=== PATIENT | male | born 1965 | race Caucasian/White ===

== ENCOUNTER 2023-01-30 22:05 | Emergency (ER) | payer MEDICAID, SELFPAY ==
[2023-01-30 22:07] VITALS: BP 139/93; PULSE 104; RESP 24; TEMP 36.6; O2SAT 97; BMI 30.4
--- NOTE | 2023-01-30 22:15 | ED.RN ---
family reports pt has not been taking any medications since moving in with them June 2020.
[2023-01-30 23:02] LABS: Absolute Lymphocyte Count 1.55 X10^3/uL (0.83-4.51); Absolute Neutrophil Count 9.3 X10^3/uL (2.0-7.7); Basophil# 0.03 X10^3/uL; Basophil% 0.3 % (0-1); Hematocrit 47.5 % (40-54); Hemoglobin 15.2 g/dL (13.0-16.5); Lymphocyte # 1.55 X10^3/ul (0.83-4.51); Lymphocyte % 13.5 % (19-41); Mean Corpuscular Hgb 28.3 pg (27.0-32.0); Mean Corpuscular Volume 88.3 fL (80-94); Mean Platelet Vol. 11.5 fl (6.2-12.0); Monocyte# 0.59 X10^3/uL; Monocyte% 5.1 % (0-10); NRBC Flagged by Analyzer 0 % (0-5); Neutrophil # 9.27 X10^3/uL (2.7-7.7); Neutrophil % 80.5 % (47-70); Platelet Count 210 K/mm3 (150-450); RBC Distribution Width CV 14.1 % (11.6-14.6); RBC Distribution Width SD 45.2 fl (35.1-43.9); Red Blood Count 5.38 M/mm3 (4.6-6.2); White Blood Count 11.5 K/mm3 (4.4-11.0)
--- NOTE | 2023-01-30 23:14 | EDS_ITS ---
HPI History of Present Illness Chief Complaint: Unresponsive Narrative Narrative: Patient is a 57-year-old male with past medical history of schizoaffective disorder. He was diagnosed with this after spending 5 to 7 days in a psychiatric hospital in 2019. He was taken from the hospital by his sisters who care for him at home and he has not been on medication for the past 2 to 3 years. Family reports that he will have periods where he is mute. They state they last saw him yesterday January 29 around 8 PM at his baseline. They state this evening they went to check on him and he was awake sitting in his chair but he was not speaking. They state that this is slightly more intense/severe than his previous episode. They also state they have noticed some blood on his close and they are unsure where it is coming from. They do have concern that this could be neurologic in nature as his weakness is more intense than in the past and therefore he was brought in for evaluation. The patient is not offering any history as he is mute at this time. PFSH PFS Medical History Schizophrenia Home Medications NK 01/30/23 [History Last Taken Unknown] Allergy/AdvReac Type Severity Reaction Status Date / Time No Known Allergies Allergy Verified 01/30/23 22:06 Social History Smoking Status: Never smoker ROS ROS ED Review of Systems ROS Unobtainable: due to mental condition EXAM Physical Exam Const Vital Signs: 01/30/23 22:07 01/31/23 00:06 01/31/23 00:45 Temperature 97.8 F Temperature Source Temporal Pulse Rate 104 H 99 93 Respiratory Rate 24 H 18 20 H Blood Pressure 139/93 H 153/90 H 141/90 H Blood Pressure Mean 108 111 107 Pulse Ox 97 100 98 Oxygen Delivery Method Room Air Room Air Room Air 01/31/23 01:59 01/31/23 03:00 01/31/23 04:00 Temperature Temperature Source Pulse Rate 98 82 80 Respiratory Rate 17 17 16 Blood Pressure 136/85 H 121/79 H 123/73 H Blood Pressure Mean 102 93 89 Pulse Ox 97 97 98 Oxygen Delivery Method Room Air Room Air Room Air 01/31/23 05:00 Temperature Temperature Source Pulse Rate 74 Respiratory Rate 17 Blood Pressure 126/69 H Blood Pressure Mean 88 Pulse Ox 99 Oxygen Delivery Method Room Air Positive well nourished, well developed and unkempt General Appearance ED: unkempt and well developed HEENT Reports moist mucous membranes HEENT Narrative: No tongue or cheek biting no oral lesions no signs of infection in the posterior pharynx Eyes PERRL and EOMs intact bilaterally General Eye ED: Negative for scleral icterus Neck supple Neck Narrative: No nuchal rigidity or meningeal signs noted Chest Wall palpation of chest normal Resp normal respiratory effort and clear to auscultation bilaterally Cardio regular rate and regular rhythm Rate: other Other Details: Radial pulses are plus 2 out of 4 bilaterally are equal and symmetric GI normal to inspection, nondistended, normoactive bowel sounds, non-tender, non- distended and no masses GI Narrative: No voluntary guarding or rigidity no pulsatile mass Auscultation: normoactive bowel sounds Palpation: soft Narrative: Rectal exam shows nonbleeding nonthrombosed external hemorrhoid. Rectal tone is normal there is no internal masses palpated. Stool is mucousy brown in color and Hemoccult negative. Extremity normal to inspection Extremity Narrative: No bony deformity or joint effusion. No asymmetric edema no pitting edema negative Homans' sign bilaterally Neuro CN's II-XII intact bilaterally Neuro Narrative: Patient is awake and alert and will follow commands but he will not speak. Other than his weakness there is no focal neurologic deficit. No truncal ataxia. No unilateral extremity weakness. Sensorium / Orientation: alert Psych Psych Narrative: Patient has a flat affect Appearance: unkempt Skin no rashes or lesions noted MDM MDM MDM Narrative Medical decision making narrative: Patient presented to the ER with stable vitals. He was mute and refusing to speak but can move all extremities with track with his eyes and follow commands such as opening his mouth. Based on his past medical history of schizoaffective disorder not being on medications for multiple years I felt he was experiencing negative symptoms of his mental illness. Family had concern for possible stroke however based on the report that he has never been this severe and secondary to this basic labs along with a CT and CTA were obtained. Labs revealed no clinically significant findings such as acute anemia electrolyte disturbance or alcohol intoxication. CT and CTA revealed no signs of bleed or acute stenosis. The patient was informed of his negative work-up but despite hearing this he still remained mainly catatonic. He is demonstrating that he is not capable of caring for himself and as he will not ambulate family cannot care for him either. Therefore it is felt he will need psychiatric treatment and crisis center was contacted. Crisis center evaluated the patient in the ER and they do agree that based on his severe negative symptoms that he will need placed for further care. At this time the patient's work-up is negative and he is medically cleared for transfer/placement in a psychiatric facility The patient is still pending acceptance at a psychiatric hospital and therefore he will be signed out to Dr. Mota/the [facility] physician pending placement History & Record Review Discussion w/independent historian: Family Lab Data Attestation: I reviewed the patient's lab results. Labs: Laboratory Results - last 24 hr 01/30/23 01/30/23 01/31/23 21:55 21:55 03:25 WBC 11.5 H RBC 5.38 Hgb 15.2 Hct 47.5 MCV 88.3 MCH 28.3 MCHC 32.0 RDW Std Deviation 45.2 H RDW Coeff of Antony 14.1 Plt Count 210 MPV 11.5 Immature Gran % (Auto) 0.600 Neut % (Auto) 80.5 H Lymph % (Auto) 13.5 L [place] % (Auto) 5.1 Eos % (Auto) 0.0 Baso % (Auto) 0.3 Absolute Neuts (auto) 9.3 H Absolute Lymphs (auto) 1.55 Nucleated RBC % 0 Sodium 145 Potassium 3.8 Chloride 110 H Carbon Dioxide 25.0 Anion Gap 10 BUN 16 Creatinine 1.02 Estim Creat Clear Calc 71.24 Est GFR (MDRD) Af Amer 96 Est GFR (MDRD) Non-Af 80 BUN/Creatinine Ratio 15.7 Glucose 117 H Calcium 9.7 Urine Opiates Screen Urine Methadone Screen Ur Barbiturates Screen Ur Phencyclidine Scrn Ur Amphetamines Screen MDMA (Ecstasy) Screen U Benzodiazepines Scrn Urine Cocaine Screen U Cannabinoids Screen Ur Drug Screen Comment Ethyl Alcohol < 3.0 01/31/23 04:10 WBC RBC Hgb Hct MCV MCH MCHC RDW Std Deviation RDW Coeff of Antony Plt Count MPV Immature Gran % (Auto) Neut % (Auto) Lymph % (Auto) [place] % (Auto) Eos % (Auto) Baso % (Auto) Absolute Neuts (auto) Absolute Lymphs (auto) Nucleated RBC % Sodium Potassium Chloride Carbon Dioxide Anion Gap BUN Creatinine Estim Creat Clear Calc Est GFR (MDRD) Af Amer Est GFR (MDRD) Non-Af BUN/Creatinine Ratio Glucose Calcium Urine Opiates Screen NEGATIVE Urine Methadone Screen NEGATIVE Ur Barbiturates Screen NEGATIVE Ur Phencyclidine Scrn NEGATIVE Ur Amphetamines Screen NEGATIVE MDMA (Ecstasy) Screen NEGATIVE U Benzodiazepines Scrn NEGATIVE Urine Cocaine Screen NEGATIVE U Cannabinoids Screen NEGATIVE Ur Drug Screen Comment Ethyl Alcohol Radiography Diagnostic Testing: Clinical Impression(s) from Imaging Studies Head/Neck CTA 01/31/23 00:00 IMPRESSION: Negative CT Brain, CTA Carotid, and CTA Brain. Electronically Signed: Bethany Manzano MD at 0:28 EDT , Discharge Plan Triage Chief Complaint: Unresponsive ED Provider: Zeferino Robbins Dx/Rx/DC Orders Clinical Impression: Schizoaffective disorder, depressive type, with catatonia Prescriptions: No Action NK Primary Care Provider: Care Physician,No Primary Referrals: Care Physician,No Primary [Primary Care Provider] - Disposition Disposition: Psychiatric Hospital or Unit
[2023-01-30 23:16] LABS: Anion Gap 10 (5-15); BUN 16 mg/dL (7-18); BUN/Creat Ratio 15.7 RATIO (10-20); Calcium,Total 9.7 mg/dL (8.5-10.1); Chloride 110 mmol/L (98-107); Creatinine, Serum 1.02 mg/dL (0.70-1.30); EST Glomerular Filtration Rate 80 mL/min (>60); Est Glom Filt Rate - Afr Amer 96 mL/min (>60); Estimated Creatinine Clearance 71.24 ml/min; Glucose 117 mg/dL (74-106); Potassium 3.8 mmol/L (3.5-5.1); Sodium Level 145 mmol/L (136-145)
[2023-01-30] MEDS: 0.9% Normal Saline 1,000 ML 999 ML IV (23:31)
[2023-01-31] VITALS (10 sets, daily range): BP systolic 121–153; BP diastolic 69–90; PULSE 74–99; RESP 16–20; TEMP 37.2; O2SAT 95–100; BMI 30.2
--- NOTE | 2023-01-31 | CT_ITS ---
INDICATION: weakness EXAMINATION: CT BRAIN WITH CONTRAST TECHNIQUE: Noncontrast axial images were obtained of the brain. Subsequently, routine carotid CT angiogram protocol was performed without and with IV contrast. In addition, images were obtained of the [place]. NASCET criteria using the distal ICAs for comparison were used for evaluation of stenoses. 3D reconstructions were reviewed. A radiation dose optimization technique was used for this scan. IV Contrast dosage and agent: COMPARISON: None. FINDINGS: --CT BRAIN: BRAIN PARENCHYMA: No intra- or extra-axial hemorrhage. No evidence of acute infarct. No intracranial mass or mass effect. There is preservation of the [place]/white matter interface. Posterior fossa structures are unremarkable. CSF SPACES: Appropriate for age. No hydrocephalus. Basal cisterns are patent. CALVARIUM, SKULL BASE, PARANASAL SINUSES AND MASTOID AIR CELLS: Clear. No discrete lytic or blastic abnormalities. ASPECTS Score for Acute Strokes: 10 --CTA NECK: AORTIC ARCH AND BRANCHES: Normal anatomy, patent. RIGHT CCA: No occlusion, significant stenosis or dissection. RIGHT ICA: No occlusion, significant stenosis or dissection. LEFT CCA: No occlusion, significant stenosis or dissection. LEFT ICA: No occlusion, significant stenosis or dissection. RIGHT VERTEBRAL ARTERY: No occlusion, significant stenosis or dissection. LEFT VERTEBRAL ARTERY: No occlusion, significant stenosis or dissection. NECK SOFT TISSUES: Unremarkable. --CTA HEAD: --Anterior circulation: ICAs: No significant stenosis at the intracranial/visualized segments. ACAs: No significant stenosis at the visualized segments. ACOM: Present. MCAs: No significant stenosis at the visualized segments. --Posterior circulation: tipple oiler: No significant stenosis at the visualized segments. BASILAR ARTERY: No significant stenosis. VERTEBRAL ARTERIES: No significant stenosis at the intradural/visualized segments. No evidence of intracranial aneurysm or vascular malformation. CT/CTA Head AND Neck W/ Contrast IMPRESSION: Negative CT Brain, CTA Carotid, and CTA Brain. Electronically Signed: Bethany Manzano MD at 0:28 EDT ,
--- NOTE | 2023-01-31 01:57 | ED.RN ---
PT ROLLED ON HIS RIGHT SIDE AND URINATED ON THE FLOOR. BED CHANGE, BILL CARE DONE AND NEW ATTENDS APPLIED. PT IS AWAKE BUT NONVERBAL
--- NOTE | 2023-01-31 02:13 | ED.RN ---
CRISIS PAGED TO SEE PATIENT AT THIS TIME
--- NOTE | 2023-01-31 03:15 | ED.RN ---
CRISIS HERE TO SEE PATIENT AT THIS TIME
--- NOTE | 2023-01-31 03:18 | EKG12_ITS ---
Test Reason : MHC Blood Pressure : / mmHG Vent. Rate : 083 BPM Atrial Rate : 083 BPM P-R Int : 132 ms QRS Dur : 088 ms QT Int : 384 ms P-R-T Axes : 000 026 021 degrees QTc Int : 451 ms Normal sinus rhythm Possible Inferior infarct , age undetermined Abnormal ECG Confirmed by ARMANDO HANSEN, JAZMINE ([id number]), production editor AZRA MOSER ([id number]) on 02/02/2023 6:56:08 AM Referred By: Confirmed By:LONNY ROBERTS MD
[2023-01-31 04:00] LABS: Alcohol, Blood (Medical)-Serum < 3.0 mg/dL
[2023-01-31 04:42] LABS: Amphetamine Urine VISTA NEGATIVE (<1000 ng/mL); Barbiturate Urine VISTA NEGATIVE (< 200 ng/mL); Benzodiazepine Urine VISTA NEGATIVE (< 200 ng/mL); Cocaine Urine VISTA NEGATIVE (< 300 ng/mL); Ecstacy Urine VISTA NEGATIVE (< 500 ng/mL); Methadone Urine VISTA NEGATIVE (< 300 ng/mL); PCP Urine VISTA NEGATIVE (< 25 ng/mL); THC Urine VISTA NEGATIVE (< 50 ng/mL); Vista UDS pH Range 6
--- NOTE | 2023-01-31 10:23 | NURSING ---
MARYAN, CHELSEY, CALLED. SHE IS DOING HIS ACCESSEMENT WITH THE SISTER. ASKED FOR EKG, COVID AND TOX SCREEN TO BE FAXED. DONE
--- NOTE | 2023-01-31 13:59 | NURSING ---
[facility] CALLED BY CRISIS. ETA IS 2 HRS NURSE TO NURSE IS [phone]
--- NOTE | 2023-01-31 17:06 | NURSING ---
HUMBERTO CALLED, 09 MIIN AWAY
== END 2023-01-31 18:03 ==
PROVIDERS: Emergency Provider Emergency Medicine; Visit Provider Emergency Medicine
DX: F25.9 Schizoaffective disorder, unspecified (principal); F32.A Depression, unspecified
CPT/HCPCS: 70496; 70498; 80048; 80307; 82077; 82274; 85025; 87811; 93005; 99285; J7030; P9612; Q9967; A4216

== ENCOUNTER 2023-02-23 13:08 | Emergency (ER) | payer MEDICAID, SELFPAY ==
[2023-02-23 13:10] VITALS: BP 116/74; PULSE 114; RESP 22; TEMP 37; O2SAT 97; BMI 30.5
--- NOTE | 2023-02-23 13:25 | ED.RN ---
PT IS ANSWERING BY NODDING HIS HEAD YES OR NO. DENIES PAIN OR INJURY, REFUSING ANY FOOD AT THIS TIME
--- NOTE | 2023-02-23 13:43 | CT_ITS ---
STUDY: CT BRAIN WITHOUT CONTRAST REASON FOR EXAM: Male, 58 years old. Change in Mental Status RADIATION DOSAGE (If Supplied By Facility): CTDIvol = ( 44.99 ) mGy, DLP = ( 855.03 ) mGycm TECHNIQUE: Transaxial CT imaging of the brain was performed without administration of intravenous contrast material. Individualized dose optimization techniques were used for this CT. COMPARISON: No relevant priors. FINDINGS: Normal soft tissue structures. Normal calvarium. Normal size ventricles and extra-axial spaces for the patient''s age. Normal white matter tracts of the cerebral hemispheres. Normal basal ganglia and thalami. Normal brainstem. Normal cerebellum. There is no intracranial hemorrhage. There are no findings of an acute ischemic infarction. Normal visualized paranasal sinuses. CT/Brain/Head without Contrast IMPRESSION: Normal unenhanced CT scan of the brain. Electronically Signed: Augustus Rainey MD at 14:16 EDT ,
--- NOTE | 2023-02-23 13:43 | EDS_ITS ---
HPI History of Present Illness Chief Complaint: Alt LOC Detail of Chief Complaint: Mental status change Informant: patient and EMS Narrative Narrative: Patient brought to the emergency department via EMS. Patient apparently was wandering the road and was not verbal. Patient has history of schizophrenia. Patient will not verbalize but will nod his head yes and no to questions. He denied injury. He denied chest pain or shortness of breath. He has been having some abdominal pain but it is unclear how long. He nods yes when asked if he had vomiting. He denies diarrhea. Prior similar symptoms: Yes PFSH PFS Medical History Schizophrenia Home Medications benztropine 0.5 mg tablet 0.5 mg PO BID 02/23/23 [History Last Taken Unknown] docusate sodium 100 mg capsule 100 mg PO DAILY 02/23/23 [History Last Taken Unknown] lorazepam 0.5 mg tablet 0.5 mg PO Q8 02/23/23 [History Last Taken Unknown] ziprasidone HCl 20 mg capsule 20 mg PO DAILY 02/23/23 [History Last Taken Unknown] Allergy/AdvReac Type Severity Reaction Status Date / Time No Known Allergies Allergy Verified 01/30/23 22:06 Social History Smoking Status: Never smoker ROS ROS ED Review of Systems ROS Unobtainable: other Constitutional Constitutional ED: Reports lethargy; Denies chills, fever(s), sweats or weight loss Eyes Eyes: Denies blurry vision, change in vision or diplopia ENT ENT ED: Denies rhinorrhea or sore throat Cardiovascular Cardiovascular: Denies chest pain, orthopnea or racing heartbeat Respiratory/Chest Respiratory/Chest: Denies cough, dyspnea, dyspnea on exertion, orthopnea or sputum Gastrointestinal Gastrointestinal: Reports abdominal pain, nausea and vomiting; Denies diarrhea Genitourinary Genitourinary ED: Denies dysuria, hematuria or urinary frequency Musculoskeletal Musculoskeletal: Denies arthralgias, back pain, myalgias or neck pain Integumentary Denies abscess, Abrasions or rash Neurologic Neurologic: Reports other Details: Mental status change ; Denies headache(s) or weakness Psychiatric Psychiatric: Denies anxiety, depression or suicidal thoughts Endocrine Endocrinology: Denies polydipsia, polyphagia or polyuria Hematologic/Lymphatic Hematologic/Lymphatic: Denies easy bleeding, easy bruising or lymphadenopathy Allergic/Immunologic Allergic/Immunologic ED: Denies mouth swelling, tongue swelling or urticaria EXAM Physical Exam Const Vital Signs: 02/23/23 13:10 02/23/23 13:20 02/23/23 14:54 Temperature 98.6 F Temperature Source Oral Pulse Rate 114 H 109 H Respiratory Rate 22 H 18 Respiratory Effort Normal Non-Labored Respiratory Pattern Normal Blood Pressure 116/74 138/79 H Blood Pressure Mean 88 98 Pulse Ox 97 98 Oxygen Delivery Method Room Air Room Air Positive well nourished and well developed General Appearance ED: well developed and NAD HEENT Reports TM's clear and moist mucous membranes normocephalic and atraumatic; Negative for trauma or tenderness Tympanic Membrane ED: Yes TM's clear Eyes PERRL and EOMs intact bilaterally General Eye ED: Negative for pale conjunctiva or scleral icterus Neck no lymphadenopathy, supple and no JVD General: Negative for tenderness Chest Wall inspection of chest normal and palpation of chest normal Chest: Negative for tenderness Resp normal respiratory effort and clear to auscultation bilaterally Effort and Inspection: Negative for respiratory distress or pain with movement Auscultation: Negative for rhonchi, wheezes or diminished lung sounds Cardio regular rate, regular rhythm, S1 normal heart sound, S2 normal heart sound and no murmurs Peripheral Pulses: pulses 2+ throughout GI normal to inspection, nondistended, normoactive bowel sounds, soft to palpation, non-tender, non-distended and no masses Back/Spine no CVA tenderness and no thoracic nor lumbar tenderness Extremity normal to inspection General Extremety ED: Negative for edema General Extremity: Negative for edema Neuro oriented x3, CN's II-XII intact bilaterally, no sensory deficits noted and gait normal Sensorium / Orientation: awake, alert, oriented to person, oriented to place and oriented to time Motor Exam: strength 5/5 throughout and strength abnormal Psych mental status grossly normal Skin no rashes or lesions noted and no wounds MDM MDM MDM Narrative Medical decision making narrative: IV established on arrival. CBC with differential obtained showed an elevated white count of 17,000. Chemistries unremarkable. Patient had a CT brain without contrast that was unremarkable. CT scan of the abdomen pelvis showed umbilical hernia containing fat also a 2.4 x 2.4 cm hypodense nodule along medial portion of the left kidney for which recommended ultrasound to evaluate further. Patient urinalysis and urine tox. Pending. Alcohol was negative. Patient sisters did arrive to the emergency department to give some history. Apparently he was just discharged from a psychiatric facility 2 days ago and he has not been himself. Patient was found wandering more than 5 miles away from the home while the sisters were at work. Care of patient will be turned over to evening physician awaiting evaluation by crisis and final disposition. Patient may require admission for possible placement to senior living or psychiatric facility as it is unclear if patient safe to go back home. Lab Data Labs: Laboratory Results - last 24 hr 02/23/23 02/23/23 02/23/23 13:17 13:17 13:17 WBC 17.0 H RBC 4.88 Hgb 13.8 Hct 43.1 MCV 88.3 MCH 28.3 MCHC 32.0 RDW Std Deviation 48.9 H RDW Coeff of Antony 15.2 H Plt Count 184 MPV 12.7 H Immature Gran % (Auto) 0.400 Neut % (Auto) 88.7 H Lymph % (Auto) 4.5 L Mcdonald % (Auto) 6.2 Eos % (Auto) 0.0 Baso % (Auto) 0.2 Absolute Neuts (auto) 15.1 H Absolute Lymphs (auto) 0.76 L Nucleated RBC % 0 Sodium 142 Potassium 3.9 Chloride 105 Carbon Dioxide 26.0 Anion Gap 11 BUN 12 Creatinine 1.20 Estim Creat Clear Calc 55.50 Est GFR (MDRD) Af Amer 80 Est GFR (MDRD) Non-Af 66 BUN/Creatinine Ratio 10.0 Glucose 93 Calcium 9.2 Total Bilirubin Direct Bilirubin AST ALT Alkaline Phosphatase Total Protein Albumin Globulin Ethyl Alcohol < 3.0 02/23/23 13:17 WBC RBC Hgb Hct MCV MCH MCHC RDW Std Deviation RDW Coeff of Antony Plt Count MPV Immature Gran % (Auto) Neut % (Auto) Lymph % (Auto) [place]cdonald % (Auto) Eos % (Auto) Baso % (Auto) Absolute Neuts (auto) Absolute Lymphs (auto) Nucleated RBC % Sodium Potassium Chloride Carbon Dioxide Anion Gap BUN Creatinine Estim Creat Clear Calc Est GFR (MDRD) Af Amer Est GFR (MDRD) Non-Af BUN/Creatinine Ratio Glucose Calcium Total Bilirubin 0.60 Direct Bilirubin 0.20 AST 27 ALT 27 Alkaline Phosphatase 32 L Total Protein 7.1 Albumin 3.4 Globulin 3.7 Ethyl Alcohol Radiography Diagnostic Testing: Clinical Impression(s) from Imaging Studies Brain CT 02/23/23 13:43 IMPRESSION: Normal unenhanced CT scan of the brain. Electronically Signed: Augustus Rainey MD at 14:16 EDT , Abdomen/Pelvis CT 02/23/23 14:14 IMPRESSION: Umbilical hernia containing fat. The neck of the hernia measures 2.3 cm. 2.4 cm x 2.4 cm hypodense nodule along the medial midportion of the left kidney with calcific rim posteriorly. Correlation with ultrasound is recommended for further evaluation. Electronically Signed: Augustus Rainey MD at 15:19 EDT , Discharge Plan Triage Chief Complaint: Alt LOC ED Provider: Salome Newell Dx/Rx/DC Orders Clinical Impression: Altered mental status, Schizophrenia Prescriptions: No Action benztropine 0.5 mg tablet 0.5 mg PO BID Label Comments: TAKE 1 TABLET BY MOUTH TWICE DAILY ziprasidone HCl 20 mg capsule 20 mg PO DAILY Label Comments: TAKE 1 CAPSULE BY MOUTH ONCE DAILY lorazepam 0.5 mg tablet 0.5 mg PO Q8 Label Comments: TAKE 1 TABLET BY MOUTH EVERY 8 HOURS FOR ANXIETY docusate sodium 100 mg capsule 100 mg PO DAILY Label Comments: TAKE 1 CAPSULE BY MOUTH TWICE DAILY Primary Care Provider: Care Physician,No Primary Referrals: Care Physician,No Primary [Primary Care Provider] -
[2023-02-23 13:55] LABS: Absolute Lymphocyte Count 0.76 X10^3/uL (0.83-4.51); Absolute Neutrophil Count 15.1 X10^3/uL (2.0-7.7); Basophil# 0.04 X10^3/uL; Basophil% 0.2 % (0-1); Hematocrit 43.1 % (40-54); Hemoglobin 13.8 g/dL (13.0-16.5); Lymphocyte # 0.76 X10^3/ul (0.83-4.51); Lymphocyte % 4.5 % (19-41); Mean Corpuscular Hgb 28.3 pg (27.0-32.0); Mean Corpuscular Volume 88.3 fL (80-94); Mean Platelet Vol. 12.7 fl (6.2-12.0); Monocyte# 1.06 X10^3/uL; Monocyte% 6.2 % (0-10); NRBC Flagged by Analyzer 0 % (0-5); Neutrophil # 15.06 X10^3/uL (2.7-7.7); Neutrophil % 88.7 % (47-70); Platelet Count 184 K/mm3 (150-450); RBC Distribution Width CV 15.2 % (11.6-14.6); RBC Distribution Width SD 48.9 fl (35.1-43.9); Red Blood Count 4.88 M/mm3 (4.6-6.2)
[2023-02-23 14:05] LABS: Anion Gap 11 (5-15); BUN 12 mg/dL (7-18); Calcium,Total 9.2 mg/dL (8.5-10.1); Chloride 105 mmol/L (98-107); EST Glomerular Filtration Rate 66 mL/min (>60); Est Glom Filt Rate - Afr Amer 80 mL/min (>60); Glucose 93 mg/dL (74-106); Potassium 3.9 mmol/L (3.5-5.1); Sodium Level 142 mmol/L (136-145)
[2023-02-23 14:12] LABS: Alcohol, Blood (Medical)-Serum < 3.0 mg/dL
--- NOTE | 2023-02-23 14:14 | CT_ITS ---
STUDY: CT ABDOMEN AND PELVIS WITHOUT CONTRAST REASON FOR EXAM: Male, 58 years old. Abdominal pain and emesis. RADIATION DOSAGE (If Supplied By Facility): CTDIvol = ( 47.06 ) mGy, DLP = ( 855.03 ) mGycm TECHNIQUE: Transaxial images were obtained from the dome of the diaphragm to the symphysis pubis without oral contrast, and without intravenous contrast. Sagittal and coronal images were reconstructed. Individualized dose optimization techniques were used for this CT. COMPARISON: None. FINDINGS: Calcified granuloma in the left lower lobe. Coronary artery calcification. Normal liver. There are surgical clips in the gallbladder fossa consistent with a prior cholecystectomy. Normal spleen. Normal pancreas. Normal bilateral adrenal glands. Normal right kidney. There is a 2.4 cm x 2.4 cm hypodense nodule on the medial midportion of the left kidney with the calcific rim along its dependent portion. This is not a typical cyst. Correlation with ultrasound is recommended for further assessment. Normal visualized stomach. Normal small intestine. Normal colon. The appendix is visualized and appears normal. Normal abdominal aorta. Normal inferior vena cava. Normal retroperitoneum. Normal urinary bladder. There are prostatic calcifications. Umbilical hernia containing fat. The neck of the hernia measures 2.3 cm. Normal osseous structures. CT/Abdomen/Pelvis without Cont IMPRESSION: Umbilical hernia containing fat. The neck of the hernia measures 2.3 cm. 2.4 cm x 2.4 cm hypodense nodule along the medial midportion of the left kidney with calcific rim posteriorly. Correlation with ultrasound is recommended for further evaluation. Electronically Signed: Augustus Rainey MD at 15:19 EDT ,
[2023-02-23 14:53] LABS: AST(SGOT) 27 U/L (15-37); Alanine Aminotransfer ALT/SGPT 27 U/L (16-61); Albumin, Serum 3.4 g/dL (3.2-5.0); Alkaline Phosphatase 32 U/L (45-117); Globulin 3.7 g/dL (2.2-4.2); Protein, Total 7.1 g/dL (6.4-8.2)
[2023-02-23 14:54] VITALS: BP 138/79; PULSE 109; RESP 18; O2SAT 98
--- NOTE | 2023-02-23 15:42 | ED.RN ---
crisis reports that the next worker comes on at 4pm, and will be in to evaluate pt shortly after that.
[2023-02-23] MEDS: LORazepam 0.5 MG Tablet PO (16:20)
[2023-02-23] MEDS: Benztropine Mesylate 0.5 MG TABLET PO (16:50)
--- NOTE | 2023-02-23 17:22 | ED.RN ---
FAXED INFORMATION TO CRISIS. CRISIS CAME TO HOSPITAL TO EVALUATE. CRISIS SAID SHE WOULD TRY TO GET ADMITTED TO [facility].
[2023-02-23 18:50] VITALS: BP 138/74; PULSE 103; RESP 16; O2SAT 96
--- NOTE | 2023-02-23 20:28 | ED.RN ---
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 NO INSURANCE NO FUNDING LEFT, REFERRED TO [facility]. WILL NEED TOXICOLOGY DONE AND FAXED TO CRISIS.
[2023-02-24] VITALS (7 sets, daily range): BP systolic 130–132; BP diastolic 70–84; PULSE 84–97; RESP 14–20; TEMP 36.7; O2SAT 96–98
[2023-02-24 06:52] LABS: Amphetamine Urine VISTA NEGATIVE (<1000 ng/mL); Barbiturate Urine VISTA NEGATIVE (< 200 ng/mL); Benzodiazepine Urine VISTA NEGATIVE (< 200 ng/mL); Cocaine Urine VISTA NEGATIVE (< 300 ng/mL); Ecstacy Urine VISTA NEGATIVE (< 500 ng/mL); Methadone Urine VISTA NEGATIVE (< 300 ng/mL); PCP Urine VISTA NEGATIVE (< 25 ng/mL); THC Urine VISTA NEGATIVE (< 50 ng/mL); Vista UDS pH Range 5
[2023-02-24] MEDS: Benztropine Mesylate 0.5 MG TABLET PO (16:08)
[2023-02-24] MEDS: LORazepam 0.5 MG Tablet PO ×2 (16:08→22:10)
[2023-02-24] MEDS: Ziprasidone HCl 20 MG Capsule PO (16:08)
--- NOTE | 2023-02-24 17:00 | CM.ED ---
Social Work Note BOOGIE contacted by Jody with [facility] to provide update regarding referral for patient. Jody explained the patient was recently discharged from [facility] but is unable to return as there is no additional funds available for placement there. Referral sent to [facility], however, [facility] is unable to accept referrals this weekend. Patient will be reviewed for acceptance early next week. BOOGIE updated seam hammerer Alyssa of plan. Plan: referral to [facility] for review next week. Randa Florian MANDREL CLEANER, [place]
[2023-02-24 23:17] LABS: Bacteria 0 SEEN /hpf (None Seen); Mucous, Urine 0 SEEN /hpf (<or=2+); Red Blood Cells-Urine 0 SEEN /hpf (0-5)
[2023-02-24 23:21] LABS: Color, Urine Yellow (Yellow); Glucose, Dipstick Normal (Normal); Leukocyte Esterase-Dipstick 25 /ul (Negative); Nitrite-Dipstick Negative (Negative); Occult Blood-Urine Negative /ul (Negative); Protein-Dipstick 30 mg/dl (Negative); Specific Gravity, Urine 1.025 (1.002-1.030); Urine Clarity Sl. Cloudy (Clear); Urine Urobilinogen 1 mg/dl (Normal)
[2023-02-24 23:33] LABS: Ketone-Dipstick 150 mg/dl (Negative); Urine Bilirubin Dipstick 1 mg/dL (Negative)
[2023-02-24 23:36] LABS: White Blood Cells 0-5 SEEN /hpf (0-5)
[2023-02-24 23:37] LABS: Calcium Oxalate Crystals Ur 1+ /hpf (<or=2+); Squamous Epithelial Cells - UA 0-5 SEEN /hpf (0-5)
[2023-02-25] VITALS (10 sets, daily range): BP systolic 106–116; BP diastolic 60–78; PULSE 71–78; RESP 16–18; O2SAT 93–98
[2023-02-25] MEDS: LORazepam 0.5 MG Tablet PO ×3 (08:11→23:09)
--- NOTE | 2023-02-25 08:14 | ED.RN ---
PT VERY ALERT AND ENGAGING THIS AM. PT MAKES CONVERSATION WITH THIS NURSE. PT ACCEPTS [facility] AND MEDICATIONS WITHOUT DIFFICULTY AND SAYS THANK YOU
[2023-02-25] MEDS: Benztropine Mesylate 0.5 MG TABLET PO ×2 (10:34→23:09)
[2023-02-25] MEDS: Ziprasidone HCl 20 MG Capsule PO (10:34)
[2023-02-26 01:00] VITALS: RESP 16
[2023-02-26 03:00] VITALS: RESP 16
[2023-02-26 04:00] VITALS: RESP 18
[2023-02-26 05:00] VITALS: RESP 16
[2023-02-26 06:00] VITALS: RESP 16
--- NOTE | 2023-02-26 08:28 | ED.RN ---
pt refusing to eat and ativan. pt calm at this time.,
[2023-02-26 08:29] VITALS: BP 119/78; PULSE 78; RESP 16; O2SAT 98
--- NOTE | 2023-02-26 10:02 | ED.RN ---
[facility] accepted pt. dr. nunes excepting. called for transport.
--- NOTE | 2023-02-26 10:15 | ED.RN ---
[facility]. PHYSICIANS ETA 10:45 AM
== END 2023-02-26 10:53 ==
LOC: ED 14:49
PROVIDERS: Emergency Medicine; Emergency Provider Emergency Medicine; Visit Provider Emergency Medicine
DX: F20.9 Schizophrenia, unspecified (principal)
CPT/HCPCS: 70450; 74176; 80048; 80076; 80307; 81001; 82077; 85025; 87811; 93005; 99285

== ENCOUNTER 2023-12-13 13:17 | Emergency (ER) | payer MEDICAID, SELFPAY ==
[2023-12-13 13:18] VITALS: PULSE 82; RESP 18; TEMP 36.9; O2SAT 100; BMI 35.5
[2023-12-13 13:20] VITALS: BP 128/78
--- NOTE | 2023-12-13 13:42 | EX.ED.DYSGE1 ---
HPI History of Present Illness Chief Complaint: Lower Extremity Injury [facility] Medical History Schizophrenia Home Medications benztropine 0.5 mg tablet 0.5 mg PO BID 02/23/23 [History Last Taken Unknown] docusate sodium 100 mg capsule 100 mg PO DAILY 02/23/23 [History Last Taken Unknown] lorazepam 0.5 mg tablet 0.5 mg PO Q8 02/23/23 [History Last Taken Unknown] ziprasidone HCl 20 mg capsule 20 mg PO DAILY 02/23/23 [History Last Taken Unknown] cephalexin 500 mg capsule 500 mg PO TID 7 days #21 caps 12/13/23 [Rx Last Taken Unknown] sulfamethoxazole 800 mg-trimethoprim 160 mg tablet (Bactrim DS) 1 tab PO BID #14 tabs 12/13/23 [Rx Last Taken Unknown] Allergy/AdvReac Type Severity Reaction Status Date / Time No Known Allergies Allergy Verified 12/13/23 13:18 Social History Smoking Status: Never smoker EXAM Physical Exam Const Vital Signs: 12/13/23 13:18 12/13/23 13:20 Temperature 98.4 F Temperature Source Temporal Pulse Rate 82 Respiratory Rate 18 Blood Pressure 128/78 H Blood Pressure Mean 94 Pulse Ox 100 Oxygen Delivery Method Room Air MDM MDM MDM Narrative Medical decision making narrative: HISTORY OF PRESENT ILLNESS: 58-year-old male presents with bilateral leg swelling. Notes 4 days of swelling and redness. Notes redness to bilateral lower extremities. Denies history of diabetes or fever. Denies any vomiting. Patient denies active cancer, being bedridden for greater than 3 days, denies unilateral leg swelling, denies any varicose veins, denies any calf tenderness, denies tenderness along deep venous system. Denies major surgery within 12 weeks, recent paralysis, previous DVT. REVIEW OF SYSTEMS: Pertinent positives: Leg swelling Pertinent negatives: Calf tenderness, shortness of breath, chest pain, vomiting, abdominal pain, jaundice PHYSICAL EXAM: Nursing triage notes reviewed, Vital signs reviewed Constitutional: please see mdm Lungs: Clear to auscultation, No wheezing or rales. No increased work of breathing, no conversational dyspnea, no accessory muscle use, no nasal flaring. No respiratory distress noted Heart: Regular rate and rhythm, No murmurs, No rubs and No gallops, 2+ distal pulses (radial, femoral, posterior tibial) in all extremities Abdomen: Soft, there is no tenderness, rigidity, rebound or guarding, no obvious peritoneal signs, no palpable pulsatile abdominal masses, no auscultated abdominal bruit : No CVAT Extremities: N 1+ pitting edema bilateral lower extremities Neuro: Intact sensation L1-S1 dermatomal distributions. Intact 5/5 strength in hip flexion (T12-L3). Knee extension (L2-L4). Ankle dorsiflexion (L4-L5). Ankle plantar flexion (S1). Great toe extension (L5). 2+ patellar and Achilles DTRs. Skin: N confluent erythema noted to bilateral lower extremities, MEDICAL DECISION MAKING: Chief Complaint: Bilateral leg swelling External records reviewed: Last ED visit in February 2023 for altered mental status Factors affecting care: Schizoaffective disorder Social determinants of health: Denies alcohol abuse History obtained from others: Family member MDM Narrative: Patient was hemodynamically stable, afebrile, nontoxic-appearing. Exam consistent with likely cellulitis of confluent erythema noted to bilateral lower extremities with 1+ edema. Patient denies chest pain or shortness of breath to suggest ACS or heart failure as potential causes lower extremity edema. Had a low risk DVT score which makes DVT less likely. Exam clinically consistent with cellulitis. No crepitus or bullae or pain on portion exam to suggest necrotizing fasciitis. There is no fluctuance or induration to suggest abscess. Patient was given Keflex and Bactrim for broad gram-positive coverage. He was given strict return precautions and follow-up instructions. The patient and/or family, caregivers express understanding. The patient and/or family, caregivers agrees with the plan. Shared decision making: I will have a discussion with the patient and or visitors regarding risk/benefits of further testing or admission. They will be made aware of of the risk/benefits inherent in this decision they will be given the opportunity to voice understanding. Total critical care time today provided was at least 0 [] minutes. This excludes separately billable procedures. Critical care time (if documented) is secondary to the patient having high probability of clinically significant/life threatening deterioration in the patient's condition which required my urgent intervention. Impression: 1. Bilateral lower extremity cellulitis Dispo: Discharge home Discharge Plan Triage Chief Complaint: Lower Extremity Injury ED Provider: Dejon Dowling Dx/Rx/DC Orders Clinical Impression: Cellulitis Instructions: Cellulitis Prescriptions: New sulfamethoxazole-trimethoprim [Bactrim DS] 800-160 mg tablet 1 tab PO BID Qty: 14 0RF cephalexin 500 mg capsule 500 mg PO TID 7 Days Qty: 21 0RF No Action benztropine 0.5 mg tablet 0.5 mg PO BID Patient Comments: TAKE 1 TABLET BY MOUTH TWICE DAILY ziprasidone HCl 20 mg capsule 20 mg PO DAILY Patient Comments: TAKE 1 CAPSULE BY MOUTH ONCE DAILY lorazepam 0.5 mg tablet 0.5 mg PO Q8 Patient Comments: TAKE 1 TABLET BY MOUTH EVERY 8 HOURS FOR ANXIETY docusate sodium 100 mg capsule 100 mg PO DAILY Patient Comments: TAKE 1 CAPSULE BY MOUTH TWICE DAILY Primary Care Provider: Care Physician,No Primary Referrals: Efraín Irving MD [Med Staff - Preparer Making Department] - Activity Restrictions/Additional Instructions: Thank you for trusting us with your care today! Please take antibiotics as prescribed. Please finish entire course until antibiotics are complete. Please take Tylenol (2 pills, 650 mg), ibuprofen (2 pills, 400 mg) every 6 hours as needed for pain and fever control. Please return to the emergency department if your symptoms change or worsen. Specifically develop worsening redness, he develop fever, vomiting, if you lose consciousness. If redness progresses toward your heart quickly over a matter of hours. Please follow with your primary care physician for further outpatient evaluation and management. Disposition Disposition: Home, Self Care
[2023-12-13] MEDS: Smz/Tmp Ds Tablet 1 TABLET PO (14:20)
[2023-12-13] MEDS: Cephalexin 250 MG Capsule 500 MG PO (14:20)
== END 2023-12-13 14:36 | disposition home or self-care (01) ==
LOC: ED 14:04
PROVIDERS: Emergency Provider Emergency Medicine; Referring Provider Emergency Medicine; Visit Provider Emergency Medicine
DX: L03.115 Cellulitis of right lower limb (principal); L03.116 Cellulitis of left lower limb
CPT/HCPCS: 99283

== ENCOUNTER 2023-12-16 18:14 | Inpatient (IN) | payer MEDICAID, SELFPAY ==
[2023-12-16 18:15] VITALS: BP 107/73; PULSE 100; RESP 20; TEMP 36.9; O2SAT 95
--- NOTE | 2023-12-16 18:59 | CT_ITS ---
EXAM: CT HEAD WITHOUT INTRAVENOUS CONTRAST CLINICAL INDICATION: falls TECHNIQUE: Multiple axial images were obtained of the head without intravenous contrast. This CT exam was performed using one or more of the following dose reduction techniques: automated exposure control, adjustment of the mA and/or kV according to patient size, and/or use of iterative reconstruction technique. RADIATION DOSE: CTDIvol = 44.99 mGy, DLP = 812.98 mGy-cm COMPARISON: No relevant prior studies available. FINDINGS: BRAIN AND EXTRA-AXIAL SPACES: Unremarkable. No intra- or extra-axial hemorrhage. No evidence of acute infarct. No intracranial mass or mass effect. There is preservation of the okeefe/white matter interface. Posterior fossa structures are unremarkable. Ventricles are appropriate for age. No hydrocephalus. Basal cisterns are patent. BONES/JOINTS: Unremarkable. No discrete lytic or blastic abnormalities. SINUSES: Unremarkable as visualized. Clear. MASTOID AIR CELLS: Unremarkable. Clear. ORBITS: Visualized globes, extraocular muscles, optic nerves and retrobulbar fat appear unremarkable. CT/Brain/Head without Contrast IMPRESSION: Negative head/brain CT without intravenous contrast. Electronically Signed: Jamil Heaton MD at 20:00 EST ,
--- NOTE | 2023-12-16 19:05 | EX.ED.DYSGE1 ---
HPI <AYO Marrufo - Last Filed: 12/16/23 21:02> History of Present Illness Chief Complaint: Fall Narrative Narrative: Patient is a 57-year-old male with history of schizophrenia, obesity who lives with his sister presents to the emergency department for multiple falls. Per the sister, the patient had 3-4 falls today, has been more weak. Patient while on the way here fell outside in the mud. Denies any head or neck pain. Patient does not complain of any pain. Patient is amatory without a walker however is shaky secondary to schizophrenia. PFSH <AYO Marrufo - Last Filed: 12/16/23 21:02> [facility] Medical History (Updated 12/16/23 @ 21:[address] Clarissa Garg MD) Anxiety and depression Obesity Schizoaffective disorder Home Medications benztropine 0.5 mg tablet 0.5 mg PO BID 02/23/23 [History Last Taken Unknown] cephalexin 500 mg capsule 500 mg PO TID 7 days #21 caps 12/13/23 [Rx Last Taken Unknown] sulfamethoxazole 800 mg-trimethoprim 160 mg tablet (Bactrim DS) 1 tab PO BID #14 tabs 12/13/23 [Rx Last Taken Unknown] cholecalciferol (vitamin D3) 125 mcg (5,000 unit) capsule 5,000 unit PO DAILY 12/16/23 [History Last Taken Unknown] haloperidol decanoate 100 mg/mL intramuscular solution mg IM 12/16/23 [History Last Taken 12/06/23] melatonin 3 mg tablet 3 mg PO QHS 12/16/23 [History Last Taken Unknown] Allergy/AdvReac Type Severity Reaction Status Date / Time No Known Allergies Allergy Verified 12/16/23 18:15 Family History (Updated 12/16/23 @ 21:[address] Clarissa Garg MD) Mother Anxiety and depression Hypertension Father Esophageal dysfunction Grandfather Heart disease Paternal GF. Myocardial infarction Paternal GF. CAD (coronary artery disease) Paternal GF. Surgical History (Updated 12/16/23 @ 21:[address] Clarissa Garg MD) History of elbow surgery Social History (Updated 12/16/23 @ 21:[address] Clarissa Garg MD) household members: other details: Lives with his sister. Smoking Status: Never smoker alcohol intake: never substance use type: does not use ROS <AYO Marrufo - Last Filed: 12/16/23 21:02> ROS ED ROS Narrative Constitutional: Negative for fever, chills, weight loss, positive for weakness Eyes: Negative for vision loss, vision change, double vision ENT: Negative for any sore throat, ear pain, congestion Cardiovascular: Negative for any chest pain, tightness, palpitations Respiratory: Negative for any cough, sputum production, hemoptysis, dyspnea, dyspnea on exertion, orthopnea Gastrointestinal: Negative for any abdominal pain, nausea, vomiting, diarrhea, constipation, blood in stool, blood in vomit : Negative for any urinary frequency, dysuria, retention, blood in urine Muscle skeletal: Negative for any myalgias, arthralgias, neck pain, back pain Neurological: Negative for any headache, syncope, paresthesias, dizziness Skin: Negative for any rashes, lumps, itching, abrasions, lacerations Psychiatric: Negative for any depression, anxiety, stress, suicidal ideation, homicidal ideation Hematologic: Negative for any easy bruising, excessive bruising, easy bleeding Allergies: Negative for any eczema, hives, rash EXAM <AYO Marrufo - Last Filed: 12/16/23 21:02> Physical Exam Narrative Exam Narrative: Vital signs reviewed. Patient was disheveled, full of mud. I did strip the patient of is cloths. Patient did appear to have settled his underwear. Patient does have full shaking which is consistent with the patient's medication that he takes. This is per his sister. HEET: Head normocephalic atraumatic, TMs clear bilaterally. Posterior pharynx is clear, moist mucous membranes. Nares clear bilaterally. Neck: Supple with no lymphadenopathy or tenderness. No signs of meningismus. Cardiac: Regular rate and rhythm no murmurs gallops or rubs, equal peripheral pulses bilaterally. Respiratory: Lungs clear to auscultation bilaterally. No chest tenderness. Abdomen: Soft, nontender, nondistended. No abdominal bruit or pulsatile masses. No hepatosplenomegaly Extremities: +2 pedal edema, no signs of cellulitis., no signs of gross trauma or deformity. Active full range of motion of all extremities. Patient does have abrasion to the right elbow, pain with movement. Slight edema. Neuro: Cranial nerves II through XII intact, no focal neurological deficits. Skin: Clean dry and intact with no rash, purpura, petechiae, vesicles or pustules. Backs/flank: No CVA tenderness, no midline spinal tenderness, no deformity. Patient does have some soft tissue injury to the right flank, right lateral area. Psych: Normal mood and affect. No SI, HI or acute psychosis. Const Vital Signs: 12/16/23 18:15 12/16/23 19:33 12/16/23 19:33 Temperature 98.4 F Temperature Source Temporal Pulse Rate 100 95 Respiratory Rate 20 H 20 H Respiratory Effort Normal Respiratory Depth Normal Blood Pressure 107/73 118/79 Blood Pressure Mean 84 92 Pulse Ox 95 99 Oxygen Delivery Method Room Air Room Air Room Air 12/16/23 20:47 Temperature Temperature Source Pulse Rate 77 Respiratory Rate 22 H Respiratory Effort Respiratory Depth Blood Pressure 114/75 Blood Pressure Mean 88 Pulse Ox 98 Oxygen Delivery Method Room Air Positive unkempt General Appearance ED: unkempt Psych Appearance: unkempt <Dr. Everton Shin DO - Last Filed: 12/16/23 23:30> Physical Exam Const Vital Signs: 12/16/23 18:15 12/16/23 19:33 12/16/23 19:33 Temperature 98.4 F Temperature Source Temporal Pulse Rate 100 95 Respiratory Rate 20 H 20 H Respiratory Effort Normal Respiratory Depth Normal Blood Pressure 107/73 118/79 Blood Pressure Mean 84 92 Pulse Ox 95 99 Oxygen Delivery Method Room Air Room Air Room Air 12/16/23 20:47 Temperature Temperature Source Pulse Rate 77 Respiratory Rate 22 H Respiratory Effort Respiratory Depth Blood Pressure 114/75 Blood Pressure Mean 88 Pulse Ox 98 Oxygen Delivery Method Room Air MAYA <AYO Marrufo - Last Filed: 12/16/23 21:02> [facility] Lab Data Attestation: I reviewed the patient's lab results. Labs: Laboratory Results - last 24 hr 12/16/23 12/16/23 19:35 21:10 WBC 15.3 H RBC 4.57 L Hgb 13.2 Hct 40.7 MCV 89.1 MCH 28.9 MCHC 32.4 RDW Std Deviation 46.1 H RDW Coeff of Antony 14.3 Plt Count 167 MPV 11.2 Immature Gran % (Auto) 0.600 Neut % (Auto) 85.7 H Lymph % (Auto) 6.4 L Emmons % (Auto) 6.8 Eos % (Auto) 0.4 Baso % (Auto) 0.1 Absolute Neuts (auto) 13.1 H Absolute Lymphs (auto) 0.98 Nucleated RBC % 0 Sodium 141 Potassium 4.3 Chloride 110 H Carbon Dioxide 26.0 Anion Gap 5 BUN 21 H Creatinine 1.74 H Est GFR (MDRD) Af Amer 52 L Est GFR (MDRD) Non-Af 43 L BUN/Creatinine Ratio 12.1 Glucose 103 Calcium 10.0 Total Bilirubin 0.50 AST 26 ALT 35 Alkaline Phosphatase 35 L Troponin I High Sens 11 B-Natriuretic Peptide 16.5 Total Protein 7.5 Albumin 3.7 Globulin 3.8 Albumin/Globulin Ratio 1.0 Urine Color Yellow Urine Clarity Sl. Cloudy Urine pH 6.0 Ur Specific Hobbs 1.020 Urine Protein 15 H Urine Glucose (UA) Normal Urine Ketones Negative Urine Occult Blood 10 H Urine Nitrite Negative Urine Bilirubin Negative Urine Urobilinogen Normal Ur Leukocyte Esterase Negative Urine RBC 0-5 SEEN Urine WBC 0 SEEN Ur Squamous Epith Cells 0-5 SEEN Amorphous Sediment 1+ URATE Urine Bacteria 0 SEEN Urine Mucus 0 SEEN Radiography Diagnostic Testing: Clinical Impression(s) from Imaging Studies Brain CT 12/16/23 18:59 IMPRESSION: Negative head/brain CT without intravenous contrast. Electronically Signed: Jamil Heaton MD at 20:00 EST , Elbow X-Ray 12/16/23 19:12 IMPRESSION: Chronic abnormality of the radial head is disrupting the anterior humeral line and radiocapitellar line. Electronically Signed: Jamil Heaton MD at 20:37 EST , Chest X-Ray 12/16/23 19:55 IMPRESSION: No radiographic evidence of acute cardiopulmonary disease. Electronically Signed: Jamil Heaton MD at 20:35 EST , EKG EKG shows normal sinus rhythm,: Attestation: I personally reviewed and interpreted this EKG as follows: Comments: EKG shows a normal sinus rhythm, rate of 74 bpm, MS interval 156 ms, QRS duration 80 ms, no acute ST elevation, no acute infarct noted. Treatment and Re-Evaluation :: Patient appears to be in no obvious respiratory distress, vital signs are stable. Presenting to the emergency department for multiple falls, weakness, slight altered mental status. Patient will receive basic laboratory values, CT scan of the brain, chest x-ray. Patient will receive x-rays of the right elbow. Patient states to have no significant pain, patient is difficult to assess secondary to being a poor historian. I did get most of the history from the patient's sister. Differential diagnosis includes closed head injury, concussion, intracranial bleeding, electrolyte abnormality, urinary tract infection. All radiologic examinations were read, reviewed by the emergency department attending. From these reads, a plan of care will be put in place. Patient CT scan of the brain shows no acute process. Patient's chest x-ray per the ER physician shows no acute evidence of acute cardiopulmonary disease. Elbow x-ray shows chronic changes. Patient's laboratory values show a leukocytosis with a white blood count of 15.3, patient's chemistries show a increase in creatinine at 1.74, GFR 52, patient is baseline 1.0. Troponin will be added. At this time, the patient has had several falls at home, per the sister, the patient is not acting appropriate, I believe that the patient would benefit from admission. Patient be placed on Rocephin this will cover any UTI, as well as any cellulitis. Patient was also given 60 mg of IV Lasix for fluid overload, bilateral lower leg edema. I will speak with hospitalist Hospitalist accept the patient. Patient is stable for admission. <Dr. Everton Shin, DO - Last Filed: 12/16/23 23:30> [facility] History & Record Review Discussion w/independent historian: Patient and Family Lab Data Labs: Laboratory Results - last 24 hr 12/16/23 12/16/23 19:35 21:10 WBC 15.3 H RBC 4.57 L Hgb 13.2 Hct 40.7 MCV 89.1 MCH 28.9 MCHC 32.4 RDW Std Deviation 46.1 H RDW Coeff of Antony 14.3 Plt Count 167 MPV 11.2 Immature Gran % (Auto) 0.600 Neut % (Auto) 85.7 H Lymph % (Auto) 6.4 L Emmons % (Auto) 6.8 Eos % (Auto) 0.4 Baso % (Auto) 0.1 Absolute Neuts (auto) 13.1 H Absolute Lymphs (auto) 0.98 Nucleated RBC % 0 Sodium 141 Potassium 4.3 Chloride 110 H Carbon Dioxide 26.0 Anion Gap 5 BUN 21 H Creatinine 1.74 H Est GFR (MDRD) Af Amer 52 L Est GFR (MDRD) Non-Af 43 L BUN/Creatinine Ratio 12.1 Glucose 103 Calcium 10.0 Total Bilirubin 0.50 AST 26 ALT 35 Alkaline Phosphatase 35 L Troponin I High Sens 11 B-Natriuretic Peptide 16.5 Total Protein 7.5 Albumin 3.7 Globulin 3.8 Albumin/Globulin Ratio 1.0 Urine Color Yellow Urine Clarity Sl. Cloudy Urine pH 6.0 Ur Specific Hobbs 1.020 Urine Protein 15 H Urine Glucose (UA) Normal Urine Ketones Negative Urine Occult Blood 10 H Urine Nitrite Negative Urine Bilirubin Negative Urine Urobilinogen Normal Ur Leukocyte Esterase Negative Urine RBC 0-5 SEEN Urine WBC 0 SEEN Ur Squamous Epith Cells 0-5 SEEN Amorphous Sediment 1+ URATE Urine Bacteria 0 SEEN Urine Mucus 0 SEEN Radiography Diagnostic Testing: Clinical Impression(s) from Imaging Studies Brain CT 12/16/23 18:59 IMPRESSION: Negative head/brain CT without intravenous contrast. Electronically Signed: Jamil Heaton MD at 20:00 EST , Elbow X-Ray 12/16/23 19:12 IMPRESSION: Chronic abnormality of the radial head is disrupting the anterior humeral line and radiocapitellar line. Electronically Signed: Jamil Heaton MD at 20:37 EST , Chest X-Ray 12/16/23 19:55 IMPRESSION: No radiographic evidence of acute cardiopulmonary disease. Electronically Signed: Jamil Heaton MD at 20:35 EST , Treatment and Re-Evaluation :: Patient appears to be in no obvious respiratory distress, vital signs are stable. Presenting to the emergency department for multiple falls, weakness, slight altered mental status. Patient will receive basic laboratory values, CT scan of the brain, chest x-ray. Patient will receive x-rays of the right elbow. Patient states to have no significant pain, patient is difficult to assess secondary to being a poor historian. I did get most of the history from the patient's sister. Differential diagnosis includes closed head injury, concussion, intracranial bleeding, electrolyte abnormality, urinary tract infection. All radiologic examinations were read, reviewed by the emergency department attending. From these reads, a plan of care will be put in place. Patient CT scan of the brain shows no acute process. Patient's chest x-ray per the ER physician shows no acute evidence of acute cardiopulmonary disease. Elbow x-ray shows chronic changes. Patient's laboratory values show a leukocytosis with a white blood count of 15.3, patient's chemistries show a increase in creatinine at 1.74, GFR 52, patient is baseline 1.0. Troponin will be added. At this time, the patient has had several falls at home, per the sister, the patient is not acting appropriate, I believe that the patient would benefit from admission. Patient be placed on Rocephin this will cover any UTI, as well as any cellulitis. Patient was also given 60 mg of IV Lasix for fluid overload, bilateral lower leg edema. I will speak with hospitalist Hospitalist accept the patient. Patient is stable for admission. I have personally performed a face to face assessment of the patient and have reviewed the SELAM Note. I performed a substantive portion of the visit including all aspects of the following. My mccord findings include: History is 57-year-old male seen recently for lower extremity edema and erythema. He was diagnosed with lower extremity cellulitis started on Bactrim and Keflex. He states that his legs have continued to be swollen. He states they feel very heavy. He believes that they are contributing to him having fallen about 5 times today. During one of the falls he caused abrasion to his back. He has been sleeping in a chair due to low back pain that has been occurring before this fall. No history of coronary artery disease or congestive heart failure. He does have a history of schizophrenia which complicates the history however his sister is with him who does help provide what his baseline is. The lower extremity edema is reported to be new Exam is patient has pitting edema to the bilateral lower extremities up to the level of the tibial tuberosity. There is erythema and increased warmth of the lower legs which does not resolve with elevation. Medical Decison Making white count is elevated at 15. Negative cardiac workup. Patient has fallen about 5 times today. I think we can bring him in treat with antibiotics and diuresed the legs. I do question if the lymphedema truly is new or has been developing as he sleeps in a recliner. I did not see the legs a few days ago so I do not know what the differences from today and then. I will speak with the hospitalist regarding admission Discharge Plan Dx/Rx/DC Orders Clinical Impression: Abrasion of flank, Chronic low back pain, Lymphedema of both lower extremities, Schizophrenia, Frequent falls Disposition Disposition: Acute Care Hospital [facility] Discharge Date/Time: 12/16/23 21:41
--- NOTE | 2023-12-16 19:12 | RAD_ITS ---
STUDY: XR Elbow Min 3 Views REASON FOR EXAM: Male, 57 years old. PAIN TECHNIQUE: XR Elbow Min 3 Views RIGHT COMPARISON: None. FINDINGS: Absent radial head. There is degenerative arthrosis of the radiocapitellar and ulnotrochlear articulations. Olecranon spur. Anterior humeral line and radiocapitellar line are all abnormal. The soft tissue structures are unremarkable. RAD/Elbow min 3 Views IMPRESSION: Chronic abnormality of the radial head is disrupting the anterior humeral line and radiocapitellar line. Electronically Signed: Jamil Heaton MD at 20:37 EST ,
[2023-12-16 19:33] VITALS: BP 118/79; PULSE 95; RESP 20; O2SAT 99
[2023-12-16 19:46] LABS: Absolute Lymphocyte Count 0.98 X10^3/uL (0.83-4.51); Absolute Neutrophil Count 13.1 X10^3/uL (2.0-7.7); Basophil# 0.02 X10^3/uL; Basophil% 0.1 % (0-1); Eosinophil# 0.06 X10^3/uL; Eosinophils% 0.4 % (0-5); Hematocrit 40.7 % (40-54); Hemoglobin 13.2 g/dL (13.0-16.5); Lymphocyte # 0.98 X10^3/ul (0.83-4.51); Lymphocyte % 6.4 % (19-41); Mean Corp Hgb Conc 32.4 g/dL (32-36); Mean Corpuscular Hgb 28.9 pg (27.0-32.0); Mean Corpuscular Volume 89.1 fL (80-94); Mean Platelet Vol. 11.2 fl (6.2-12.0); Monocyte# 1.04 X10^3/uL; Monocyte% 6.8 % (0-10); NRBC Flagged by Analyzer 0 % (0-5); Neutrophil # 13.12 X10^3/uL (2.7-7.7); Neutrophil % 85.7 % (47-70); Platelet Count 167 K/mm3 (150-450); RBC Distribution Width CV 14.3 % (11.6-14.6); RBC Distribution Width SD 46.1 fl (35.1-43.9); Red Blood Count 4.57 M/mm3 (4.6-6.2); White Blood Count 15.3 K/mm3 (4.4-11.0)
--- NOTE | 2023-12-16 19:55 | RAD_ITS ---
EXAM: XR CHEST, 1 VIEW CLINICAL INDICATION: cough TECHNIQUE: Frontal view of the chest. COMPARISON: No relevant prior studies available. FINDINGS: LUNGS AND PLEURAL SPACES: Unremarkable. No consolidation or edema. No pneumothorax. No effusion. HEART: Unremarkable. Cardiac silhouette not enlarged. MEDIASTINUM: Central airways and mediastinal contour are unremarkable. BONES/JOINTS: Unremarkable. No acute fracture. SOFT TISSUES: Unremarkable. RAD/Chest 1 View (Portable) IMPRESSION: No radiographic evidence of acute cardiopulmonary disease. Electronically Signed: Jamil Heaton MD at 20:35 EST ,
[2023-12-16 19:57] LABS: AST(SGOT) 26 U/L (15-37); Alanine Aminotransfer ALT/SGPT 35 U/L (16-61); Albumin, Serum 3.7 g/dL (3.2-5.0); Alkaline Phosphatase 35 U/L (45-117); Anion Gap 5 (5-15); BUN 21 mg/dL (7-18); BUN/Creat Ratio 12.1 RATIO (10-20); Chloride 110 mmol/L (98-107); Creatinine, Serum 1.74 mg/dL (0.70-1.30); EST Glomerular Filtration Rate 43 mL/min (>60); Est Glom Filt Rate - Afr Amer 52 mL/min (>60); Globulin 3.8 g/dL (2.2-4.2); Glucose 103 mg/dL (74-106); Potassium 4.3 mmol/L (3.5-5.1); Protein, Total 7.5 g/dL (6.4-8.2); Sodium Level 141 mmol/L (136-145)
[2023-12-16 20:08] LABS: BNP,B-Type NATRIURETIC PEPTIDE 16.5 pg/mL (0-100)
[2023-12-16] MEDS: Furosemide 100 MG/10 ML Vial 60 MG IV (20:45)
[2023-12-16] MEDS: Ceftriaxone 1 GM/50 ML BAG IV (20:45)
[2023-12-16 20:47] VITALS: BP 114/75; PULSE 77; RESP 22; O2SAT 98
[2023-12-16 20:48] VITALS: BMI 35.2
[2023-12-16 21:15] LABS: Troponin-I HS 11 pg/mL (3.0-78.0)
[2023-12-16 21:17] LABS: Bacteria 0 SEEN /hpf (None Seen); Mucous, Urine 0 SEEN /hpf (<or=2+); White Blood Cells 0 SEEN /hpf (0-5)
[2023-12-16 21:18] LABS: Color, Urine Yellow (Yellow); Glucose, Dipstick Normal (Normal); Ketone-Dipstick Negative (Negative); Leukocyte Esterase-Dipstick Negative /ul (Negative); Nitrite-Dipstick Negative (Negative); Occult Blood-Urine 10 /ul (Negative); Protein-Dipstick 15 mg/dl (Negative); Urine Bilirubin Dipstick Negative (Negative); Urine Clarity Sl. Cloudy (Clear); Urine Urobilinogen Normal (Normal)
[2023-12-16 21:25] LABS: Amorphous Sediment 1+ URATE; Red Blood Cells-Urine 0-5 SEEN /hpf (0-5); Squamous Epithelial Cells - UA 0-5 SEEN /hpf (0-5)
--- NOTE | 2023-12-16 21:26 | HP.PCM.HOS_ITS ---
HPI - General General Date of Admission: 12/16/23 Date of Service: 12/16/23 Chief Complaint: Frequent falls, weakness, debility. HPI Narrative The patient is a 57 y/o M w/ PMHx: Obesity, Frequent falls, Chronic back pain using walker baseline per report living with his sister sleeping in chair baseline, Anxiety and Depression/Schizoaffective disorder, recent ED evaluation 12/13/23 secondary to mild lower extremity swelling reported in notes is 1+ distal with confluent erythema discharged from ED on Keflex and Bactrim for possible cellulitis who now represents to the [facility] ED on 12/16/23 with history of ongoing debility, frequent falls and not marked change to lower extremity swelling or redness per family report despite antibiotic therapy. Patient and family deny any nausea, emesis, fevers or chills. Sister who lives with him has been healthy herself. She notes that with his underlying disorder he sometimes does not drink very well. Workup in the ED included T98.4, heart rate 100, BP 107/73, respiratory rate 20, 95% on room air with most recent repeat vitals heart rate 77, BP 114/75, respiratory rate 22, 98% on room air, CBC with WBC 15.3, hemoglobin 13.2, platelet 167 with left shift, CMP with chloride 110, BUN/creatinine 21/1.74, alk phos 35 otherwise unremarkable, BNP 16.5, troponin 11, CT of the brain with no acute intracranial findings, chest x-ray with no acute cardiopulmonary findings, plain film of the right elbow with chronic abnormality of the radial head disruption the anterior humeral line and radiocapitellar line. In the ED patient ministered IV Rocephin 1 g and Lasix 60 mg IV x 1. [facility] Medical History (Updated 12/16/23 @ 21:[address] Clarissa Garg MD) Anxiety and depression Obesity Schizoaffective disorder Home Medications benztropine 0.5 mg tablet 0.5 mg PO BID 02/23/23 [History Last Taken Unknown] cephalexin 500 mg capsule 500 mg PO TID 7 days #21 caps 12/13/23 [Rx Last Taken Unknown] sulfamethoxazole 800 mg-trimethoprim 160 mg tablet (Bactrim DS) 1 tab PO BID #14 tabs 12/13/23 [Rx Last Taken Unknown] cholecalciferol (vitamin D3) 125 mcg (5,000 unit) capsule 5,000 unit PO DAILY 0 12/16/23 [History Last Taken Unknown] haloperidol decanoate 100 mg/mL intramuscular solution mg IM 12/16/23 [History Last Taken 12/06/23] melatonin 3 mg tablet 3 mg PO QHS 12/16/23 [History Last Taken Unknown] Allergy/AdvReac Type Severity Reaction Status Date / Time No Known Allergies Allergy Verified 12/16/23 18:15 Family History (Updated 12/16/23 @ 21:[address] Clarissa Garg MD) Mother Anxiety and depression Hypertension Father Esophageal dysfunction Grandfather Heart disease Paternal GF. Myocardial infarction Paternal GF. CAD (coronary artery disease) Paternal GF. Surgical History (Updated 12/16/23 @ 21:[address] Clarissa Garg MD) History of elbow surgery Social History (Updated 12/16/23 @ 21:[address] Clarissa Garg MD) household members: other details: Lives with his sister. Smoking Status: Never smoker alcohol intake: never substance use type: does not use ROS ROS Narrative Admission Review of Systems: CONSTITUTIONAL: No weight loss, fever, chills, + weakness or fatigue. HEENT: Eyes: No visual loss, blurred vision, double vision or yellow sclerae. Ears, Nose, Throat: No hearing loss, sneezing, congestion, runny nose or sore throat. SKIN: No rash or itching, lesions, wounds except staged abrasions from falls as well as bilateral lower extremity mild erythema, various abrasions and scabbed regions to extremities. CARDIOVASCULAR: + Mild edema. No chest pain, chest pressure or chest discomfort, palpitations, orthopnea, syncopal events. RESPIRATORY: No shortness of breath, cough or sputum, wheezing, hemoptysis. GASTROINTESTINAL: No anorexia, nausea, vomiting or diarrhea, abdominal pain, melena, BRBPR. GENITOURINARY: No dysuria, frequency, urgency or retention. NEUROLOGICAL: No headache, dizziness, syncope, paralysis, ataxia, numbness or tingling in the extremities, focal weakness, change in bowel or bladder control, seizure. MUSCULOSKELETAL: +muscle, back pain, joint pain or stiffness. HEMATOLOGIC: No anemia, bleeding or bruising. LYMPHATICS: No enlarged nodes. No history of splenectomy. PSYCHIATRIC: + history anxiety and depression/schizoaffective disorder. ENDOCRINOLOGIC: No reports of sweating, cold or heat intolerance. No polyuria or polydipsia. ALLERGIES: No history of asthma, hives, eczema or rhinitis. Vital Signs Vital Signs Vital Signs: 12/16/23 18:15 12/16/23 19:33 12/16/23 19:33 Temperature 98.4 F Temperature Source Temporal Pulse Rate 100 95 Respiratory Rate 20 H 20 H Respiratory Effort Normal Respiratory Depth Normal Blood Pressure 107/73 118/79 Blood Pressure Mean 84 92 Pulse Ox 95 99 Oxygen Delivery Method Room Air Room Air Room Air 12/16/23 20:47 Temperature Temperature Source Pulse Rate 77 Respiratory Rate 22 H Respiratory Effort Respiratory Depth Blood Pressure 114/75 Blood Pressure Mean 88 Pulse Ox 98 Oxygen Delivery Method Room Air Weight Weight: 218 lb 4.122 oz Body Mass Index (BMI) 35.2 Physical Exam Narrative Physical Examination: General: Awake, alert, oriented x 3 but notably flat affect having often to get answers from his sister which is chronic, she does following commands and remains and cooperative, seated upright in the ED bed in no apparent distress. Skin: Normal color, normal turgor, no icterus, no cyanosis except for very staged abrasions and ecchymoses from falls, various staged abrasions, picks regions, bilateral lower extremity anterior erythema more consistent with venous stasis skin changes. HEENT: AT/NC, EOMI, PERRLA, dry MM, no carotid bruits or JVD noted; however, thickened neck evaluation difficult. Lungs: Diminished, appropriate effort, > decrease BL bases, no rales, ronchi or wheezing. Heart: Regular rate and rhythm; no gallop, rub audible. Abdomen: Soft, obese, NTTP, ND, hyperactive BS, no appreciated HSM. Extremities: No cyanosis, no clubbing, BL LE pedal to distal michelle 1+ edema, see skin. Neurological: Patient awake, alert, oriented as noted, cognitive function baseline intact; pupils equally reactive to light and accommodation, cranial nerves grossly normal, moving all 4 extremities, no focal deficits, strength mildly to moderately globally decreased. Psychiatric: Affect appears flat, no acute evidence of depressive or anxiety feelings but does have underlying history. Results Lab / Micro Data 12/16/23 19:35 12/16/23 19:35 Labs: Laboratory Results - last 24 hr 12/16/23 19:35: WBC 15.3 H, RBC 4.57 L, Hgb 13.2, Hct 40.7, MCV 89.1, MCH 28.9, MCHC 32.4, RDW Std Deviation 46.1 H, RDW Coeff of Antony 14.3, Plt Count 167, MPV 11.2, Immature Gran % (Auto) 0.600, Neut % (Auto) 85.7 H, Lymph % (Auto) 6.4 L, [place] % (Auto) 6.8, Eos % (Auto) 0.4, Baso % (Auto) 0.1, Absolute Neuts (auto) 13.1 H, Absolute Lymphs (auto) 0.98, Nucleated RBC % 0, Sodium 141, Potassium 4.3, Chloride 110 H, Carbon Dioxide 26.0, Anion Gap 5, BUN 21 H, Creatinine 1.74 H, Est GFR (MDRD) Af Amer 52 L, Est GFR (MDRD) Non-Af 43 L, BUN/Creatinine Ratio 12.1, Glucose 103, Calcium 10.0, Total Bilirubin 0.50, AST 26, ALT 35, Alkaline Phosphatase 35 L, Troponin I High Sens 11, B-Natriuretic Peptide 16.5, Total Protein 7.5, Albumin 3.7, Globulin 3.8, Albumin/Globulin Ratio 1.0 12/16/23 21:10: Urine Color Yellow, Urine Clarity Sl. Cloudy, Urine pH 6.0, Ur Specific [place] 1.020, Urine Protein 15 H, Urine Glucose (UA) Normal, Urine Ketones Negative, Urine Occult Blood 10 H, Urine Nitrite Negative, Urine Bilirubin Negative, Urine Urobilinogen Normal, Ur Leukocyte Esterase Negative, Urine RBC 0-5 SEEN, Urine WBC 0 SEEN, Ur Squamous Epith Cells 0-5 SEEN, Amorphous Sediment 1+ URATE, Urine Bacteria 0 SEEN, Urine Mucus 0 SEEN Imaging Radiology Impression Brain CT 12/16/23 18:59 IMPRESSION: Negative head/brain CT without intravenous contrast. Electronically Signed: Jamil Heaton MD at 20:00 EST Reading Location ID and State: [facility] / [place] , Service support , Elbow X-Ray 12/16/23 19:12 IMPRESSION: Chronic abnormality of the radial head is disrupting the anterior humeral line and radiocapitellar line. Electronically Signed: Jamil Heaton MD at 20:37 EST , Chest X-Ray 12/16/23 19:55 IMPRESSION: No radiographic evidence of acute cardiopulmonary disease. Electronically Signed: Jamil Heaton MD at 20:35 EST , Assessment & Plan Assessment/Plan (1) Cellulitis: PLAN: Plan The patient is a 57 y/o M w/ PMHx: Obesity, Frequent falls, Chronic back pain using walker baseline per report living with his sister sleeping in chair baseline, Anxiety and Depression/Schizoaffective disorder, recent ED evaluation 12/13/23 secondary to mild lower extremity swelling reported in notes is 1+ distal with confluent erythema discharged from ED on Keflex and Bactrim for possible cellulitis who now represents to the [facility] ED on 12/16/23 with history of ongoing debility, frequent falls and not marked change to lower extremity swelling or redness per family report despite antibiotic therapy. #1. Leukocytosis possibly secondary to BL Lower Extremity Cellulitis, failed abx therapy; however, Suspect patient with BL LE venous stasis skin changes/edema related with chronically sleeping in chair with legs down: Given patient recently in the ED 12/13/23, to be cautious will admit to medical surgical floor, will place neck Donavan wraps with elevation, given lower blood pressure and renal insufficiency will defer any further diuretic therapy at this point, given frequent falls although patient does have a history to be cautious we will obtain urinalysis to assure no underlying UTI although no symptoms reported per patient or sister, will obtain procalcitonin, will de-escalate off antibiotic therapy if presentation more consistent with venous stasis and leukocytosis probably secondary to potentially recent dehydration, maintain on fall precautions, PT/OT/case management consulted for discharge planning. #2. Acute renal insufficiency: Possibly multifactorial, suspect poor intake b aseline as well as recent Bactrim antibiotic therapy, admission BUN/pinna 21/1.74, GFR 43, baseline creatinine 1.2 noted 02/23/2023, will defer any diuretic therapy and actually at this point will administer IV fluids small bolus and continue maintenance IV fluids with repeat CMP in AM. #3. Adult failure to thrive, multifactorial, secondary to #1, #2 and underlying Hx frequent mechanical falls with underlying chronic lumbar back pain: Plain film lumbar spine pending given recent fall history to be cautious, maintain on fall precautions, continue treatments as noted, PT/OT/case management consulted for discharge planning. #4. Anxiety and depression/schizoaffective disorder: Will continue patient home Haldol once regimen clarified in addition to benztropine, encourage continued outpatient follow-up with counseling/psychiatry/psychology as previously arranged. #5. Obesity: Weight loss and lifestyle changes encouraged. #6. DVT prophylaxis: Lovenox. Charges/Coding Visit Charges Inpatient E&M: 90879 Init Hosp L3
[2023-12-16 21:31] VITALS: BP 110/77; PULSE 83; RESP 16; O2SAT 97
[2023-12-16 21:47] VITALS: BMI 34.3
[2023-12-16 22:15] VITALS: BP 117/70; PULSE 82; RESP 16; TEMP 37.1; O2SAT 98
[2023-12-16] MEDS: 0.9% Normal Saline (1000mL) 1,000 ML 100 ML IV (22:43)
[2023-12-16] MEDS: 0.9% Normal Saline (500mL Bag) 500 ML 999 ML IV (22:43)
[2023-12-16 23:17] LABS: Procalcitonin < 0.04 ng/mL (0.00-0.09)
[2023-12-16] MEDS: Benztropine Mesylate 0.5 MG TABLET PO (23:24)
[2023-12-16] MEDS: MELATONIN 3 MG TABLET PO (23:24)
[2023-12-17] VITALS (7 sets, daily range): BP systolic 92–161; BP diastolic 59–129; PULSE 78–135; RESP 16–22; TEMP 36.4–37.1; O2SAT 94–100; BMI 34.0
[2023-12-17 01:39] LABS: M R Staph aureus DNA By PCR Negative (Negative); Probe Check PASS; Specimen Processing Control PASS
[2023-12-17 05:35] LABS: Absolute Lymphocyte Count 1.05 X10^3/uL (0.83-4.51); Absolute Neutrophil Count 5.4 X10^3/uL (2.0-7.7); Basophil# 0.02 X10^3/uL; Basophil% 0.3 % (0-1); Eosinophil# 0.07 X10^3/uL; Hematocrit 35.6 % (40-54); Hemoglobin 11.8 g/dL (13.0-16.5); Lymphocyte # 1.05 X10^3/ul (0.83-4.51); Lymphocyte % 14.5 % (19-41); Mean Corp Hgb Conc 33.1 g/dL (32-36); Mean Corpuscular Hgb 29.1 pg (27.0-32.0); Mean Corpuscular Volume 87.9 fL (80-94); Mean Platelet Vol. 11.3 fl (6.2-12.0); Monocyte# 0.69 X10^3/uL; Monocyte% 9.6 % (0-10); NRBC Flagged by Analyzer 0 % (0-5); Neutrophil # 5.36 X10^3/uL (2.7-7.7); Neutrophil % 74.2 % (47-70); Platelet Count 139 K/mm3 (150-450); RBC Distribution Width CV 14.3 % (11.6-14.6); RBC Distribution Width SD 45.8 fl (35.1-43.9); Red Blood Count 4.05 M/mm3 (4.6-6.2); White Blood Count 7.2 K/mm3 (4.4-11.0)
[2023-12-17 06:15] LABS: ALB/GLOB Ratio 0.9 RATIO (0.9-2.4); AST(SGOT) 30 U/L (15-37); Alanine Aminotransfer ALT/SGPT 33 U/L (16-61); Albumin, Serum 3.3 g/dL (3.2-5.0); Alkaline Phosphatase 30 U/L (45-117); Anion Gap 5 (5-15); BUN 20 mg/dL (7-18); Calcium,Total 9.4 mg/dL (8.5-10.1); Chloride 108 mmol/L (98-107); Creatinine, Serum 1.67 mg/dL (0.70-1.30); EST Glomerular Filtration Rate 45 mL/min (>60); Est Glom Filt Rate - Afr Amer 55 mL/min (>60); Estimated Creatinine Clearance 52.29 ml/min; Globulin 3.6 g/dL (2.2-4.2); Glucose 105 mg/dL (74-106); Potassium 3.5 mmol/L (3.5-5.1); Protein, Total 6.9 g/dL (6.4-8.2); Sodium Level 140 mmol/L (136-145)
[2023-12-17] MEDS: Multivitamins,Ther W-Minerals Tablet 1 TABLET PO (08:43)
[2023-12-17] MEDS: Benztropine Mesylate 0.5 MG TABLET PO ×2 (08:43→23:20)
[2023-12-17] MEDS: Cholecalciferol (Vit D3) 125 MCG CAPSULE (5,000 UNITS) PO (08:44)
[2023-12-17] MEDS: Menthol/Lanolin/Calamine/Znox 113 GM Tube 1 APPLIC TOPICAL ×2 (08:44→23:20)
[2023-12-17] MEDS: Enoxaparin 40 MG/0.4 ML Syringe SC (08:44)
--- NOTE | 2023-12-17 09:10 | RAD_ITS ---
STUDY: X-RAY - LUMBAR SPINE REASON FOR EXAM: Male, 57 years old. Back pain TECHNIQUE: 2 view(s) of the lumbar spine were obtained. COMPARISON: None FINDINGS: Normal lumbar lordosis. There is no substantial scoliosis. There is a normal alignment of the vertebrae. There is a mild degree of endplate spondylosis of the lumbar vertebrae. Mild disc space narrowing at the L5-S1 level. Prostatic calcifications. RAD/Lumbar Spine 2 or 3 Views IMPRESSION: Degenerative changes of the spine, as detailed above. Electronically Signed: Augustus Rainey MD at 9:25 EST ,
[2023-12-17] MEDS: Ceftriaxone 2 GM in 0.9% Normal Saline (50mL MB+) 50 ML IV (09:56)
[2023-12-17] MEDS: 0.9% Saline Lock 10 ML Syringe IV ×2 (09:57→23:20)
--- NOTE | 2023-12-17 11:00 | CASEMGMT ---
RN?CM?SYSTEMS ANALYST ENGINEER?CM?to room to meet with patient for initial transition planning/care coordination?assessment.?RN?CM?introduced self and role at [facility].? Pt voices understanding and consents to?assessment?at this time.? Pt sitting up in chair in room in no distress at this time.? Sister, Sara, in room visiting and pt agreeable to her being present during assessment. Pt is A/O at this time. He was able to answer some of the following questions, but slow to respond verbally at times and had difficulty relaying some of the information, so Sara, provided most of the following info. Pt w/hx of schizophrenia. She states she helps to take care of pt. Care providers, pharmacy, and demographics verified/updated at this time. PCP: No PCP. Sister states pt needs to get established w/a PCP. She was made aware a list of providers in network w/pt's insurance will be provided. Specialists: psychiatrist @ [facility]. Preferred Pharmacy: [facility] Insurance: [employer] Prescription Benefit:?yes Living Will/HPOA:?Pt does not currently have LW/HCPOA and declines info at this time.? Pt and sister made aware that he can contact SW as an out-pt and make appt in the future if he decides he would like to talk with someone about this or would like to utilize [facility] social work for advanced directive completion.??Pt stated, I'll think about it . ?? LNOK: 2 sisters: Sara (pt lives w/her) and Arlette. 2 brothers. Living Arrangements: Lives w/sister, Sara, in 2-story home w/no steps to enter through back entrance. FFSU. Pt is mostly independent w/ADL's, but Sara does assist at times and w/donning socks when needed. Sara works full-time from [id number], so pt is home alone during those hours. Sara states he sleep in until about 8 or 9 AM and was manages well while she was gone. Transportation: Sister/Sara. Family DME: Pt has a pulse ox. He also has shower chair, lift chair, and walker available, but pt does not use them. ? Sister states no need for further DME at this time.? HHC/SNF: No hx of either. Sister states is hoping pt will be doing well enough to return home @ discharge and pt voices the same. Discussed HHC and OP therapy. She declines wanting HHC at this time and states is interested in OP therapy. She states she can provide pt transportation there after she gets off of work. PT/OT evals pending. She was made aware once recommendations are made, CM can f/u with them to discuss further d/c planning. Pt and sister wishes for pt to be able to return home at dischage. CM?to follow for any further discharge planning/needs.? Pt and sister voice no further concerns/needs at this time.? Advised them to ask for?CM?if any further questions/concerns/needs arise.? They voice understanding. PLAN:??TBD. Sister and pt hoping to d/c home and interested in OP therapy. PT/OT evals pending. Placido BSN?RN?CM
[2023-12-17] MEDS: LORazepam 2 MG/ML Syringe 1 MG IV (13:42)
--- NOTE | 2023-12-17 14:39 | CASEMGMT ---
Discharge Planning A list of?primary care providers including quality and resource use data and consistent with the patient's preferred geographic region, medical needs, and insurance network was created in [employer]Port Guide.? This list was provided to the RN NAUN. Megan Martinez, Discharge Planning Asst.
--- NOTE | 2023-12-17 15:36 | CASEMGMT ---
SUKHWINDER MAGALLON provided pt and sister with a PCP list created by arvind del valle. Sister states she will review and ask SUKHWINDER MAGALLON for assistance if needed.
--- NOTE | 2023-12-17 16:31 | CHAPLAIN ---
Type of Pastoral Visit _x__ Initial Visit ___ Follow-up Visit ___ On-call Visit ___ General Patient Visit ___ Spiritual Assessment ___ Family Conference ___ Bereavement ___ Rapid Response ___ Code Blue ___ Other (describe below) Pastoral Care Referral From ___ Patient _x__ Family ___ Nurse ___ Physician ___ Equipment Detailer ___ Dining Room Server ___ Other (describe below) Sacrament/Intervention ___ Active listening ___ Anointing ___ Druze ___ Bereavement ___ Communion ___ Stephanie exploration ___ ___ Life review ___ Prayer ___ Reconciliation ___ Sacrament of Sick _x__ Supportive presence ___ Wedding ___ Other (describe below) Pastoral Comments patient is awake; pt is able to answer most questions but hesitates at times and then answers briefly or one word; sister is with pt in the room but does not add much to the encounter; offer of support given; pt does not give suggestions for any needs to be met or concerns; offer of support as desired for the future
--- NOTE | 2023-12-17 16:55 | PN.HOSP_ITS ---
Reason for Visit Reason for Visit: Diagnoses Cellulitis, unspecified (12/16/23) Subjective Subjective Patient was seen and examined today, his white blood cell count this morning was 7.2, I did not examine his lower legs due to the fact they were wrapped with Donavan wrap's, I will inspect him tomorrow. Patient remains on IV antibiotics for cellulitis at this time, I talked to the patient's sister who was in the room at the time of my visit, she states she lives with the patient and helps take care of him. Patient is nonverbal for the most part only speaks a few words, he has a history of schizophrenia. Objective Data Objective Data Vital Signs: Vital Signs Temp Pulse Resp BP Pulse Ox O2 Del Method 98.7 F 103 H 18 161/100 H 99 Room Air 12/17/23 14:51 12/17/23 14:51 12/17/23 14:51 12/17/23 14:51 12/17/23 14:51 12/17/23 14:51 Oxygen Delivery Method Room Air Weight: 96 kg Body Mass Index (BMI) 34.0 Intake & Output: Intake and Output for Last 24 Hours 12/15/23 12/16/23 12/17/23 23:59 23:59 23:59 Intake Total 550 / 570 1420 / 1420 Output Total 1050 / 1050 Balance 550 / 570 370 / 370 Lab / Micro Data 12/17/23 04:46 12/17/23 04:46 Labs: Laboratory Results - last 24 hr 12/16/23 19:35: WBC 15.3 H, RBC 4.57 L, Hgb 13.2, Hct 40.7, MCV 89.1, MCH 28.9, MCHC 32.4, RDW Std Deviation 46.1 H, RDW Coeff of Antony 14.3, Plt Count 167, MPV 11.2, Immature Gran % (Auto) 0.600, Neut % (Auto) 85.7 H, Lymph % (Auto) 6.4 L, [place] % (Auto) 6.8, Eos % (Auto) 0.4, Baso % (Auto) 0.1, Absolute Neuts (auto) 13.1 H, Absolute Lymphs (auto) 0.98, Nucleated RBC % 0, Sodium 141, Potassium 4.3, Chloride 110 H, Carbon Dioxide 26.0, Anion Gap 5, BUN 21 H, Creatinine 1.74 H, Est GFR (MDRD) Af Amer 52 L, Est GFR (MDRD) Non-Af 43 L, BUN/Creatinine Ratio 12.1, Glucose 103, Calcium 10.0, Total Bilirubin 0.50, AST 26, ALT 35, Alkaline Phosphatase 35 L, Troponin I High Sens 11, B-Natriuretic Peptide 16.5, Total Protein 7.5, Albumin 3.7, Globulin 3.8, Albumin/Globulin Ratio 1.0 12/16/23 21:10: Urine Color Yellow, Urine Clarity Sl. Cloudy, Urine pH 6.0, Ur Specific [place] 1.020, Urine Protein 15 H, Urine Glucose (UA) Normal, Urine Ketones Negative, Urine Occult Blood 10 H, Urine Nitrite Negative, Urine Bilirubin Negative, Urine Urobilinogen Normal, Ur Leukocyte Esterase Negative, Urine RBC 0-5 SEEN, Urine WBC 0 SEEN, Ur Squamous Epith Cells 0-5 SEEN, Amorphous Sediment 1+ URATE, Urine Bacteria 0 SEEN, Urine Mucus 0 SEEN 12/16/23 22:20: Procalcitonin < 0.04 12/16/23 23:18: MRSA (PCR) Negative 12/17/23 04:46: WBC 7.2, RBC 4.05 L, Hgb 11.8 L, Hct 35.6 L, MCV 87.9, MCH 29.1, MCHC 33.1, RDW Std Deviation 45.8 H, RDW Coeff of Antony 14.3, Plt Count 139 L, MPV 11.3, Immature Gran % (Auto) 0.400, Neut % (Auto) 74.2 H, Lymph % (Auto) 14.5 L, [place] % (Auto) 9.6, Eos % (Auto) 1.0, Baso % (Auto) 0.3, Absolute Neuts (auto) 5.4, Absolute Lymphs (auto) 1.05, Nucleated RBC % 0, Sodium 140, Potassium 3.5, Chloride 108 H, Carbon Dioxide 27.0, Anion Gap 5, BUN 20 H, Creatinine 1.67 H, Estim Creat Clear Calc 52.29, Est GFR (MDRD) Af Amer 55 L, Est GFR (MDRD) Non-Af 45 L, BUN/Creatinine Ratio 12.0, Glucose 105, Calcium 9.4, Total Bilirubin 0.70, AST 30, ALT 33, Alkaline Phosphatase 30 L, Total Protein 6.9, Albumin 3.3, Globulin 3.6, Albumin/Globulin Ratio 0.9 Radiography Diagnostic Testing: Radiology Impression Brain CT 12/16/23 18:59 IMPRESSION: Negative head/brain CT without intravenous contrast. Electronically Signed: Jamil Heaton MD at 20:00 EST , Elbow X-Ray 12/16/23 19:12 IMPRESSION: Chronic abnormality of the radial head is disrupting the anterior humeral line and radiocapitellar line. Electronically Signed: Jamil Heaton MD at 20:37 EST , Chest X-Ray 12/16/23 19:55 IMPRESSION: No radiographic evidence of acute cardiopulmonary disease. Electronically Signed: Jamil Heaton MD at 20:35 EST , Lumbar Spine X-Ray 12/17/23 09:10 IMPRESSION: Degenerative changes of the spine, as detailed above. Electronically Signed: Augustus Rainey MD at 9:25 EST , Physical Exam Const alert and no apparent distress General Appearance: cooperative, well kempt and well developed Orientation / Consciousness: awake HEENT normocephalic, head/scalp atraumatic and moist oral mucous membranes Eyes PERRL, EOMs intact bilaterally and conjunctivae normal Neck supple, no JVD, thyroid normal and no carotid bruits General: trachea midline Resp normal respiratory effort, no retractions, no use of accessory muscles and clear to auscultation bilaterally Auscultation: Negative for rales, rhonchi or wheezes Cardio regular rate, regular rhythm, S1 normal heart sound, S2 normal heart sound, no murmurs, no rub and no gallops GI normal to inspection, nondistended, normoactive bowel sounds, soft to palpation, non-tender and non-distended Extremity no clubbing, cyanosis or edema Skin no rashes or lesions noted General Skin Exam: no breakdown Neuro CN's II-XII intact bilaterally, moves all extremities, no focal motor deficits and no sensory deficits noted Sensorium / Orientation: awake and alert Psych Psych Narrative: Patient has a blunted affect and appears to have some cognitive impairment Assessment & Plan Assessment/Plan (1) Cellulitis: PLAN: Plan 1. Cellulitis of the lower legs-failed outpatient medical treatment, patient remains on IV Rocephin at this time, I will examine his lower extremities tomorrow #2 chronic lymphedema-complicates care, medical course, recovery, and prognosis #3 schizophrenia-patient will remain on his current medications, he receives Depo Haldol monthly, his sister states that he often does not take his medications. I have placed the patient on as needed IV Ativan for agitation if needed. Total clinical time spent by myself addressing the patient's medical issues, reviewing all of his data, and collaborating with patient's care team: 25 minutes Charges/Coding Visit Charges Inpatient E&M: 12750 [facility] Hosp L1
--- NOTE | 2023-12-17 18:37 | NURSING ---
patient found out of bed on the floor by housekeeping. House keeper hit staff assist when this RN entered the room three other RN's were already in the room. Patient noted to have no cuts bruises or other hood at this time. Dr Underwood was notified and he has ordered no new treatments at this time.
[2023-12-17] MEDS: MELATONIN 3 MG TABLET PO (23:20)
[2023-12-18 02:28] VITALS: BMI 34.0
[2023-12-18 03:19] VITALS: BP 113/69; PULSE 81; RESP 22; TEMP 36.6; O2SAT 99
[2023-12-18 07:39] VITALS: O2SAT 98
[2023-12-18 08:45] VITALS: BP 128/75; PULSE 88; RESP 18; TEMP 36.4; O2SAT 99
[2023-12-18] MEDS: Benztropine Mesylate 0.5 MG TABLET PO ×2 (08:46→20:26)
[2023-12-18] MEDS: Ensure Plus High Protein 120 ML LIQUID PO ×2 (08:46→20:26)
[2023-12-18] MEDS: Menthol/Lanolin/Calamine/Znox 113 GM Tube 1 APPLIC TOPICAL ×2 (08:46→20:26)
[2023-12-18] MEDS: Enoxaparin 40 MG/0.4 ML Syringe SC (08:46)
[2023-12-18] MEDS: Multivitamins,Ther W-Minerals Tablet 1 TABLET PO (08:46)
[2023-12-18] MEDS: Ceftriaxone 2 GM in 0.9% Normal Saline (50mL MB+) 50 ML IV (11:07)
--- NOTE | 2023-12-18 13:46 | CASEMGMT ---
Discharge Planning A list of?SNF providers including quality and resource use data and consistent with the patient's preferred geographic region, medical needs, and insurance network was created in [employer]Port Guide.? This list was provided to the SW. Megan Martinez Discharge Planning Asst.
--- NOTE | 2023-12-18 14:14 | CASEMGMT ---
Social Work Physician called pt's sister, who states she thinks pt needs to go to SNF. SW attempted to call back, got a voicemail. SW met w/pt in room, spoke w/him about going somewhere for rehab. Pt agreeable. SW asked if he makes his own decisions or if family helps, he states I try to. SW inquired if he has ever been anywhere for rehab before, she states he has been to the rehab here in [facility]. SW reminded pt he is in [facility]. SW asked pt if he would like to stay in [place], he states he would. SW reviewed the nursing homes in [place], pt states he wants to go to [place]. He then states he wants to see what the [facility] insurance says. SW asked if he would like SW to call his sister, he states he would. Pt's sister Sara then arrived to the hospital. SW spoke w/her, let her know SW did speak w/him about going to SNF, he is agreeable but was not certain where he wanted to go. SW provided to pt's sister the list of jail facilities from [facility] in network w/insurance, in pt's preferred geographic area and complete w/quality and resource use data. Pt's sister is agreeable to a referral to any of the facilities in [place] with the exception of [facility]. SW explained we will send referrals to all of the facilities in [place]. SW explained that though the list SW provided to her the list, sometimes it is not accurate as the insurance website is not accurate. Pt's sister states understanding. SW also asked pt's sister about his mental status, as pt seems confused. SW inquired if she has guardianship. She states she was trying to get guardianship but it's so expensive. She states there are 5 siblings altogether, two are not involved at all. SW spoke w/Megan, discharge payroll assistant, and she will send referrals to the [place] facilities. SW will continue to follow. CASSIE Aldrich
[2023-12-18 14:15] VITALS: BP 118/74; PULSE 94; RESP 18; TEMP 36.9; O2SAT 96
--- NOTE | 2023-12-18 14:38 | CASEMGMT ---
Addendum entered by Megan Martinez 12/19/23 12:36: [facility] has declined patient. Megan Martinez Discharge Planning Asst. Addendum entered by Megan Martinez 12/19/23 10:49: [facility] has accepted patient. SW updated. Megan Martinez Discharge Planning Asst. Addendum entered by Megan Martinez 12/18/23 16:27: [facility] has accepted. Addendum entered by Megan Martinez 12/18/23 15:44: [facility] is considering and would like to do an onsite. Advised them to schedule a time with patients sister. Megan Martinez, Discharge Planning Asst. Addendum entered by Megan Martinez 12/18/23 15:43: [facility] declined patient d/t no [facility] beds available. SW updated. Megan Martinez Discharge Planning Asst. Original Note: Discharge Planning Referrals sent via [facility]Port to [facility], [facility], [facility], and [facility]. Megan Martinez Discharge Planning Asst.
--- NOTE | 2023-12-18 15:39 | CASEMGMT ---
RN CM into pt room, pt sister present, pt states he would like as his PCP. Completed intake request form and faxed to 's office. Pt and sister aware that pt should be notified if he is accepted and will need to schedule an appt within 4 weeks per form if so. Pt and sister deny further needs at this time.
--- NOTE | 2023-12-18 19:12 | PCM.PN.HOSP ---
Reason for Visit Reason for Visit: Diagnoses Cellulitis, unspecified (12/16/23) Subjective Subjective Patient was seen and examined today, he does not appear in any distress, I looked at the patient's lower extremities and his redness of the lower legs bilaterally is very minimal. I had planned to discharge the patient today but he is unsteady on his feet and the sister who he lives with would like the patient to go to an extended care facility. Patient remains confused today and the sister states that this is due to his schizophrenia. Objective Data Objective Data Vital Signs: Vital Signs Temp Pulse Resp BP Pulse Ox O2 Del Method 98.4 F 94 18 118/74 96 Room Air 12/18/23 14:15 12/18/23 14:15 12/18/23 14:15 12/18/23 14:15 12/18/23 14:15 12/18/23 14:15 Oxygen Delivery Method Room Air Weight: 96 kg Body Mass Index (BMI) 34.0 Intake & Output: Intake and Output for Last 24 Hours 12/16/23 12/17/23 12/18/23 23:59 23:59 23:59 Intake Total 550 / 570 1520 / 1520 50 / 50 Output Total 1600 / 1600 300 / 300 Balance 550 / 570 -80 / -80 -250 / -250 Lab / Micro Data 12/17/23 04:46 12/17/23 04:46 Physical Exam Narrative alert and no apparent distress General Appearance: cooperative, well kempt and well developed Orientation / Consciousness: awake HEENT normocephalic, head/scalp atraumatic and moist oral mucous membranes Eyes PERRL, EOMs intact bilaterally and conjunctivae normal Neck supple, no JVD, thyroid normal and no carotid bruits General: trachea midline Resp normal respiratory effort, no retractions, no use of accessory muscles and clear to auscultation bilaterally Auscultation: Negative for rales, rhonchi or wheezes Cardio regular rate, regular rhythm, S1 normal heart sound, S2 normal heart sound, no murmurs, no rub and no gallops GI normal to inspection, nondistended, normoactive bowel sounds, soft to palpation, non-tender and non-distended Extremity no clubbing, cyanosis or edema Skin no rashes or lesions noted General Skin Exam: no breakdown Neuro CN's II-XII intact bilaterally, moves all extremities, no focal motor deficits and no sensory deficits noted Sensorium / Orientation: awake and alert, confused Psych Psych Narrative: Patient has a blunted affect and appears to have some cognitive impairment, he is also confused today. Assessment & Plan Assessment/Plan (1) Cellulitis: PLAN: Plan 1. Cellulitis of the lower legs-failed outpatient medical treatment, patient remains on IV Rocephin at this time, his cellulitis appears to be resolving #2 chronic lymphedema-complicates care, medical course, recovery, and prognosis #3 schizophrenia-patient will remain on his current medications, he receives Depo Haldol monthly, his sister states that he often does not take his medications. I have placed the patient on as needed IV Ativan for agitation if needed. #4 generalized debility-patient is unsteady on his feet and needs maximal assist of 2 to ambulate. Patient will continue to see PT and OT, he will need temporary placement in senior living facility for short-term rehab services. Total clinical time spent by myself addressing the patient's medical issues, reviewing all of his data, and collaborating with patient's care team: 25 minutes Charges/Coding Visit Charges Inpatient E&M: 55378 [facility] Hosp L1
[2023-12-18] MEDS: MELATONIN 3 MG TABLET PO (20:26)
[2023-12-18] MEDS: Acetaminophen 325 MG Tablet 650 MG PO (20:26)
[2023-12-18 20:38] VITALS: BP 143/91; PULSE 99; RESP 18; TEMP 36.4; O2SAT 96
[2023-12-18 21:04] LABS: Absolute Lymphocyte Count 0.96 X10^3/uL (0.83-4.51); Absolute Neutrophil Count 5.3 X10^3/uL (2.0-7.7); Basophil# 0.02 X10^3/uL; Basophil% 0.3 % (0-1); Eosinophil# 0.09 X10^3/uL; Eosinophils% 1.3 % (0-5); Hematocrit 34.1 % (40-54); Hemoglobin 11.1 g/dL (13.0-16.5); Lymphocyte # 0.96 X10^3/ul (0.83-4.51); Lymphocyte % 13.6 % (19-41); Mean Corp Hgb Conc 32.6 g/dL (32-36); Mean Corpuscular Hgb 28.7 pg (27.0-32.0); Mean Corpuscular Volume 88.1 fL (80-94); Mean Platelet Vol. 11.6 fl (6.2-12.0); Monocyte% 8.5 % (0-10); NRBC Flagged by Analyzer 0 % (0-5); Neutrophil # 5.32 X10^3/uL (2.7-7.7); Neutrophil % 75.6 % (47-70); Platelet Count 133 K/mm3 (150-450); RBC Distribution Width CV 14.3 % (11.6-14.6); RBC Distribution Width SD 45.1 fl (35.1-43.9); Red Blood Count 3.87 M/mm3 (4.6-6.2)
--- NOTE | 2023-12-18 22:29 | PCM.HOSP.N ---
Hospitalist Note Called due to patient having blood clots and dark bloody discharge from his rectum. Stat hemoglobin was obtained and is slightly lower from 13.2 on admission down to 11.1. Down from 11.8 yesterday. Platelets have also trended down. Will hold Lovenox for now and place SCDs. Repeat CBC in a.m. and check iron studies. If hemoglobin does not stabilize may need GI assistance.
[2023-12-19 03:31] VITALS: BMI 34.1
[2023-12-19] MEDS: Acetaminophen 325 MG Tablet 650 MG PO (06:24)
[2023-12-19 06:33] VITALS: BP 121/80; PULSE 76; RESP 16; TEMP 36.3; O2SAT 96
[2023-12-19 07:28] LABS: Hematocrit 35.3 % (40-54); Hemoglobin 11.6 g/dL (13.0-16.5); Mean Corp Hgb Conc 32.9 g/dL (32-36); Mean Corpuscular Hgb 29.2 pg (27.0-32.0); Mean Corpuscular Volume 88.9 fL (80-94); Mean Platelet Vol. 11.5 fl (6.2-12.0); Platelet Count 129 K/mm3 (150-450); RBC Distribution Width CV 14.1 % (11.6-14.6); RBC Distribution Width SD 45.5 fl (35.1-43.9); Red Blood Count 3.97 M/mm3 (4.6-6.2); White Blood Count 6.2 K/mm3 (4.4-11.0)
[2023-12-19 07:56] LABS: Ferritin 133 ng/mL (26-388); Iron 56 ug/dL (65-175); Iron Binding Capacity,Total 221 ug/dL (250-450); PERCENT IRON SATURATION 25.3 % (15.0-55.0)
[2023-12-19] MEDS: Benztropine Mesylate 0.5 MG TABLET PO ×2 (10:13→22:36)
[2023-12-19] MEDS: Multivitamins,Ther W-Minerals Tablet 1 TABLET PO (10:13)
[2023-12-19] MEDS: Ensure Plus High Protein 120 ML LIQUID PO (10:13)
[2023-12-19] MEDS: Ceftriaxone 2 GM in 0.9% Normal Saline (50mL MB+) 50 ML IV (10:13)
[2023-12-19] MEDS: 0.9% Saline Lock 10 ML Syringe IV (10:13)
[2023-12-19] MEDS: Menthol/Lanolin/Calamine/Znox 113 GM Tube 1 APPLIC TOPICAL ×2 (10:13→22:37)
--- NOTE | 2023-12-19 11:05 | CASEMGMT ---
Addendum entered by Sruthi Thomas 12/19/23 12:30: Social Work SW spoke with pt's sister Sara who has consulted pt's sister Arlette. Both sister are in agreement with placement at [facility]. DC assistant guest services manager updated and request precert be started and cancel other referrals. Plan: [facility], pending precert MAHAD Elizabeth Original Note: Social Work SW met with pt's sister Sara and introduced self and role of SW. BOOGIE updated Sara on referrals to area SNFs. 1. [facility], declined 2. [facility], to complete an onsite visit shortly 3. [facility], accepted 4. [facility], accepted Once [facility] completes onsite and makes determination of acceptance, BOOGIE will obtain choice of facility from Sara. Precert will need to be obtained prior to discharge. BOOGIE spoke with Sara regarding legal guardianship and concerns for costs. BOOGIE provided written information on [facility] [employer], [facility] [employer] program and information from the Probate Court on obtaining guardianship. Plan: SNF, pending family choice and precert MAHAD [facility]
[2023-12-19 12:15] VITALS: BP 108/68; PULSE 87; RESP 18; TEMP 37.1; O2SAT 95
--- NOTE | 2023-12-19 12:36 | CASEMGMT ---
Discharge Planning [facility] [place] is patient choice. They have been updated via [facility]Port and asked to start precert. [facility] asked to disregard referral. Megan Martinez, Discharge Planning Asst.
[2023-12-19 14:40] VITALS: BP 94/67; PULSE 77; RESP 16; TEMP 37.1; O2SAT 96
--- NOTE | 2023-12-19 15:12 | NURSING ---
reviewed student charting
--- NOTE | 2023-12-19 15:46 | PCM.TXEXTCAR ---
Diet Diet Order/Speech Therapy: 12/17/23 14:17 Diet: Regular - General Food consistency:: Regular Liquid Consistency:: Regular/Thin Dietary Modifications:: No Added Salt Is pt able to select menu?: No Routine Orders/Code Status Code Status: Full Code Wound(s) Right Elbow: Wound Type: Abrasion back: Wound Type: Abrasion Therapies Weight Bearing: Full weight bearing Physical Therapy: Eval and Treat Occupational Therapy: Eval and Treat Problem/Diagnosis (1) Cellulitis: Status: Acute Code(s): L03.90 - Cellulitis, unspecified Plan 1. Cellulitis of the lower legs-failed outpatient medical treatment, patient remains on IV Rocephin at this time, his cellulitis appears to be resolving #2 chronic lymphedema-complicates care, medical course, recovery, and prognosis #3 schizophrenia-patient will remain on his current medications, he receives Depo Haldol monthly, his sister states that he often does not take his medications. I have placed the patient on as needed IV Ativan for agitation if needed. #4 generalized debility-patient is unsteady on his feet and needs maximal assist of 2 to ambulate. Patient will continue to see PT and OT, he will need temporary placement in long-term facility for short-term rehab services. Total clinical time spent by myself addressing the patient's medical issues, reviewing all of his data, and collaborating with patient's care team: 25 minutes Allergies/Procedures Done in Hospital Allergies No Known Allergies Allergy (Verified 12/16/23 18:15) Procedures: None Type of Care/Length of Stay Estimated LOS: Convalescent Care Less Than 30 days Type of Care Needed: Skilled Rehab Potential: Good Prognosis: Good Additional Orders/Day of Discharge H&P will serve as current which was dated: 12/16/23 Day of Discharge: 12/20/23 Dietary and Speech Recommendations Dietitian Recommendations/Changes: Will liberalize diet to regular/no added salt and encourage PO at meals. ONS as needed if PO established inadequate, will defer for now and liberalize diet to promote improved intake. Discharge Plan Admission Admit Date/Time: 12/16/23 21:26 Primary Reason for Your Visit: Cellulitis of the lower legs, debility Attending Provider: Alvin Underwood Primary Care Provider: Care Physician,No Primary Consulting Providers: White,Clarissa L Discharge Orders/Prescriptions Prescriptions: New acetaminophen 325 mg Tablet 650 mg PO Q4H PRN PRN (Reason: Fever, pain 1-08/28) Qty: 0 0RF Ensure Plus High Protein 0.08 gram-1.5 kcal/mL Liquid 120 ml PO 4X/DAY Qty: 0 0RF menthol-zinc oxide [Calmoseptine] 0.44-20.6 % Ointment 1 applic topical BID Qty: 0 0RF Protocol: *Topical Application Instructions APPLICATION INSTRUCTIONS: apply to affected region doxycycline monohydrate 100 mg tablet 100 mg PO BID Qty: 11 0RF Rx Instructions: Discontinue after 11 doses, start on 12/20/2023 Continued benztropine 0.5 mg tablet 0.5 mg PO BID Patient Comments: TAKE 1 TABLET BY MOUTH TWICE DAILY cholecalciferol (vitamin D3) 125 mcg (5,000 unit) capsule 5,000 unit PO DAILY haloperidol decanoate 100 mg/mL solution IM melatonin 3 mg tablet 3 mg PO QHS Discontinued sulfamethoxazole-trimethoprim [Bactrim DS] 800-160 mg tablet 1 tab PO BID Qty: 14 0RF cephalexin 500 mg capsule 500 mg PO TID 7 Days Qty: 21 0RF Referrals / Follow Up: Care Physician,No Primary [Primary Care Provider] - Disposition Disposition (needs filled in before D/C Order can be placed): Retirement Facility
[2023-12-19 17:34] VITALS: BP 95/70; PULSE 79; RESP 16; TEMP 36.9; O2SAT 98
--- NOTE | 2023-12-19 18:42 | PN.HOSP_ITS ---
Reason for Visit Reason for Visit: Diagnoses Cellulitis, unspecified (12/16/23) Subjective Subjective Patient was seen and examined today, the plan is for the patient to go to an extended care facility for short-term rehab. Patient voices no complaints today, I talked briefly with his sister who was in the room at the time my examination. Objective Data Objective Data Vital Signs: Vital Signs Temp Pulse Resp BP Pulse Ox O2 Del Method 98.4 F 79 16 95/70 98 Room Air 12/19/23 17:34 12/19/23 17:34 12/19/23 17:34 12/19/23 17:34 12/19/23 17:34 12/19/23 17:34 Oxygen Delivery Method Room Air Weight: 96.3 kg Body Mass Index (BMI) 34.1 Intake & Output: Intake and Output for Last 24 Hours 12/17/23 12/18/23 12/19/23 23:59 23:59 23:59 Intake Total 1520 / 1520 50 / 50 250 / 250 Output Total 1600 / 1600 500 / 500 700 / 700 Balance -80 / -80 -450 / -450 -450 / -450 Lab / Micro Data 12/19/23 06:48 12/17/23 04:46 Labs: Laboratory Results - last 24 hr 12/18/23 20:39: WBC 7.0, RBC 3.87 L, Hgb 11.1 L, Hct 34.1 L, MCV 88.1, MCH 28.7, MCHC 32.6, RDW Std Deviation 45.1 H, RDW Coeff of Antony 14.3, Plt Count 133 L, MPV 11.6, Immature Gran % (Auto) 0.700, Neut % (Auto) 75.6 H, Lymph % (Auto) 13.6 L, Mchenry % (Auto) 8.5, Eos % (Auto) 1.3, Baso % (Auto) 0.3, Absolute Neuts (auto) 5.3, Absolute Lymphs (auto) 0.96, Nucleated RBC % 0 12/19/23 06:48: WBC 6.2, RBC 3.97 L, Hgb 11.6 L, Hct 35.3 L, MCV 88.9, MCH 29.2, MCHC 32.9, RDW Std Deviation 45.5 H, RDW Coeff of Antony 14.1, Plt Count 129 L, MPV 11.5, Iron 56 L, TIBC 221 L, Iron Saturation 25.3, Ferritin 133 Physical Exam Narrative alert and no apparent distress General Appearance: cooperative, well kempt and well developed Orientation / Consciousness: awake HEENT normocephalic, head/scalp atraumatic and moist oral mucous membranes Eyes PERRL, EOMs intact bilaterally and conjunctivae normal Neck supple, no JVD, thyroid normal and no carotid bruits General: trachea midline Resp normal respiratory effort, no retractions, no use of accessory muscles and clear to auscultation bilaterally Auscultation: Negative for rales, rhonchi or wheezes Cardio regular rate, regular rhythm, S1 normal heart sound, S2 normal heart sound, no murmurs, no rub and no gallops GI normal to inspection, nondistended, normoactive bowel sounds, soft to palpation, non-tender and non-distended Extremity Both lower legs were wrapped with SCDs Skin Patient's lower legs were not examined today Neuro CN's II-XII intact bilaterally, moves all extremities, no focal motor deficits and no sensory deficits noted Sensorium / Orientation: awake and alert, confused Psych Psych Narrative: Patient has a blunted affect and appears to have some cognitive impairment, he is also confused today. Patient does not appear agitated. Const alert and no apparent distress General Appearance: cooperative, well kempt and well developed Orientation / Consciousness: awake HEENT normocephalic, head/scalp atraumatic and moist oral mucous membranes Eyes PERRL, EOMs intact bilaterally and conjunctivae normal Neck supple, no JVD, thyroid normal and no carotid bruits General: trachea midline Resp normal respiratory effort, no retractions, no use of accessory muscles and clear to auscultation bilaterally Auscultation: Negative for rales, rhonchi or wheezes Cardio regular rate, regular rhythm, S1 normal heart sound, S2 normal heart sound, no murmurs, no rub and no gallops GI normal to inspection, nondistended, normoactive bowel sounds, soft to palpation, non-tender and non-distended Neuro CN's II-XII intact bilaterally, moves all extremities, no focal motor deficits and no sensory deficits noted Sensorium / Orientation: awake and alert Psych Psych Narrative: Patient has a blunted affect and appears to have some cognitive impairment Assessment & Plan Assessment/Plan (1) Cellulitis: PLAN: Plan 1. Cellulitis of the lower legs-failed outpatient medical treatment, patient remains on IV Rocephin at this time, when patient goes to the extended care facility he will be transitioned over to doxycycline #2 chronic lymphedema-complicates care, medical course, recovery, and prognosis #3 schizophrenia-patient will remain on his current medications, he receives Depo Haldol monthly, his sister states that he often does not take his medications. I have placed the patient on as needed IV Ativan for agitation if needed. #4 generalized debility-patient is unsteady on his feet and needs maximal assist of 2 to ambulate. Patient will continue to see PT and OT, he will need temporary placement in [facility] facility for short-term rehab services. Total clinical time spent by myself addressing the patient's medical issues, reviewing all of his data, and collaborating with patient's care team: 25 minutes Charges/Coding Visit Charges Inpatient E&M: 95582 [facility] Hosp L1
[2023-12-19 22:33] VITALS: BP 95/74; PULSE 77; RESP 18; TEMP 36.6; O2SAT 97
[2023-12-19] MEDS: MELATONIN 3 MG TABLET PO (22:36)
[2023-12-20 06:00] VITALS: BMI 34.1
[2023-12-20 06:20] VITALS: BP 124/82; PULSE 89; RESP 16; TEMP 36.6; O2SAT 93
[2023-12-20 07:31] VITALS: O2SAT 96
[2023-12-20] MEDS: Benztropine Mesylate 0.5 MG TABLET PO (07:32)
[2023-12-20] MEDS: Multivitamins,Ther W-Minerals Tablet 1 TABLET PO (07:32)
[2023-12-20] MEDS: Menthol/Lanolin/Calamine/Znox 113 GM Tube 1 APPLIC TOPICAL (07:34)
[2023-12-20] MEDS: Ensure Plus High Protein 120 ML LIQUID PO ×2 (07:34→14:08)
[2023-12-20 09:00] VITALS: BP 96/61; PULSE 60; RESP 16; TEMP 36.8; O2SAT 96
[2023-12-20] MEDS: 0.9% Saline Lock 10 ML Syringe IV (09:31)
[2023-12-20] MEDS: Ceftriaxone 2 GM in 0.9% Normal Saline (50mL MB+) 50 ML IV (09:31)
[2023-12-20 09:37] VITALS: O2SAT 97
[2023-12-20 10:46] VITALS: BP 109/68; PULSE 79; RESP 16; TEMP 36.4; O2SAT 96
--- NOTE | 2023-12-20 12:00 | CASEMGMT ---
Discharge Planning [facility] has obtained auth. SW updated. Megan Martinez, Discharge Planning Asst.
--- NOTE | 2023-12-20 12:01 | DS.PCM_ITS ---
Providers Date of Admission: 12/16/23 Date of Discharge: 12/20/23 Primary Care Physician: No Primary Care Phys Reason For Visit: CELLULITIS,FAILED OUTPATIENT ABX THERAPY, FALLS, Diagnosis Discharge Diagnosis (1) Cellulitis: Status: Inactive Code(s): L03.90 - Cellulitis, unspecified Plan 1. Cellulitis of the lower legs-failed outpatient medical treatment, patient remains on IV Rocephin at this time, when patient goes to the extended care facility he will be transitioned over to doxycycline #2 chronic lymphedema-complicates care, medical course, recovery, and prognosis #3 Chronic schizophrenia-patient will remain on his current medications, he receives Depo Haldol monthly, his sister states that he often does not take his medications. I have placed the patient on as needed IV Ativan for agitation if needed. #4 generalized debility-patient is unsteady on his feet and needs maximal assist of 2 to ambulate. Patient will continue to see PT and OT, he will need temporary placement in [facility] facility for short-term rehab services. #5 chronic kidney disease stage IIIa Total clinical time spent by myself addressing the patient's medical issues, reviewing all of his data, and collaborating with patient's care team: 25 minutes Medications at Discharge Home Medications benztropine 0.5 mg tablet 0.5 mg PO BID 02/23/23 cholecalciferol (vitamin D3) 125 mcg (5,000 unit) capsule 5,000 unit PO DAILY 12/16/23 haloperidol decanoate 100 mg/mL intramuscular solution mg IM 12/16/23 melatonin 3 mg tablet 3 mg PO QHS 12/16/23 acetaminophen 325 mg tablet 650 mg (2 x 325 mg) PO Q4H PRN PRN Fever, pain 1- 08/28 #0 tabs 12/19/23 doxycycline monohydrate 100 mg tablet 100 mg PO BID #11 tabs 12/19/23 food supplemt, lactose-reduced 0.08 gram-1.5 kcal/mL oral liquid (Ensure Plus High Protein) 120 ml PO 4X/DAY #0 mL 12/19/23 menthol 0.44 %-zinc oxide 20.6 % topical ointment (Calmoseptine) 1 applic topical BID #0 grams 12/19/23 Hospital Course Operations None Procedures None Summary of Care Provided Minutes Spent on Discharge: 32 Hospital Course: This 57-year-old white male was seen in the emergency room at [facility] having sustained multiple falls at home and complaining of generalized weakness. Patient has a history of schizophrenia and lives with his sister. Patient had been given Keflex for possible lower leg cellulitis. Workup was instituted in the ER, white blood cell count was noted to be elevated at 15.3, creatinine was increased at 1.74, lites were noted to be reddened and swollen and he was given IV Lasix in the emergency room. Patient's leukocytosis was felt to be secondary to bilateral lower leg cellulitis, he was admitted to [place] [address] and placed on IV antibiotics and a small bolus of IV fluids were given . Patient remained weak and debilitated however was seen by PT and OT, sister of the patient felt that the patient should go to a [facility] facility for short-term inpatient rehab. On 12/20/2023, patient was seen and examined:alert and no apparent distress General Appearance: cooperative, well kempt and well developed Orientation / Consciousness: awake HEENT normocephalic, head/scalp atraumatic and moist oral mucous membranes Eyes PERRL, EOMs intact bilaterally and conjunctivae normal Neck supple, no JVD, thyroid normal and no carotid bruits General: trachea midline Resp normal respiratory effort, no retractions, no use of accessory muscles and clear to auscultation bilaterally Auscultation: Negative for rales, rhonchi or wheezes Cardio regular rate, regular rhythm, S1 normal heart sound, S2 normal heart sound, no murmurs, no rub and no gallops GI normal to inspection, nondistended, normoactive bowel sounds, soft to palpation, non-tender and non-distended Extremity Both lower legs were wrapped with SCDs Skin Patient's lower legs were not examined today Neuro CN's II-XII intact bilaterally, moves all extremities, no focal motor deficits and no sensory deficits noted Sensorium / Orientation: awake and alert, confused Psych Psych Narrative: Patient has a blunted affect and appears to have some cognitive impairment, he is also confused today. Patient does not appear agitated. Patient was discharged to an extended care facility for short-term inpatient rehab on 12/20/2023 in stable condition Weight / BMI Weight Weight: 96.4 kg Body Mass Index (BMI) 34.1 ABG / Lab / Microbiology Data 12/19/23 06:48 12/17/23 04:46 Meaningful Use Info Meaningful Use Diagnoses (Choose all that apply): None applicable Discharge Plan Admission Admit Date/Time: 12/16/23 21:26 Primary Reason for Your Visit: Cellulitis of the lower legs, debility Attending Provider: Alvin Underwood Primary Care Provider: Care Physician,No Primary Consulting Providers: Clarissa Garg Discharge Orders/Prescriptions Prescriptions: New acetaminophen 325 mg Tablet 650 mg PO Q4H PRN PRN (Reason: Fever, pain 1-08/28) Qty: 0 0RF Ensure Plus High Protein 0.08 gram-1.5 kcal/mL Liquid 120 ml PO 4X/DAY Qty: 0 0RF menthol-zinc oxide [Calmoseptine] 0.44-20.6 % Ointment 1 applic topical BID Qty: 0 0RF Protocol: *Topical Application Instructions APPLICATION INSTRUCTIONS: apply to affected region doxycycline monohydrate 100 mg tablet 100 mg PO BID Qty: 11 0RF Rx Instructions: Discontinue after 11 doses, start on 12/20/2023 Continued benztropine 0.5 mg tablet 0.5 mg PO BID Patient Comments: TAKE 1 TABLET BY MOUTH TWICE DAILY cholecalciferol (vitamin D3) 125 mcg (5,000 unit) capsule 5,000 unit PO DAILY haloperidol decanoate 100 mg/mL solution IM melatonin 3 mg tablet 3 mg PO QHS Discontinued sulfamethoxazole-trimethoprim [Bactrim DS] 800-160 mg tablet 1 tab PO BID Qty: 14 0RF cephalexin 500 mg capsule 500 mg PO TID 7 Days Qty: 21 0RF Referrals / Follow Up: Care Physician,No Primary [Primary Care Provider] - Disposition Disposition (needs filled in before D/C Order can be placed): Shelter Facility Charges/Coding Visit Charges Inpatient E&M: 10219 Disch Hosp >30min
--- NOTE | 2023-12-20 12:08 | CASEMGMT ---
Social Work Precert has been obtained for pt to admit to [facility]. Physican notified and pt is ready for dc today. 7000 exemption form completed in [facility]. DC customer support assistant updated and to complete discharge. Disposition: [facility], skilled level of care under convalescent stay MAHAD Elizabeth
--- NOTE | 2023-12-20 12:20 | CASEMGMT ---
Discharge Planning Discharge orders, signed med list, and transport time sent via [facility]Port to [facility]. Physicians will transport patient by cot at 1:30p. Nursing, SW, and patients sister, Arlette, updated. Message left at home phone number for SaraGarrett Martinez, Discharge Planning Asst.
== END 2023-12-20 15:06 | disposition skilled nursing facility (03) | DRG 383 ==
LOC: ED 21:02 → MS3 21:15
PROVIDERS: Internal Medicine; Nurse Practitioner; Admitting Provider Family Medicine; Emergency Provider Emergency Medicine; Visit Provider Internal Medicine
DX: L03.116 Cellulitis of left lower limb (principal); R62.7 Adult failure to thrive; F20.9 Schizophrenia, unspecified; N18.31 Chronic kidney disease, stage 3a; F32.A Depression, unspecified; M54.9 Dorsalgia, unspecified; F41.9 Anxiety disorder, unspecified; E66.9 Obesity, unspecified; L03.115 Cellulitis of right lower limb; G89.29 Other chronic pain; R29.6 Repeated falls; Z68.34 Body mass index [BMI] 34.0-34.9, adult
CPT/HCPCS: 36415; 70450; 71045; 72100; 73080; 80053; 81001; 82728; 83540; 83550; 83880; 84145; 84484; 85025; 85027; 87641; 93005; 97110; 97116; 97162; 97166; 97530; 97535; 97802; 99283; 99284; J7030; J7040; A4216; J1940

== ENCOUNTER 2024-05-03 17:23 | Emergency (ER) | payer MEDICAID, SELFPAY ==
[2024-05-03 17:24] VITALS: BP 140/95; PULSE 94; RESP 18; TEMP 36.4; O2SAT 95; BMI 34.3
--- NOTE | 2024-05-03 17:38 | CT_ITS ---
INDICATION: Pain EXAMINATION: CT ABDOMEN AND PELVIS WITHOUT CONTRAST - CT Abdomen And Pelvis W/O Contrast Injection TECHNIQUE: Helically acquired images were obtained of the abdomen and pelvis without oral or IV contrast. A radiation dose optimization technique was used for this scan. IV Contrast dosage and agent: None. Oral contrast: None. COMPARISON: None. FINDINGS: LOWER CHEST: Lung bases are clear. Calcified granuloma in the lung bases No cardiomegaly or pericardial effusion. LIVER: Homogeneous. No focal mass. GALLBLADDER AND BILIARY TREE: Cholecystectomy.. No intra- or extrahepatic biliary ductal dilation. PANCREAS: No focal cystic or solid mass. SPLEEN: Normal size without focal cystic or solid mass. ADRENAL GLANDS: No nodules. KIDNEYS AND URETERS: Medial left lower kidney exophytic 2.8 cm cyst with small dependent calcifications. Normal renal size and position. No hydronephrosis. Mild senescent perinephric stranding. No nephrolithiasis. Unremarkable ureters. Decompressed bladder. PERITONEUM: No ascites or free air. No other fluid collection. BOWEL: No acute gastric finding. No small bowel distention or focal wall thickening. Normal appendix. Large colonic stool burden. No colonic wall thickening or surrounding inflammation. . LYMPH NODES: No enlarged mesenteric or retroperitoneal lymph nodes. VESSELS: Aortic atherosclerosis without ectasia.. URINARY BLADDER: Decompressed, unremarkable. ABDOMINAL WALL: Fat-containing supraumbilical, umbilical, and inguinal hernias without inflammation. BONES: L3 1.5 cm on L4 1.3 cm lucent lesions. No other acute osseous finding. CT/Abdomen/Pelvis without Cont IMPRESSION: Large colonic stool burden as can be seen with constipation. Fat-containing periumbilical, umbilical, and inguinal hernias without inflammation. Lytic lesions within L3 and L4 vertebral body, nonspecific but is suspicious for metastatic disease. Correlate for history of known malignancy. Consider vertebral MRI. Electronically Signed: Hany Talley MD at 19:03 EDT ,
--- NOTE | 2024-05-03 17:39 | EX.ED.DYSGE1 ---
HPI History of Present Illness Chief Complaint: General Illness Narrative Narrative: 58-year-old male past medical history of schizophrenia and Parkinson's presents with abdominal pain and generalized weakness, difficulty getting up according to his caregiver who is his sister. He lives at home with her. There are periods of time when he is left alone. Yesterday, everything was fine, but she presents him today because he has had generalized weakness and difficulty getting up. He complained that he was having abdominal pain at all that he drank today was tropical fruit punch. He later admitted that he did have small bowl of patsy charm cereal today. He has not had any nausea or vomiting, no fevers or chills, no other symptoms. [facility] Medical History Schizoaffective disorder Anxiety and depression Obesity Lymphedema of both lower extremities Chronic low back pain Abrasion of flank Home Medications ?Medication ?Instructions ?Recorded ?Last Taken ?Type benztropine 0.5 mg tablet 0.5 mg PO BID 02/23/23 Unknown History cholecalciferol (vitamin D3) 125 5,000 unit PO DAILY 12/16/23 Unknown History mcg (5,000 unit) capsule haloperidol decanoate 100 mg/mL mg IM 12/16/23 12/06/23 History intramuscular solution melatonin 3 mg tablet 3 mg PO QHS 12/16/23 Unknown History acetaminophen 325 mg tablet 650 mg (2 x 325 mg) PO Q4H PRN PRN 12/19/23 Unknown Rx Fever, pain 1-1010 #0 tabs doxycycline monohydrate 100 mg 100 mg PO BID #11 tabs 12/19/23 Unknown Rx tablet food supplemt, lactose-reduced 120 ml PO 4X/DAY #0 mL 12/19/23 Unknown Rx 0.08 gram-1.5 kcal/mL oral liquid (Ensure Plus High Protein) menthol 0.44 %-zinc oxide 20.6 % 1 applic topical BID #0 grams 12/19/23 Unknown Rx topical ointment (Calmoseptine) Allergy/AdvReac Type Severity Reaction Status Date / Time No Known Allergies Allergy Verified 05/03/24 17:26 Family History Mother Anxiety and depression Hypertension Father Esophageal dysfunction Grandfather Heart disease Paternal GF. Myocardial infarction Paternal GF. CAD (coronary artery disease) Paternal GF. Surgical History History of elbow surgery Social History household members: other details: Lives with his sister. Smoking Status: Never smoker alcohol intake: never substance use type: does not use ROS ROS ED ROS Narrative Constitutional: No fever, no chills. Generalized weakness. HEENT: No sore throat. No neck pain. No loss of vision. No rhinorrhea. Cardiovascular: No chest pain. No palpitations. No pedal edema. Respiratory: No cough, no shortness of breath. Abdominal: Positive abdominal pain. No nausea. No vomiting. No problems with bowel movements. Genitourinary: No dysuria. No hematuria. Musculoskeletal: No myalgias. No arthralgias. Neurologic: No headaches. No dizziness. No lightheadedness. Skin: No rash. No change in color. Psychiatric: No depression. No anxiety. EXAM Physical Exam Narrative Exam Narrative: Afebrile. Vital signs noted. HEENT: Normocephalic. Atraumatic. PERRL, EOMI. Neck soft and supple. No point tenderness or step off. Cardiovascular: Regular rate and rhythm. No murmurs, rubs, or gallops appreciated. Respiratory: No tachypnea. Lungs clear to auscultation bilaterally. Gastrointestinal: Abdomen soft, nontender, with normoactive bowel sounds. Questionable distention. No rebound or guarding. Neurological: Awake. Alert. Nonfocal, nonlateralizing. Sometimes slow to respond, consistent with Parkinson's. Skin: No rash. Normal color. No pallor. Musculoskeletal: No pedal edema. Full range of motion extremities. Const Vital Signs: 05/03/24 17:24 Temperature 97.6 F L Temperature Source Temporal Pulse Rate 94 Respiratory Rate 18 Blood Pressure 140/95 H Blood Pressure Mean 110 Pulse Ox 95 Oxygen Delivery Method Room Air MDM MDM MDM Narrative Medical decision making narrative: Concern would be for dehydration causing his generalized weakness versus urinary tract infection. I have low suspicion for pneumonia and do not feel chest x-ray is indicated because he has not had cough. Given that he has had abdominal pain, and the differential would be pancreatitis but the history and physical does not support that. I will obtain CT imaging without contrast to look for any bowel obstruction or inflammation of the bowels. He was bolused normal saline 1 L intravenously. CBC, CMP, and UA will also be checked as well as lipase. I reviewed his laboratory work and he has normal white count of 6.9, hemoglobin 13.9 with hematocrit 43.0, platelet count slightly low at 140. Most recently, he has had chronic thrombocytopenia when compared to previous laboratory values. I reviewed his electrolyte panel and he has normal sodium of 140 with potassium 3.5 and chloride 105, BUN of 17 and creatinine 1.14, no evidence of electrolyte imbalance or dehydration. AST and ALT are normal at 16 and 19 respectively. Lipase is normal at 23 so I doubt pancreatitis. Urinalysis is negative for infection. I do not feel that antibiotics are indicated. I reviewed the CT report which shows evidence of constipation and moderate amount of stool in the colon. His sister states that he has milk of magnesia at home. Additionally, they comment on lytic lesions in L3 and L4. His sister also states that they are aware of these bone cysts. I discussed with her possible observation or admission for placement in rehab, but she declines. As I do not feel that he has anything for which she needs to have observation or hospitalization for currently, I feel that through shared decision making he be discharged to follow-up with his primary care provider. Additionally, I placed an order for fast pass oncology given the lytic lesions of his vertebrae. Sister states that he has an appointment this week sometime. Return instructions to the emergency department were reviewed. Disposition is discharged in stable condition. History & Record Review Discussion w/independent historian: Patient and Family (Sister/caregiver) Additional record(s) reviewed:: Prior labs Lab Data Attestation: I reviewed the patient's lab results. Labs: Laboratory Results - last 24 hr 05/03/24 05/03/24 17:47 17:50 WBC 6.9 RBC 4.84 Hgb 13.9 Hct 43.0 MCV 88.8 MCH 28.7 MCHC 32.3 RDW Std Deviation 46.2 H RDW Coeff of Antony 14.4 Plt Count 140 L MPV 10.8 Immature Gran % (Auto) 0.400 Neut % (Auto) 79.9 H Lymph % (Auto) 12.1 L [place] % (Auto) 7.1 Eos % (Auto) 0.4 Baso % (Auto) 0.1 Absolute Neuts (auto) 5.5 Absolute Lymphs (auto) 0.83 Nucleated RBC % 0 Sodium 140 Potassium 3.5 Chloride 105 Carbon Dioxide 27.0 Anion Gap 8 BUN 17 Creatinine 1.14 Estim Creat Clear Calc 75.91 Est GFR (MDRD) Af Amer 85 Est GFR (MDRD) Non-Af 70 BUN/Creatinine Ratio 14.9 Glucose 107 H Calcium 9.6 Total Bilirubin 0.80 AST 16 ALT 19 Alkaline Phosphatase 37 L Total Protein 8.0 Albumin 3.8 Globulin 4.2 Albumin/Globulin Ratio 0.9 Lipase 23 Urine Color Yellow Urine Clarity Clear Urine pH 5.0 Ur Specific [place] 1.025 Urine Protein 30 H Urine Glucose (UA) Normal Urine Ketones 5 H Urine Occult Blood 25 H Urine Nitrite Negative Urine Bilirubin Negative Urine Urobilinogen 4 H Ur Leukocyte Esterase 100 H Urine RBC 0-5 SEEN Urine WBC 0-5 SEEN Ur Squamous Epith Cells 0 SEEN Urine Bacteria 1+ Urine Mucus 0 SEEN Radiography Diagnostic Testing: Clinical Impression(s) from Imaging Studies Abdomen/Pelvis CT 05/03/24 17:38 IMPRESSION: Large colonic stool burden as can be seen with constipation. Fat-containing periumbilical, umbilical, and inguinal hernias without inflammation. Lytic lesions within L3 and L4 vertebral body, nonspecific but is suspicious for metastatic disease. Correlate for history of known malignancy. Consider vertebral MRI. Electronically Signed: Hany Talley MD at 19:03 EDT Reading Location ID and State: [address] [place] [address] Tel , Service support , Discharge Plan Triage Chief Complaint: General Illness ED Provider: Saulo Zeng Dx/Rx/DC Orders Clinical Impression: Weakness, Constipation, Abdominal pain, Lytic bone lesions on xray Instructions: ED Bone Cyst, ED Constipation (Adult), ED Weakness (Uncertain Cause), ED Abdominal Pain Unkn Cause Male... Prescriptions: No Action benztropine 0.5 mg tablet 0.5 mg PO BID Patient Comments: TAKE 1 TABLET BY MOUTH TWICE DAILY cholecalciferol (vitamin D3) 125 mcg (5,000 unit) capsule 5,000 unit PO DAILY haloperidol decanoate 100 mg/mL solution IM melatonin 3 mg tablet 3 mg PO QHS acetaminophen 325 mg Tablet 650 mg PO Q4H PRN PRN (Reason: Fever, pain 1-08/28) Qty: 0 0RF Ensure Plus High Protein 0.08 gram-1.5 kcal/mL Liquid 120 ml PO 4X/DAY Qty: 0 0RF menthol-zinc oxide [Calmoseptine] 0.44-20.6 % Ointment 1 applic topical BID Qty: 0 0RF Protocol: *Topical Application Instructions APPLICATION INSTRUCTIONS: apply to affected region doxycycline monohydrate 100 mg tablet 100 mg PO BID Qty: 11 0RF Rx Instructions: Discontinue after 11 doses, start on 12/20/2023 Other Ambulatory Orders: Fast Pass: Oncology Referral [facility] (Routine) Facility: [facility] - Location: [facility] Ordered By: Saulo Zeng Primary Care Provider: Conner eHard Referrals: Care Physician,No Primary [Non-Staff] - Activity Restrictions/Additional Instructions: Follow-up with Dr. Heard as scheduled. On your CT, they did notice lytic lesions of the vertebrae in L3 and L4 which will require close follow up. Return with fever, new or worsening symptoms. Take your milk of magnesia as previously directed. Print Language: Haitian Disposition Disposition: Home, Self Care
[2024-05-03] MEDS: 0.9% Normal Saline (1000mL) 1,000 ML 1000 ML IV (17:51)
[2024-05-03 17:53] LABS: Mucous, Urine 0 SEEN /hpf (<or=2+); Squamous Epithelial Cells - UA 0 SEEN /hpf (0-5)
[2024-05-03 18:00] LABS: Color, Urine Yellow (Yellow); Glucose, Dipstick Normal (Normal); Ketone-Dipstick 5 mg/dl (Negative); Leukocyte Esterase-Dipstick 100 /ul (Negative); Nitrite-Dipstick Negative (Negative); Occult Blood-Urine 25 /ul (Negative); Protein-Dipstick 30 mg/dl (Negative); Specific Gravity, Urine 1.025 (1.002-1.030); Urine Bilirubin Dipstick Negative (Negative); Urine Clarity Clear (Clear); Urine Urobilinogen 4 mg/dl (Normal)
[2024-05-03 18:01] LABS: Absolute Lymphocyte Count 0.83 X10^3/uL (0.83-4.51); Absolute Neutrophil Count 5.5 X10^3/uL (2.0-7.7); Basophil# 0.01 X10^3/uL; Basophil% 0.1 % (0-1); Eosinophil# 0.03 X10^3/uL; Eosinophils% 0.4 % (0-5); Hemoglobin 13.9 g/dL (13.0-16.5); Lymphocyte # 0.83 X10^3/ul (0.83-4.51); Lymphocyte % 12.1 % (19-41); Mean Corp Hgb Conc 32.3 g/dL (32-36); Mean Corpuscular Hgb 28.7 pg (27.0-32.0); Mean Corpuscular Volume 88.8 fL (80-94); Mean Platelet Vol. 10.8 fl (6.2-12.0); Monocyte# 0.49 X10^3/uL; Monocyte% 7.1 % (0-10); NRBC Flagged by Analyzer 0 % (0-5); Neutrophil # 5.48 X10^3/uL (2.7-7.7); Neutrophil % 79.9 % (47-70); Platelet Count 140 K/mm3 (150-450); RBC Distribution Width CV 14.4 % (11.6-14.6); RBC Distribution Width SD 46.2 fl (35.1-43.9); Red Blood Count 4.84 M/mm3 (4.6-6.2); White Blood Count 6.9 K/mm3 (4.4-11.0)
[2024-05-03 18:09] LABS: Bacteria 1+ /hpf (None Seen); Red Blood Cells-Urine 0-5 SEEN /hpf (0-5); White Blood Cells 0-5 SEEN /hpf (0-5)
[2024-05-03 18:20] LABS: ALB/GLOB Ratio 0.9 RATIO (0.9-2.4); AST(SGOT) 16 U/L (15-37); Alanine Aminotransfer ALT/SGPT 19 U/L (16-61); Albumin, Serum 3.8 g/dL (3.2-5.0); Alkaline Phosphatase 37 U/L (45-117); Anion Gap 8 (5-15); BUN 17 mg/dL (7-18); BUN/Creat Ratio 14.9 RATIO (10-20); Calcium,Total 9.6 mg/dL (8.5-10.1); Chloride 105 mmol/L (98-107); Creatinine, Serum 1.14 mg/dL (0.70-1.30); EST Glomerular Filtration Rate 70 mL/min (>60); Est Glom Filt Rate - Afr Amer 85 mL/min (>60); Estimated Creatinine Clearance 75.91 ml/min; Globulin 4.2 g/dL (2.2-4.2); Glucose 107 mg/dL (74-106); Lipase 23 U/L (13-75); Potassium 3.5 mmol/L (3.5-5.1); Sodium Level 140 mmol/L (136-145)
[2024-05-03 19:46] VITALS: PULSE 97; RESP 16; O2SAT 96
== END 2024-05-03 19:47 | disposition home or self-care (01) ==
PROVIDERS: Emergency Provider Emergency Medicine; PCP Family Medicine; Visit Provider Emergency Medicine
DX: R53.1 Weakness (principal); G20.C Parkinsonism, unspecified; F20.9 Schizophrenia, unspecified; K59.00 Constipation, unspecified; R10.9 Unspecified abdominal pain
CPT/HCPCS: 74176; 80053; 81001; 83690; 85025; 99283; J7030; A4216

== ENCOUNTER → 2024-05-28 | Outpatient (CLI) | payer MEDICAID, SELFPAY ==
--- NOTE | 2024-05-28 08:50 | NM_ITS ---
CLINICAL: 58-year-old male with history of third-fourth lumbar vertebral radiographic abnormality. WHOLE BODY 99m Tc MDP RADIONUCLIDE BONE SCINTIGRAPHY COMPARISON: CT of the abdomen-pelvis report 05/03/2024 FINDINGS: Following the intravenous administration of 27.0 mCi of 99m Tc MDP, whole body bone images reveal: 1. Increased tracer uptake is identified in the acromioclavicular and sternoclavicular compartments of both shoulders, the patellofemoral compartments of both knees, the right ankle articulation. 2. Enhanced radiopharmaceutical is noted in the right posterior fourth rib. 3. The remaining skeletal structures are scintigraphically unremarkable with normal-appearing renal images and urinary bladder activity identified. Facilitated tracer distribution is defined in the plantar aspect of the right hindfoot most consistent with periostitis attributed to enthesopathy. NM/Bone Scan Whole Body IMPRESSION: 1. The increase in tracer concentration defined in the shoulders bilaterally, both knees and right ankle is commensurate with degenerative arthritis. 2. Accentuated uptake noted in the right posterior fourth rib is most consistent with trauma-fracture. Plain film radiography correlation is recommended. 3. Meticulous attention paid to the third and fourth lumbar vertebra reveal no scintigraphic abnormalities. Electronically Signed: Sabino Gallegos DO at 9:24 EDT ,
== END | disposition home or self-care (01) ==
PROVIDERS: PCP Family Medicine; Referring Provider Internal Medicine Hematology & Oncology; Visit Provider Internal Medicine Hematology & Oncology
DX: M89.9 Disorder of bone, unspecified (principal)
CPT/HCPCS: 78306; A9503

== ENCOUNTER → 2024-06-13 | Outpatient (CLI) | payer MEDICAID, SELFPAY ==
--- NOTE | 2024-06-13 08:34 | MRI_ITS ---
STUDY: MRI LUMBAR SPINE WITHOUT CONTRAST REASON FOR EXAM: Male, 58 years old. BONE LESION, ABNORMAL BONE SCAN TECHNIQUE: Standardized fat and water weighted pulse sequences were obtained in the sagittal and axial planes. COMPARISON: CT abdomen and pelvis without contrast 05/03/2024. Radionuclide whole body bone scan 05/28/2024. FINDINGS: T10-T11 and T11-T12: (Sagittal only). Normal endplates. Minimal disc space height narrowing. No ventral extradural defects. Normal central canal and bilateral intervertebral neuroforamina. T12-L1: (Sagittal only). Normal endplates. Normal disc height. Mild ventral extradural defect is posterior bulging annulus. Normal central canal and bilateral intervertebral neuroforamina. Normal lumbar lordosis. Prominent ovoid T1 and T2 hyperintensity in the left side of the L3 vertebral body and nearly round T1 and T2 hyperintensity in the left side of the L4 vertebral body. They are completely suppressed on sagittal STIR sequence and are most in keeping with benign focal fatty infiltration. Smaller benign focal fatty infiltration underneath the L3 superior endplate and in the upper T11 vertebral body also suppressed on sagittal STIR sequence. There is no substantial scoliosis. Normal conus medullaris that terminates at the T12-L1 disc space level. L1-2: Normal endplates. Normal disc height, hydration and morphology. Normal bilateral facet joints. Normal central canal and bilateral lateral recesses. Normal bilateral intervertebral neural foramina. L2-3: Normal endplates. Normal disc height, hydration and morphology. Normal facet joints. Mild central canal stenosis with an AP canal diameter of 10 mm. Prominent dorsal epidural lipomatosis. Normal bilateral lateral recesses. Normal bilateral intervertebral neuroforamina. L3-4: Normal endplates. Normal disc height, hydration and morphology. Prominent dorsal epidural lipomatosis. Moderate central canal stenosis with an AP canal diameter 7 mm secondary to developmentally short pedicles and epidural lipomatosis. Normal bilateral lateral recesses. Normal facet joints. Normal bilateral intervertebral neuroforamina. L4-5: Normal endplates. Normal disc height, hydration and morphology. Normal facet joints. Mild dorsal epidural lipomatosis. Mild to moderate central canal stenosis with an AP canal diameter of 8 mm secondary to developmental short pedicles and dorsal epidural lipomatosis. Normal bilateral lateral recesses. Normal bilateral intervertebral neuroforamina. L5-S1: Normal endplates. Normal disc height, hydration and morphology. Mild asymmetric degenerative facet arthropathy. Mild central canal stenosis with an AP canal diameter of 9 mm surrounded by epidural lipomatosis. Normal bilateral lateral recesses. Normal bilateral intervertebral neuroforamina. Round T1 and T2 hyperintensities in the right and left sacral alar wings also disappear on sagittal STIR sequence due to fat suppression. These are also benign focal fatty infiltration. They are also areas of radiolucencies on the CT abdomen and pelvis but were not mentioned in the CT report. Normal visualized paraspinous soft tissue structures. MRI/Spine Lumbar (Routine) IMPRESSION: 1. Prominent ovoid T1 and T2 hyperintensity in the left side of the L3 vertebral body, nearly round T1 and T2 hyperintensity in the left side of the L4 vertebral body and smaller T1 and T2 hyperintensity foci underneath the L3 superior endplate and in the upper T11 vertebral body. Round T1 and T2 hyperintensity in the right visualized sacral alar wing and a small round T1 and T2 hyperintensity in the anterior left visual sacral alar wing. All these disappear on sagittal STIR sequence and are consistent with benign focal fatty infiltrations. These are not bone metastases. The radionuclide whole body bone scan was also negative for bone metastases in these areas. 2. Moderate central canal stenosis at L3-L4 disc space level with an AP canal diameter of 7 mm secondary to developmentally short pedicles and dorsal epidural lipomatosis. 3. Mild to moderate central canal stenosis at L4-L5 disc space level with an AP canal diameter of 8 mm secondary to developmentally short pedicles and dorsal epidural lipomatosis. 4. Mild central canal stenosis at L5-S1 disc space level with an AP canal diameter of 9 mm secondary to developmentally short pedicles and epidural lipomatosis. 5. Mild central canal stenosis at L2-L3 disc space level with an AP canal diameter of 10 mm secondary to prominent dorsal epidural lipomatosis and developmentally short pedicles. 6. No MRI evidence of lumbar extruded disc fragment, lumbar disc protrusion or nerve root displacement. Electronically Signed: Saulo Smith MD at 9:33 EDT ,
== END | disposition home or self-care (01) ==
LOC: MRI 07:54
PROVIDERS: PCP Family Medicine; Referring Provider Internal Medicine Hematology & Oncology; Visit Provider Internal Medicine Hematology & Oncology
DX: M89.9 Disorder of bone, unspecified (principal)
CPT/HCPCS: 72148

== ENCOUNTER 2024-06-27 11:30 | Emergency (ER) | payer MEDICAID, SELFPAY ==
[2024-06-27 11:31] VITALS: BP 146/82; PULSE 75; RESP 18; TEMP 36.6; O2SAT 96; BMI 34.1
--- NOTE | 2024-06-27 12:54 | EKG12_ITS ---
Test Reason : CP Blood Pressure : / mmHG Vent. Rate : 075 BPM Atrial Rate : 075 BPM P-R Int : 114 ms QRS Dur : 086 ms QT Int : 382 ms P-R-T Axes : 045 072 044 degrees QTc Int : 426 ms Normal sinus rhythm Otherwise normal ECG When compared with ECG of 16-DEC-2023 20:45, Current undetermined rhythm precludes rhythm comparison, needs review Confirmed by KASSANDRA HANSEN, LUCÍA ([id number]), science editor AZRA MOSER ([id number]) on 07/01/2024 11:31:34 AM Referred By: JAKE Confirmed By:LUCÍA CANNON MD
[2024-06-27 12:56] VITALS: O2SAT 95
[2024-06-27] MEDS: Aspirin 81 MG TAB.CHEW 324 MG PO (12:59)
[2024-06-27 13:04] LABS: Absolute Lymphocyte Count 1.33 X10^3/uL (0.83-4.51); Absolute Neutrophil Count 6.8 X10^3/uL (2.0-7.7); Basophil# 0.02 X10^3/uL; Basophil% 0.2 % (0-1); Eosinophils% 1.1 % (0-5); Hematocrit 39.7 % (40-54); Hemoglobin 12.9 g/dL (13.0-16.5); Lymphocyte # 1.33 X10^3/ul (0.83-4.51); Lymphocyte % 14.8 % (19-41); Mean Corp Hgb Conc 32.5 g/dL (32-36); Mean Corpuscular Hgb 28.5 pg (27.0-32.0); Mean Corpuscular Volume 87.6 fL (80-94); Mean Platelet Vol. 11.5 fl (6.2-12.0); Monocyte# 0.65 X10^3/uL; Monocyte% 7.2 % (0-10); NRBC Flagged by Analyzer 0 % (0-5); Neutrophil # 6.83 X10^3/uL (2.7-7.7); Neutrophil % 76.3 % (47-70); Platelet Count 148 K/mm3 (150-450); RBC Distribution Width CV 14.5 % (11.6-14.6); RBC Distribution Width SD 46.1 fl (35.1-43.9); Red Blood Count 4.53 M/mm3 (4.6-6.2)
--- NOTE | 2024-06-27 13:05 | RAD_ITS ---
INDICATION: chest pain EXAMINATION/TECHNIQUE: X-RAY - XR Chest 1 View COMPARISON: Prior study dated: 12/16/2023 FINDINGS: LINES/DEVICES: None. LUNGS: The lungs are well expanded. No consolidation, edema or effusion. No pneumothorax. MEDIASTINUM AND CARDIOVASCULAR STRUCTURES: Cardiac silhouette not enlarged. Central airways and mediastinal contour are unremarkable. BONES AND SOFT TISSUES: No acute abnormality. RAD/Chest 1 View (Portable) IMPRESSION: No acute pulmonary finding. Electronically Signed: Tony Minor MD at 13:19 EDT ,
[2024-06-27 13:25] LABS: Anion Gap 5 (5-15); BUN 20 mg/dL (7-18); Calcium,Total 9.8 mg/dL (8.5-10.1); Chloride 110 mmol/L (98-107); Creatinine, Serum 1.25 mg/dL (0.70-1.30); EST Glomerular Filtration Rate 63 mL/min (>60); Est Glom Filt Rate - Afr Amer 76 mL/min (>60); Estimated Creatinine Clearance 68.96 ml/min; Glucose 108 mg/dL (74-106); Potassium 4.1 mmol/L (3.5-5.1); Sodium Level 143 mmol/L (136-145); Troponin-I HS (w/2H Reflex) 3 pg/mL (3.0-78.0)
[2024-06-27 13:30] VITALS: BP 134/113; PULSE 58; RESP 17; O2SAT 96
[2024-06-27 15:00] VITALS: BP 136/91; PULSE 61; RESP 19; O2SAT 98
[2024-06-27 15:00] LABS: Reflex Troponin-HS? (from REC) Y
--- NOTE | 2024-06-27 15:35 | EDS_ITS ---
HPI History of Present Illness Chief Complaint: Chest Pain Detail of Chief Complaint: Chest pain and right shoulder pain Informant: patient and spouse/S.O. Onset/Context/Timing Onset: Today and Yesterday Activity at onset: gradual Timing: Intermittent Quality: Positive for Aching and Pressure Location: Right Parasternal Current Severity: Mild Maximum Severity: Moderate Worsened By: Nothing Relieved By: Nothing Associated Symptoms: Negative for Nausea, Vomiting, Diaphoresis, Dyspnea, Cough, Fever, Lightheadedness, Acid Reflux or Palpitations Narrative Narrative: Patient is a 58-year-old male. His psychomotor skills are exceedingly slow. He mumbles when he speaks. Had to redirect for him to answer questions to determine the quality, severity location of his chest discomfort and when it started. He states it started when he was walking. Significant other states he was sitting. I find him to be unreliable. Presently patient is not having chest discomfort. He describes it as a dull pressure-like sensation right parasternal area and complaint of right shoulder pain. Right shoulder pain is not precipitated, alleviated or exacerbated by any particular factor. The chest pain is not exacerbated, precipitated or alleviated by anything. There is no associated symptom i.e. nausea, diaphoresis or shortness of breath. He denies pain with breathing. He denies history of PE or DVT. He denies leg pain, discoloration or swelling. He has no risk factors for VTE. Prior Similar Symptoms: No Recent Illness/Hospitalization: No CVD Risk Factors: Negative for Hypertension, Diabetes, Hypercholesterolemia, Family History 1' </=55 or Smoking PE Risk Factors: Negative for Recent Travel/Surgery, Recent Immobilization, Prior DVT or PE, Cancer or OCP + Smoking + >/=35 TAD Risk Factors: Negative for Marfan's Syndrome, Hypertension or Family History [facility] Medical History Schizoaffective disorder Anxiety and depression Obesity Lymphedema of both lower extremities Chronic low back pain Abrasion of flank Home Medications ?Medication ?Instructions ?Recorded ?Last Taken ?Type benztropine 0.5 mg tablet 0.5 mg PO BID 02/23/23 Unknown History cholecalciferol (vitamin D3) 125 5,000 unit PO DAILY 12/16/23 Unknown History mcg (5,000 unit) capsule haloperidol decanoate 100 mg/mL mg IM 12/16/23 12/06/23 History intramuscular solution melatonin 3 mg tablet 3 mg PO QHS 12/16/23 Unknown History acetaminophen 325 mg tablet 650 mg (2 x 325 mg) PO Q4H PRN PRN 12/19/23 Unknown Rx Fever, pain 1-08/28 #0 tabs magnesium hydroxide 400 mg/5 mL 30 ml PO BID PRN 05/06/24 Unknown History oral suspension (Milk of Magnesia) Allergy/AdvReac Type Severity Reaction Status Date / Time No Known Allergies Allergy Verified 06/17/24 13:37 Family History Mother Anxiety and depression Hypertension Father Esophageal dysfunction Grandfather Heart disease Paternal GF. Myocardial infarction Paternal GF. CAD (coronary artery disease) Paternal GF. Surgical History History of elbow surgery Social History household members: other details: Lives with his sister. Smoking Status: Never smoker alcohol intake: never substance use type: does not use ROS ROS ED Constitutional Constitutional ED: Denies chills, fever(s), subjective, sweats or weight loss Eyes Eyes: Reports none ENT ENT ED: Denies ear pain, rhinorrhea or sore throat Cardiovascular Cardiovascular: Reports as per HPI; Denies orthopnea or paroxysmal nocturnal dyspnea Respiratory/Chest Respiratory/Chest: Denies cough, dyspnea, dyspnea on exertion, orthopnea or paroxysmal nocturnal dyspnea Gastrointestinal Gastrointestinal: Denies abdominal pain, diarrhea, melena, nausea or vomiting Genitourinary Genitourinary ED: Denies dysuria, hematuria or urinary frequency Musculoskeletal Musculoskeletal: Reports back pain and other Details: Back pain is chronic. ; Denies arthralgias, myalgias or neck pain Integumentary Denies rash Neurologic Neurologic: Reports weakness; Denies paresthesias Psychiatric Psychiatric: Denies anxiety Endocrine Endocrinology: Denies cold intolerance or heat intolerance Hematologic/Lymphatic Hematologic/Lymphatic: Denies easy bleeding or easy bruising EXAM Physical Exam Const Vital Signs: 06/27/24 11:31 06/27/24 12:29 06/27/24 12:56 Temperature 98 F Temperature Source Temporal Pulse Rate 75 Respiratory Rate 18 Respiratory Effort Normal Blood Pressure 146/82 H Blood Pressure Mean 103 Pulse Ox 96 95 Oxygen Delivery Method Room Air Room Air 06/27/24 13:30 06/27/24 15:00 Temperature Temperature Source Pulse Rate 58 L 61 Respiratory Rate 17 19 H Respiratory Effort Blood Pressure 134/113 H 136/91 H Blood Pressure Mean 120 106 Pulse Ox 96 98 Oxygen Delivery Method Room Air Room Air Positive well nourished and well developed Constitutional Narrative: Vital signs reveal mildly elevated blood pressure otherwise unremarkable. General Appearance ED: well developed; Negative for pallor HEENT Reports moist mucous membranes normocephalic and atraumatic Eyes PERRL and EOMs intact bilaterally General Eye ED: Negative for pale conjunctiva or scleral icterus Neck no lymphadenopathy, supple and no JVD Chest Wall inspection of chest normal and palpation of chest normal Resp normal respiratory effort and clear to auscultation bilaterally Cardio regular rate, regular rhythm, S1 normal heart sound, S2 normal heart sound and no murmurs Peripheral Pulses: pulses 2+ throughout GI normal to inspection, nondistended, normoactive bowel sounds, soft to palpation, non-tender, non-distended and no masses; Negative for hepatosplenomegaly Back/Spine no CVA tenderness Extremity normal to inspection General Extremety ED: Negative for pulses abnormal or tenderness General Extremity: Negative for pulses abnormal Neuro oriented x3 and CN's II-XII intact bilaterally Sensorium / Orientation: awake; Negative for alert Psych Mood & Affect: depressed Skin no rashes or lesions noted and no wounds General Skin Exam: Negative for jaundice or pallor Heart Score History: Slightly/Non-Suspicious ECG: Normal Age: >45 - <65 years Risk Factors: No Risk Factors Troponin: </= Normal Limit Score: 1 MDM MDM MDM Narrative Medical decision making narrative: Differential diagnosis is cardiac versus noncardiac. Noncardiac would include pneumonia, GI pathology, doubt pneumothorax. Chest pain of unknown etiology. History and physical exam is not consistent with aortic dissection. Lab Data Attestation: I reviewed the patient's lab results. Lab results narrative: CBC is normal. Electrolyte panel is unremarkable. Chloride is slightly elevated 110. First troponin is 3. Labs: Laboratory Results - last 24 hr 06/27/24 06/27/24 12:10 14:17 WBC 9.0 RBC 4.53 L Hgb 12.9 L Hct 39.7 L MCV 87.6 MCH 28.5 MCHC 32.5 RDW Std Deviation 46.1 H RDW Coeff of Antony 14.5 Plt Count 148 L MPV 11.5 Immature Gran % (Auto) 0.400 Neut % (Auto) 76.3 H Lymph % (Auto) 14.8 L Dawes % (Auto) 7.2 Eos % (Auto) 1.1 Baso % (Auto) 0.2 Absolute Neuts (auto) 6.8 Absolute Lymphs (auto) 1.33 Nucleated RBC % 0 Sodium 143 Potassium 4.1 Chloride 110 H Carbon Dioxide 28.0 Anion Gap 5 BUN 20 H Creatinine 1.25 Estim Creat Clear Calc 68.96 Est GFR (MDRD) Af Amer 76 Est GFR (MDRD) Non-Af 63 BUN/Creatinine Ratio 16.0 Glucose 108 H Calcium 9.8 Troponin I High Sens 3 3 Second troponin is 3. Delta is 0 with both less than 4 negative predictive value is 100% therefore will discharge to home Radiography Diagnostic Testing: Clinical Impression(s) from Imaging Studies Chest X-Ray 06/27/24 13:05 IMPRESSION: No acute pulmonary finding. 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, pneumonia Reason(s) pneumonia less likely: Positive for no infiltrate on CXR, no noted fever and symptoms not consistent with acute infection, aortic dissection Reason(s) Aortic dissection less likely:: Positive for normal vascular exam, no history of HTN, normal neurological exam, no significant risk factors for dissection, no widened mediastinum on CXR, pain not sudden onset, no ripping/tearing pain, no pain to back and blood pressure appropriate in ED, CHF Reason(s) CHF less likely: Positive for no significant peripheral edema, no orthopnea and no evidence of fluid overload on CXR and COPD Reason(s) COPD less likely: Positive for no significant wheezing on exam, no tachypnea, no conversational dyspnea and normal air movement noted on auscultation on lungs Discharge Plan Triage Chief Complaint: Chest Pain ED Provider: Nicolas Lira Dx/Rx/DC Orders Clinical Impression: Schizophrenia, Elevated blood-pressure reading without diagnosis of hypertension, Right-sided chest pain Instructions: ED Chest Pain, Noncardiac, ED Hypertension, To Be Confirmed Prescriptions: No Action magnesium hydroxide [Milk of Magnesia] 400 mg/5 mL suspension 30 ml PO BID PRN benztropine 0.5 mg tablet 0.5 mg PO BID Patient Comments: TAKE 1 TABLET BY MOUTH TWICE DAILY cholecalciferol (vitamin D3) 125 mcg (5,000 unit) capsule 5,000 unit PO DAILY haloperidol decanoate 100 mg/mL solution IM melatonin 3 mg tablet 3 mg PO QHS acetaminophen 325 mg Tablet 650 mg PO Q4H PRN PRN (Reason: Fever, pain 1-08/28) Qty: 0 0RF Primary Care Provider: Conner Heard Referrals: Conner Heard MD [Primary Care Provider] - 1 Week Print Language: Lithuanian Disposition Disposition: Home, Self Care
[2024-06-27 15:56] LABS: Troponin-I HS 3 pg/mL (3.0-78.0)
[2024-06-27 16:09] VITALS: BP 135/84; PULSE 57; RESP 18; TEMP 36.7; O2SAT 99
== END 2024-06-27 16:13 | disposition home or self-care (01) ==
PROVIDERS: Emergency Provider Emergency Medicine; PCP Family Medicine; Visit Provider Emergency Medicine
DX: R07.89 Other chest pain (principal); F20.9 Schizophrenia, unspecified; R03.0 Elevated blood-pressure reading, without diagnosis of hypertension; M25.511 Pain in right shoulder
CPT/HCPCS: 71045; 80048; 84484; 85025; 93005; 99284

== ENCOUNTER 2024-07-05 16:16 | Emergency (ER) | payer MEDICAID, SELFPAY ==
[2024-07-05 16:17] VITALS: BP 122/93; PULSE 69; RESP 18; TEMP 36.1; O2SAT 97; BMI 34.5
--- NOTE | 2024-07-05 16:53 | EX.ED.DYSGE1 ---
HPI History of Present Illness Chief Complaint: Chest Other Detail of Chief Complaint: Atraumatic right arm pain. Informant: patient and parent Onset/Context/Timing Onset: Weeks Context: Gradual Onset Timing: Continuous Current Severity: Mild Maximum Severity: Mild Narrative Narrative: 58-year-old male history of schizophrenia per his family members present in room with him. Was seen and treated here last week for similar complaint of right shoulder pain. A negative cardiac workup. He was discharged home. He is also getting this evaluated by his primary care physician and they are awaiting some test results. He was started on meloxicam. He says not really controlling his pain. He denies any falls injury or trauma. He denies any fever. Prior similar symptoms: Yes Recent Illness/Hospitalization: No PFSH PFSH Medical History Schizoaffective disorder Anxiety and depression Obesity Lymphedema of both lower extremities Chronic low back pain Abrasion of flank Home Medications ?Medication ?Instructions ?Recorded ?Last Taken ?Type benztropine 0.5 mg tablet 0.5 mg PO BID 02/23/23 Unknown History cholecalciferol (vitamin D3) 125 5,000 unit PO DAILY 12/16/23 Unknown History mcg (5,000 unit) capsule haloperidol decanoate 100 mg/mL mg IM 12/16/23 12/06/23 History intramuscular solution melatonin 3 mg tablet 3 mg PO QHS 12/16/23 Unknown History acetaminophen 325 mg tablet 650 mg (2 x 325 mg) PO Q4H PRN PRN 12/19/23 Unknown Rx Fever, pain 1-10/10 #0 tabs magnesium hydroxide 400 mg/5 mL 30 ml PO BID PRN constipation 05/06/24 Unknown History oral suspension (Milk of Magnesia) Allergy/AdvReac Type Severity Reaction Status Date / Time No Known Allergies Allergy Verified 07/05/24 16:20 Family History Mother Anxiety and depression Hypertension Father Esophageal dysfunction Grandfather Heart disease Paternal GF. Myocardial infarction Paternal GF. CAD (coronary artery disease) Paternal GF. Surgical History History of elbow surgery Social History household members: other details: Lives with his sister. Smoking Status: Never smoker alcohol intake: never substance use type: does not use ROS ROS ED ROS Narrative Denies recent illness. Constitutional Constitutional ED: Denies chills or fever(s) Eyes Eyes: Denies blurry vision ENT ENT ED: Denies ear pain Cardiovascular Cardiovascular: Denies chest pain Respiratory/Chest Respiratory/Chest: Denies cough or dyspnea Gastrointestinal Gastrointestinal: Denies abdominal pain Genitourinary Genitourinary ED: Denies dysuria or hematuria Musculoskeletal Musculoskeletal: Denies arthralgias Integumentary Denies abscess or Abrasions Neurologic Neurologic: Denies headache(s) Psychiatric Psychiatric: Denies anxiety or depression Endocrine Endocrinology: Denies cold intolerance Hematologic/Lymphatic Hematologic/Lymphatic: Reports none Allergic/Immunologic Allergic/Immunologic ED: Denies mouth swelling, tongue swelling or urticaria EXAM Physical Exam Narrative Exam Narrative: 58-year-old male no acute distress vital signs stable afebrile. H EENT exam unremarkable. Neck nontender. Lungs clear. Heart regular rhythm no murmur. Chest wall ribs nontender. Moving all 4 extremities. Nontender no edema. He complains of discomfort in his right shoulder but he has normal range of motion. There is no redness or warmth. No swelling. No deformity. He is able to flex and extend his wrist, hand, elbow and shoulder. There is no bony deformity. 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 Left upper and lower extremities are unremarkable. He is awake and alert. He is answer questions and following commands. Const Vital Signs: 07/05/24 16:17 Temperature 97 F L Temperature Source Temporal Pulse Rate 69 Respiratory Rate 18 Blood Pressure 122/93 H Blood Pressure Mean 102 Pulse Ox 97 Oxygen Delivery Method Room Air Positive well nourished and well developed; Negative for cachectic, contractures or unkempt General Appearance ED: well developed and NAD; Negative for unkempt, cachectic, contractures, cyanotic, diaphoretic or pallor Nutritional Appearance: Negative for cachectic HEENT Reports moist mucous membranes; Denies dry mucous membranes Negative for trauma or tenderness Mouth ED: No dry mucous membranes Mouth: No dry mucous membranes Eyes PERRL and EOMs intact bilaterally General Eye ED: Negative for pale conjunctiva, scleral icterus or other Neck no lymphadenopathy, supple and no JVD General: Negative for tenderness Chest Wall inspection of chest normal and palpation of chest normal Chest: Negative for other Resp normal respiratory effort and clear to auscultation bilaterally Effort and Inspection: Negative for retractions Auscultation: Negative for rales, rhonchi, wheezes or diminished lung sounds Cardio regular rate, regular rhythm, S1 normal heart sound, S2 normal heart sound and no murmurs Palpation: Negative for palpable S3 or palpable S4 Rate: Negative for bradycardia or tachycardic Rhythm: Negative for abnormal rhythm GI normal to inspection, nondistended, normoactive bowel sounds, non-tender, non-distended and no masses Auscultation: normoactive bowel sounds Palpation: soft; Negative for tender, guarding or rebound tenderness present Back/Spine no CVA tenderness General Back: Negative for CVA tenderness Cervical Spine: Negative for cervical spine tenderness Thoracic Spine / Upper Back: Negative for thoracic spinal tenderness or paraspinal muscle tenderness Lumbar Spine / Lower Back: Negative for lumbar spinal tenderness Extremity normal to inspection Extremity Narrative: No rebound tenderness or abnormality of the right shoulder. General Extremety ED: Negative for edema or tenderness General Extremity: Negative for edema Neuro oriented x3 and CN's II-XII intact bilaterally Sensorium / Orientation: alert; Negative for orientation impaired, lethargic or stuporous Motor Exam: strength 5/5 throughout Psych mental status grossly normal Appearance: Negative for unkempt Mood & Affect: Negative for depressed, anxious or tearful Skin no rashes or lesions noted and no wounds General Skin Exam: Negative for jaundice or pallor Lesions: No lesion noted Rashes: No rashes noted Trauma: Negative for abrasion Wounds: Negative for wounds noted MDM MDM MDM Narrative Medical decision making narrative: Schizophrenia male complaining of reproducible right shoulder pain. Had a recent workup that was negative. Will be given morphine for pain and discharged home. There is no signs of any trauma or history of trauma. There is no signs of any infection. His right hand is neurovascularly intact. He had a workup of this done a week ago. He has outpatient test that he is following up with his primary care physician this Sunday to get the results for. History & Record Review Discussion w/independent historian: Patient and Family Additional record(s) reviewed:: Prior inpatient record, Prior outpatient record, Prior ED visit and Prior labs Discharge Plan Triage Chief Complaint: Chest Other ED Provider: Sreekanth Campos Dx/Rx/DC Orders Clinical Impression: Arm pain, Hx of schizophrenia Instructions: ED Pain, Acute, Uncertain Cause Prescriptions: No Action magnesium hydroxide [Milk of Magnesia] 400 mg/5 mL suspension 30 ml PO BID PRN (Reason: constipation) benztropine 0.5 mg tablet 0.5 mg PO BID Patient Comments: TAKE 1 TABLET BY MOUTH TWICE DAILY cholecalciferol (vitamin D3) 125 mcg (5,000 unit) capsule 5,000 unit PO DAILY haloperidol decanoate 100 mg/mL solution IM melatonin 3 mg tablet 3 mg PO QHS acetaminophen 325 mg Tablet 650 mg PO Q4H PRN PRN (Reason: Fever, pain 1-08/28) Qty: 0 0RF Primary Care Provider: Conner Heard Referrals: Conner Heard MD [Primary Care Provider] - Keep Nikole appointment Activity Restrictions/Additional Instructions: Motrin and/or Tylenol for your pain. You can stop the meloxicam. Follow-up with your doctor for further evaluation and test results. Print Language: Honduran Disposition Disposition: Home, Self Care
[2024-07-05 17:03] VITALS: BP 117/72; PULSE 66; RESP 18; TEMP 36.6; O2SAT 99
== END 2024-07-05 17:07 | disposition home or self-care (01) ==
PROVIDERS: Emergency Provider Emergency Medicine; PCP Family Medicine; Visit Provider Emergency Medicine
DX: M79.601 Pain in right arm (principal); F20.9 Schizophrenia, unspecified; Z79.899 Other long term (current) drug therapy
CPT/HCPCS: 96374; 96375; 99283; A4216; J2405

== ENCOUNTER → 2024-07-29 | Outpatient (CLI) | payer MEDICAID, SELFPAY ==
--- NOTE | 2024-07-29 12:34 | RAD_ITS ---
INDICATION: right flank pain EXAMINATION/TECHNIQUE: X-RAY - XR Abdomen 1 View COMPARISON: No relevant prior comparison study available FINDINGS: BOWEL GAS PATTERN: Non-obstructive. No bowel or stomach distention. Fecal retention. FREE AIR: Not assessed on a single supine view. ORGANOMEGALY: Not seen. CALCIFICATIONS: Pelvic calcifications likely due to phleboliths. LOWER CHEST: No acute pathology. BONES AND SOFT TISSUES: Surgical clips in right upper quadrant from previous cholecystectomy. RAD/Abdomen Single View IMPRESSION: Non-obstructive bowel gas pattern. Electronically Signed: Sekou Arshad MD at 13:54 EDT ,
== END | disposition home or self-care (01) ==
LOC: MTRAD 12:34
PROVIDERS: PCP Family Medicine; Referring Provider Family Medicine; Visit Provider Family Medicine
DX: R10.9 Unspecified abdominal pain (principal)
CPT/HCPCS: 74018

== ENCOUNTER → 2024-09-29 | Outpatient (CLI) | payer MEDICAID, SELFPAY ==
--- NOTE | 2024-09-29 07:29 | MRI_ITS ---
STUDY: MRI THORACIC SPINE WITHOUT CONTRAST REASON FOR EXAM: Male, 58 years old. 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 COMPARISON: MRI lumbar spine 06/13/2024. CT abdomen and pelvis without contrast 05/01/2024. FINDINGS: Normal kyphosis of the thoracic spine. There is no substantial scoliosis. T1-2, T2-3, T3-4, T4-5, T5-6, T6-7, T7-8, T8-9, T9-10, T10-11, T11-12: Normal endplates. Normal disc hydration, heights and morphology of the corresponding intervertebral discs. 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 No associated spinal stenosis. Normal visualized thoracic cord. Normal conus medullaris that terminates at the T12-L1 disc space level. The soft tissue structures are unremarkable. MRI/Spine Thoracic (Routine) IMPRESSION: 1. Midline ventral extradural defect at T12-L1 disc space level corresponds to posterior marginal spur seen on CT abdomen of 05/03/2024. 2. No MRI evidence of thoracic extruded disc fragment or spinal stenosis. 3. No MR evidence of cord compressing lesions throughout the thoracic spine. 4. Normal thoracic spinal cord. Electronically Signed: Saulo Smith MD at 9:33 EST ,
== END | disposition home or self-care (01) ==
LOC: MRI 07:19
PROVIDERS: PCP Family Medicine; Referring Provider Orthopaedic Surgery Orthopaedic Surgery of the Spine; Visit Provider Orthopaedic Surgery Orthopaedic Surgery of the Spine
DX: G95.9 Disease of spinal cord, unspecified (principal); S22.000A Wedge compression fracture of unspecified thoracic vertebra, initial encounter for closed fracture
CPT/HCPCS: 72146

== ENCOUNTER 2024-10-15 12:00 | Outpatient (RCR) | payer MEDICAID, SELFPAY ==
--- NOTE | 2024-09-04 11:27 | HP.PTEVAL_ITS ---
Patient's Visit Information Visit Information Visit Information: MIAH ZAVALA is a 58 year old M referred to Physical Therapy by Dr. Johnathon Santiago MD with a diagnosis of Myelopathy; disease of spinal cord. Date of Evaluation: 09/03/24 Physical Therapist: Jamil Dowling, PT, ATC Visit Plan Frequency: 2x /Week Duration: 4 Weeks Plan: Bilat LE strengthening, gait training, balance and proprio, HEP, core strengthening, stair negotiation Subjective Subjective: Pt reports he started having low back pain a year ago after he moved in a funny direction. States the pain will occasionally radiate into both LEs. States he also has weakness in B LEs and can tell he is more off balance. States he has difficulties with sit to stands, ambulating, ascending/descending stairs, and standing for long periods of time. Pt reports increase in LBP when lifting objects. Pt reports he also has difficulties with getting dressed and putting his socks on secondary to it being difficult to bend over. Pt reports numbness and tingling going down B LEs but can tell it's more prominent in the R LE. States he has had a recent history of falls, his most recent being last week and another one 3 months ago. Pt reports he wants to get back to completing all ADLs and iADLs without assistance. Pt reports rest and pain medication help to alleviate his pain. Had an x-ray completed a week ago and had an MRI done 2 weeks ago; didn't state if they found any significant findings. Pt reports his pain is a 1/10 at rest and is a 5-6/10 at its worst. Pain LBP: Pain Intensity (Out of 10): 1 Pain Intensity Range: 6 Objective Objective: NEURO: sensation WNL bilat to light touch; DTR patellar and achilles 2/3 normal MMT: R hip flex= 3/5, abd= 4/5, add= 4/5; R knee flex= 3+/5, ext= 4+/5; L hip flex= 2/5, abd= 4/5, add= 4/5; L knee flex= 3/5, ext= 4-/5 TU sec 6 MWT: 595 ft Balance/Special Test Scores Oswestry Low Back Score: 27 Goals Goal 1:: Pt will complete a TUG in under 10 sec to aid with ambulation. Goal Time Frame: 4-6 Weeks Goal 2:: Pt will increase bilat LE strength by 1 grade in all planes to aid with getting dressed. Goal Time Frame: 4-6 Weeks Goal 3:: Pt will be I with a HEP. Goal Time Frame: 4-6 Weeks Goal 4:: Pt will decrease pain by 50% to aid with ADLs. Goal Time Frame: 4-6 Weeks Rehabilitation Potential Physical Therapy Diagnosis: Decreased bilat LE strength, difficulty with gait and balance Rehabilitation Potential: Fair Anticipated Interventions Patient/Client Instruction: Educate patient on: Plan of Care Therapeutic Exercise to Include: Strength training, Balance training, Body mechanics, Gait and locomotor training and Dynamic Lumbar Stabilization For the Purpose of:: To decrease pain, To improve muscle performance and motor function, To improve performance and independence with ADL's, To improve gait and locomotor functions and To improve balance Text: Thank you for the opportunity to evaluate your patient. For Medicare and Medicare HMO plans, please review the plan of care and approve it. It will need to be FAXED BACK to us at [phone] for Medicare purposes. For Medicare only, by signing this I certify the plan of care. Please let me know if there are questions or concerns regarding this plan of care. Physician Signature: Date:
--- NOTE | 2024-12-26 12:36 | HP.PT.NRP ---
Patient Information Patient Information: MIAH ZAVALA was seen in my office for initial evaluation on 09/03/24. The following Plan of Care was established for this patient: POC Established Initial Frequency: 2x /Week Initial Duration: 4 Weeks Anticipated Interventions Patient/Client Instruction: Educate patient on: Plan of Care Therapeutic Exercise to Include: Strength training, Balance training, Body mechanics, Gait and locomotor training and Dynamic Lumbar Stabilization For the Purpose of:: To decrease pain, To improve muscle performance and motor function, To improve performance and independence with ADL's, To improve gait and locomotor functions and To improve balance Last Seen Last Seen: This patient was last seen in our office . Pertinent comments regarding their Physical therapy will appear below: Pt has not returned through todays date for 30 days and is discontinued at this time. At this point I will be discontinuing this patient from physical therapy. I would be happy to see this patient again in the future if found appropriate by the physician. Thank you! Jamil Dowling, PT, ATC Balance/Gait/Functional tests Balance/Special Test Scores Oswestry Low Back Score: 27
== END 2024-10-15 19:00 | disposition home or self-care (01) ==
LOC: PT 12:00
PROVIDERS: PCP Family Medicine; Referring Provider Orthopaedic Surgery Orthopaedic Surgery of the Spine; Visit Provider Orthopaedic Surgery Orthopaedic Surgery of the Spine
DX: G95.9 Disease of spinal cord, unspecified (principal)
CPT/HCPCS: 97110; 97161

== ENCOUNTER → 2025-01-08 | Outpatient (CLI) | payer MEDICAID, SELFPAY ==
--- NOTE | 2025-01-08 12:36 | RAD_ITS ---
PROCEDURE: PA and lateral chest radiographs, two views REASON FOR EXAM: Shortness of breath TECHNIQUE: PA and lateral chest radiographs were obtained. COMPARISON: 06/27/2024 FINDINGS: The cardiomediastinal silhouette is similar. Low depth of inspiration. Bones are osteopenic with degenerative changes of the spine. Similar prominent fat pad at the left lung base. Some coarse markings at the right lung base are also unchanged. RAD/Chest PA and Lateral IMPRESSION: Low depth of inspiration. No definite acute cardiopulmonary process. If there are persistent symptoms or clinical concern, short-term follow-up CT evaluation may be considered. Reading Location: [facility]
== END | disposition home or self-care (01) ==
LOC: MTRAD 12:34
PROVIDERS: PCP Family Medicine; Referring Provider Family Medicine; Visit Provider Family Medicine
DX: R06.02 Shortness of breath (principal)
CPT/HCPCS: 71046

== ENCOUNTER 2025-05-03 14:37 | Emergency (ER) | payer MEDICAID, SELFPAY ==
[2025-05-03 14:38] VITALS: BP 116/64; PULSE 62; RESP 12; TEMP 36.8; O2SAT 99; BMI 31.9
--- OUTSIDE RECORDS SUMMARY | 2025-05-03 15:18 | XMS RPT_ITS | CCD ---
Author Organization [facility] Care Team Providers Care Chinese Teacher Name Role Phone Care Physician, No Primary Primary Care Provider Unavailable Dr. Everton Shin Emergency Provider [phone] Dr. Clarissa Garg Admit Provider Dr. Clarissa Garg Other Provider [phone] Miah Underwood Attending Provider [phone] Dr. Miah Underwood Other Provider [phone] Orquidea, Chalon Primary Care Unavailable Isckarus, Mansour Attending Unavailable Isckarus, Mansour Referring Unavailable Orquidea, Chalon Primary Care Unavailable Orquidea, Chalon Referring Unavailable Isckarus, Mansour Attending Unavailable Juan, Brian Attending Unavailable Orquidea, Chalon Primary Care Unavailable Orquidea, Chalon Referring Unavailable Santiago, Johnathon Attending Unavailable Orquidea, Chalon Primary Care Unavailable Orquidea, Chalon Primary Care Unavailable Juan, [place] Attending Unavailable Orquidea, Chalon Primary Care Unavailable Orquidea, Chalon Referring Unavailable Santiago, Johnathon Attending Unavailable Orquidea, Chalon Referring Unavailable Isckarus, Mansour Attending Unavailable Orquidea, Chalon Primary Care Unavailable Orquidea, Chalon Primary Care Unavailable Isckarus, Mansour Attending Unavailable Isckarus, Mansour Referring Unavailable Isckarus, Mansour Attending Unavailable Isckarus, Mansour Referring Unavailable Orquidea, Chalon Primary Care Unavailable Santiago, Johnathon Referring Unavailable Santiago, Johnathon Attending Unavailable Orquidea, Chalon Primary Care Unavailable Orquidea, Chalon Referring Unavailable Orquidea, Chalon Attending Unavailable Orquidea, Chalon Primary Care Unavailable Orquidea, Chalon Primary Care Unavailable Santiago, Johnathon Referring Unavailable Santiago, Johnathon Attending Unavailable Orquidea, Chalon Primary Care Unavailable Santiago, Johnathon Referring Unavailable Santiago, Johnathon Attending Unavailable Orquidea, Chalon Primary Care Unavailable Lira, Nicolas Attending Unavailable Reodica, Saulo Attending Unavailable Orquidea, Chalon Primary Care Unavailable Conner Heard Primary Care Unavailable Sreekanth Campos Attending Unavailable Conner Heard Primary Care Unavailable Conner Heard Referring Unavailable Conner Heard Attending Unavailable Medications Current Medications Medication Drug Class(es) Dates Sig (Normalized) Sig (Original) acetaminophen 325 mg oral tablet (1 source) Start: 12-19-2023 take 650 mg by mouth every four hours as needed Acetaminophen Active 650 MG PO EVERY 4 HOURS NEEDED 0 December 19, 2023 12:00am benztropine mesylate 0.5 mg oral tablet (5 sources) Anticholinergic, Antihistamine Start: 02-23-2023 take 0.5 mg by mouth twice daily Benztropine Active 0.5 MG PO TWICE A DAY February 22, 2023 11:00pm cholecalciferol 0.125 mg oral capsule (2 sources) Vitamin D Start: 12-16-2023 take 5000 [IU] by mouth once daily Cholecalciferol (Vitamin D3) Active 5000 UNIT PO DAILY December 16, 2023 12:00am Food Supplemt, Lactose-Reduced (Ensure Plus High Protein) 0.08 gram-1.5 kcal/mL Liquid (1 source) Start: 12-19-2023 Food Supplemt, Lactose-Reduced (Ensure Plus High Protein) 0.08 gram-1.5 kcal/mL Liquid Active 120 ML PO 4 TIMES DAILY 0 December 19, 2023 12:00am 1 ml haloperidol decanoate 100 mg/ml injection (2 sources) Typical Antipsychotic Start: 12-16-2023 Haloperidol Decanoate Active MG IM December 16, 2023 12:00am melatonin 3 mg oral tablet (2 sources) Start: 12-16-2023 take 3 mg by mouth at bedtime Melatonin Active 3 MG PO AT BEDTIME December 16, 2023 12:00am Menthol / Zinc Oxide (1 source) Start: 12-19-2023 Menthol-Zinc Oxide (Calmoseptine) 0.44-20.6 % Ointment Active 1 APPLIC TOPICAL TWICE A DAY 0 December 19, 2023 12:00am Completed/Discontinued Medications Medication Drug Class(es) Dates Sig (Normalized) Sig (Original) cephalexin 500 mg oral capsule (3 sources) Cephalosporin Antibacterial Start: 12-13-2023 End: 12-19-2023 take 500 mg by mouth three times daily Cephalexin Discontinued 500 MG PO THREE TIMES A DAY 21 December 13, 2023 12:00am December 19, 2023 3:48pm docusate sodium 100 mg oral capsule (5 sources) Start: 02-23-2023 End: 12-16-2023 take 100 mg by mouth once daily Docusate Sodium Discontinued 100 MG PO DAILY February 22, 2023 11:00pm December 16, 2023 7:41pm doxycycline monohydrate 100 mg oral tablet (1 source) Tetracycline-class Drug Start: 12-19-2023 Doxycycline Monohydrate Active 100 MG PO TWICE A DAY December 19, 2023 12:00am Discontinue after 11 doses, start on 12/20/2023 LORazepam 0.5 mg oral tablet (5 sources) Benzodiazepine Start: 02-23-2023 End: 12-16-2023 take 0.5 mg by mouth every eight hours Lorazepam Discontinued 0.5 MG PO EVERY 8 HOURS February 22, 2023 11:00pm December 16, 2023 7:41pm sulfamethoxazole 800 mg / trimethoprim 160 mg oral tablet (3 sources) Dihydrofolate Reductase Inhibitor Antibacterial, Sulfonamide Antimicrobial Start: 12-13-2023 End: 12-19-2023 take 1 tablet by mouth twice daily Sulfamethoxazole- Trimethoprim (Bactrim Ds) 800-160 mg tablet Discontinued 1 TABLET PO TWICE A DAY December 13, 2023 12:00am December 19, 2023 3:48pm ziprasidone 20 mg oral capsule (5 sources) Atypical Antipsychotic Start: 02-23-2023 End: 12-16-2023 take 20 mg by mouth once daily Ziprasidone Hcl Discontinued 20 MG PO DAILY February 22, 2023 11:00pm December 16, 2023 7:42pm Problems Active Problems Problem Classification Problem Date Documented Date Episodic/Chronic Other connective tissue disease (2 sources) Recurrent falls ; Translations: [Repeated falls] 12-16-2023 Episodic Other connective tissue disease (2 sources) Repeated falls; Translations: [History of fall] 12-16-2023 Episodic Other diseases of veins and lymphatics (2 sources) Lymphedema of bilateral lower limbs; Translations: [Lymphedema, not elsewhere classified] 12-16-2023 Chronic Other diseases of veins and lymphatics (2 sources) Lymphedema, not elsewhere classified; Translations: [Other lymphedema] 12-16-2023 Chronic Other lower respiratory disease (1 source) Shortness of breath; Translations: [Shortness of breath] Onset: 01-21-2025 Episodic Other nervous system disorders (2 sources) Disease of spinal cord, unspecified; Translations: [Disease of spinal cord, unspecified] Onset: 09-04-2024 Chronic Residual codes; unclassified (5 sources) Altered mental status; Translations: [Altered mental status, unspecified] 02-23-2023 Episodic Schizophrenia and other psychotic disorders (15 sources) Schizoaffective disorder, depressive type ; Translations: [Schizoaffective disorder, depressive type] 01-31-2023 Chronic Skin and subcutaneous tissue infections (4 sources) Cellulitis; Translations: [Cellulitis, unspecified] 12-13-2023 Episodic Spondylosis; intervertebral disc disorders; other back problems (1 source) Other spondylosis with myelopathy, thoracic region; Translations: [Other spondylosis with myelopathy, thoracic region] Onset: 12-17-2024 Chronic Spondylosis; intervertebral disc disorders; other back problems (4 sources) Chronic low back pain; Translations: [Chronic low back pain] 12-16-2023 Episodic Superficial injury; contusion (4 sources) Abrasion, flank; Translations: [Abrasion of abdominal wall, initial encounter] 12-16-2023 Episodic Unclassified (1 source) Low back pain, unspecified; Translations: [Low back pain, unspecified] Onset: 08-26-2024 Past or Other Problems Problem Classification Problem Date Documented Da te Episodic/Chronic Abdominal pain (1 source) Unspecified abdominal pain; Translations: [Unspecified abdominal pain] Onset: 08-19-2024 Episodic Nonspecific chest pain (1 source) Chest pain, unspecified; Translations: [Chest pain, unspecified] Onset: 07-09-2024 Episodic Other bone disease and musculoskeletal deformities (2 sources) Disorder of bone, unspecified; Translations: [Disorder of bone, unspecified] Onset: 06-17-2024 Episodic Other connective tissue disease (1 source) Pain in right arm; Translations: [Pain in right arm] Onset: 07-10-2024 Episodic Results Test Name Value Interpretation Reference Range Facility Chest PA and Lateralon 01-08 Chest PA and Lateral [facility] [address] [place] [address] Chest PA and Lateral MR#: [id number] Acct: [id number] Name: MIHA ZAVALA Rep #: [id number] : 02/20/1966 M 58 From: Jesse Demarco i DO PCP: Dr. Conner Heard MD Status: REG CLI Study: Chest PA and Lateral Date of Exam: 01/08/25 Exam# [id number] Ordering Dr: Conner Heard MD PROCEDURE: PA and lateral chest radiographs, two views REASON FOR EXAM: Shortness of breath TECHNIQUE: PA and lateral chest radiographs were obtained. COMPARISON: 06/27/2024 FINDINGS: The cardiomediastinal silhouette is similar. Low depth of inspiration. Bones are osteopenic with degenerative changes of the spine. Similar prominent fat pad at the left lung base. Some coarse markings at the right lung base are also unchanged. RAD/Chest PA and Lateral IMPRESSION: Low depth of inspiration. No definite acute cardiopulmonary process. If there are persistent symptoms or clinical concern, short-term follow-up CT evaluation may be considered. Reading Location[facility] CC: Dr. Conner Heard MD Universal Grinder Tool: Signed Normal [facility] Orthopedic Visit Reporton Orthopedic Visit Report [facility] [address] [place] [address] [address] [place] [address] OFFICE VISIT Date of Service: 12/17/24 MR#: [id number] Acct: [id number] Name: MIAH ZAVALA Rep #: [id number] : 02/20/1966 Provider: Dr. Johnathon Santiago MD Age/Sex: 58/M Location: [facility] [place] Status: Signed Intake Vital Signs 08/26/24 14:05 Height 5 ft 6 in Intake Visit Reasons: LUMBAR SPINE Chief Complaint: lumbar spine Is patient in pain?: Yes (low back ) Pain scale (1-10): 4 Allergies No Known Allergies Allergy (Verified 12/17/24 14:25) Medications ???Medication ???Instructions ???Recorded ???Confirmed ???Type benztropine 0.5 mg tablet 0.5 mg PO BID 02/23/23 08/26/24 Hi story haloperidol decanoate 100 mg/mL mg IM 12/16/23 08/26/24 History intramuscular solution melatonin 3 mg tablet 3 mg PO QHS 12/16/23 08/26/24 Hist ory magnesium hydroxide 400 mg/5 mL 30 ml PO BID PRN constipation 04/1908/26/24 History oral suspension (Milk of Magnesia) [facility] Medical History Schizoaffective disorder Anxiety and depression Obesity Lymphedema of both lower extremities Chronic low back pain Abrasion of flank Surgical History History of elbow surgery Family History Mother Anxiety and depression Hypertension Father Esophageal dysfunction Grandfather Heart disease Paternal GF. Myocardial infarction Paternal GF. CAD (coronary artery disease) Paternal GF. Social History household members: other details: Lives with his sister. Smoking Status: Never smoker alcohol intake: never substance use type: does not use HPI LUMBAR SPINE Chief Complaint: lumbar/thoracic spine Details: This documentation accurately reflects the service provided and the decisions made by me, Dr. Johnathon Santiago MD 12/17/24 9166. Part of today???s visit was documented by [ ], acting as scribe. MIAH ZAVALA is a 58 year old M here today for thoracic spine MRI review. Says that he still has left sided low back pain. Says that his balance continues to be an issue with occasional falls. His balance has not changed since August. Patient does not wish to use an ambulatory device. HPI from 08/26/24: MIAH ZAVALA is a 58 year old M here today NEW patient for low back pain. He is accompanied by his sister today. He was told that he has 2 lesions of his lumbar spine which were found to be benign. He does have an MRI in the system. He has been having the pain since March or April. Denies any known injury. He has a hard time going from sitting to standing. Denies previous surgery. He does have occasional numbness in both his legs. He does get occasional pain down both his legs. He denies PT for his low back. He denies having injections. He takes Tylenol and Ibuprofen as needed for pain. Patient was a poor historian and relied on his sister to answer questions. He has a diagnosis of schizophrenia and the sister believes that the medications may be causing Parkinson-like features for him. He seems to have severe difficulty with balance and strength especially in the lower extremities. He is still able to stand with difficulty and take a few steps without any ambulatory aid. Ortho Exam General General: Yes no acute distress Neurologic: Yes alert and Yes oriented x3 Spine SPINE TESTING CERVICAL THORACIC LUMBAR Musculoskeletal Strength 0=absent - 5=normal Details: Neurological exam of the lower extremities shows 5x5 power and 5x5 power of the upper extremities. Normal sensations across all dermatomes. Exaggerated knee reflexes, ankle reflexes 2+, patient did keep legs rigid during exam. No clonus. Mild midline tenderness. No paraspinal tenderness. Coding Level of Care Code Off vis,est,level 4 Diagnoses Thoracic myelopathy M47.14 Low back pain without sciatica, unspecified back pain laterality, unspecified chronicity M54.50 Chronicity: unspecified Back pain laterality: unspecified Sciatica presence: without sciatica Time Spent (min) 35 Assessment and Plan Assessment and Plan (1) Thoracic myelopathy: Status: Acute (2) Low back pain: Status: Acute Qualifiers: Chronicity: unspecified Back pain laterality: unspecified Sciatica presence: without sciatica Qualified Code(s): M54.50 - Low back pain, unspecified Orders: Orders Thoracic Spine 2 Views 12/17/24 M47.14 - Other spondylosis with myelopathy, thoracic region Plan Obtained and reviewed thoracic xrays today with the patient. T1-2 shows significant central stenosis with cord compression without any cord signal changes, likely arising from ossified ligamentum flavum. Previously is seen lumbar (more content not included)... Normal [facility] Thoracic Spine 2 Viewson Thoracic Spine 2 Views [facility] [address] [place], [place] [id number] Thoracic Spine 2 Views MR#: [id number] Acct: [id number] Name: MIAH ZAVALA Rep #: [id number] : 02/20/1966 M 58 From: Cachorro Palencia PCP: Dr. Conner Heard MD Status: DEP AMB Study: Thoracic Spine 2 Views Date of Exam: 12/17/24 Exam# [id number] Ordering Dr: Fernanda Lazar PROCEDURE: THORACIC SPINE 2 VIEWS REASON FOR EXAM: Pain. TECHNIQUE: Three-view AP and lateral thoracic spine series COMPARISON: None. RAD/Thoracic Spine 2 Views IMPRESSION: Right upper quadrant abdominal surgical clips are seen. Limited imaging of the cervical spine shows mild degenerative changes. Thoracic spine shows mild degenerative changes, also with thoracic DISH present. No significant disc space narrowing is noted. No fracture or subluxation is seen. Reading Location: [id number] CC: CHARLIE Richey; Dr. Conner Heard MD Universal Grinder Tool: Signed Normal [facility] Spine Thoracic (Routine)on 11-29-2023 Spine Thoracic (Routine) [facility] [address] [place], [place] [id number] Spine Thoracic (Routine) MR#: [id number] Acct: [id number] Name: MIAH ZAVALA Rep #: [id number] : 02/20/1966 M 58 From: Saulo Smith MD PCP: Dr. Conner Heard MD Status: REG CLI Study: Spine Thoracic (Routine) Date of Exam: Exam# [id number] Ordering Dr: Johnahton Santiago MD [id number] STUDY: MRI THORACIC SPINE WITHOUT CONTRAST REASON FOR EXAM: Male, 58 years old. 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 COMPARISON: MRI lumbar spine 06/13/2024. CT abdomen and pelvis without contrast 05/01/2024. FINDINGS: Normal kyphosis of the thoracic spine. There is no substantial scoliosis. T1-2, T2-3, T3-4, T4-5, T5-6, T6-7, T7-8, T8-9, T9-10, T10-11, T11-12: Normal endplates. Normal disc hydration, heights and morphology of the corresponding intervertebral discs. 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 No associated spinal stenosis. Normal visualized thoracic cord. Normal conus medullaris that terminates at the T12-L1 disc space level. The soft tissue structures are unremarkable. MRI/Spine Thoracic (Routine) IMPRESSION: 1. Midline ventral extradural defect at T12-L1 disc space level corresponds to posterior marginal spur seen on CT abdomen of 05/03/2024. 2. No MRI evidence of thoracic extruded disc fragment or spinal stenosis. 3. No MR evidence of cord compressing lesions throughout the thoracic spine. 4. Normal thoracic spinal cord. Electronically Signed: Saulo Smith MD at 9:33 EST , CC: Dr. Conner Heard MD; Dr. Johnathon Santiago MD Universal Grinder Tool: Signed Normal [facility] Inital Evaluation (1) - PTon 09-04-2024 Inital Evaluation (1) - PT [facility] Physical Therapy [facility] [address] [place] [address] [address] [place] [id number] / [facility] INITIAL EVALUATION MR#: [id number] Acct: [id number] Name: MIAH ZAVALA Rep #: [id number] : 02/20/1966 58 From: Jamil Dowling PT, ATC Referring Dr.: Dr. Johnathon Santiago MD Status: REG RCR Insurance: [facility] SELF PAY INSURANCE Patient's Visit Information Visit Information Visit Information: MIAH ZAVALA is a 58 year old M referred to Physical Therapy by Dr. Johnathon Santiago MD with a diagnosis of Myelopathy; disease of spinal cord. Date of Evaluation: 09/03/24 Physical Therapist: Jamil Dowling, PT, ATC Visit Plan Frequency: 2x /Week Duration: 4 Weeks Plan: Bilat LE strengthening, gait training, balance and proprio, HEP, core strengthening, stair negotiation Subjective Subjective: Pt reports he started having low back pain a year ago after he moved in a funny direction. States the pain will occasionally radiate into both LEs. States he also has weakness in B LEs and can tell he is more off balance. States he has difficulties with sit to stands, ambulating, ascending/descending stairs, and standing for long periods of time. Pt reports increase in LBP when lifting objects. Pt reports he also has difficulties with getting dressed and putting his socks on secondary to it being difficult to bend over. Pt reports numbness and tingling going down B LEs but can tell it's more prominent in the R LE. States he has had a recent history of falls, his most recent being last week and another one 3 months ago. Pt reports he wants to get back to completing all ADLs and iADLs without assistance. Pt reports rest and pain medication help to alleviate his pain. Had an x-ray completed a week ago and had an MRI done 2 weeks ago; didn't state if they found any significant findings. Pt reports his pain is a 1/10 at rest and is a 5-6/10 at its worst. Pain LBP: Pain Intensity (Out of 10): 1 Pain Intensity Range: 6 Objective Objective: NEURO: sensation WNL bilat to light touch; DTR patellar and achilles 2/3 normal MMT: R hip flex= 3/5, abd= 4/5, add= 4/5; R knee flex= 3+/5, ext= 4+/5; L hip flex= 2/5, abd= 4/5, add= 4/5; L knee flex= 3/5, ext= 4-/5 TU sec 6 MWT: 595 ft Balance/Special Test Scores Oswestry Low Back Score: 27 Goals Goal 1:: Pt will complete a TUG in under 10 sec to aid with ambulation. Goal Time Frame: 4-6 Weeks Goal 2:: Pt will increase bilat LE strength by 1 grade in all planes to aid with getting dressed. Goal Time Frame: 4-6 Weeks Goal 3:: Pt will be I with a HEP. Goal Time Frame: 4-6 Weeks Goal 4:: Pt will decrease pain by 50% to aid with ADLs. Goal Time Frame: 4-6 Weeks Rehabilitation Potential Physical Therapy Diagnosis: Decreased bilat LE strength, difficulty with gait and balance Rehabilitation Potential: Fair Anticipated Interventions Patient/Client Instruction: Educate patient on: Plan of Care Therapeutic Exercise to Include: Strength training, Balance training, Body mechanics, Gait and locomotor training and Dynamic Lumbar Stabilization For the Purpose of:: To decrease pain, To improve muscle performance and motor function, To improve performance and independence with ADL's, To improve gait and locomotor functions and To improve balance Text: Thank you for the opportunity to evaluate your patient. For Medicare and Medicare HMO plans, please review the plan of care and approve it. It will need to be FAXED BACK to us at [phone] for Medicare purposes. For Medicare only, by signing this I certify the plan of care. Please let me know if there are questions or concerns regarding this plan of care. Physician Signature: Date: ____ 09/04/24 1127 CC: Dr. Conner Heard MD; Dr. Johnathon Santiago MD [facility] Signed Normal [facility] L/S Spine Bending Flex/[place] 08-26-2024 L/S Spine Bending Flex/Ext [facility] [address] [place] [address] L/S Spine Bending Flex/Ext MR#: [id number] Acct: [id number] Name: MIAH ZAVALA Rep #: [id number] : 02/20/1966 M 58 From: Bethany Palencia PCP: Dr. Conner Heard MD Status: DEP [facility] Study: L/S Spine Bending Flex/Ext Date of Exam: 08/26 Exam# [id number] Ordering Dr: Fernanda Lazar [id number] INDICATION: low back pain -- flex/ext only EXAMINATION/TECHNIQUE: X-RAY - XR Spine Lumbar Bending Views Only 2 or 3 Views COMPARISON: No relevant prior comparison study available FINDINGS: VERTEBRAE: Preserved vertebral body height. No fracture. No spondylolisthesis. The flexion extension views show limited range of motion suggesting muscle spasm. There is no evidence of instability. No significant facet arthropathy. DISCS: Mild multilevel degenerative spondylosis. INCLUDED ABDOMEN: Included bowel gas pattern is non-obstructive. RAD/L/S Spine Bending Flex/Ext IMPRESSION: The flexion extension views show limited range of motion suggesting muscle spasm. There is no evidence of instability. Electronically Signed: Bethany Manzano MD at 8:01 EDT Reading Location ID and State: [address] [place] [address] Tel , Service support , CC: CHARLIE Richey; Dr. Conner Heard MD Universal Grinder Tool: Signed Normal [facility] Orthopedic Visit Reporton Orthopedic Visit Report [facility] [address] [place] [address] [place] [address] OFFICE VISIT Date of Service: 08/26/24 MR#: [id number] Acct: [id number] Name: MIAH ZAVALA Talha Rep #: [id number] : 02/20/1966 Provider: Dr. Johnathon Santiago MD Age/Sex: 58/M Location: [facility] [place] Status: Signed Intake Vital Signs 07/05/24 16:17 08/26/24 14:05 Height 5 ft 6 in 5 ft 6 in Weight: 212 lb BMI 34.2 Intake Visit Reasons: LUMBAR SPINE Is patient in pain?: Yes Pain scale (1-10): 8 Allergies No Known Allergies Allergy (Verified 08/26/24 14:06) Medications ???Medication ???Instructions ???Recorded ???Confirmed ???Type benztropine 0.5 mg tablet 0.5 mg PO BID 02/23/23 08/26/24 History cholecalciferol (vitamin D3) 125 5,000 unit PO DAILY 12/16/23 08/26/24 History mcg (5,000 unit) capsule haloperidol decanoate 100 mg/mL mg IM 12/16/23 08/26/24 History intramuscular solution melatonin 3 mg tablet 3 mg PO QHS 12/16/23 08/26/24 History magnesium hydroxide 400 mg/5 mL 30 ml PO BID PRN constipation 05/06/24 08/26/24 History oral suspension (Milk of Magnesia) aspirin 325 mg tablet 325 mg PO QDAY 08/26/24 08/26/24 History PFSH Medical History Schizoaffective disorder Anxiety and depression Obesity Lymphedema of both lower extremities Chronic low back pain Abrasion of flank Surgical History History of elbow surgery Family History Mother Anxiety and depression Hypertension Father Esophageal dysfunction Grandfather Heart disease Paternal GF. Myocardial infarction Paternal GF. CAD (coronary artery disease) Paternal GF. Social History household members: other details: Lives with his sister. Smoking Status: Never smoker alcohol intake: never substance use type: does not use HPI LUMBAR SPINE Details: This documentation accurately reflects the service provided and the decisions made by me, Dr. Johnathon Santiago MD 08/26/24 6702. Part of today???s visit was documented by Violetta OWENS, acting as scribe. MIAH ZAVALA is a 58 year old M here today NEW patient for low back pain. He is accompanied by his sister today. He was told that he has 2 lesions of his lumbar spine which were found to be benign. He does have an MRI in the system. He has been having the pain since March or April. Denies any known injury. He has a hard time going from sitting to standing. Denies previous surgery. He does have occasional numbness in both his legs. He does get occasional pain down both his legs. He denies PT for his low back. He denies having injections. He takes Tylenol and Ibuprofen as needed for pain. Patient was a poor historian and relied on his sister to answer questions. He has a diagnosis of schizophrenia and the sister believes that the medications may be causing Parkinson-like features for him. He seems to have severe difficulty with balance and strength especially in the lower extremities. He is still able to stand with difficulty and take a few steps without any ambulatory aid. Ortho Exam General General: Yes no acute distress Neurologic: Yes alert and Yes oriented x3 Spine SPINE TESTING CERVICAL THORACIC LUMBAR Musculoskeletal Strength 0=absent - 5=normal Details: Neurological exam of the lower extremities shows 5x5 power and 5x5 power of the upper extremities. Normal sensations across all dermatomes. Exaggerated knee reflexes, ankle reflexes 2+, patient did keep legs rigid during exam. No clonus. Mild midline tenderness. No paraspinal tenderness. Patient unable to be tested appropriately for Shimon's given that his hand would not relax. Coding Level of Care Code Off vis,new,level 4 Diagnoses Thoracic myelopathy M47.14 Time Spent (min) 45 Assessment and Plan Assessment and Plan (1) Thoracic myelopathy: Status: Acute Orders: Orders L/S Spine Bending Flex/Ext 08/26/24 CHARLIE Richey M54.50 - Low back pain, unspecified Spine Thoracic (Routine) Today Dr. Johnathon Santiago MD G95.9 - Disease of spinal cord, unspecified, S22.000A - Wedge compression fracture of unspecified thoracic vertebra, initial encounter for closed fracture Referrals Physical Therapy Referral Dr. Johnathon Santiago MD G95.9 - Disease of spinal cord, unspecified Plan Obtained and reviewed xrays today with the patient and reviewed prior xrays and MRI. Lumbar x-rays show normal alignment without any instability and MRI did not show significant stenosis. 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 There is suspected lesions have been reported as fatty infiltration of bone and likely benign. Screening (more content not included)... Normal [facility] Abdomen Single Viewon 2023 Abdomen Single View [facility] Imaging Services [facility] [address] [place], [place] [address] Abdomen Single View MR#: [id number] Acct: [id number] Name: MIAH ZAVALA Talha Rep #: [id number] : 02/20/1966 M 58 From: Sekou Palencia PCP: Dr. Conner Heard MD Status: REG CLI Study: Abdomen Single View Date of Exam: 07/29/24 Exam# [id number] Ordering Dr: Conner Heard MD [id number] INDICATION: right flank pain EXAMINATION/TECHNIQUE: X-RAY - XR Abdomen 1 View COMPARISON: No relevant prior comparison study available FINDINGS: BOWEL GAS PATTERN: Non-obstructive. No bowel or stomach distention. Fecal retention. FREE AIR: Not assessed on a single supine view. ORGANOMEGALY: Not seen. CALCIFICATIONS: Pelvic calcifications likely due to phleboliths. LOWER CHEST: No acute pathology. BONES AND SOFT TISSUES: Surgical clips in right upper quadrant from previous cholecystectomy. RAD/Abdomen Single View IMPRESSION: Non-obstructive bowel gas pattern. Electronically Signed: Sekou Arshad MD at 13:54 EDT , CC: Dr. Conner Heard MD Universal Grinder Tool: Signed Normal [facility] Emergency Department Summary on 07-05-2024 Emergency Department Summary [facility] Medical Records Department [address] [place] [address] Emergency Department Summary 07/05/24 MR#: [id number] Acct: [id number] Name: SALLYMIAH Rep #: [id number] : 02/20/1966 58 From: Sreekanth Campos MD PCP: Dr. Conner Heard MD Status:REG ER Location: ED HPI History of Present Illness Chief Complaint: Chest Other Detail of Chief Complaint: Atraumatic right arm pain. Informant: patient and parent Onset/Context/Timing Onset: Weeks Context: Gradual Onset Timing: Continuous Current Severity: Mild Maximum Severity: Mild Narrative Narrative: 58-year-old male history of schizophrenia per his family members present in room with him. Was seen and treated here last week for similar complaint of right shoulder pain. A negative cardiac workup. He was discharged home. He is also getting this evaluated by his primary care physician and they are awaiting some test results. He was started on meloxicam. He says not really controlling his pain. He denies any falls injury or trauma. He denies any fever. Prior similar symptoms: Yes Recent Illness/Hospitalization: No PFSH PFSH Medical History Schizoaffective disorder Anxiety and depression Obesity Lymphedema of both lower extremities Chronic low back pain Abrasion of flank Home Medications ???Medication ???Instructions ???Recorded ???Last Taken ???Type benztropine 0.5 mg tablet 0.5 mg PO BID 02/23/23 Unknown History cholecalciferol (vitamin D3) 125 5,000 unit PO DAILY 12/16/23 Unknown History mcg (5,000 unit) capsule haloperidol decanoate 100 mg/mL mg IM 12/16/23 12/06/23 History intramuscular solution melatonin 3 mg tablet 3 mg PO QHS 12/16/23 Unknown History acetaminophen 325 mg tablet 650 mg (2 x 325 mg) PO Q4H PRN PRN 12/19/23 Unknown Rx Fever, pain 1-10/10 #0 tabs magnesium hydroxide 400 mg/5 mL 30 ml PO BID PRN constipation 05/06/24 Unknown History oral suspension (Milk of Magnesia) Allergy/AdvReac Type Severity Reaction Status Date / Time No Known Allergies Allergy Verified 07/05/24 16:20 Family History Mother Anxiety and depression Hypertension Father Esophageal dysfunction Grandfather Heart disease Paternal GF. Myocardial infarction Paternal GF. CAD (coronary artery disease) Paternal GF. Surgical History History of elbow surgery Social History household members: other details: Lives with his sister. Smoking Status: Never smoker alcohol intake: never substance use type: does not use ROS ROS ED ROS Narrative Denies recent illness. Constitutional Constitutional ED: Denies chills or fever(s) Eyes Eyes: Denies blurry vision ENT ENT ED: Denies ear pain Cardiovascular Cardiovascular: Denies chest pain Respiratory/Chest Respiratory/Chest: Denies cough or dyspnea Gastrointestinal Gastrointestinal: Denies abdominal pain Genitourinary Genitourinary ED: Denies dysuria or hematuria Musculoskeletal Musculoskeletal: Denies arthralgias Integumentary Denies abscess or Abrasions Neurologic Neurologic: Denies headache(s) Psychiatric Psychiatric: Denies anxiety or depression Endocrine Endocrinology: Denies cold intolerance Hematologic/Lymphatic Hematologic/Lymphatic: Reports none Allergic/Immunologic Allergic/Immunologic ED: Denies mouth swelling, tongue swelling or urticaria EXAM Physical Exam Narrative Exam Narrative: 58-year-old male no acute distress vital signs stable afebrile. H EENT exam unremarkable. Neck nontender. Lungs clear. Heart regular rhythm no murmur. Chest wall ribs nontender. Moving all 4 extremities. Nontender no edema. He complains of discomfort in his right shoulder but he has normal range of motion. There is no redness or warmth. No swelling. No deformity. He is able to flex and extend his wrist, hand, elbow and shoulder. There is no bony deformity. He is got a normal radial pulse and char puller strength. Left upper and lower extremities are unremarkable. He is awake and alert. He is answer questions and following commands. Const Vital Signs: 07/05/24 16:17 Temperature 97 F L Temperature Source Temporal Pulse Rate 69 Respiratory Rate 18 Blood Pressure 122/93 H Blood Pressure Mean 102 Pulse Ox 97 Oxygen Delivery Method Room Air Positive well nourished and well developed; Negative for cachectic, contractures or unkempt General Appearance ED: well developed and NAD; Negative for unkempt, cachectic, contractures, cyanotic, diaphoretic or pallor Nutritional Appearance: Negative for cachectic HEENT Reports moist mucous membranes; Denies dry mucous membranes (more content not included)... Normal [facility] 12 Lead EKGon 06-27-2024 12 Lead EKG [facility] Cardiovascular Services [address] [place] [address] 12 Lead EKG 06/27/24 1114 MR#: [id number] Acct: [id number] Name: MIAH ZAVALA Rep #: [id number] : 02/20/1966 58 From: Brian Martinez MD Attending Dr: Status: DEP ER Ordering Dr: Nicolas Lira MD Date: 06/27/24 Location: ED Sex: M C Admitted: Test Reason : CP Blood Pressure : / mmHG Vent. Rate : 075 BPM Atrial Rate : 075 BPM P-R Int : 114 ms QRS Dur : 086 ms QT Int : 382 ms P-R-T Axes : 045 072 044 degrees QTc Int : 426 ms Normal sinus rhythm Otherwise normal ECG When compared with ECG of 16-DEC-2023 20:45, Current undetermined rhythm precludes rhythm comparison, needs review Confirmed by JUAN HANSEN, BRIAN ([id number]), order editor AZRA MOSER ([id number]) on 07/01/2024 11:31:34 AM Referred By: JAKE Confirmed By:BRIAN MARTINEZ MD 07/01/24 1131 Date Brian Martinez MD CC: Dr. Conner Heard MD; Dr. Nicolas Lira MD Signed Normal [facility] Basic Metabolic Profile (BMP )on 06-27-2024 BUN/CRE 16.0 RATIO Normal 10-20 [facility] Comment on above: Order Comment: 1Y Performed By: #### L 500.2500, L100.0100, L501.5425 ####[facility] [address] [place], [address] CA,Total 9.8 mg/dL Normal 8.5-10.1 [facility] Comment on above: Order Comment: 1Y Performed By: #### L 500.2500, L100.0100, L501.5425 ####[facility] [address] [place], [address] Chloride [Moles/Vol] 110 mmol/L High 98-107 [facility] Comment on above: Order Comment: 1Y Performed By: #### L 500.2500, L100.0100, L501.5425 ####[facility] [address] [place], [address] CO2 [Moles/Vol] 28.0 mmol/L Normal 21.0-32.0 [facility] Comment on above: Order Comment: 1Y Performed By: #### L 500.2500, L100.0100, L501.5425 ####[facility] [address] [place], [address] Creatinine [Mass/Vol] 1.25 mg/dL Normal 0.70-1.30 [facility] Comment on above: Order Comment: 1Y Result Comment: The validity of the calculated GFR GFRAA in patients over 70 years has not been determined. Clinical correlation is essential. Performed By: #### L 500.2500, L100.0100, L501.5425 ####[facility] [address] [place], [address] ECRCL 68.96 ml/min Normal [facility] Comment on above: Order Comment: 1Y Performed By: #### L 500.2500, L100.0100, L501.5425 ####[facility] [address] [place], [address] EST GFR - AA 76 mL/min Normal >60 [facility] Comment on above: Order Comment: 1Y Result Comment: Afri can [place]ian GFR Calc Performed By: #### L 500.2500, L100.0100, L501.5425 ####[facility] [address] [place], [address] GAP 5 Normal 5-15 [facility] Comment on above: Order Comment: 1Y Performed By: #### L 500.2500, L100.0100, L501.5425 ####[facility] [address] [place], [address] GFR/1.73 sq M.predicted among non-blacks MDRD (S/P/Bld) [Vol rate/Area] 63 mL/min/{1.73_m2} Normal >60 [facility] Comment on above: Order Comment: 1Y Result Comment: Non- GFR Calc Performed By: #### L 500.2500, L100.0100, L501.5425 ####[facility] [address] [place], [address] Glucose [Mass/Vol] 108 mg/dL High 74-106 [facility] Comment on above: Order Comment: 1Y Result Comment: Fast ing Glucose result from 100 to 125 mg/dL suggests IMPAIRED HOMEOSTASIS per A.D.A. criteria. Performed By: #### L 500.2500, L100.0100, L501.5425 ####[facility] [address] [place], [address] Potassium [Moles/Vol] 4.1 mmol/L Normal 3.5-5.1 [facility] Comment on above: Order Comment: 1Y Performed By: #### L 500.2500, L100.0100, L501.5425 ####[facility] [address] [place], [address] Sodium [Moles/Vol] 143 mmol/L Normal 136-145 [facility] Comment on above: Order Comment: 1Y Performed By: #### L 500.2500, L100.0100, L501.5425 ####[facility] [address] [place], [address] Urea nitrogen [Mass/Vol] 20 mg/dL High 7-18 [facility] Comment on above: Order Comment: 1Y Performed By: #### L 500.2500, L100.0100, L501.5425 ####[facility] [address] [place], [address] CBC W/Diff, Automatedon 08-0 9-2023 Absolute Lymph 1.33 X10 3/uL Normal 0.83-4.51 [facility] Comment on above: Performed By: #### L 500.2500, L100.0100, L501.5425 ####[facility] [address] [place], [address] Absolute Neut 6.8 X10 3/uL Normal 2.0-7.7 [facility] Comment on above: Performed By: #### L 500.2500, L100.0100, L501.5425 ####[facility] [address] [place], [address] Basophils/100 WBC (Bld) 0.2 % Normal 0-1 [facility] Comment on above: Performed By: #### L 500.2500, L100.0100, L501.5425 ####[facility] [address] [place], [address] Eosinophils/100 WBC (Bld) 1.1 % Normal 0-5 [facility] Comment on above: Performed By: #### L 500.2500, L100.0100, L501.5425 ####[facility] [address] [place], [address] Erythrocyte distribution width (RBC) [Ratio] 14.5 % Normal 11.6-14.6 [facility] Comment on above: Performed By: #### L 500.2500, L100.0100, L501.5425 ####[facility] [address] [place], [address] Hematocrit (Bld) [Volume fraction] 39.7 % Low 40-54 [facility] Comment on above: Performed By: #### L 500.2500, L100.0100, L501.5425 ####[facility] [address] [place], [address] Hemoglobin (Bld) [Mass/Vol] 12.9 g/dL Low 13.0-16.5 [facility] Comment on above: Performed By: #### L 500.2500, L100.0100, L501.5425 ####[facility] [address] [place], [address] IG% 0.400 Normal 0.0-0.9 [facility] Comment on above: Result Comment: IG% - Immature Granulocytes (promyelocytes, myelocytes and metamyelocytes) > 1% indicates that a LEFT SHIFT is Present. Performed By: #### L 500.2500, L100.0100, L501.5425 ####[facility] [address] [place], [address] Lymphocytes/100 WBC (Bld) 14.8 % Low 19-41 [facility] Comment on above: Performed By: #### L 500.2500, L100.0100, L501.5425 ####[facility] [address] [place], [address] MCH (RBC) [Entitic mass] 28.5 pg Normal 27.0-32.0 [facility] Comment on above: Performed By: #### L 500.2500, L100.0100, L501.5425 ####[facility] [address] [place], [address] MCHC (RBC) [Mass/Vol] 32.5 g/dL Normal 32-36 [facility] Comment on above: Performed By: #### L 500.2500, L100.0100, L501.5425 ####[facility] [address] [place], [address] MCV (RBC) [Entitic vol] 87.6 fL Normal 80-94 [facility] Comment on above: Performed By: #### L 500.2500, L100.0100, L501.5425 ####[facility] [address] [place], [address] Monocytes/100 WBC (Bld) 7.2 % Normal 0-10 [facility] Comment on above: Performed By: #### L 500.2500, L100.0100, L501.5425 ####[facility] [address] [place], [address] Neutrophils/100 WBC (Bld) 76.3 % High 47-70 [facility] Comment on above: Performed By: #### L 500.2500, L100.0100, L501.5425 ####[facility] [address] [place], [address] Nucleated RBC (Bld) [#/Vol] 0 10*3/uL Normal 0-5 [facility] Comment on above: Performed By: #### L 500.2500, L100.0100, L501.5425 ####[facility] [address] [place], [address] Platelet mean volume (Bld) [Entitic vol] 11.5 fL Normal 6.2-12.0 [facility] Comment on above: Performed By: #### L 500.2500, L100.0100, L501.5425 ####[facility] [address] [place], [address] Platelets (Bld) [#/Vol] 148 10*3/uL Low 150-450 [facility] Comment on above: Performed By: #### L 500.2500, L100.0100, L501.5425 ####[facility] [address] [place], [address] RBC (Bld) [#/Vol] 4.53 10*6/uL Low 4.6-6.2 [facility] Comment on above: Performed By: #### L 500.2500, L100.0100, L501.5425 ####[facility] [address] [place], [address] RDW SD 46.1 fl High 35.1-43.9 [facility] Comment on above: Performed By: #### L 500.2500, L100.0100, L501.5425 ####[facility] [address] [place], [address] WBC (Bld) [#/Vol] 9.0 10*3/uL Normal 4.4-11.0 [facility] Comment on above: Performed By: #### L 500.2500, L100.0100, L501.5425 ####[facility] [address] [place], [address] Chest 1 View (Portable)on Chest 1 View (Portable) [facility] Imaging Services [address] [place] [address] Chest 1 View (Portable) MR#: [id number] Acct: [id number] Name: SALLYMIAH Talha Rep #: [id number] : 02/20/1966 M 58 From: Tony magallon MD PCP: Dr. Conner Heard MD Status: REG ER Study: Chest 1 View (Portable) Date of Exam: 06/27/24 Exam# [id number] Ordering Dr: Nicolas Lira MD [id number] INDICATION: chest pain EXAMINATION/TECHNIQUE: X-RAY - XR Chest 1 View COMPARISON: Prior study dated: 12/16/2023 FINDINGS: LINES/DEVICES: None. LUNGS: The lungs are well expanded. No consolidation, edema or effusion. No pneumothorax. MEDIASTINUM AND CARDIOVASCULAR STRUCTURES: Cardiac silhouette not enlarged. Central airways and mediastinal contour are unremarkable. BONES AND SOFT TISSUES: No acute abnormality. RAD/Chest 1 View (Portable) IMPRESSION: No acute pulmonary finding. Electronically Signed: Tony Minor MD at 13:19 EDT , CC: Dr. Conner Heard MD; Dr. Nicolas Lira MD Universal Grinder Tool: Signed Normal [facility] Emergency Department Summary on 06-27-2024 Emergency Department Summary [facility] Medical Records Department [address] [place] [address] Emergency Department Summary 06/27/24 MR#: [id number] Acct: [id number] Name: MIAH ZAVALA Rep #: [id number] : 02/20/1966 58 From: Nicolas Lira MD PCP: Dr. Conner Heard MD Status:REG ER Location: ED HPI History of Present Illness Chief Complaint: Chest Pain Detail of Chief Complaint: Chest pain and right shoulder pain Informant: patient and spouse/S.O. Onset/Context/Timing Onset: Today and Yesterday Activity at onset: gradual Timing: Intermittent Quality: Positive for Aching and Pressure Location: Right Parasternal Current Severity: Mild Maximum Severity: Moderate Worsened By: Nothing Relieved By: Nothing Associated Symptoms: Negative for Nausea, Vomiting, Diaphoresis, Dyspnea, Cough, Fever, Lightheadedness, Acid Reflux or Palpitations Narrative Narrative: Patient is a 58-year-old male. His psychomotor skills are exceedingly slow. He mumbles when he speaks. Had to redirect for him to answer questions to determine the quality, severity location of his chest discomfort and when it started. He states it started when he was walking. Significant other states he was sitting. I find him to be unreliable. Presently patient is not having chest discomfort. He describes it as a dull pressure-like sensation right parasternal area and complaint of right shoulder pain. Right shoulder pain is not precipitated, alleviated or exacerbated by any particular factor. The chest pain is not exacerbated, precipitated or alleviated by anything. There is no associated symptom i.e. nausea, diaphoresis or shortness of breath. He denies pain with breathing. He denies history of PE or DVT. He denies leg pain, discoloration or swelling. He has no risk factors for VTE. Prior Similar Symptoms: No Recent Illness/Hospitalization: No CVD Risk Factors: Negative for Hypertension, Diabetes, Hypercholesterolemia, Family History 1' or Smoking PE Risk Factors: Negative for Recent Travel/Surgery, Recent Immobilization, Prior DVT or PE, Cancer or OCP + Smoking + >/=35 TAD Risk Factors: Negative for Marfan's Syndrome, Hypertension or Family History PFSH PFSH Medical History Schizoaffective disorder Anxiety and depression Obesity Lymphedema of both lower extremities Chronic low back pain Abrasion of flank Home Medications ???Medication ???Instructions ???Recorded ???Last Taken ???Type benztropine 0.5 mg tablet 0.5 mg PO BID 02/23/23 Unknown History cholecalciferol (vitamin D3) 125 5,000 unit PO DAILY 12/16/23 Unknown History mcg (5,000 unit) capsule haloperidol decanoate 100 mg/mL mg IM 12/16/23 12/06/23 History intramuscular solution melatonin 3 mg tablet 3 mg PO QHS 12/16/23 Unknown History acetaminophen 325 mg tablet 650 mg (2 x 325 mg) PO Q4H PRN PRN 12/19/23 Unknown Rx Fever, pain 1-08/28 #0 tabs magnesium hydroxide 400 mg/5 mL 30 ml PO BID PRN 05/06/24 Unknown History oral suspension (Milk of Magnesia) Allergy/AdvReac Type Severity Reaction Status Date / Time No Known Allergies Allergy Verified 06/17/24 13:37 Family History Mother Anxiety and depression Hypertension Father Esophageal dysfunction Grandfather Heart disease Paternal GF. Myocardial infarction Paternal GF. CAD (coronary artery disease) Paternal GF. Surgical History History of elbow surgery Social History household members: other details: Lives with his sister. Smoking Status: Never smoker alcohol intake: never substance use type: does not use ROS ROS ED Constitutional Constitutional ED: Denies chills, fever(s), subjective, sweats or weight loss Eyes Eyes: Reports none ENT ENT ED: Denies ear pain, rhinorrhea or sore throat Cardiovascular Cardiovascular: Reports as per HPI; Denies orthopnea or paroxysmal nocturnal dyspnea Respiratory/Chest Respiratory/Chest: Denies cough, dyspnea, dyspnea on exertion, orthopnea or paroxysmal nocturnal dyspnea Gastrointestinal Gastrointestinal: Denies abdominal pain, diarrhea, melena, nausea or vomiting Genitourinary Genitourinary ED: Denies dysuria, hematuria or urinary frequency Musculoskeletal Musculoskeletal: Reports back pain and other Details: Back pain is chronic. ; Denies arthralgias, myalgias or neck pain Integumentary Denies rash Neurologic Neurologic: Reports weakness; Denies paresthesias Psychiatric Psychiatric: Denies anxiety Endocrine Endocrinology: Denies cold intolerance or heat intolerance Hematologic/Lymphatic Hematologic/Lymphatic: Denies easy bleeding or easy bruising EXAM Physical Exam Const Vital Signs: (more content not included)... Normal [facility] L501.4020on 06-27-2024 TROPONIN-I HS 3 pg/mL Normal 3.0-78.0 [facility] Comment on above: Result Comment: Plea se Note: New Test Units and Gender Specific Reference Ranges. For more information see Policy Stat Procedure [place] High Sensitivity Troponin (TNIH) and attachments. Performed By: #### L 501.4020 ####[facility] [address] [place], [address] L501.5425on 06-27-2024 TROPONIN-I HS 3 pg/mL Normal 3.0-78.0 [facility] Comment on above: Order Comment: 1Y Result Comment: Plea se Note: New Test Units and Gender Specific Reference Ranges. For more information see Policy Stat Procedure [place] High Sensitivity Troponin (TNIH) and attachments. Performed By: #### L 500.2500, L100.0100, L501.5425 ####[facility] [address] [place], [address] Oncology Visit Reporton 05-21 Oncology Visit Report [facility] [address] [place] [address]. [place] [address] OFFICE VISIT Date of Service: 06/17/24 1332 MR#: [id number] Acct: [id number] Name: MIAH ZAVALA Rep #: [id number] : 02/20/1966 From: Alvina Oneal MD Age/Sex: 58/M Location[place] [facility] [place] Status: Signed HPI Subjective Date of Service 06/17/24 Chief Complaint Bone lesions on CT History of Present Illness 58-year-old male with medical history notable for schizophrenia and parkinsonism who was seen at [facility] emergency room on May 03, 2024 with abdominal pain, which since was attributed to constipation and has resolved, and on a CT scan of the abdomen and pelvis was noted to have 2 indeterminate bone lesions on L3 and L4. [facility] Medical History Schizoaffective disorder Anxiety and depression Obesity Lymphedema of both lower extremities Chronic low back pain Abrasion of flank Surgical History History of elbow surgery Family History Mother Anxiety and depression Hypertension Father Esophageal dysfunction Grandfather Heart disease Paternal GF. Myocardial infarction Paternal GF. CAD (coronary artery disease) Paternal GF. Social History household members: other details: Lives with his sister. Smoking Status: Never smoker alcohol intake: never substance use type: does not use ROS ROS Narrative Seizure 12/06/2023 Intake Vital Signs 05/06/24 12:52 06/17/24 13:32 Height 5 ft 6 in 5 ft 6 in Weight: 96.332 kg BMI 34.2 BP 105/70 Blood Pressure Location Lt brachial Position Sitting Respiration 16 Pulse 66 Pulse Source Monitor Temp 98.6 F Temperature Source Temporal Artery Pulse Oximetry (%) 96 Oxygen Delivery Method room air Intake Is patient in pain?: Yes (BACK PAIN ) Pain scale (1-10): 8 Allergies No Known Allergies Allergy (Verified 06/17/24 13:37) Medications ???Medication ???Instructions ???Recorded ???Confirmed ???Type benztropine 0.5 mg tablet 0.5 mg PO BID 02/23/23 06/17/24 History cholecalciferol (vitamin D3) 125 5,000 unit PO DAILY 12/16/23 06/17/24 History mcg (5,000 unit) capsule haloperidol decanoate 100 mg/mL mg IM 12/16/23 06/17/24 History intramuscular solution melatonin 3 mg tablet 3 mg PO QHS 12/16/23 06/17/24 History acetaminophen 325 mg tablet 650 mg (2 x 325 mg) PO Q4H PRN PRN 12/19/23 06/17/24 Rx Fever, pain 1-08/28 #0 tabs magnesium hydroxide 400 mg/5 mL 30 ml PO BID PRN 05/06/24 06/17/24 History oral suspension (Milk of Magnesia) Have you fallen in the past year?: No Central Venous Access Central Venous Access: No RUN DATE: 06/17/24 [facility], DEPARTMENT OF LABORATORIES PAGE 1 RUN TIME: 1411 Specimen Inquiry [address] [place], [address] PATIENT: MIAH ZAVALA LOC: ED U #: [id number] : 02/20/1966 AGE/SX: 58/M FACILITY: [facility] ROOM: RE05/03/[address]: Dr. Saulo Zeng MD STATUS:DEP ER ED: DIS: SPEC #: [id number] GONZALES: 05/03/24-1749 STATUS: COMP REQ #: [id number] RECD: 05/03/24-[address]: Dr. Saulo Zeng MD ENTERED: 05/03/24-[address]: Care Physician,No Primary Test Result Flag Adult Reference Range CBCD WBC 6.9 4.4-11.0 K/mm3 RBC 4.84 4.6-6.2 M/mm3 HGB 13.9 13.0-16.5 g/dL HCT 43.0 40-54 % MCV 88.8 80-94 fL MCH 28.7 27.0-32.0 pg MCHC 32.3 32-36 g/dL RDW CV 14.4 11.6-14.6 % RDW SD 46.2 H 35.1-43.9 fl PLT 140 L 150-450 K/mm3 MPV 10.8 6.2-12.0 fl NEUT% 79.9 H 47-70 % LY% 12.1 L 19-41 % MONO% 7.1 0-10 % EO% 0.4 0-5 % BASO% 0.1 0-1 % IG% 0.400 0.0-0.9 % IG% - Immature Granulocytes (promyelocytes, myelocytes and metamyelocytes) > 1% indicates that a LEFT SHIFT is Present. Absolute Neut 5.5 2.0-7.7 X10 3/uL Absolute Lymph 0.83 0.83-4.51 X10 3/uL NUCLEATED RBC 0 0-5 % RUN DATE: 06/17/24 [facility], DEPARTMENT OF LABORATORIES PAGE 1 RUN TIME: 1411 Specimen Inquiry [address] [place], [address] PATIENT: MIAH ZAVALA LOC: ED U #: [id number] : 02/20/1966 AGE/SX: 58/M FACILITY: [facility] ROOM: RE05/03/[address]: Dr. Saulo Zeng MD STATUS:DEP ER ED: DIS: SPEC #: [id number] GONZALES: 05/03/24 STATUS: COMP REQ #: [id number] RECD: 05/03/[address]: Dr. Saulo Zeng MD ENTERED: 05/03/24-[address]: Care Physician,No Primary Test Result Flag Adult Reference Range COMP METABOLIC GLU 107 H 74-106 mg/dL Fasting Glucose result from 100 to 125 mg/dL suggests IMPAIRED HOMEOSTASIS per A.D.A. criteria. BUN 17 7-18 mg/d (more content not included)... Normal [facility] Spine Lumbar (Routine)on Spine Lumbar (Routine) [facility] Imaging Services [address] [place] [address] Spine Lumbar (Routine) MR#: [id number] Acct: [id number] Name: MIAH ZAVALA Rep #: [id number] : 02/20/1966 M 58 From: Saulo Smith MD PCP: Dr. Conner Heard MD Status: REG CLI Study: Spine Lumbar (Routine) Date of Exam: 06/13/24 Exam# [id number] Ordering Dr: Alvina Oneal MD [id number] STUDY: MRI LUMBAR SPINE WITHOUT CONTRAST REASON FOR EXAM: Male, 58 years old. BONE LESION, ABNORMAL BONE SCAN TECHNIQUE: Standardized fat and water weighted pulse sequences were obtained in the sagittal and axial planes. COMPARISON: CT abdomen and pelvis without contrast 05/03/2024. Radionuclide whole body bone scan 05/28/2024. FINDINGS: T10-T11 and T11-T12: (Sagittal only). Normal endplates. Minimal disc space height narrowing. No ventral extradural defects. Normal central canal and bilateral intervertebral neuroforamina. T12-L1: (Sagittal only). Normal endplates. Normal disc height. Mild ventral extradural defect is posterior bulging annulus. Normal central canal and bilateral intervertebral neuroforamina. Normal lumbar lordosis. Prominent ovoid T1 and T2 hyperintensity in the left side of the L3 vertebral body and nearly round T1 and T2 hyperintensity in the left side of the L4 vertebral body. They are completely suppressed on sagittal STIR sequence and are most in keeping with benign focal fatty infiltration. Smaller benign focal fatty infiltration underneath the L3 superior endplate and in the upper T11 vertebral body also suppressed on sagittal STIR sequence. There is no substantial scoliosis. Normal conus medullaris that terminates at the T12-L1 disc space level. L1-2: Normal endplates. Normal disc height, hydration and morphology. Normal bilateral facet joints. Normal central canal and bilateral lateral recesses. Normal bilateral intervertebral neural foramina. L2-3: Normal endplates. Normal disc height, hydration and morphology. Normal facet joints. Mild central canal stenosis with an AP canal diameter of 10 mm. Prominent dorsal epidural lipomatosis. Normal bilateral lateral recesses. Normal bilateral intervertebral neuroforamina. L3-4: Normal endplates. Normal disc height, hydration and morphology. Prominent dorsal epidural lipomatosis. Moderate central canal stenosis with an AP canal diameter 7 mm secondary to developmentally short pedicles and epidural lipomatosis. Normal bilateral lateral recesses. Normal facet joints. Normal bilateral intervertebral neuroforamina. L4-5: Normal endplates. Normal disc height, hydration and morphology. Normal facet joints. Mild dorsal epidural lipomatosis. Mild to moderate central canal stenosis with an AP canal diameter of 8 mm secondary to developmental short pedicles and dorsal epidural lipomatosis. Normal bilateral lateral recesses. Normal bilateral intervertebral neuroforamina. L5-S1: Normal endplates. Normal disc height, hydration and morphology. Mild asymmetric degenerative facet arthropathy. Mild central canal stenosis with an AP canal diameter of 9 mm surrounded by epidural lipomatosis. Normal bilateral lateral recesses. Normal bilateral intervertebral neuroforamina. Round T1 and T2 hyperintensities in the right and left sacral alar wings also disappear on sagittal STIR sequence due to fat suppression. These are also benign focal fatty infiltration. They are also areas of radiolucencies on the CT abdomen and pelvis but were not mentioned in the CT report. Normal visualized paraspinous soft tissue structures. MRI/Spine Lumbar (Routine) IMPRESSION: 1. Prominent ovoid T1 and T2 hyperintensity in the left side of the L3 vertebral body, nearly round T1 and T2 hyperintensity in the left side of the L4 vertebral body and smaller T1 and T2 hyperintensity foci underneath the L3 superior endplate and in the upper T11 vertebral body. Round T1 and T2 hyperintensity in the right visualized sacral alar wing and a small round T1 and T2 hyperintensity in the anterior left visual sacral alar wing. All these disappear on sagittal STIR sequence and are consistent with benign focal fatty infiltrations. These are not bone metastases. The radionuclide whole body bone scan was also negative for bone metastases in these areas. 2. Moderate central canal stenosis at L3-L4 disc space level with an AP canal diameter of 7 mm secondary to developmentally short pedicles and dorsal epidural lipomatosis. 3. Mild to moderate central canal stenosis at L4-L5 disc space level with an AP canal diameter of 8 mm secondary to developmentally short pedicles and dorsal epidural lipomatosis. 4. Mild central canal stenosis at L5-S1 disc space level with an AP canal diameter of 9 mm secon (more content not included)... Normal [facility] Bone Scan Whole Bodyon 05-28 Bone Scan Whole Body [facility] Imaging Services [address] [place] [address] Bone Scan Whole Body MR#: [id number] Acct: [id number] Name: MIAH ZAVALA Rep #: [id number] : 02/20/1966 M 58 From: Sabino Palencia O PCP: Dr. Conner Heard MD Status: REG CLI Study: Bone Scan Whole Body Date of Exam: 05/28/24 Exam# [id number] Ordering Dr: Alvina Oneal MD [id number] CLINICAL: 58-year-old male with history of third-fourth lumbar vertebral radiographic abnormality. WHOLE BODY 99m Tc MDP RADIONUCLIDE BONE SCINTIGRAPHY COMPARISON: CT of the abdomen-pelvis report 05/03/2024 FINDINGS: Following the intravenous administration of 27.0 mCi of 99m Tc MDP, whole body bone images reveal: 1. Increased tracer uptake is identified in the acromioclavicular and sternoclavicular compartments of both shoulders, the patellofemoral compartments of both knees, the right ankle articulation. 2. Enhanced radiopharmaceutical is noted in the right posterior fourth rib. 3. The remaining skeletal structures are scintigraphically unremarkable with normal-appearing renal images and urinary bladder activity identified. Facilitated tracer distribution is defined in the plantar aspect of the right hindfoot most consistent with periostitis attributed to enthesopathy. NM/Bone Scan Whole Body IMPRESSION: 1. The increase in tracer concentration defined in the shoulders bilaterally, both knees and right ankle is commensurate with degenerative arthritis. 2. Accentuated uptake noted in the right posterior fourth rib is most consistent with trauma-fracture. Plain film radiography correlation is recommended. 3. Meticulous attention paid to the third and fourth lumbar vertebra reveal no scintigraphic abnormalities. Electronically Signed: Sabino Gallegos DO at 9:24 EDT , CC: Dr. Conner Heard MD; Dr. Alvina Oneal MD Universal Grinder Tool: Signed Normal [facility] AINSLEY AND PE, Random URon 06-2 ALBUMIN,U 19.3 Normal . [facility] Comment on above: Order Comment: N Performed By: #### L 3600.4025, L3130.0010, L501.9910, L3100.3425, L504.2610 ####[facility] [address] [place], [address] PTSJY-3-CGPS,U 4.1 Normal . [facility] Comment on above: Order Comment: N Performed By: #### L 3600.4025, L3130.0010, L501.9910, L3100.3425, L504.2610 ####[facility] [address] [place], [address] CVDJM-8-GIAU,U 28.5 Normal . [facility] Comment on above: Order Comment: N Performed By: #### L 3600.4025, L3130.0010, L501.9910, L3100.3425, L504.2610 ####[facility] [address] [place], [address] BETA GLOB,U 28.2 Normal . [facility] Comment on above: Order Comment: N Performed By: #### L 3600.4025, L3130.0010, L501.9910, L3100.3425, L504.2610 ####[facility] [address] [place], [address] GAMMA GLOB,U 19.9 Normal . [facility] Comment on above: Order Comment: N Performed By: #### L 3600.4025, L3130.0010, L501.9910, L3100.3425, L504.2610 ####[facility] [address] [place], [address] AINSLEY RESULT,U Comment Normal . [facility] Comment on above: Order Comment: N Result Comment: No m onoclonality detected. Performed By: #### L 3600.4025, L3130.0010, L501.9910, L3100.3425, L504.2610 ####[facility] [address] [place], [address] M-SPIKE,UR% Not Observed Normal Not Observed [facility] Comment on above: Order Comment: N Performed By: #### L 3600.4025, L3130.0010, L501.9910, L3100.3425, L504.2610 ####[facility] [address] [place], [address] NOTE Comment Normal . [facility] Comment on above: Order Comment: N Result Comment: Prot ein electrophoresis scan will follow via computer, mail, or insurance checker delivery. Performed By: #### L 3600.4025, L3130.0010, L501.9910, L3100.3425, L504.2610 ####[facility] [address] [place], [address] Protein (U) [Mass/Vol] 24.9 mg/dL Normal Not Estab. [facility] Comment on above: Order Comment: N Performed By: #### L 3600.4025, L3130.0010, L501.9910, L3100.3425, L504.2610 ####[facility] [address] [place], [address] AINSLEY + Protein Elect, Serumon 05-09-2024 Albumin [Mass/Vol] 3.7 g/dL Normal 2.9-4.4 [facility] Comment on above: Order Comment: N Performed By: #### L 3600.4025, L3130.0010, L501.9910, L3100.3425, L504.2610 #### [facility] [address] [place], [address] Albumin/Globulin [Mass ratio] 1.2 {ratio} Normal 0.7-1.7 [facility] Comment on above: Order Comment: N Performed By: #### L 3600.4025, L3130.0010, L501.9910, L3100.3425, L504.2610 #### [facility] [address] [place], [address] XUEZN-9-VZWT 0.3 g/dL Normal 0.0-0.4 [facility] Comment on above: Order Comment: N Performed By: #### L 3600.4025, L3130.0010, L501.9910, L3100.3425, L504.2610 #### [facility] [address] [place], [address] AQDRT-8-XKHT 0.7 g/dL Normal 0.4-1.0 [facility] Comment on above: Order Comment: N Performed By: #### L 3600.4025, L3130.0010, L501.9910, L3100.3425, L504.2610 #### [facility] [address] [place], [address] BETA GLOBULIN 1.0 g/dL Normal 0.7-1.3 [facility] Comment on above: Order Comment: N Performed By: #### L 3600.4025, L3130.0010, L501.9910, L3100.3425, L504.2610 #### [facility] [address] [place], [address] GAMMA GLOBULIN 1.2 g/dL Normal 0.4-1.8 [facility] Comment on above: Order Comment: N Performed By: #### L 3600.4025, L3130.0010, L501.9910, L3100.3425, L504.2610 #### [facility] [address] [place], [address] Globulin (S) [Mass/Vol] 3.2 g/dL Normal 2.2-3.9 [facility] Comment on above: Order Comment: N Performed By: #### L 3600.4025, L3130.0010, L501.9910, L3100.3425, L504.2610 #### [facility] [address] [facility] [place], [address] AINSLEY RESULT,S Comment Normal . [facility] Comment on above: Order Comment: N Result Comment: No m onoclonality detected. Performed By: #### L 3600.4025, L3130.0010, L501.9910, L3100.3425, L504.2610 #### [facility] [address] [place], [address] IMMUNOGLOB A QN 246 mg/dL Normal 90-386 [facility] Comment on above: Order Comment: N Performed By: #### L 3600.4025, L3130.0010, L501.9910, L3100.3425, L504.2610 #### [facility] [address] [place], [address] IMMUNOGLOB G QN 1284 mg/dL Normal 603-1613 [facility] Comment on above: Order Comment: N Performed By: #### L 3600.4025, L3130.0010, L501.9910, L3100.3425, L504.2610 #### [facility] [address] [place], [address] IMMUNOGLOB M QN 102 mg/dL Normal 20-172 [facility] Comment on above: Order Comment: N Performed By: #### L 3600.4025, L3130.0010, L501.9910, L3100.3425, L504.2610 #### [facility] [address] [place], [address] M-Jimi Not Observed Normal Not Observed [facility] Comment on above: Order Comment: N Performed By: #### L 3600.4025, L3130.0010, L501.9910, L3100.3425, L504.2610 #### [facility] [address] [place], [address] NOTE: Comment Normal . [facility] Comment on above: Order Comment: N Result Comment: Prot ein electrophoresis scan will follow via computer, mail, or insurance checker delivery. Performed By: #### L 3600.4025, L3130.0010, L501.9910, L3100.3425, L504.2610 #### [facility] [address] [place], [address] Protein [Mass/Vol] 6.9 g/dL Normal 6.0-8.5 [facility] Comment on above: Order Comment: N Performed By: #### L 3600.4025, L3130.0010, L501.9910, L3100.3425, L504.2610 #### [facility] [address] [place], [address] [place] Lambda Light Chainson 05-09-2024 FR KAPPA LT CHN 27.7 mg/L Abnormal 3.3-19.4 [facility] Comment on above: Order Comment: N Performed By: #### L 3600.4025, L3130.0010, L501.9910, L3100.3425, L504.2610 ####[facility] [address] [place], [address] FR LAMBDA LT CH 22.3 mg/L Normal 5.7-26.3 [facility] Comment on above: Order Comment: N Performed By: #### L 3600.4025, L3130.0010, L501.9910, L3100.3425, L504.2610 ####[facility] [address] [place], [address] KAPPA/LAMBDA % 1.24 Normal 0.26-1.65 [facility] Comment on above: Order Comment: N Result Comment: Perf ormed at: - [facility] [id number] [employer] Operator: Bala Tucker PhD, Phone: [phone] Performed By: #### L 3600.4025, L3130.0010, L501.9910, L3100.3425, L504.2610 ####[facility] [address] [place], [address] LDHon 05-06-2024 LDH 191 U/L Normal 87-241 [facility] Comment on above: Order Comment: 1 Performed By: #### L 3600.4025, L3130.0010, L501.9910, L3100.3425, L504.2610 #### [facility] [address] [place], [address] Oncology Visit Reporton 04-19 Oncology Visit Report [facility] [place] [facility] [address] [place] [address] OFFICE VISIT Date of Service: 05/06/24 1251 MR#: [id number] Acct: [id number] Name: SALLYMIAH Talha Rep #: [id number] : 02/20/1966 From: Alvina Oneal MD Age/Sex: 58/M Location: [facility] [place] Status: Signed HPI Subjective Date of Service 05/06/24 Chief Complaint Bone lesions on CT History of Present Illness 58-year-old male with medical history notable for schizophrenia and parkinsonism who was seen at [facility] emergency room on May 03, 2024 with abdominal pain, which since was attributed to constipation and has resolved, and on a CT scan of the abdomen and pelvis was noted to have 2 lytic lesions on L3 and L4. [facility] Medical History Schizoaffective disorder Anxiety and depression Obesity Lymphedema of both lower extremities Chronic low back pain Abrasion of flank Surgical History History of elbow surgery Family History Mother Anxiety and depression Hypertension Father Esophageal dysfunction Grandfather Heart disease Paternal GF. Myocardial infarction Paternal GF. CAD (coronary artery disease) Paternal GF. Social History household members: other details: Lives with his sister. Smoking Status: Never smoker alcohol intake: never substance use type: does not use ROS ROS Narrative Systems review was obtained from the patient's sister 104 he lives with. Review of Systems ROS Unobtainable: due to mental status Constitutional Constitutional: Reports systems reviewed and no addt'l complaints, except as documented and fatigue; Denies fever(s) or weight loss Eyes Eyes: Reports systems reviewed and no addt'l complaints, except as documented ENT HEENT: Reports systems reviewed and no addt'l complaints, except as documented; Denies mouth lesions Cardiovascular Cardiovascular: Reports systems reviewed and no addt'l complaints, except as documented; Denies chest pain Respiratory/Chest Respiratory/Chest: Reports systems reviewed and no addt'l complaints, except as documented; Denies cough or dyspnea Gastrointestinal Gastrointestinal: Reports systems reviewed and no addt'l complaints, except as documented, constipation and hemorrhoids Genitourinary Genitourinary: Reports systems reviewed and no addt'l complaints, except as documented; Denies hematuria Musculoskeletal Musculoskeletal: Reports systems reviewed and no addt'l complaints, except as documented; Denies back pain Integumentary Integumentary: Reports systems reviewed and no addt'l complaints, except as documented; Denies new lesions Neurologic Neurologic: Reports systems reviewed and no addt'l complaints, except as documented, abnormal gait, frequent falls and weakness; Denies focal weakness or tremor(s) Psychiatric Psychiatric: Reports systems reviewed and no addt'l complaints, except as documented and as per HPI Endocrine Endocrinology: Reports systems reviewed and no addt'l complaints, except as documented Hematologic/Lymphatic Hematologic/Lymphatic: Reports systems reviewed and no addt'l complaints, except as documented; Denies lymphadenopathy Allergic/Immunologic Allergic/Immunologic: Reports systems reviewed and no addt'l complaints, except as documented Intake Vital Signs 05/03/24 17:24 05/06/24 12:52 Height 5 ft 6 in 5 ft 6 in Weight: 96.162 kg BMI 34.2 BP 96/66 Position Sitting Respiration 16 Pulse 85 Pulse Source Monitor Temp 99.0 F Temperature Source Temporal Artery Oxygen Delivery Method room air Intake Is patient in pain?: Yes (back) Pain scale (1-10): 7 Allergies No Known Allergies Allergy (Verified 05/06/24 12:59) Medications ???Medication ???Instructions ???Recorded ???Confirmed ???Type benztropine 0.5 mg tablet 0.5 mg PO BID 02/23/23 05/06/24 History cholecalciferol (vitamin D3) 125 5,000 unit PO DAILY 12/16/23 05/06/24 History mcg (5,000 unit) capsule haloperidol decanoate 100 mg/mL mg IM 12/16/23 05/06/24 History intramuscular solution melatonin 3 mg tablet 3 mg PO QHS 12/16/23 05/06/24 History acetaminophen 325 mg tablet 650 mg (2 x 325 mg) PO Q4H PRN PRN 12/19/23 05/06/24 Rx Fever, pain -08/28 #0 tabs magnesium hydroxide 400 mg/5 mL 30 ml PO BID PRN 05/06/24 05/06/24 History oral suspension (Milk of Magnesia) CBC, CMP April 2024 from emergency room visit reviewed in EMR and are unremarkable I personally reviewed patient's CT scan images of April 2024 and concur with the reported findings Exam Physical Exam Narrative ECOG 2, parkinsonian rigidity but no notable tremor Const no appar (more content not included)... Normal [facility] PSA,Total - Annual Screenon 05-06-2024 PSA,TOT SCREEN 1.60 ng/mL Normal 0.00-4.00 [facility] Comment on above: Order Comment: 1 Result Comment: This test was performed using the TPSA assay method for the [employer] chemistry system. Values obtained with different assay methods cannot be used interchangably. When changing PSA assays in the course of monitoring a patient, additional sequential testing should be carried out to confirm baseline values. Performed By: #### L 3600.4025, L3130.0010, L501.9910, L3100.3425, L504.2610 #### [facility] [address] [place], [address] Abdomen/Pelvis without Conto n 05-03-2024 Abdomen/Pelvis without Cont [facility] [address] [place], [place] [address] Abdomen/Pelvis without Cont MR#: [id number] Acct: [id number] Name: MIAH ZAVALA Rep #: [id number] : 02/20/1966 M 58 From: Hany Talley MD PCP: Dr. Conner Heard MD Status: REG ER Study: Abdomen/Pelvis without Cont Date of Exam: 04/19 04/11 Exam# [id number] Ordering Dr: Saulo Zeng MD [id number] INDICATION: Pain EXAMINATION: CT ABDOMEN AND PELVIS WITHOUT CONTRAST - CT Abdomen And Pelvis W/O Contrast Injection TECHNIQUE: Helically acquired images were obtained of the abdomen and pelvis without oral or IV contrast. A radiation dose optimization technique was used for this scan. IV Contrast dosage and agent: None. Oral contrast: None. COMPARISON: None. FINDINGS: LOWER CHEST: Lung bases are clear. Calcified granuloma in the lung bases No cardiomegaly or pericardial effusion. LIVER: Homogeneous. No focal mass. GALLBLADDER AND BILIARY TREE: Cholecystectomy.. No intra- or extrahepatic biliary ductal dilation. PANCREAS: No focal cystic or solid mass. SPLEEN: Normal size without focal cystic or solid mass. ADRENAL GLANDS: No nodules. KIDNEYS AND URETERS: Medial left lower kidney exophytic 2.8 cm cyst with small dependent calcifications. Normal renal size and position. No hydronephrosis. Mild senescent perinephric stranding. No nephrolithiasis. Unremarkable ureters. Decompressed bladder. PERITONEUM: No ascites or free air. No other fluid collection. BOWEL: No acute gastric finding. No small bowel distention or focal wall thickening. Normal appendix. Large colonic stool burden. No colonic wall thickening or surrounding inflammation. . LYMPH NODES: No enlarged mesenteric or retroperitoneal lymph nodes. VESSELS: Aortic atherosclerosis without ectasia.. URINARY BLADDER: Decompressed, unremarkable. ABDOMINAL WALL: Fat-containing supraumbilical, umbilical, and inguinal hernias without inflammation. BONES: L3 1.5 cm on L4 1.3 cm lucent lesions. No other acute osseous finding. CT/Abdomen/Pelvis without Cont IMPRESSION: Large colonic stool burden as can be seen with constipation. Fat-containing periumbilical, umbilical, and inguinal hernias without inflammation. Lytic lesions within L3 and L4 vertebral body, nonspecific but is suspicious for metastatic disease. Correlate for history of known malignancy. Consider vertebral MRI. Electronically Signed: Hany Talley MD at 19:03 EDT , CC: Dr. Saulo Zeng MD; Dr. Conner Heard MD Universal Grinder Tool: Signed Normal [facility] CBC W/Diff, Automatedon 04-19 Absolute Lymph 0.83 X10 3/uL Normal 0.83-4.51 [facility] Comment on above: Performed By: #### L 500.4050, L501.2450, L100.0100 ####[facility] [address] [place], [address] Absolute Neut 5.5 X10 3/uL Normal 2.0-7.7 [facility] Comment on above: Performed By: #### L 500.4050, L501.2450, L100.0100 ####[facility] [address] [place], [address] Basophils/100 WBC (Bld) 0.1 % Normal 0-1 [facility] Comment on above: Performed By: #### L 500.4050, L501.2450, L100.0100 ####[facility] [address] [place], [address] Eosinophils/100 WBC (Bld) 0.4 % Normal 0-5 [facility] Comment on above: Performed By: #### L 500.4050, L501.2450, L100.0100 ####[facility] [address] [place], [address] Erythrocyte distribution width (RBC) [Ratio] 14.4 % Normal 11.6-14.6 [facility] Comment on above: Performed By: #### L 500.4050, L501.2450, L100.0100 ####[facility] [address] [place], [address] Hematocrit (Bld) [Volume fraction] 43.0 % Normal 40-54 [facility] Comment on above: Performed By: #### L 500.4050, L501.2450, L100.0100 ####[facility] [address] [place], [address] Hemoglobin (Bld) [Mass/Vol] 13.9 g/dL Normal 13.0-16.5 [facility] Comment on above: Performed By: #### L 500.4050, L501.2450, L100.0100 ####[facility] [address] [place], [address] IG% 0.400 Normal 0.0-0.9 [facility] Comment on above: Result Comment: IG% - Immature Granulocytes (promyelocytes, myelocytes and metamyelocytes) > 1% indicates that a LEFT SHIFT is Present. Performed By: #### L 500.4050, L501.2450, L100.0100 ####[facility] [address] [place], [address] Lymphocytes/100 WBC (Bld) 12.1 % Low 19-41 [facility] Comment on above: Performed By: #### L 500.4050, L501.2450, L100.0100 ####[facility] [address] [place], [address] MCH (RBC) [Entitic mass] 28.7 pg Normal 27.0-32.0 [facility] Comment on above: Performed By: #### L 500.4050, L501.2450, L100.0100 ####[facility] [address] [place], [address] MCHC (RBC) [Mass/Vol] 32.3 g/dL Normal 32-36 [facility] Comment on above: Performed By: #### L 500.4050, L501.2450, L100.0100 ####[facility] [address] [place], [address] MCV (RBC) [Entitic vol] 88.8 fL Normal 80-94 [facility] Comment on above: Performed By: #### L 500.4050, L501.2450, L100.0100 ####[facility] [address] [place], [address] Monocytes/100 WBC (Bld) 7.1 % Normal 0-10 [facility] Comment on above: Performed By: #### L 500.4050, L501.2450, L100.0100 ####[facility] [address] [place], [address] Neutrophils/100 WBC (Bld) 79.9 % High 47-70 [facility] Comment on above: Performed By: #### L 500.4050, L501.2450, L100.0100 ####[facility] [address] [place], [address] Nucleated RBC (Bld) [#/Vol] 0 10*3/uL Normal 0-5 [facility] Comment on above: Performed By: #### L 500.4050, L501.2450, L100.0100 ####[facility] [address] [place], [address] Platelet mean volume (Bld) [Entitic vol] 10.8 fL Normal 6.2-12.0 [facility] Comment on above: Performed By: #### L 500.4050, L501.2450, L100.0100 ####[facility] [address] [place], [address] Platelets (Bld) [#/Vol] 140 10*3/uL Low 150-450 [facility] Comment on above: Performed By: #### L 500.4050, L501.2450, L100.0100 ####[facility] [address] [place], [address] RBC (Bld) [#/Vol] 4.84 10*6/uL Normal 4.6-6.2 [facility] Comment on above: Performed By: #### L 500.4050, L501.2450, L100.0100 ####[facility] [address] [place], [address] RDW SD 46.2 fl High 35.1-43.9 [facility] Comment on above: Performed By: #### L 500.4050, L501.2450, L100.0100 ####[facility] [address] [place], [address] WBC (Bld) [#/Vol] 6.9 10*3/uL Normal 4.4-11.0 [facility] Comment on above: Performed By: #### L 500.4050, L501.2450, L100.0100 ####[facility] [address] [place], [address] Comprehensive Metabolic Prof [facility] 05-03-2024 Albumin [Mass/Vol] 3.8 g/dL Normal 3.2-5.0 [facility] Comment on above: Performed By: #### L 500.4050, L501.2450, L100.0100 ####[facility] [address] [place], [address] Albumin/Globulin [Mass ratio] 0.9 {ratio} Normal 0.9-2.4 [facility] Comment on above: Performed By: #### L 500.4050, L501.2450, L100.0100 ####[facility] [address] [place], [address] ALK P 37 U/L Low 45-117 [facility] Comment on above: Performed By: #### L 500.4050, L501.2450, L100.0100 ####[facility] [address] [place], [address] ALT [Catalytic activity/Vol] 19 U/L Normal 16-61 [facility] Comment on above: Performed By: #### L 500.4050, L501.2450, L100.0100 ####[facility] [address] [place], [address] AST [Catalytic activity/Vol] 16 U/L Normal 15-37 [facility] Comment on above: Performed By: #### L 500.4050, L501.2450, L100.0100 ####[facility] [address] [place], [address] Bilirubin [Mass/Vol] 0.80 mg/dL Normal 0.20-1.00 [facility] Comment on above: Result Comment: For patients on eltrombopag therapy, use of Dimension [place] TBIL is not recommended. Performed By: #### L 500.4050, L501.2450, L100.0100 ####[facility] [address] [place], [address] BUN/CRE 14.9 RATIO Normal 10-20 [facility] Comment on above: Performed By: #### L 500.4050, L501.2450, L100.0100 ####[facility] [address] [place], [address] CA,Total 9.6 mg/dL Normal 8.5-10.1 [facility] Comment on above: Performed By: #### L 500.4050, L501.2450, L100.0100 ####[facility] [address] [place], [address] Chloride [Moles/Vol] 105 mmol/L Normal 98-107 [facility] Comment on above: Performed By: #### L 500.4050, L501.2450, L100.0100 ####[facility] [address] [place], [address] CO2 [Moles/Vol] 27.0 mmol/L Normal 21.0-32.0 [facility] Comment on above: Performed By: #### L 500.4050, L501.2450, L100.0100 ####[facility] [address] [place], [address] Creatinine [Mass/Vol] 1.14 mg/dL Normal 0.70-1.30 [facility] Comment on above: Result Comment: The validity of the calculated GFR GFRAA in patients over 70 years has not been determined. Clinical correlation is essential. Performed By: #### L 500.4050, L501.2450, L100.0100 ####[facility] [address] [place], [address] ECRCL 75.91 ml/min Normal [facility] Comment on above: Performed By: #### L 500.4050, L501.2450, L100.0100 ####[facility] [address] [place], [address] EST GFR - AA 85 mL/min Normal >60 [facility] Comment on above: Result Comment: Afri can [place] GFR Calc Performed By: #### L 500.4050, L501.2450, L100.0100 ####[facility] [address] [place], [address] GAP 8 Normal 5-15 [facility] Comment on above: Performed By: #### L 500.4050, L501.2450, L100.0100 ####[facility] [address] [place], [address] GFR/1.73 sq M.predicted among non-blacks MDRD (S/P/Bld) [Vol rate/Area] 70 mL/min/{1.73_m2} Normal >60 [facility] Comment on above: Result Comment: Non- GFR Calc Performed By: #### L 500.4050, L501.2450, L100.0100 ####[facility] [address] [place], [address] Globulin (S) [Mass/Vol] 4.2 g/dL Normal 2.2-4.2 [facility] Comment on above: Performed By: #### L 500.4050, L501.2450, L100.0100 ####[facility] [address] [place], [address] Glucose [Mass/Vol] 107 mg/dL High 74-106 [facility] Comment on above: Result Comment: Fast ing Glucose result from 100 to 125 mg/dL suggests IMPAIRED HOMEOSTASIS per A.D.A. criteria. Performed By: #### L 500.4050, L501.2450, L100.0100 ####[facility] [address] [place], [address] Potassium [Moles/Vol] 3.5 mmol/L Normal 3.5-5.1 [facility] Comment on above: Performed By: #### L 500.4050, L501.2450, L100.0100 ####[facility] [address] [place], [address] Sodium [Moles/Vol] 140 mmol/L Normal 136-145 [facility] Comment on above: Performed By: #### L 500.4050, L501.2450, L100.0100 ####[facility] [address] [place], [address] T PROT 8.0 g/dL Normal 6.4-8.2 [facility] Comment on above: Performed By: #### L 500.4050, L501.2450, L100.0100 ####[facility] [address] [place], [address] Urea nitrogen [Mass/Vol] 17 mg/dL Normal 7-18 [facility] Comment on above: Performed By: #### L 500.4050, L501.2450, L100.0100 ####[facility] [address] [place], [address] Emergency Department Summary on 05-03-2024 Emergency Department Summary [facility] Medical Records Department [address] [place] [address] Emergency Department Summary 05/03/24 MR#: [id number] Acct: [id number] Name: MIAH ZAVALA Rep #: [id number] : 02/20/1966 58 From: Saulo Zeng MD PCP: Dr. Conner Heard MD Status:REG ER Location: ED HPI History of Present Illness Chief Complaint: General Illness Narrative Narrative: 58-year-old male past medical history of schizophrenia and Parkinson's presents with abdominal pain and generalized weakness, difficulty getting up according to his caregiver who is his sister. He lives at home with her. There are periods of time when he is left alone. Yesterday, everything was fine, but she presents him today because he has had generalized weakness and difficulty getting up. He complained that he was having abdominal pain at all that he drank today was tropical fruit punch. He later admitted that he did have small bowl of patsy charm cereal today. He has not had any nausea or vomiting, no fevers or chills, no other symptoms. [facility] Medical History Schizoaffective disorder Anxiety and depression Obesity Lymphedema of both lower extremities Chronic low back pain Abrasion of flank Home Medications ???Medication ???Instructions ???Recorded ???Last Taken ???Type benztropine 0.5 mg tablet 0.5 mg PO BID 02/23/23 Unknown History cholecalciferol (vitamin D3) 125 5,000 unit PO DAILY 12/16/23 Unknown History mcg (5,000 unit) capsule haloperidol decanoate 100 mg/mL mg IM 12/16/23 12/06/23 History intramuscular solution melatonin 3 mg tablet 3 mg PO QHS 12/16/23 Unknown History acetaminophen 325 mg tablet 650 mg (2 x 325 mg) PO Q4H PRN PRN 12/19/23 Unknown Rx Fever, pain 1-08/28 #0 tabs doxycycline monohydrate 100 mg 100 mg PO BID #11 tabs 12/19/23 Unknown Rx tablet food supplemt, lactose-reduced 120 ml PO 4X/DAY #0 mL 12/19/23 Unknown Rx 0.08 gram-1.5 kcal/mL oral liquid (Ensure Plus High Protein) menthol 0.44 %-zinc oxide 20.6 % 1 applic topical BID #0 grams 12/19/23 Unknown Rx topical ointment (Calmoseptine) Allergy/AdvReac Type Severity Reaction Status Date / Time No Known Allergies Allergy Verified 05/03/24 17:26 Family History Mother Anxiety and depression Hypertension Father Esophageal dysfunction Grandfather Heart disease Paternal GF. Myocardial infarction Paternal GF. CAD (coronary artery disease) Paternal GF. Surgical History History of elbow surgery Social History household members: other details: Lives with his sister. Smoking Status: Never smoker alcohol intake: never substance use type: does not use ROS ROS ED ROS Narrative Constitutional: No fever, no chills. Generalized weakness. HEENT: No sore throat. No neck pain. No loss of vision. No rhinorrhea. Cardiovascular: No chest pain. No palpitations. No pedal edema. Respiratory: No cough, no shortness of breath. Abdominal: Positive abdominal pain. No nausea. No vomiting. No problems with bowel movements. Genitourinary: No dysuria. No hematuria. Musculoskeletal: No myalgias. No arthralgias. Neurologic: No headaches. No dizziness. No lightheadedness. Skin: No rash. No change in color. Psychiatric: No depression. No anxiety. EXAM Physical Exam Narrative Exam Narrative: Afebrile. Vital signs noted. HEENT: Normocephalic. Atraumatic. PERRL, EOMI. Neck soft and supple. No point tenderness or step off. Cardiovascular: Regular rate and rhythm. No murmurs, rubs, or gallops appreciated. Respiratory: No tachypnea. Lungs clear to auscultation bilaterally. Gastrointestinal: Abdomen soft, nontender, with normoactive bowel sounds. Questionable distention. No rebound or guarding. Neurological: Awake. Alert. Nonfocal, nonlateralizing. Sometimes slow to respond, consistent with Parkinson's. Skin: No rash. Normal color. No pallor. Musculoskeletal: No pedal edema. Full range of motion extremities. Const Vital Signs: 05/03/24 17:24 Temperature 97.6 F L Temperature Source Temporal Pulse Rate 94 Respiratory Rate 18 Blood Pressure 140/95 H Blood Pressure Mean 110 Pulse Ox 95 Oxygen Delivery Method Room Air MDM MDM MDM Narrative Medical decision making narrative: Concern would be for dehydration causing his generalized weakness versus urinary tract infection. I have low suspicion for pneumonia and do not feel chest x-ray is indicated because he has not had cough. Given that he has had abdominal pain, and the differential would be pancreatitis but the history and physical does not support that. I will obtain CT imaging without contrast to (more content not included)... Normal [facility] Lipaseon 05-03-2024 Lipase [Catalytic activity/Vol] 23 U/L Normal 13-75 [facility] Comment on above: Result Comment: Celso jay note: LIPASE revised reference range effective 23. New Lipase methodology. Expected to produce lower values than the previous assay method. NEW Reference Range: 13 - 75 U/L Performed By: #### L 500.4050, L501.2450, L100.0100 ####[facility] [address] [place], [place], [id number] Urinalysis, Completeon 05-03 BACTERIA 1+ /hpf Normal None Seen [facility] Comment on above: Order Comment: COLLE CTOR TO SPECIFY Performed By: #### L 400.0001 ####[facility] [address] [place], [place], [id number] RBC 0-5 SEEN Normal 0-5 [facility] Comment on above: Order Comment: COLLE CTOR TO SPECIFY Performed By: #### L 400.0001 ####[facility] [address] [place], [address] WBC 0-5 SEEN Normal 0-5 [facility] Comment on above: Order Comment: FROILAN CTOR TO SPECIFY Performed By: #### L 400.0001 ####[facility] [address] [place], [address] EPI,SQUAMOUS 0 SEEN Normal 0-5 [facility] Comment on above: Order Comment: FROILAN CTOR TO SPECIFY Performed By: #### L 400.0001 ####[facility] [address] [place], [address] Mucus Ql (Urine sed) 0 SEEN Normal [facility] Comment on above: Order Comment: FROILAN CTOR TO SPECIFY Performed By: #### L 400.0001 ####[facility] [address] [place], [address] Basophil percentageOrdered B y: Erica Martinez on 12-19-2023 Hemoglobin (Bld) [Mass/Vol] 11.6 g/dL 13.0-16.5 [facility] WBC (Bld) [#/Vol] 6.2 10*3/uL 4.4-11.0 [facility] Determination of erythrocyte mean corpuscular volume (MCV)Ordered By: Erica Martinez on 12-19-2023 MCV (RBC) [Entitic vol] 88.9 fL 80-94 [facility] Erythrocyte distribution wid th ratioOrdered By: Erica Martinez on 12-19-2023 Erythrocyte distribution width (RBC) [Ratio] 14.1 % 11.6-14.6 [facility] Erythrocyte distribution wid th standard deviationOrdered By: Erica Martinez on 12-19-2023 Erythrocyte distribution width (RBC) [Entitic vol] 45.5 fL 35.1-43.9 [facility] Hematocrit Auto (Bld) [Volum e fraction]Ordered By: Erica Martinez on 12-19-2023 Hematocrit (Bld) [Volume fraction] 35.3 % 40-54 [facility] Iron measurement (mass/mass) Ordered By: Erica Martinez on 12-19-2023 Iron (Unsp spec) [Mass/Mass] 56 ug/dL 65-175 [facility] Laboratory - Chemistry and C hemistry - challengeOrdered By: Erica Martinez on 12-19-2023 Ferritin [Mass/Vol] 133 ng/mL 26-388 [facility] Laboratory - Hematology and Cell countsOrdered By: Erica Martinez on 12-19-2023 MCH (RBC) [Entitic mass] 29.2 pg 27.0-32.0 [facility] MCHC (RBC) [Mass/Vol] 32.9 g/dL 32-36 [facility] Platelets (Bld) [#/Vol] 129 10*3/uL 150-450 [facility] No Panel InformationOrdered By: Erica Martinez on 12-19-2023 Total Iron Binding Capacity 221 ug/dL 250-450 [facility] Platelet mean volume Robert-Ec ker (Bld) [Entitic vol]Ordered By: Erica Martinez on 12-19-2023 Platelet mean volume (Bld) [Entitic vol] 11.5 fL 6.2-12.0 [facility] RBC Auto (Bld) [#/Vol]Ordere d By: Erica Martinez on 12-19-2023 RBC (Bld) [#/Vol] 3.97 10*6/uL 4.6-6.2 [facility] Serum or plasma iron saturat ion measurement (mass fraction)Ordered By: Erica Martinez on 12-19-2023 Iron saturation [Mass fraction] 25.3 % 15.0-55.0 [facility] Absolute lymphocyte countOrd ered By: Erica Martinez on 12-18-2023 Lymphocytes Auto (Unsp spec) [#/Vol] 0.96 10*3/uL 0.83-4.51 [facility] Automated lymphocyte count a s percentage of total leukocytesOrdered By: Erica Martinez on 12-18-2023 Lymphocytes/100 WBC Auto (Unsp spec) 13.6 % 19-41 [facility] Basophil percentageOrdered B y: Erica Martinez on 12-18-2023 Basophils/100 WBC (Bld) 0.3 % 0-1 [facility] Eosinophils/100 WBC (Bld) 1.3 % 0-5 [facility] Monocytes/100 WBC (Bld) 8.5 % 0-10 [facility] Neutrophils (Bld) [#/Vol] 5.3 10*3/uL 2.0-7.7 [facility] Neutrophils/100 WBC (Bld) 75.6 % 47-70 [facility] Immature granulocytes/100 WB C Auto (Bld)Ordered By: Erica Martinez on 12-18-2023 Immature granulocytes/100 WBC (Bld) 0.700 % 0.0-0.9 [facility] Comment on above: IG% - Immature Granu locytes (promyelocytes, myelocytes and metamyelocytes) > 1% indicates that a LEFT SHIFT is Present. Laboratory - Hematology and Cell countsOrdered By: Erica Martinez on 12-18-2023 Nucleated RBC/100 WBC (Bld) [Ratio] 0 % 0-5 [facility] Basophil percentageOrdered B y: Clarissa Garg on 12-17-2023 Bilirubin [Mass/Vol] 0.70 mg/dL 0.20-1.00 [facility] Comment on above: For patients on eltr ombopag therapy, use of Dimension [place] TBIL is not recommended. Chloride [Moles/Vol] 108 mmol/L 98-107 [facility] Glucose [Mass/Vol] 105 mg/dL 74-106 [facility] Comment on above: Fasting Glucose resu lt from 100 to 125 mg/dL suggests IMPAIRED HOMEOSTASIS per A.D.A. criteria. Potassium [Moles/Vol] 3.5 mmol/L 3.5-5.1 [facility] Protein [Mass/Vol] 6.9 g/dL 6.4-8.2 [facility] Sodium [Moles/Vol] 140 mmol/L 136-145 [facility] Laboratory - Chemistry and C hemistry - challengeOrdered By: Clarissa Garg on 12-17-2023 Albumin/Globulin [Mass ratio] 0.9 {ratio} 0.9-2.4 [facility] ALP [Catalytic activity/Vol] 30 U/L 45-117 [facility] ALT [Catalytic activity/Vol] 33 U/L 16-61 [facility] CO2 [Moles/Vol] 27.0 mmol/L 21.0-32.0 [facility] Globulin (S) [Mass/Vol] 3.6 g/dL 2.2-4.2 [facility] Urea nitrogen/Creatinine [Mass ratio] 12.0 mg/mg 10-20 [facility] No Panel InformationOrdered By: Clarissa Garg on 12-17-2023 Estimated Creatinine Clearance Calc 52.29 ml/min [facility] Estimated GFR (MDRD) Amer 55 mL/min >60 [facility] Comment on above: GFR Calc Estimated GFR (MDRD) Non-Af Amer 45 mL/min >60 [facility] Comment on above: Non- GFR Calc Serum or plasma calcium natalya urement (mass/volume)Ordered By: Clarissa Garg on 12-17-2023 Calcium [Mass/Vol] 9.4 mg/dL 8.5-10.1 [facility] Serum or plasma creatinine m easurement (mass/volume)Ordered By: Clarissa Garg on 12-17-2023 Creatinine [Mass/Vol] 1.67 mg/dL 0.70-1.30 [facility] Comment on above: The validity of the calculated GFR & GFRAA in patients over 70 years has not been determined. Clinical correlation is essential. Serum or plasma urea nitroge n measurement (mass/volume)Ordered By: Clarissa Garg on 12-17-2023 Urea nitrogen [Mass/Vol] 20 mg/dL 7-18 [facility] Thin prep Papanicolaou smear with manual screeningOrdered By: Clarissa Garg on 12-17-2023 Thin prep Papanicolaou smear with manual screening 3.3 g/dL 3.2-5.0 [facility] Thin prep Papanicolaou smear with manual screening 30 U/L 15-37 [facility] Thin prep Papanicolaou smear with manual screening 5 5-15 [facility] Absolute lymphocyte countOrd ered By: Marcus Bhagat on 12-16-2023 Lymphocytes Auto (Unsp spec) [#/Vol] 0.98 10*3/uL 0.83-4.51 [facility] Amorphous sediment detection in urine sediment by light microscopyOrdered By: Marcus Bhagat on 12-16-2023 Amorphous sediment LM Ql (Urine sed) 1+ URATE [facility] Automated lymphocyte count a s percentage of total leukocytesOrdered By: Marcus Bhagat on 12-16-2023 Lymphocytes/100 WBC Auto (Unsp spec) 6.4 % 19-41 [facility] Basophil percentageOrdered B y: Marcus Bhagat on 12-16-2023 Basophil percentage 0 SEEN /hpf 0-5 [facility] Basophils/100 WBC (Bld) 0.1 % 0-1 [facility] Bilirubin [Mass/Vol] 0.50 mg/dL 0.20-1.00 [facility] Comment on above: For patients on eltr ombopag therapy, use of Dimension [place] TBIL is not recommended. Chloride [Moles/Vol] 110 mmol/L 98-107 [facility] Eosinophils/100 WBC (Bld) 0.4 % 0-5 [facility] Glucose [Mass/Vol] 103 mg/dL 74-106 [facility] Comment on above: Fasting Glucose resu lt from 100 to 125 mg/dL suggests IMPAIRED HOMEOSTASIS per A.D.A. criteria. Hemoglobin (Bld) [Mass/Vol] 13.2 g/dL 13.0-16.5 [facility] Monocytes/100 WBC (Bld) 6.8 % 0-10 [facility] Neutrophils (Bld) [#/Vol] 13.1 10*3/uL 2.0-7.7 [facility] Neutrophils/100 WBC (Bld) 85.7 % 47-70 [facility] Potassium [Moles/Vol] 4.3 mmol/L 3.5-5.1 [facility] Protein [Mass/Vol] 7.5 g/dL 6.4-8.2 [facility] Sodium [Moles/Vol] 141 mmol/L 136-145 [facility] WBC (Bld) [#/Vol] 15.3 10*3/uL 4.4-11.0 [facility] Bilirubin Test strip Ql (U)O rdered By: Marcus Bhagat on 12-16-2023 Bilirubin Ql (U) Negative Negative [facility] Determination of erythrocyte mean corpuscular volume (MCV)Ordered By: Marcus Bhagat on 12-16-2023 MCV (RBC) [Entitic vol] 89.1 fL 80-94 [facility] Erythrocyte distribution wid th ratioOrdered By: Marcus Bhagat on 12-16-2023 Erythrocyte distribution width (RBC) [Ratio] 14.3 % 11.6-14.6 [facility] Erythrocyte distribution wid th standard deviationOrdered By: Marcus Bhagat on 12-16-2023 Erythrocyte distribution width (RBC) [Entitic vol] 46.1 fL 35.1-43.9 [facility] Hematocrit Auto (Bld) [Volum e fraction]Ordered By: Marcus Bhagat on 12-16-2023 Hematocrit (Bld) [Volume fraction] 40.7 % 40-54 [facility] Immature granulocytes/100 WB C Auto (Bld)Ordered By: Marcus Bhagat on 12-16-2023 Immature granulocytes/100 WBC (Bld) 0.600 % 0.0-0.9 [facility] Comment on above: IG% - Immature Granu locytes (promyelocytes, myelocytes and metamyelocytes) > 1% indicates that a LEFT SHIFT is Present. Ketones Test strip Ql (U)Ord ered By: Marcus Bhagat on 12-16-2023 Ketones Ql (U) Negative Negative [facility] Laboratory - Chemistry and C hemistry - challengeOrdered By: Marcus Bhagat on 12-16-2023 Albumin/Globulin [Mass ratio] 1.0 {ratio} 0.9-2.4 [facility] ALP [Catalytic activity/Vol] 35 U/L 45-117 [facility] ALT [Catalytic activity/Vol] 35 U/L 16-61 [facility] CO2 [Moles/Vol] 26.0 mmol/L 21.0-32.0 [facility] Globulin (S) [Mass/Vol] 3.8 g/dL 2.2-4.2 [facility] Natriuretic peptide B (Bld) [Mass/Vol] 16.5 pg/mL 0-100 [facility] Urea nitrogen/Creatinine [Mass ratio] 12.1 mg/mg 10-20 [facility] Laboratory - Hematology and Cell countsOrdered By: Marcus Bhagat on 12-16-2023 MCH (RBC) [Entitic mass] 28.9 pg 27.0-32.0 [facility] MCHC (RBC) [Mass/Vol] 32.4 g/dL 32-36 [facility] Nucleated RBC/100 WBC (Bld) [Ratio] 0 % 0-5 [facility] Platelets (Bld) [#/Vol] 167 10*3/uL 150-450 [facility] Mucus LM Ql (Urine sed)Order ed By: Marcus Bhagat on 12-16-2023 Mucus Ql (Urine sed) 0 SEEN /hpf [facility] Nitrite Test strip Ql (U)Ord ered By: Marcus Bhagat on 12-16-2023 Nitrite Ql (U) Negative Negative [facility] No Panel InformationOrdered By: Clarissa Garg on 12-16-2023 Methicillin-Resist S.aureus DNA PCR Negative Negative [facility] No Panel InformationOrdered By: Marcus Bhagat on 12-16-2023 Urine RBC 0-5 SEEN /hpf 0-5 [facility] Estimated GFR (MDRD) Amer 52 mL/min >60 [facility] Comment on above: GFR Calc Estimated GFR (MDRD) Non-Af Amer 43 mL/min >60 [facility] Comment on above: Non- GFR Calc Troponin I High Sensitivity 11 pg/mL 3.0-78.0 [facility] Comment on above: Please Note: New Mahnaz t Units and Gender Specific Reference Ranges. For more information see Policy Stat Procedure [place] High Sensitivity Troponin (TNIH) and attachments. Platelet mean volume Robert-Ec ker (Bld) [Entitic vol]Ordered By: Marcus Bhagat on 12-16-2023 Platelet mean volume (Bld) [Entitic vol] 11.2 fL 6.2-12.0 [facility] Protein Test strip Ql (U)Ord ered By: Marcus Bhagat on 12-16-2023 Protein Ql (U) 15 mg/dl Negative [facility] RBC Auto (Bld) [#/Vol]Ordere d By: Marcus Bhagat on 12-16-2023 RBC (Bld) [#/Vol] 4.57 10*6/uL 4.6-6.2 [facility] Serum or plasma calcium natalya urement (mass/volume)Ordered By: Marcus Bhagat on 12-16-2023 Calcium [Mass/Vol] 10.0 mg/dL 8.5-10.1 [facility] Serum or plasma creatinine m easurement (mass/volume)Ordered By: Marcus Bhagat on 12-16-2023 Creatinine [Mass/Vol] 1.74 mg/dL 0.70-1.30 [facility] Comment on above: The validity of the calculated GFR & GFRAA in patients over 70 years has not been determined. Clinical correlation is essential. Serum or plasma urea nitroge n measurement (mass/volume)Ordered By: Marcus Bhagat on 12-16-2023 Urea nitrogen [Mass/Vol] 21 mg/dL 7-18 [facility] Serum procalcitonin measurem entOrdered By: Clarissa Garg on 12-16-2023 Procalcitonin [Mass/Vol] ng/mL 0.00-0.09 [facility] Comment on above: A procalcitonin (PCT ) level above 2.0 ng/mL on the first day of ICU admission is associated with a high risk for progression to severe sepsis and/or septic shock. A PCT level below 0.5 ng/mL on the first day of ICU admission is associated with a low risk for progression to severe and/or septic shock. Note: Concentrations <0.5 ng/mL do not exclude an infection on account of localized infections (without systemic signs) which can be associated with such low concentrations, or a systemic infection in its initial stages (<6 hours). Furthermore, increased procalcitonin can occur without infection. PCT concentrations between 0.5 and 2.0 ng/mL should be interpreted taking into account the patient's history. It is recommended to retest PCT within 6-24 hours if any concentrations <2 ng/mL are obtained. Squamous epithelial cells de tection in urine sediment by light microscopyOrdered By: Marcus Bhagat on 12-16-2023 Epithelial cells.squamous LM Ql (Urine sed) 0-5 SEEN /hpf 0-5 [facility] Thin prep Papanicolaou smear with manual screeningOrdered By: Marcus Bhagat on 12-16-2023 Thin prep Papanicolaou smear with manual screening 3.7 g/dL 3.2-5.0 [facility] Thin prep Papanicolaou smear with manual screening 26 U/L 15-37 [facility] Thin prep Papanicolaou smear with manual screening 5 5-15 [facility] Urine blood detectionOrdered By: Marcus Bhagat on 12-16-2023 RBC Ql (U) 10 /ul Negative [facility] Urine clarityOrdered By: Chely Bhagat on 12-16-2023 Clarity (U) Sl. Cloudy Clear [facility] Urine color determinationOrd ered By: Marcus Bhagat on 12-16-2023 Color (U) Yellow Yellow [facility] Urine glucose detectionOrder ed By: Marcus Bhagat on 12-16-2023 Glucose Ql (U) Normal mg/dl Normal [facility] Urine leukocyte esterase det ection by dipstickOrdered By: Marcus Bhagat on 12-16-2023 Leukocyte esterase Test strip Ql (U) Negative Negative [facility] Urine pHOrdered By: Marcus fields on 12-16-2023 pH (U) 6.0 [pH] 5.0 - 8.0 [facility] Urine sediment bacteria coun t by microscopy (number/high power field)Ordered By: Marcus Bhagat on 12-16-2023 Bacteria LM.HPF (Urine sed) [#/Area] 0 /[HPF] None Seen [facility] Urine specific gravity measu rementOrdered By: Marcus Bhagat on 12-16-2023 Specific gravity (U) [Rel density] 1.020 1.002-1.030 [facility] Urine urobilinogen measureme ntOrdered By: Marcus Bhagat on 12-16-2023 Urobilinogen Ql (U) Normal mg/dl Normal [facility] Basophil percentageOrdered B y: Dr. Mcneal on 02-24-2023 Basophil percentage 0-5 SEEN /hpf 0-5 [facility] Bilirubin Test strip Ql (U)O rdered By: Dr. Mcneal on 02-24-2023 Bilirubin Ql (U) 1 mg/dL Negative [facility] Comment on above: COLOR OF URINE MAY A FFECT DIPSTICK RESULTS. Calcium oxalate crystals det ection in urine sediment by light microscopyOrdered By: Dr. Mcneal on 02-24-2023 Calcium oxalate crystals LM Ql (Urine sed) 1+ /hpf [facility] Ketones Test strip Ql (U)Ord ered By: Dr. Mcneal on 02-24-2023 Ketones Ql (U) 150 mg/dl Negative [facility] Comment on above: CRITICAL VALUE *HCRI TICAL VALUE VERIFIED. [facility] 2333 Delfin Garg.RESULTS READ BACK BY SAME . Laboratory - Drug toxicology Ordered By: Dr. Mcneal on 02-24-2023 Amphetamines Ql (U) Negative <1000 ng/mL [facility] Benzodiazepines Ql (U) Negative < 200 ng/mL [facility] Cannabinoids Screen Ql (U) Negative < 50 ng/mL [facility] Cocaine Ql (U) Negative < 300 ng/mL [facility] Opiates Ql (U) Negative < 300 ng/mL [facility] Mucus LM Ql (Urine sed)Order ed By: Dr. Mcneal on 02-24-2023 Mucus Ql (Urine sed) 0 SEEN /hpf [facility] Nitrite Test strip Ql (U)Ord ered By: Dr. Mcneal on 02-24-2023 Nitrite Ql (U) Negative Negative [facility] No Panel InformationOrdered By: Dr. Mcneal on 02-24-2023 MDMA (Ecstasy) Screen Negative < 500 ng/mL [facility] Urine Barbiturates Screen Negative < 200 ng/mL [facility] Urine Drug Screen Comment [facility] Comment on above: CONFIRMATORY TESTING FOR ALL POSITIVE URINE DRUG SCREENRESULTS WILL ONLY BE SENT OUT UPON PHYSICIAN ORDER. VISTA Urine Drug Screen methods provide only preliminaryanalytical test results. A more specific alternate chemicalmethod must be used in order to obtain a confirmedanalytical result. Gas chromatography/mass spectrometery(GC/MS) is the preferred confirmatory method. Clinicalconsideration and professional judgement should be appliedto any drug of abuse test result, particularly whenpreliminary positive results are used. URINE TCA TESTING MUST BE ORDERED SEPARATELY. USE TESTMNEMONIC: [facility] Urine Methadone Screen Negative < 300 ng/mL [facility] Protein Test strip Ql (U)Ord ered By: Dr. Mcneal on 02-24-2023 Protein Ql (U) 30 mg/dl Negative [facility] Squamous epithelial cells de tection in urine sediment by light microscopyOrdered By: Dr. Mcneal on 02-24-2023 Epithelial cells.squamous LM Ql (Urine sed) 0-5 SEEN /hpf 0-5 [facility] Urine blood detectionOrdered By: Dr. Mcneal on 02-24-2023 RBC Ql (U) Negative Negative [facility] RBC Ql (U) 0 SEEN /hpf 0-5 [facility] Urine clarityOrdered By: Dr. Mcneal on 02-24-2023 Clarity (U) Sl. Cloudy Clear [facility] Urine color determinationOrd ered By: Dr. Mcneal on 02-24-2023 Color (U) Yellow Yellow [facility] Urine glucose detectionOrder ed By: Dr. Mcneal on 02-24-2023 Glucose Ql (U) Normal mg/dl Normal [facility] Urine leukocyte esterase det ection by dipstickOrdered By: Dr. Mcneal on 02-24-2023 Leukocyte esterase Test strip Ql (U) 25 /ul Negative [facility] Urine pHOrdered By: Dr. Kristin mahajan on 02-24-2023 pH (U) 6.0 [pH] 5.0 - 8.0 [facility] Urine phencyclidine (PCP) de tectionOrdered By: Dr. Mcneal on 02-24-2023 Phencyclidine Ql (U) Negative < 25 ng/mL [facility] Urine sediment bacteria coun t by microscopy (number/high power field)Ordered By: Dr. Mcneal on 02-24-2023 Bacteria LM.HPF (Urine sed) [#/Area] 0 /[HPF] None Seen [facility] Urine specific gravity measu rementOrdered By: Dr. Mcneal on 02-24-2023 Specific gravity (U) [Rel density] 1.025 1.002-1.030 [facility] Urobilinogen Auto test strip Ql (U)Ordered By: Dr. Mcneal on 02-24-2023 Urobilinogen Ql (U) 1 mg/dl Normal [facility] Absolute lymphocyte countOrd ered By: Dr. Newell on 02-23-2023 Lymphocytes Auto (Unsp spec) [#/Vol] 0.76 10*3/uL 0.83-4.51 [facility] Basophil percentageOrdered B y: Dr. Newell on 02-23-2023 Basophils/100 WBC (Bld) 0.2 % 0-1 [facility] Bilirubin [Mass/Vol] 0.60 mg/dL 0.20-1.00 [facility] Comment on above: For patients on eltr ombopag therapy, use of Dimension [place] TBIL is not recommended. Chloride [Moles/Vol] 105 mmol/L 98-107 [facility] Eosinophils/100 WBC (Bld) 0.0 % 0-5 [facility] Glucose [Mass/Vol] 93 mg/dL 74-106 [facility] Neutrophils (Bld) [#/Vol] 15.1 10*3/uL 2.0-7.7 [facility] Neutrophils/100 WBC (Bld) 88.7 % 47-70 [facility] Potassium [Moles/Vol] 3.9 mmol/L 3.5-5.1 [facility] Protein [Mass/Vol] 7.1 g/dL 6.4-8.2 [facility] Sodium [Moles/Vol] 142 mmol/L 136-145 [facility] WBC (Bld) [#/Vol] 17.0 10*3/uL 4.4-11.0 [facility] Blood erythrocytes count (nu mber/volume)Ordered By: Dr. Newell on 02-23-2023 RBC (Bld) [#/Vol] 4.88 10*6/uL 4.6-6.2 [facility] Blood hemoglobin measurement (mass/volume)Ordered By: Dr. Newell on 02-23-2023 Hemoglobin (Bld) [Mass/Vol] 13.8 g/dL 13.0-16.5 [facility] Blood lymphocytes/100 leukoc ytesOrdered By: Dr. Newell on 02-23-2023 Lymphocytes/100 WBC (Bld) 4.5 % 19-41 [facility] Blood monocytes/100 leukocyt esOrdered By: Dr. Newell on 02-23-2023 Monocytes/100 WBC (Bld) 6.2 % 0-10 [facility] Blood platelet mean volumeOr dered By: Dr. Newell on 02-23-2023 Platelet mean volume (Bld) [Entitic vol] 12.7 fL 6.2-12.0 [facility] COVID-19 virus antigen assay Ordered By: Dr. Newell on 02-23-2023 SARS-CoV-2 (COVID-19) Ag IA.rapid Ql (Resp) [facility] Determination of erythrocyte mean corpuscular volume (MCV)Ordered By: Dr. Newell on 02-23-2023 MCV (RBC) [Entitic vol] 88.3 fL 80-94 [facility] Direct bilirubinOrdered By: Dr. Newell on 02-23-2023 Bilirubin.direct [Mass/Vol] 0.20 mg/dL 0.00-0.30 [facility] Hematocrit Auto (Bld) [Volum e fraction]Ordered By: Dr. Newell on 02-23-2023 Hematocrit (Bld) [Volume fraction] 43.1 % 40-54 [facility] Laboratory - Chemistry and C hemistry - challengeOrdered By: Dr. Newell on 02-23-2023 ALP [Catalytic activity/Vol] 32 U/L 45-117 [facility] ALT [Catalytic activity/Vol] 27 U/L 16-61 [facility] CO2 [Moles/Vol] 26.0 mmol/L 21.0-32.0 [facility] Globulin (S) [Mass/Vol] 3.7 g/dL 2.2-4.2 [facility] Urea nitrogen/Creatinine [Mass ratio] 10.0 mg/mg 10-20 [facility] Laboratory - Hematology and Cell countsOrdered By: Dr. Newell on 02-23-2023 Erythrocyte distribution width (RBC) [Entitic vol] 48.9 fL 35.1-43.9 [facility] Erythrocyte distribution width (RBC) [Ratio] 15.2 % 11.6-14.6 [facility] Immature granulocytes/100 WBC (Bld) 0.400 % 0.0-0.9 [facility] Comment on above: IG% - Immature Granu locytes (promyelocytes, myelocytes and metamyelocytes) > 1% indicates that a LEFT SHIFT is Present. MCH (RBC) [Entitic mass] 28.3 pg 27.0-32.0 [facility] Nucleated RBC/100 WBC (Bld) [Ratio] 0 % 0-5 [facility] MCHC Auto (RBC) [Mass/Vol]Or dered By: Dr. Newell on 02-23-2023 MCHC (RBC) [Mass/Vol] 32.0 g/dL 32-36 [facility] No Panel InformationOrdered By: Dr. Newell on 02-23-2023 Estimated Creatinine Clearance Calc 55.50 ml/min [facility] Estimated GFR (MDRD) Amer 80 mL/min >60 [facility] Comment on above: GFR Calc Estimated GFR (MDRD) Non-Af Amer 66 mL/min >60 [facility] Comment on above: Non- GFR Calc Ethyl Alcohol Level < 3.0 mg/dL [facility] Comment on above: The serum:whole bloo d ethanol ratio is approximately 1.14and varies slightly with hematocrit. Medical Alcohol reference interval and critical value innon-tolerant individuals; 50 - 100 Impairment 100 Intoxication 100 - 250 Severe Poisoning 250 - 400 Deep/possible fatal coma Platelets bldOrdered By: Dr. Newell on 02-23-2023 Platelets (Bld) [#/Vol] 184 10*3/uL 150-450 [facility] Serum or plasma albumin natalya urement (mass/volume)Ordered By: Dr. Newell on 02-23-2023 Albumin [Mass/Vol] 3.4 g/dL 3.2-5.0 [facility] Serum or plasma calcium natalya urement (mass/volume)Ordered By: Dr. Newell on 02-23-2023 Calcium [Mass/Vol] 9.2 mg/dL 8.5-10.1 [facility] Serum or plasma creatinine m easurement (mass/volume)Ordered By: Dr. Newell on 02-23-2023 Creatinine [Mass/Vol] 1.20 mg/dL 0.70-1.30 [facility] Comment on above: The validity of the calculated GFR & GFRAA in patients over 70 years has not been determined. Clinical correlation is essential. Serum or plasma urea nitroge n measurement (mass/volume)Ordered By: Dr. Newell on 02-23-2023 Urea nitrogen [Mass/Vol] 12 mg/dL 7-18 [facility] Thin prep Papanicolaou smear with manual screeningOrdered By: Dr. Newell on 02-23-2023 Thin prep Papanicolaou smear with manual screening 27 U/L 15-37 [facility] Thin prep Papanicolaou smear with manual screening 11 5-15 [facility] COVID-19 virus antigen assay Ordered By: Zeferino Robbins on 01-31-2023 SARS-CoV-2 (COVID-19) Ag IA.rapid Ql (Resp) [facility] Laboratory - Drug toxicology Ordered By: Zeferino Robbins on 01-31-2023 Amphetamines Ql (U) Negative <1000 ng/mL [facility] Benzodiazepines Ql (U) Negative < 200 ng/mL [facility] Cannabinoids Screen Ql (U) Negative < 50 ng/mL [facility] Cocaine Ql (U) Negative < 300 ng/mL [facility] Opiates Ql (U) Negative < 300 ng/mL [facility] No Panel InformationOrdered By: Zeferino Robbins on 01-31-2023 MDMA (Ecstasy) Screen Negative < 500 ng/mL [facility] Urine Barbiturates Screen Negative < 200 ng/mL [facility] Urine Drug Screen Comment [facility] Comment on above: CONFIRMATORY TESTING FOR ALL POSITIVE URINE DRUG SCREENRESULTS WILL ONLY BE SENT OUT UPON PHYSICIAN ORDER. VISTA Urine Drug Screen methods provide only preliminaryanalytical test results. A more specific alternate chemicalmethod must be used in order to obtain a confirmedanalytical result. Gas chromatography/mass spectrometery(GC/MS) is the preferred confirmatory method. Clinicalconsideration and professional judgement should be appliedto any drug of abuse test result, particularly whenpreliminary positive results are used. URINE TCA TESTING MUST BE ORDERED SEPARATELY. USE TESTMNEMONIC: [facility] Urine Methadone Screen Negative < 300 ng/mL [facility] Ethyl Alcohol Level < 3.0 mg/dL [facility] Comment on above: The serum:whole bloo d ethanol ratio is approximately 1.14and varies slightly with hematocrit. Medical Alcohol reference interval and critical value innon-tolerant individuals; 50 - 100 Impairment 100 Intoxication 100 - 250 Severe Poisoning 250 - 400 Deep/possible fatal coma Stool gastrointestinal hemog lobin detection by immunologic methodOrdered By: Zeferino Robbins on 01-31-2023 Lower GI hemoglobin IA Ql (Stl) [facility] Urine phencyclidine (PCP) de tectionOrdered By: Zeferino Robbins on 01-31-2023 Phencyclidine Ql (U) Negative < 25 ng/mL [facility] Absolute lymphocyte countOrd ered By: Zeferino Robbins on 01-30-2023 Lymphocytes Auto (Unsp spec) [#/Vol] 1.55 10*3/uL 0.83-4.51 [facility] Basophil percentageOrdered B y: Zeferino Robbins on 01-30-2023 Basophils/100 WBC (Bld) 0.3 % 0-1 [facility] Chloride [Moles/Vol] 110 mmol/L 98-107 [facility] Eosinophils/100 WBC (Bld) 0.0 % 0-5 [facility] Glucose [Mass/Vol] 117 mg/dL 74-106 [facility] Comment on above: Fasting Glucose resu lt from 100 to 125 mg/dL suggests IMPAIRED HOMEOSTASIS per A.D.A. criteria. Neutrophils (Bld) [#/Vol] 9.3 10*3/uL 2.0-7.7 [facility] Neutrophils/100 WBC (Bld) 80.5 % 47-70 [facility] Potassium [Moles/Vol] 3.8 mmol/L 3.5-5.1 [facility] Sodium [Moles/Vol] 145 mmol/L 136-145 [facility] WBC (Bld) [#/Vol] 11.5 10*3/uL 4.4-11.0 [facility] Blood erythrocytes count (nu mber/volume)Ordered By: Zeferino Robbins on 01-30-2023 RBC (Bld) [#/Vol] 5.38 10*6/uL 4.6-6.2 [facility] Blood hemoglobin measurement (mass/volume)Ordered By: Zeferino Robbins on 01-30-2023 Hemoglobin (Bld) [Mass/Vol] 15.2 g/dL 13.0-16.5 [facility] Blood lymphocytes/100 leukoc ytesOrdered By: Zeferino Robbins on 01-30-2023 Lymphocytes/100 WBC (Bld) 13.5 % 19-41 [facility] Blood monocytes/100 leukocyt esOrdered By: Zeferino Robbins on 01-30-2023 Monocytes/100 WBC (Bld) 5.1 % 0-10 [facility] Blood platelet mean volumeOr dered By: Zeferino Robbins on 01-30-2023 Platelet mean volume (Bld) [Entitic vol] 11.5 fL 6.2-12.0 [facility] Determination of erythrocyte mean corpuscular volume (MCV)Ordered By: Zeferino Robbins on 01-30-2023 MCV (RBC) [Entitic vol] 88.3 fL 80-94 [facility] Hematocrit Auto (Bld) [Volum e fraction]Ordered By: Zeferino Robbins on 01-30-2023 Hematocrit (Bld) [Volume fraction] 47.5 % 40-54 [facility] Laboratory - Chemistry and C hemistry - challengeOrdered By: Zeferino Robbins on 01-30-2023 CO2 [Moles/Vol] 25.0 mmol/L 21.0-32.0 [facility] Urea nitrogen/Creatinine [Mass ratio] 15.7 mg/mg 10-20 [facility] Laboratory - Hematology and Cell countsOrdered By: Zeferino Robbins on 01-30-2023 Erythrocyte distribution width (RBC) [Entitic vol] 45.2 fL 35.1-43.9 [facility] Erythrocyte distribution width (RBC) [Ratio] 14.1 % 11.6-14.6 [facility] Immature granulocytes/100 WBC (Bld) 0.600 % 0.0-0.9 [facility] Comment on above: IG% - Immature Granu locytes (promyelocytes, myelocytes and metamyelocytes) > 1% indicates that a LEFT SHIFT is Present. MCH (RBC) [Entitic mass] 28.3 pg 27.0-32.0 [facility] Nucleated RBC/100 WBC (Bld) [Ratio] 0 % 0-5 [facility] MCHC Auto (RBC) [Mass/Vol]Or dered By: Zeferino Robbins on 01-30-2023 MCHC (RBC) [Mass/Vol] 32.0 g/dL 32-36 [facility] No Panel InformationOrdered By: Zeferino Robbins on 01-30-2023 Estimated Creatinine Clearance Calc 71.24 ml/min [facility] Estimated GFR (MDRD) Amer 96 mL/min >60 [facility] Comment on above: GFR Calc Estimated GFR (MDRD) Non-Af Amer 80 mL/min >60 [facility] Comment on above: Non- GFR Calc Platelets bldOrdered By: Tulio Robbins on 01-30-2023 Platelets (Bld) [#/Vol] 210 10*3/uL 150-450 [facility] Serum or plasma calcium natalya urement (mass/volume)Ordered By: Zeferino Robbins on 01-30-2023 Calcium [Mass/Vol] 9.7 mg/dL 8.5-10.1 [facility] Serum or plasma creatinine m easurement (mass/volume)Ordered By: Zeferino Robbins on 01-30-2023 Creatinine [Mass/Vol] 1.02 mg/dL 0.70-1.30 [facility] Comment on above: The validity of the calculated GFR & GFRAA in patients over 70 years has not been determined. Clinical correlation is essential. Serum or plasma urea nitroge n measurement (mass/volume)Ordered By: Zeferino Robbins on 01-30-2023 Urea nitrogen [Mass/Vol] 16 mg/dL 7-18 [facility] Thin prep Papanicolaou smear with manual screeningOrdered By: Zeferino Robbins on 01-30-2023 Thin prep Papanicolaou smear with manual screening 10 5-15 [facility] Vital Signs Date Time Vital Sign Value Performing Clinician Faci lity 12-20-2023 10:46-0500 Body temperature 97.6 [degF] No Primary Care Physician [facility] 12-20-2023 10:46-0500 Diastolic blood pressure 68 mm[Hg] No Primary Care Physician [facility] 12-20-2023 10:46-0500 Heart rate 79 /min No Primary Care Physician [facility] 12-20-2023 10:46-0500 Respiratory rate 16 /min No Primary Care Physician [facility] 12-20-2023 10:46-0500 SaO2% (BldA) [Mass fraction] 96 % No Primary Care Physician [facility] 12-20-2023 10:46-0500 Systolic blood pressure 109 mm[Hg] No Primary Care Physician [facility] 12-20-2023 06:00-0500 Body mass index (BMI) [Ratio] 34.1 kg/m2 No Primary Care Physician [facility] 12-20-2023 06:00-0500 Body weight 96.4 kg No Primary Care Physician [facility] 12-17-2023 14:19-0500 Body height 167.64 cm No Primary Care Physician [facility] 12-16-2023 21:31-0500 Diastolic blood pressure 77 mm[Hg] [facility] 12-16-2023 21:31-0500 Heart rate 83 /min [facility] 12-16-2023 21:31-0500 Respiratory rate 16 /min [facility] 12-16-2023 21:31-0500 SaO2% (BldA) [Mass fraction] 97 % [facility] 12-16-2023 21:31-0500 Systolic blood pressure 110 mm[Hg] [facility] 12-16-2023 20:48-0500 Body mass index (BMI) [Ratio] 35.2 kg/m2 [facility] 12-16-2023 20:48-0500 Body weight 99 kg [facility] 12-16-2023 18:15-0500 Body height 167.64 cm [facility] 12-16-2023 18:15-0500 Body temperature 98.4 [degF] [facility] 12-13-2023 13:20-0500 Diastolic blood pressure 78 mm[Hg] [facility] 12-13-2023 13:20-0500 Systolic blood pressure 128 mm[Hg] [facility] 12-13-2023 13:18-0500 Body height 167.64 cm [facility] 12-13-2023 13:18-0500 Body mass index (BMI) [Ratio] 35.5 kg/m2 [facility] 12-13-2023 13:18-0500 Body temperature 98.4 [degF] [facility] 12-13-2023 13:18-0500 Body weight 99.97 kg [facility] 12-13-2023 13:18-0500 Heart rate 82 /min [facility] 12-13-2023 13:18-0500 Respiratory rate 18 /min [facility] 12-13-2023 13:18-0500 SaO2% (BldA) [Mass fraction] 100 % [facility] 02-26-2023 08:29-0400 Diastolic blood pressure 78 mm[Hg] [facility] 02-26-2023 08:29-0400 Heart rate 78 /min [facility] 02-26-2023 08:29-0400 Respiratory rate 16 /min [facility] 02-26-2023 08:29-0400 SaO2% (BldA) [Mass fraction] 98 % [facility] 02-26-2023 08:29-0400 Systolic blood pressure 119 mm[Hg] [facility] 02-24-2023 17:00-0400 Body temperature 98.1 [degF] [facility] 02-23-2023 14:54-0400 Diastolic blood pressure 79 mm[Hg] [facility] 02-23-2023 14:54-0400 Heart rate 109 /min [facility] 02-23-2023 14:54-0400 Respiratory rate 18 /min [facility] 02-23-2023 14:54-0400 SaO2% (BldA) [Mass fraction] 98 % [facility] 02-23-2023 14:54-0400 Systolic blood pressure 138 mm[Hg] [facility] 02-23-2023 13:10-0400 Body height 162.56 cm [facility] 02-23-2023 13:10-0400 Body mass index (BMI) [Ratio] 30.5 kg/m2 [facility] 02-23-2023 13:10-0400 Body temperature 98.6 [degF] [facility] 02-23-2023 13:10-0400 Body weight 80.8 kg [facility] 01-31-2023 15:30-0400 Diastolic blood pressure 84 mm[Hg] [facility] 01-31-2023 15:30-0400 Heart rate 92 /min [facility] 01-31-2023 15:30-0400 Respiratory rate 18 /min [facility] 01-31-2023 15:30-0400 SaO2% (BldA) [Mass fraction] 95 % [facility] 01-31-2023 15:30-0400 Systolic blood pressure 141 mm[Hg] [facility] 01-31-2023 11:00-0400 Body temperature 98.9 [degF] [facility] 01-31-2023 00:05040 Body mass index (BMI) [Ratio] 30.2 kg/m2 [facility] 01-31-2023 00:05040 Body weight 84.8 kg [facility] 01-30-2023 22: Body height 167.64 cm [facility] Encounters Encounter Date Encounter Type Care Provider Facility Start: 01-08-2025 End: 01-08-2025 ambulatory Chalon Orquidea Facility:[facility] Start: 12-17-2024 End: 12-17-2024 ambulatory Chalon Orquidea Facility:[facility] Start: 10-15-2024 End: 10-15-2024 ambulatory Chalon Orquidea Facility:[facility] Start: 09-29-2024 End: 09-29-2024 ambulatory Chalon Orquidea Facility:[facility] Start: 08-26-2024 End: 08-26-2024 ambulatory Chalon Orquidea Facility:[facility] Start: 07-29-2024 End: 07-29-2024 ambulatory Chalon Orquidea Facility:[facility] Start: 07-05-2024 End: 07-05-2024 Emergency department patient visit Chalon Orquidea Facility:[facility] Start: 06-27-2024 End: 06-27-2024 Emergency department patient visit Chalon Orquidea Facility:[facility] Start: 06-17-2024 End: 06-17-2024 ambulatory Chalon Orquidea Facility:[facility] Start: 06-13-2024 End: 06-13-2024 ambulatory Chalon Orquidea Facility:[facility] Start: 05-28-2024 End: 05-28-2024 ambulatory Chalon Orquidea Facility:[facility] Start: 05-06-2024 End: 05-06-2024 ambulatory Chalon Orquidea Facility:[facility] Start: 05-03-2024 End: 05-03-2024 Emergency department patient visit Saulo Katiea Facility:[facility] Start: 02-13-2024 ambulatory Johnathon Santiago Facility:[facility] Start: 12-19-2023 Non-patient / Non-visit [facility] Physician [facility] Work Phone: Start: 12-18-2023 Non-patient / Non-visit No Ginny soto Care Physician [facility] Work Phone: Start: 12-17-2023 Non-patient / Non-visit No Ginny Wu Physician [facility] Work Phone: Start: 12-16-2023 End: 12-20-2023 Evaluation and management of inpatient [facility] Work Phone: Start: 12-13-2023 End: 12-13-2023 Emergency department patient visit [facility] Work Phone: Start: 02-23-2023 End: 02-26-2023 Emergency department patient visit [facility] Start: 01-30-2023 End: 01-31-2023 Emergency department patient visit [facility] Procedures Date Procedure Procedure Detail Performing Clinician Start: 12-17-2023 X-ray of lumbar spin e, two or three views No Primary Care Physician Start: 12-16-2023 Plain chest X-ray Start: 12-16-2023 Plain x-ray of elbow Start: 12-16-2023 CT of head without contrast Start: 02-23-2023 CT of abdomen and pe lvis without contrast Start: 02-23-2023 CT of head without contrast Start: 01-31-2023 CT angiography of he ad and neck Measurement of occul t blood in stool specimen using immunoassay Viral antigen assay Viral antigen assay Plan of Treatment Date Care Activity Detail Author Start: 12-20-2023 Patient discharge [facility] Start: 12-18-2023 Application of intermittent pneumatic compression device [facility] Start: 12-16-2023 End: 12-16-2023 [facility] Start: 12-16-2023 Following clinical pathway protocol [facility] Start: 12-16-2023 Application of elastic bandage [facility] Start: 12-16-2023 Assessment of risk of venous thromboembolism [facility] Start: 12-16-2023 Elevation of affected extremity [facility] Start: 12-16-2023 Fall prevention [facility] Start: 12-16-2023 Insertion of catheter into peripheral vein [facility] Start: 12-16-2023 Introduction of urinary catheter [facility] Start: 12-16-2023 Measuring intake and output [facility] Start: 12-16-2023 Oxygen therapy [facility] Start: 12-16-2023 Providing care according to standard [facility] Start: 12-16-2023 Provision of activity privileges [facility] Start: 12-16-2023 Referral to occupational therapist [facility] Start: 12-16-2023 Referral to service [facility] Start: 12-16-2023 Verification routine [facility] Start: 12-16-2023 Admission procedure [facility] Start: 12-16-2023 X-ray of lumbar spine, two or three views Lumbar Spine 2 or 3 Views [facility] Start: 12-16-2023 Hospital admission, emergency, from emergency room, medical nature [facility] Start: 12-16-2023 Consultation [facility] Start: 12-16-2023 Patient referral to dietitian [facility] Start: 12-13-2023 Emergency department visit moderate severity EMERGENCY DEPT VISIT LOW MDM [facility] Start: 12-13-2023 [facility] Start: 02-23-2023 Suicide precautions [facility] Amphetamine [Mass/vo lume] in Urine [facility] Benzodiazepine measu rement, urine [facility] Bilirubin measuremen t, urine [facility] Cocaine measurement, urine [facility] Hemoglobin [Presence ] in Urine [facility] Measurement of 3,4-methylenedioxymethamphe tamine in urine [facility] Measurement of keton es in urine using dipstick [facility] Methadone measuremen t, urine [facility] Microscopic urinalysis [facility] Patient Education Cellulitis [facility] Work Phone: Patient referral [facility] Work Phone: pH of Urine [facility] Phencyclidine [Prese nce] in Urine [facility] Procalcitonin [Mass/ volume] in Serum or Plasma [facility] Specific gravity of Urine [facility] Urinalysis, blood, qualitative [facility] Urine barbiturate measurement [facility] Urine cannabinoid measurement [facility] Urine dipstick for glucose [facility] Urine dipstick for leukocyte esterase [facility] Urine dipstick for nitrite [facility] Urine dipstick for protein [facility] Urine examination [facility] Urine microscopy: epithelial cells [facility] Urine Microscopy: wh ite cells [facility] Urine opiate measurement [facility] Urobilinogen [Presen ce] in Urine [facility] Payers Date Payer Category Payer Self-pay 2024 Unknown [id number] Unknown [id number] 2.16.8 [id number] Unknown [id number] 2.16.8 [id number] Unknown [id number] 2.16.8 [id number] Unknown [id number] 2.16.8 [id number] Unknown [id number] 2.16.8 [id number] Unknown [id number] 2.16.8 [id number] Unknown [id number] 2.16.8 [id number] Unknown [id number] 2.16.8 [id number] Unknown [id number] 2.16.8 [id number] Unknown [id number] 2.16.8 [id number] Unknown [id number] 2.16.8 [id number] Unknown [id number] 2.16.8 [id number] Unknown [id number] 2.16.8 [id number] Unknown [id number] 2.16.8 [id number] Unknown [id number] 2.16.8 [id number] Unknown [id number] 2.16.8 [id number] Unknown [id number] 2.16.8 [id number] Social History Date Type Detail Facility Start: 01-30-2023 End: 12-16-2023 Tobacco smoking status NHIS Unknown if ever smoked [facility] Start: 1965 End: 02-20-1966 Sex Assigned At Male [facility] Goals Date Patient Goal Desired Activity /State Functional Status Date Assessment Result Facility 12-20-2023 Functional status Ambulates [facility] Work Phone: Mental Status Date Assessment Result Facility 12-20-2023 Cognitive function Voice/Name [facility] Work Phone: 02-23-2023 Cognitive function Level Of Cons ciousness Awake;Alert;Appropriate;Follow s Commands [facility] Work Phone: 01-30-2023 Cognitive function Patient Orientation No ne [facility] Work Phone: Clinical Notes 01-31-2023 to 12-19-2023 Note Date & Type Note Facility 12-19-2023 Progress note Note Date/Time December 19, 2023 6:45pm [facility] Medical Records Department [address] [place] [address] Progress Note - Hospitalist 12/19/23 1842 MR#: [id number] Acct: [id number] Name: MIAH ZAVALA Rep #:[id number] : 02/20/1966 57 From: Miah Underwood DO PCP: Care Physician,No Primary Status :ADM IN Location: MS3 [id number] Reason for Visit Reason for Visit: Diagnoses Cellulitis, unspecified (12/16/23) Subjective Subjective Patient was seen and examined today, the plan is for the patient to go to an extended care facility for short-term rehab. Patient voices no complaints today, I talked briefly with his sister who was in the room at the time my examination. Objective Data Objective Data Vital Signs: Vital Signs Temp Pulse Resp BP Pulse Ox O2 Del Method 98.4 F 79 16 95/70 98 Room Air 12/19/23 17:34 12/19/23 17:34 12/19/23 17:34 12/19/23 17:34 12/19/23 17:34 12/19/23 17:34 Oxygen Delivery Method Room Air Weight: 96.3 kg Body Mass Index (BMI) 34.1 Intake & Output: Intake and Output for Last 24 Hours 12/17/23 12/18/23 12/19/23 23:59 23:59 23:59 Intake Total 1520 / 1520 50 / 50 250 / 250 Output Total 1600 / 1600 500 / 500 700 / 700 Balance -80 / -80 -450 / -450 -450 / -450 Lab / Micro Data 12/19/23 06:48 12/17/23 04:46 Labs: Laboratory Results - last 24 hr 12/18/23 20:39: WBC 7.0, RBC 3.87 L, Hgb 11.1 L, Hct 34.1 L, MCV 88.1, MCH 28.7,MCHC 32.6, RDW Std Deviation 45.1 H, RDW Coeff of Antony 14.3, Plt Count 133 L, MPV11.6, Immature Gran % (Auto) 0.700, Neut % (Auto) 75.6 H, Lymph % (Auto) 13.6 L,Nolan % (Auto) 8.5, Eos % (Auto) 1.3, Baso % (Auto) 0.3, Absolute Neuts (auto) 5.3, Absolute Lymphs (auto) 0.96, Nucleated RBC % 0 12/19/23 06:48: WBC 6.2, RBC 3.97 L, Hgb 11.6 L, Hct 35.3 L, MCV 88.9, MCH 29.2,MCHC 32.9, RDW Std Deviation 45.5 H, RDW Coeff of Antony 14.1, Plt Count 129 L, MPV11.5, Iron 56 L, TIBC 221 L, Iron Saturation 25.3, Ferritin 133 Physical Exam Narrative alert and no apparent distress General Appearance: cooperative, well kempt and well developed Orientation / Consciousness: awake HEENT normocephalic, head/scalp atraumatic and moist oral mucous membranes Eyes PERRL, EOMs intact bilaterally and conjunctivae normal Neck supple, no JVD, thyroid normal and no carotid bruits General: trachea midline Resp normal respiratory effort, no retractions, no use of accessory muscles and clearto auscultation bilaterally Auscultation: Negative for rales, rhonchi or wheezes Cardio regular rate, regular rhythm, S1 normal heart sound, S2 normal heart sound, no murmurs, no rub and no gallops GI normal to inspection, nondistended, normoactive bowel sounds, soft to palpation,non-tender and non-distended Extremity Both lower legs were wrapped with SCDs Skin Patient's lower legs were not examined today Neuro CN's II-XII intact bilaterally, moves all extremities, no focal motor deficits and no sensory deficits noted Sensorium / Orientation: awake and alert, confused Psych Psych Narrative: Patient has a blunted affect and appears to have some cognitive impairment, he is also confused today. Patient does not appear agitated. Const alert and no apparent distress General Appearance: cooperative, well kempt and well developed Orientation / Consciousness: awake HEENT normocephalic, head/scalp atraumatic and moist oral mucous membranes Eyes PERRL, EOMs intact bilaterally and conjunctivae normal Neck supple, no JVD, thyroid normal and no carotid bruits General: trachea midline Resp normal respiratory effort, no retractions, no use of accessory muscles and clearto auscultation bilaterally Auscultation: Negative for rales, rhonchi or wheezes Cardio regular rate, regular rhythm, S1 normal heart sound, S2 normal heart sound, no murmurs, no rub and no gallops GI normal to inspection, nondistended, normoactive bowel sounds, soft to palpation,non-tender and non-distended Neuro CN's II-XII intact bilaterally, moves all extremities, no focal motor deficits and no sensory deficits noted Sensorium / Orientation: awake and alert Psych Psych Narrative: Patient has a blunted affect and appears to have some cognitive impairment Assessment & Plan Assessment/Plan (1) Cellulitis: PLAN: Plan 1. Cellulitis of the lower legs-failed outpatient medical treatment, patient remains on IV Rocephin at this time, when patient goes to the extended care facility he will be transitioned over to doxycycline #2 chronic lymphedema-complicates care, medical course, recovery, and prognosis #3 schizophrenia-patient will remain on his current medications, he receives Depo Haldol monthly, his sister states that he often does not take his medications. I have placed the patient on as needed IV Ativan for agitation if needed. #4 generalized debility-patient is unsteady on his feet and needs maximal assistof 2 to ambulate. Patient will continue to see PT and OT, he will need temporary placement in custodial facility for short-term rehab services. Total clinical time spent by myself addressing the patient's medical issues, reviewing all of his data, and collaborating with patient's care team: 25 minutes Charges/Coding Visit Charges Inpatient E&M: 67497 Subs Hosp L1 12/19/23 1845 <Electronically signed by Miah Underwood DO> Cosigner Signature (if applicable): CC: ~ Signed [facility] Work Phone: 1(818) 817-156501-31-2024 Discharge summary Author [facility] December 19, 2023 3:53pm Note Date/Time December 19, 2023 3 :48pm [facility] Medical Records Department [address] [place] [address] Transfer to [facility] MR#: [id number] Acct: [id number] Name: SALLYMIAH Talha Rep #:[id number] : 02/20/1966 57 From: Miah Underwood DO PCP: Care Physician,No Primary Status :ADM IN Certification of patient admission REQUIRED AT TIME OF ADMISSION. I CERTIFY THAT [facility] ARE REQUIRED TO BE GIVEN ON AN IN-PATIENT BASIS BECAUSE OF THE ABOVE NAMED PATIENT'S NEED FOR [facility] CARE ON A CONTINUING BASIS FOR THE CONDITION(S) FOR WHICH HE/SHE WAS RECEIVING IN-PATIENT HOSPITAL SERVICES PRIOR TO HIS/HER TRANSFER TO [facility]. 12/19/23 1553<Electronically signed by Miah Underwood DO> Diet Diet Order/Speech Therapy: 12/17/23 14:17 Diet: Regular - General Food consistency:: Regular Liquid Consistency:: Regular/Thin Dietary Modifications:: No Added Salt Is pt able to select menu?: No Routine Orders/Code Status Code Status: Full Code Wound(s) Right Elbow: Wound Type: Abrasion back: Wound Type: Abrasion Therapies Weight Bearing: Full weight bearing Physical Therapy: Eval and Treat Occupational Therapy: Eval and Treat Problem/Diagnosis (1) Cellulitis: Status: Acute Code(s): L03.90 - Cellulitis, unspecified Plan 1. Cellulitis of the lower legs-failed outpatient medical treatment, patient remains on IV Rocephin at this time, his cellulitis appears to be resolving #2 chronic lymphedema-complicates care, medical course, recovery, and prognosis #3 schizophrenia-patient will remain on his current medications, he receives Depo Haldol monthly, his sister states that he often does not take his medications. I have placed the patient on as needed IV Ativan for agitation if needed. #4 generalized debility-patient is unsteady on his feet and needs maximal assistof 2 to ambulate. Patient will continue to see PT and OT, he will need temporary placement in custodial facility for short-term rehab services. Total clinical time spent by myself addressing the patient's medical issues, reviewing all of his data, and collaborating with patient's care team: 25 minutes Allergies/Procedures Done in Hospital Allergies No Known Allergies Allergy (Verified 12/16/23 18:15) Procedures: None Type of Care/Length of Stay Estimated LOS: Convalescent Care Less Than 30 days Type of Care Needed: Skilled Rehab Potential: Good Prognosis: Good Additional Orders/Day of Discharge H&P will serve as current which was dated: 12/16/23 Day of Discharge: 12/20/23 Dietary and Speech Recommendations Dietitian Recommendations/Changes: Will liberalize diet to regular/no added saltand encourage PO at meals. ONS as needed if PO established inadequate, will defer for now and liberalize diet to promote improved intake. Discharge Plan Admission Admit Date/Time: 12/16/23 21:26 Primary Reason for Your Visit: Cellulitis of the lower legs, debility Attending Provider: Miah Underwood Primary Care Provider: Care Physician,No Primary Consulting Providers: Clarissa Garg Discharge Orders/Prescriptions Prescriptions: New acetaminophen 325 mg Tablet 650 mg PO Q4H PRN PRN (Reason: Fever, pain 1-10/10) Qty: 0 0RF Ensure Plus High Protein 0.08 gram-1.5 kcal/mL Liquid 120 ml PO 4X/DAY Qty: 0 0RF menthol-zinc oxide [Calmoseptine] 0.44-20.6 % Ointment 1 applic topical BID Qty: 0 0RF Protocol: *Topical Application Instructions APPLICATION INSTRUCTIONS: apply to affected region doxycycline monohydrate 100 mg tablet 100 mg PO BID Qty: 11 0RF Rx Instructions: Discontinue after 11 doses, start on 12/20/2023 Continued benztropine 0.5 mg tablet 0.5 mg PO BID Patient Comments: TAKE 1 TABLET BY MOUTH TWICE DAILY cholecalciferol (vitamin D3) 125 mcg (5,000 unit) capsule 5,000 unit PO DAILY haloperidol decanoate 100 mg/mL solution IM melatonin 3 mg tablet 3 mg PO QHS Discontinued sulfamethoxazole-trimethoprim [Bactrim DS] 800-160 mg tablet 1 tab PO BID Qty: 14 0RF cephalexin 500 mg capsule 500 mg PO TID 7 Days Qty: 21 0RF Referrals / Follow Up: Care Physician,No Primary [Primary Care Provider] - Disposition Disposition (needs filled in before D/C Order can be placed): [facility] Facility 12/19/23 9735 <Electronically signed by Miah Underwood DO> Cosigner Signature (if applicable): CC: Dr. Clarissa Garg MD; No Primary Care Physician ~ [facility] Work Phone: 1(753) 179-864901-31-2024 Progress note Author Erica Martinez [facility] December 18, 2023 10:31pm Note Date/Time December 18, 2023 1 0:31pm [facility] Medical Records Department [address] [place] [address] Progress Note - Hospitalist 12/18/239 MR#: [id number] Acct: [id number] Name: MIAH ZAVALA Rep #:[id number] : 02/20/1966 57 From: Erica Martinez DO PCP: Care Physician,No Primary Status :ADM IN Location: [facility]3 [id number] Hospitalist Note Called due to patient having blood clots and dark bloody discharge from his rectum. Stat hemoglobin was obtained and is slightly lower from 13.2 on admission down to 11.1. Down from 11.8 yesterday. Platelets have also trended down. Will hold Lovenox for now and place SCDs. Repeat CBC in a.m. and check iron studies. If hemoglobin does not stabilize may need GI assistance. 12/18/232230 <Electronically signed by Erica Martinez DO> Cosigner Signature (if applicable): CC: ~ Signed [facility] Work Phone: 1(298) 523-107401-30-2024 Progress note Author Miah Underwood [facility] December 18, 2023 7:15pm Note Date/Time December 18, 2023 7 :15pm [facility] Medical Records Department [address] [place] [address] Progress Note - Hospitalist 12/18/231911 MR#: [id number] Acct: [id number] Name: MIAH ZAVALA Rep #:[id number] : 02/20/1966 57 From: Miah Underwood DO PCP: Care Physician,No Primary Status :ADM IN Location: [place] [address] Reason for Visit Reason for Visit: Diagnoses Cellulitis, unspecified (12/16/23) Subjective Subjective Patient was seen and examined today, he does not appear in any distress, I looked at the patient's lower extremities and his redness of the lower legs bilaterally is very minimal. I had planned to discharge the patient today but he is unsteady on his feet and the sister who he lives with would like the patient to go to an extended care facility. Patient remains confused today and the sister states that this is due to his schizophrenia. Objective Data Objective Data Vital Signs: Vital Signs Temp Pulse Resp BP Pulse Ox O2 Del Method 98.4 F 94 18 118/74 96 Room Air 12/18/23 14:15 12/18/23 14:15 12/18/23 14:15 12/18/23 14:15 12/18/23 14:15 12/18/23 14:15 Oxygen Delivery Method Room Air Weight: 96 kg Body Mass Index (BMI) 34.0 Intake & Output: Intake and Output for Last 24 Hours 12/16/23 12/17/23 12/18/23 23:59 23:59 23:59 Intake Total 550 / 570 1520 / 1520 50 / 50 Output Total 1600 / 1600 300 / 300 Balance 550 / 570 -80 / -80 -250 / -250 Lab / Micro Data 12/17/23 04:46 12/17/23 04:46 Physical Exam Narrative alert and no apparent distress General Appearance: cooperative, well kempt and well developed Orientation / Consciousness: awake HEENT normocephalic, head/scalp atraumatic and moist oral mucous membranes Eyes PERRL, EOMs intact bilaterally and conjunctivae normal Neck supple, no JVD, thyroid normal and no carotid bruits General: trachea midline Resp normal respiratory effort, no retractions, no use of accessory muscles and clearto auscultation bilaterally Auscultation: Negative for rales, rhonchi or wheezes Cardio regular rate, regular rhythm, S1 normal heart sound, S2 normal heart sound, no murmurs, no rub and no gallops GI normal to inspection, nondistended, normoactive bowel sounds, soft to palpation,non-tender and non-distended Extremity no clubbing, cyanosis or edema Skin no rashes or lesions noted General Skin Exam: no breakdown Neuro CN's II-XII intact bilaterally, moves all extremities, no focal motor deficits and no sensory deficits noted Sensorium / Orientation: awake and alert, confused Psych Psych Narrative: Patient has a blunted affect and appears to have some cognitive impairment, he is also confused today. Assessment & Plan Assessment/Plan (1) Cellulitis: PLAN: Plan 1. Cellulitis of the lower legs-failed outpatient medical treatment, patient remains on IV Rocephin at this time, his cellulitis appears to be resolving #2 chronic lymphedema-complicates care, medical course, recovery, and prognosis #3 schizophrenia-patient will remain on his current medications, he receives Depo Haldol monthly, his sister states that he often does not take his medications. I have placed the patient on as needed IV Ativan for agitation if needed. #4 generalized debility-patient is unsteady on his feet and needs maximal assistof 2 to ambulate. Patient will continue to see PT and OT, he will need temporary placement in custodial facility for short-term rehab services. Total clinical time spent by myself addressing the patient's medical issues, reviewing all of his data, and collaborating with patient's care team: 25 minutes Charges/Coding Visit Charges Inpatient E&M: 69709 Subs Hosp L1 12/18/231914 <Electronically signed by Miah Underwood DO> Cosigner Signature (if applicable): CC: ~ Signed [facility] Work Phone: [phone] Progress note Author Miah Underwood [facility] December 17, 2023 5:01pm Note Date/Time December 17, 2023 5 :01pm [facility] Medical Records Department [address] [place] [address] Progress Note - Hospitalist 12/17/23 1655 MR#: [id number] Acct: [id number] Name: MIAH ZAVALA Rep #:[id number] : 02/20/1966 57 From: Miah Underwood DO PCP: Care Physician,No Primary Status :AD[facility] Reason for Visit Reason for Visit: Diagnoses Cellulitis, unspecified (12/16/23) Subjective Subjective Patient was seen and examined today, his white blood cell count this morning was7.2, I did not examine his lower legs due to the fact they were wrapped with Acewrap's, I will inspect him tomorrow. Patient remains on IV antibiotics for cellulitis at this time, I talked to the patient's sister who was in the room at the time of my visit, she states she lives with the patient and helps take care of him. Patient is nonverbal for the most part only speaks a few words, he has a history of schizophrenia. Objective Data Objective Data Vital Signs: Vital Signs Temp Pulse Resp BP Pulse Ox O2 Del Method 98.7 F 103 H 18 161/100 H 99 Room Air 12/17/23 14:51 12/17/23 14:51 12/17/23 14:51 12/17/23 14:51 12/17/23 14:51 12/17/23 14:51 Oxygen Delivery Method Room Air Weight: 96 kg Body Mass Index (BMI) 34.0 Intake & Output: Intake and Output for Last 24 Hours 12/15/23 12/16/23 12/17/23 23:59 23:59 23:59 Intake Total 550 / 570 1420 / 1420 Output Total 1050 / 1050 Balance 550 / 570 370 / 370 Lab / Micro Data 12/17/23 04:46 12/17/23 04:46 Labs: Laboratory Results - last 24 hr 12/16/23 19:35: WBC 15.3 H, RBC 4.57 L, Hgb 13.2, Hct 40.7, MCV 89.1, MCH 28.9, MCHC 32.4, RDW Std Deviation 46.1 H, RDW Coeff of Antony 14.3, Plt Count 167, MPV 11.2, Immature Gran % (Auto) 0.600, Neut % (Auto) 85.7 H, Lymph % (Auto) 6.4 L, Nolan % (Auto) 6.8, Eos % (Auto) 0.4, Baso % (Auto) 0.1, Absolute Neuts (auto) 13.1 H, Absolute Lymphs (auto) 0.98, Nucleated RBC % 0, Sodium 141, Potassium 4.3, Chloride 110 H, Carbon Dioxide 26.0, Anion Gap 5, BUN 21 H, Creatinine 1.74H, Est GFR (MDRD) Af Amer 52 L, Est GFR (MDRD) Non-Af 43 L, BUN/Creatinine Ratio12.1, Glucose 103, Calcium 10.0, Total Bilirubin 0.50, AST 26, ALT 35, Alkaline Phosphatase 35 L, Troponin I High Sens 11, B-Natriuretic Peptide 16.5, Total Protein 7.5, Albumin 3.7, Globulin 3.8, Albumin/Globulin Ratio 1.0 12/16/23 21:10: Urine Color Yellow, Urine Clarity Sl. Cloudy, Urine pH 6.0, Ur Specific Paris 1.020, Urine Protein 15 H, Urine Glucose (UA) Normal, Urine Ketones Negative, Urine Occult Blood 10 H, Urine Nitrite Negative, Urine Bilirubin Negative, Urine Urobilinogen Normal, Ur Leukocyte Esterase Negative, Urine RBC 0-5 SEEN, Urine WBC 0 SEEN, Ur Squamous Epith Cells 0-5 SEEN, Amorphous Sediment 1+ URATE, Urine Bacteria 0 SEEN, Urine Mucus 0 SEEN 12/16/23 22:20: Procalcitonin < 0.04 12/16/23 23:18: MRSA (PCR) Negative 12/17/23 04:46: WBC 7.2, RBC 4.05 L, Hgb 11.8 L, Hct 35.6 L, MCV 87.9, MCH 29.1,MCHC 33.1, RDW Std Deviation 45.8 H, RDW Coeff of Antony 14.3, Plt Count 139 L, MPV11.3, Immature Gran % (Auto) 0.400, Neut % (Auto) 74.2 H, Lymph % (Auto) 14.5 L,Nolan % (Auto) 9.6, Eos % (Auto) 1.0, Baso % (Auto) 0.3, Absolute Neuts (auto) 5.4, Absolute Lymphs (auto) 1.05, Nucleated RBC % 0, Sodium 140, Potassium 3.5, Chloride 108 H, Carbon Dioxide 27.0, Anion Gap 5, BUN 20 H, Creatinine 1.67 H, Estim Creat Clear Calc 52.29, Est GFR (MDRD) Af Amer 55 L, Est GFR (MDRD) Non-Af45 L, BUN/Creatinine Ratio 12.0, Glucose 105, Calcium 9.4, Total Bilirubin 0.70,AST 30, ALT 33, Alkaline Phosphatase 30 L, Total Protein 6.9, Albumin 3.3, Globulin 3.6, Albumin/Globulin Ratio 0.9 Radiography Diagnostic Testing: Radiology Impression Brain CT 12/16/23 18:59 IMPRESSION: Negative head/brain CT without intravenous contrast. Electronically Signed: Jamil Heaton MD at 20:00 EST , Elbow X-Ray 12/16/23 19:12 IMPRESSION: Chronic abnormality of the radial head is disrupting the anterior humeral line and radiocapitellar line. Electronically Signed: Jamil Heaton MD at 20:37 EST , Chest X-Ray 12/16/23 19:55 IMPRESSION: No radiographic evidence of acute cardiopulmonary disease. Electronically Signed: Jamil Heaton MD at 20:35 EST , Lumbar Spine X-Ray 12/17/23 09:10 IMPRESSION: Degenerative changes of the spine, as detailed above. Electronically Signed: Augustus Rainey MD at 9:25 EST , Physical Exam Const alert and no apparent distress General Appearance: cooperative, well kempt and well developed Orientation / Consciousness: awake HEENT normocephalic, head/scalp atraumatic and moist oral mucous membranes Eyes PERRL, EOMs intact bilaterally and conjunctivae normal Neck supple, no JVD, thyroid normal and no carotid bruits General: trachea midline Resp normal respiratory effort, no retractions, no use of accessory muscles and clearto auscultation bilaterally Auscultation: Negative for rales, rhonchi or wheezes Cardio regular rate, regular rhythm, S1 normal heart sound, S2 normal heart sound, no murmurs, no rub and no gallops GI normal to inspection, nondistended, normoactive bowel sounds, soft to palpation,non-tender and non-distended Extremity no clubbing, cyanosis or edema Skin no rashes or lesions noted General Skin Exam: no breakdown Neuro CN's II-XII intact bilaterally, moves all extremities, no focal motor deficits and no sensory deficits noted Sensorium / Orientation: awake and alert Psych Psych Narrative: Patient has a blunted affect and appears to have some cognitive impairment Assessment & Plan Assessment/Plan (1) Cellulitis: PLAN: Plan 1. Cellulitis of the lower legs-failed outpatient medical treatment, patient remains on IV Rocephin at this time, I will examine his lower extremities tomorrow #2 chronic lymphedema-complicates care, medical course, recovery, and prognosis #3 schizophrenia-patient will remain on his current medications, he receives Depo Haldol monthly, his sister states that he often does not take his medications. I have placed the patient on as needed IV Ativan for agitation if needed. Total clinical time spent by myself addressing the patient's medical issues, reviewing all of his data, and collaborating with patient's care team: 25 minutes Charges/Coding Visit Charges Inpatient E&M: 78587 Subs Hosp L1 12/17/23 1701 <Electronically signed by Miah Underwood DO> Cosigner Signature (if applicable): CC: ~ Signed [facility] Work Phone: [phone] [facility] December 16, 2023 11:30pm Note Date/Time December 16, 2023 7 :06pm [facility] Medical Records Department [address] [place] [address] Emergency Department Summary 12/16/23 MR#: [id number] Acct: [id number] Name: MIAH ZAVALA Rep #:[id number] : 02/20/1966 57 From: Marcus ROLLINS PCP: Care Physician,No Primary Status :ADM [place] [facility] [place] <AYO Marrufo - Last Filed: 12/16/23 21:02> History of Present Illness Chief Complaint: Fall Narrative Narrative: Patient is a 57-year-old male with history of schizophrenia, obesity who lives with his sister presents to the emergency department for multiple falls. Per the sister, the patient had 3-4 falls today, has been more weak. Patient while on the way here fell outside in the mud. Denies any head or neck pain. Patientdoes not complain of any pain. Patient is amatory without a walker however is shaky secondary to schizophrenia. PFSH <AYO Marrufo - Last Filed: 12/16/23 21:02> [facility] Medical History (Updated 12/16/23 @ 21:[address] Clarissa Garg MD) Anxiety and depression Obesity Schizoaffective disorder Home Medications benztropine 0.5 mg tablet 0.5 mg PO BID 02/23/23 [History Last Taken Unknown] cephalexin 500 mg capsule 500 mg PO TID 7 days #21 caps 12/13/23 [Rx Last Taken Unknown] sulfamethoxazole 800 mg-trimethoprim 160 mg tablet (Bactrim DS) 1 tab PO BID #14tabs 12/13/23 [Rx Last Taken Unknown] cholecalciferol (vitamin D3) 125 mcg (5,000 unit) capsule 5,000 unit PO DAILY 12/16/23 [History Last Taken Unknown] haloperidol decanoate 100 mg/mL intramuscular solution mg IM 12/16/23 [History Last Taken 12/06/23] melatonin 3 mg tablet 3 mg PO QHS 12/16/23 [History Last Taken Unknown] Allergy/AdvReac Type Severity Reaction Status Date / Time No Known Allergies Allergy Verified 12/16/23 18:15 Family History (Updated 12/16/23 @ 21:[address] Clarissa Garg MD) Mother Anxiety and depression Hypertension Father Esophageal dysfunction Grandfather Heart disease Paternal GF. Myocardial infarction Paternal GF. CAD (coronary artery disease) Paternal GF. Surgical History (Updated 12/16/23 @ 21:[address] Clarissa Garg MD) History of elbow surgery Social History (Updated 12/16/23 @ 21:[address] Clarissa Garg MD) household members: other details: Lives with his sister. Smoking Status: Never smoker alcohol intake: never substance use type: does not use ROS <AYO Marrufo - Last Filed: 12/16/23 21:02> ROS ED ROS Narrative Constitutional: Negative for fever, chills, weight loss, positive for weakness Eyes: Negative for vision loss, vision change, double vision ENT: Negative for any sore throat, ear pain, congestion Cardiovascular: Negative for any chest pain, tightness, palpitations Respiratory: Negative for any cough, sputum production, hemoptysis, dyspnea, dyspnea on exertion, orthopnea Gastrointestinal: Negative for any abdominal pain, nausea, vomiting, diarrhea, constipation, blood in stool, blood in vomit : Negative for any urinary frequency, dysuria, retention, blood in urine Muscle skeletal: Negative for any myalgias, arthralgias, neck pain, back pain Neurological: Negative for any headache, syncope, paresthesias, dizziness Skin: Negative for any rashes, lumps, itching, abrasions, lacerations Psychiatric: Negative for any depression, anxiety, stress, suicidal ideation, homicidal ideation Hematologic: Negative for any easy bruising, excessive bruising, easy bleeding Allergies: Negative for any eczema, hives, rash EXAM <AYO Marrufo - Last Filed: 12/16/23 21:02> Physical Exam Narrative Exam Narrative: Vital signs reviewed. Patient was disheveled, full of mud. I did strip the patient of is cloths. Patient did appear to have settled his underwear. Patient does have full shaking which is consistent with the patient's medication that he takes. This is per his sister. HEET: Head normocephalic atraumatic, TMs clear bilaterally. Posterior pharynx is clear, moist mucous membranes. Nares clear bilaterally. Neck: Supple with no lymphadenopathy or tenderness. No signs of meningismus. Cardiac: Regular rate and rhythm no murmurs gallops or rubs, equal peripheral pulses bilaterally. Respiratory: Lungs clear to auscultation bilaterally. No chest tenderness. Abdomen: Soft, nontender, nondistended. No abdominal bruit or pulsatile masses. No hepatosplenomegaly Extremities: +2 pedal edema, no signs of cellulitis., no signs of gross trauma or deformity. Active full range of motion of all extremities. Patient does have abrasion to the right elbow, pain with movement. Slight edema. Neuro: Cranial nerves II through XII intact, no focal neurological deficits. Skin: Clean dry and intact with no rash, purpura, petechiae, vesicles or pustules. Backs/flank: No CVA tenderness, no midline spinal tenderness, no deformity. Patient does have some soft tissue injury to the right flank, right lateral area. Psych: Normal mood and affect. No SI, HI or acute psychosis. Const Vital Signs: 12/16/23 18:15 12/16/23 19:33 12/16/23 19:33 Temperature 98.4 F Temperature Source Temporal Pulse Rate 100 95 Respiratory Rate 20 H 20 H Respiratory Effort Normal Respiratory Depth Normal Blood Pressure 107/73 118/79 Blood Pressure Mean 84 92 Pulse Ox 95 99 Oxygen Delivery Method Room Air Room Air Room Air 12/16/23 20:47 Temperature Temperature Source Pulse Rate 77 Respiratory Rate 22 H Respiratory Effort Respiratory Depth Blood Pressure 114/75 Blood Pressure Mean 88 Pulse Ox 98 Oxygen Delivery Method Room Air Positive unkempt General Appearance ED: unkempt Psych Appearance: unkempt <Dr. Everton Shin DO - Last Filed: 12/16/23 23:30> Physical Exam Const Vital Signs: 12/16/23 18:15 12/16/23 19:33 12/16/23 19:33 Temperature 98.4 F Temperature Source Temporal Pulse Rate 100 95 Respiratory Rate 20 H 20 H Respiratory Effort Normal Respiratory Depth Normal Blood Pressure 107/73 118/79 Blood Pressure Mean 84 92 Pulse Ox 95 99 Oxygen Delivery Method Room Air Room Air Room Air 12/16/23 20:47 Temperature Temperature Source Pulse Rate 77 Respiratory Rate 22 H Respiratory Effort Respiratory Depth Blood Pressure 114/75 Blood Pressure Mean 88 Pulse Ox 98 Oxygen Delivery Method Room Air MDM <Marcus Aslanides, [employer]-C - Last Filed: 12/16/23 21:02> MDM Lab Data Attestation: I reviewed the patient's lab results. Labs: Laboratory Results - last 24 hr 12/16/23 12/16/23 19:35 21:10 WBC 15.3 H RBC 4.57 L Hgb 13.2 Hct 40.7 MCV 89.1 MCH 28.9 MCHC 32.4 RDW Std Deviation 46.1 H RDW Coeff of Antony 14.3 Plt Count 167 MPV 11.2 Immature Gran % (Auto) 0.600 Neut % (Auto) 85.7 H Lymph % (Auto) 6.4 L Nolan % (Auto) 6.8 Eos % (Auto) 0.4 Baso % (Auto) 0.1 Absolute Neuts (auto) 13.1 H Absolute Lymphs (auto) 0.98 Nucleated RBC % 0 Sodium 141 Potassium 4.3 Chloride 110 H Carbon Dioxide 26.0 Anion Gap 5 BUN 21 H Creatinine 1.74 H Est GFR (MDRD) Af Amer 52 L Est GFR (MDRD) Non-Af 43 L BUN/Creatinine Ratio 12.1 Glucose 103 Calcium 10.0 Total Bilirubin 0.50 AST 26 ALT 35 Alkaline Phosphatase 35 L Troponin I High Sens 11 B-Natriuretic Peptide 16.5 Total Protein 7.5 Albumin 3.7 Globulin 3.8 Albumin/Globulin Ratio 1.0 Urine Color Yellow Urine Clarity Sl. Cloudy Urine pH 6.0 Ur Specific Paris 1.020 Urine Protein 15 H Urine Glucose (UA) Normal Urine Ketones Negative Urine Occult Blood 10 H Urine Nitrite Negative Urine Bilirubin Negative Urine Urobilinogen Normal Ur Leukocyte Esterase Negative Urine RBC 0-5 SEEN Urine WBC 0 SEEN Ur Squamous Epith Cells 0-5 SEEN Amorphous Sediment 1+ URATE Urine Bacteria 0 SEEN Urine Mucus 0 SEEN Radiography Diagnostic Testing: Clinical Impression(s) from Imaging Studies Brain CT 12/16/23 18:59 IMPRESSION: Negative head/brain CT without intravenous contrast. Electronically Signed: Jamil Heaton MD at 20:00 EST , Elbow X-Ray 12/16/23 19:12 IMPRESSION: Chronic abnormality of the radial head is disrupting the anterior humeral line and radiocapitellar line. Electronically Signed: Jamil Heaton MD at 20:37 EST , Chest X-Ray 12/16/23 19:55 IMPRESSION: No radiographic evidence of acute cardiopulmonary disease. Electronically Signed: Jamil Heaton MD at 20:35 EST , EKG EKG shows normal sinus rhythm,: Attestation: I personally reviewed and interpreted this EKG as follows: Comments: EKG shows a normal sinus rhythm, rate of 74 bpm, TX interval 156ms, QRS duration 80 ms, no acute ST elevation, no acute infarct noted. Treatment and Re-Evaluation :: Patient appears to be in no obvious respiratory distress, vital signs are stable. Presenting to the emergency department for multiple falls, weakness, slight altered mental status. Patient will receive basic laboratory values, CT scan of the brain, chest x-ray. Patient will receive x-rays of the right elbow. Patient states to have no significant pain, patient is difficult to assess secondary to being a poor historian. I did get most of the history from the patient's sister. Differential diagnosis includes closed head injury, concussion, intracranial bleeding, electrolyte abnormality, urinary tract infection. All radiologic examinations were read, reviewed by the emergency department attending. From these reads, a plan of care will be put in place. Patient CT scan of the brain shows no acute process. Patient's chest x-ray per the ER physician shows no acute evidence of acute cardiopulmonary disease. Elbow x-ray shows chronic changes. Patient's laboratory values show a leukocytosis with a white blood count of 15.3, patient's chemistries show a increase in creatinine at 1.74, GFR 52, patient is baseline 1.0. Troponin will be added. At this time, the patient has had several falls at home, per the sister, the patient is not acting appropriate, I believe that the patient would benefit from admission. Patient be placed on Rocephin this will cover any UTI, as well as any cellulitis. Patient was also given 60 mg of IV Lasix for fluid overload, bilateral lower leg edema. I will speak with hospitalist Hospitalist accept the patient. Patient is stable for admission. <Dr. Everton Shin, DO - Last Filed: 12/16/23 23:30> [facility] History & Record Review Discussion w/independent historian: Patient and Family Lab Data Labs: Laboratory Results - last 24 hr 12/16/23 12/16/23 19:35 21:10 WBC 15.3 H RBC 4.57 L Hgb 13.2 Hct 40.7 MCV 89.1 MCH 28.9 MCHC 32.4 RDW Std Deviation 46.1 H RDW Coeff of Antony 14.3 Plt Count 167 MPV 11.2 Immature Gran % (Auto) 0.600 Neut % (Auto) 85.7 H Lymph % (Auto) 6.4 L Nolan % (Auto) 6.8 Eos % (Auto) 0.4 Baso % (Auto) 0.1 Absolute Neuts (auto) 13.1 H Absolute Lymphs (auto) 0.98 Nucleated RBC % 0 Sodium 141 Potassium 4.3 Chloride 110 H Carbon Dioxide 26.0 Anion Gap 5 BUN 21 H Creatinine 1.74 H Est GFR (MDRD) Af Amer 52 L Est GFR (MDRD) Non-Af 43 L BUN/Creatinine Ratio 12.1 Glucose 103 Calcium 10.0 Total Bilirubin 0.50 AST 26 ALT 35 Alkaline Phosphatase 35 L Troponin I High Sens 11 B-Natriuretic Peptide 16.5 Total Protein 7.5 Albumin 3.7 Globulin 3.8 Albumin/Globulin Ratio 1.0 Urine Color Yellow Urine Clarity Sl. Cloudy Urine pH 6.0 Ur Specific Paris 1.020 Urine Protein 15 H Urine Glucose (UA) Normal Urine Ketones Negative Urine Occult Blood 10 H Urine Nitrite Negative Urine Bilirubin Negative Urine Urobilinogen Normal Ur Leukocyte Esterase Negative Urine RBC 0-5 SEEN Urine WBC 0 SEEN Ur Squamous Epith Cells 0-5 SEEN Amorphous Sediment 1+ URATE Urine Bacteria 0 SEEN Urine Mucus 0 SEEN Radiography Diagnostic Testing: Clinical Impression(s) from Imaging Studies Brain CT 12/16/23 18:59 IMPRESSION: Negative head/brain CT without intravenous contrast. Electronically Signed: Jamil Heaton MD at 20:00 EST , Elbow X-Ray 12/16/23 19:12 IMPRESSION: Chronic abnormality of the radial head is disrupting the anterior humeral line and radiocapitellar line. Electronically Signed: Jamil Heaton MD at 20:37 EST , Chest X-Ray 12/16/23 19:55 IMPRESSION: No radiographic evidence of acute cardiopulmonary disease. Electronically Signed: Jamil Heaton MD at 20:35 EST , Treatment and Re-Evaluation :: Patient appears to be in no obvious respiratory distress, vital signs are stable. Presenting to the emergency department for multiple falls, weakness, slight altered mental status. Patient will receive basic laboratory values, CT scan of the brain, chest x-ray. Patient will receive x-rays of the right elbow. Patient states to have no significant pain, patient is difficult to assess secondary to being a poor historian. I did get most of the history from the patient's sister. Differential diagnosis includes closed head injury, concussion, intracranial bleeding, electrolyte abnormality, urinary tract infection. All radiologic examinations were read, reviewed by the emergency department attending. From these reads, a plan of care will be put in place. Patient CT scan of the brain shows no acute process. Patient's chest x-ray per the ER physician shows no acute evidence of acute cardiopulmonary disease. Elbow x-ray shows chronic changes. Patient's laboratory values show a leukocytosis with a white blood count of 15.3, patient's chemistries show a increase in creatinine at 1.74, GFR 52, patient is baseline 1.0. Troponin will be added. At this time, the patient has had several falls at home, per the sister, the patient is not acting appropriate, I believe that the patient would benefit from admission. Patient be placed on Rocephin this will cover any UTI, as well as any cellulitis. Patient was also given 60 mg of IV Lasix for fluid overload, bilateral lower leg edema. I will speak with hospitalist Hospitalist accept the patient. Patient is stable for admission. I have personally performed a face to face assessment of the patient and have reviewed the SELAM Note. I performed a substantive portion of the visit including all aspects of the following. My mccord findings include: History is 57-year-old male seen recently for lower extremity edema and erythema. He was diagnosed with lower extremity cellulitis started on Bactrim and Keflex. He states that his legs have continued to be swollen. He states they feel very heavy. He believes that they are contributing to him having fallen about 5 times today. During one of the falls he caused abrasion to his back. He has been sleeping in a chair due to low back pain that has been occurring before this fall. No history of coronary artery disease or congestiveheart failure. He does have a history of schizophrenia which complicates the history however his sister is with him who does help provide what his baseline is. The lower extremity edema is reported to be new Exam is patient has pitting edema to the bilateral lower extremities up to the level of the tibial tuberosity. There is erythema and increased warmth of the lower legs which does not resolve with elevation. Medical Decison Making white count is elevated at 15. Negative cardiac workup. Patient has fallen about 5 times today. I think we can bring him in treat with antibiotics and diuresed the legs. I do question if the lymphedema truly is newor has been developing as he sleeps in a recliner. I did not see the legs a fewdays ago so I do not know what the differences from today and then. I will speak with the hospitalist regarding admission Discharge Plan Dx/Rx/DC Orders Clinical Impression: Abrasion of flank, Chronic low back pain, Lymphedema of both lower extremities,Schizophrenia, Frequent falls Disposition Disposition: Acute Care Hospital [facility] Discharge Date/Time: 12/16/23 21:41 What to do if you have Problems For any increased pain, shortness of breath, bleeding, nausea or vomiting, chestpain, or any unexpected problems, contact your Primary Care Provider. Call [facility] ([phone]) or report to the closest Emergency Room. Call 911 if necessary. 12/16/232101 <Electronically signed by Marcus LONDONC> Cosigner Signature (if applicable): 12/16/23 2330 <Electronically signed by Everton Shin DO> CC: No Primary Care Physician ~ Signed [facility] Work Phone: 1([phone]) 510-851401-28-2024 History and physical note Author Clarissa Garg [facility] December 16, 2023 9:45pm Note Date/Time December 16, 2023 9 :45pm [facility] Medical Records Department [address] [place] [address] H&P Exam - Hospitalist 12/16/232125 MR#: [id number] Acct: [id number] Name: SALLYMIAH Rep #:[id number] : 02/20/1966 57 From: Clarissa Garg MD PCP: Care Physician,No Primary Status :ADM IN Location: [place] [address] HPI - General General Date of Admission: 12/16/23 Date of Service: 12/16/23 Chief Complaint: Frequent falls, weakness, debility. HPI Narrative The patient is a 57 y/o M w/ PMHx: Obesity, Frequent falls, Chronic back pain using walker baseline per report living with his sister sleeping in chair baseline, Anxiety and Depression/Schizoaffective disorder, recent ED evaluation 12/13/23 secondary to mild lower extremity swelling reported in notes is 1+ distal with confluent erythema discharged from ED on Keflex and Bactrim for possible cellulitis who now represents to the [facility] ED on 12/16/23 with history of ongoing debility, frequent falls and not marked change to lower extremity swelling or redness per family report despite antibiotic therapy. Patient and family deny any nausea, emesis, fevers or chills. Sister who lives with him hasbeen healthy herself. She notes that with his underlying disorder he sometimes does not drink very well. Workup in the ED included T98.4, heart rate 100, BP 107/73, respiratory rate 20, 95% on room air with most recent repeat vitals heart rate 77, BP 114/75, respiratory rate 22, 98% on room air, CBC with WBC 15.3, hemoglobin 13.2, platelet 167 with left shift, CMP with chloride 110, BUN/creatinine 21/1.74, alk phos 35 otherwise unremarkable, BNP 16.5, troponin 11, CT of the brain with no acute intracranial findings, chest x-ray with no acute cardiopulmonary findings, plain film of the right elbow with chronic abnormality of the radial head disruption the anterior humeral line and radiocapitellar line. In the ED patient ministered IV Rocephin 1 g and Lasix 60mg IV x 1. [facility] Medical History (Updated 12/16/23 @ 21:[address] Clarissa Garg MD) Anxiety and depression Obesity Schizoaffective disorder Home Medications benztropine 0.5 mg tablet 0.5 mg PO BID 02/23/23 [History Last Taken Unknown] cephalexin 500 mg capsule 500 mg PO TID 7 days #21 caps 12/13/23 [Rx Last Taken Unknown] sulfamethoxazole 800 mg-trimethoprim 160 mg tablet (Bactrim DS) 1 tab PO BID #14tabs 12/13/23 [Rx Last Taken Unknown] cholecalciferol (vitamin D3) 125 mcg (5,000 unit) capsule 5,000 unit PO DAILY 12/16/23 [History Last Taken Unknown] haloperidol decanoate 100 mg/mL intramuscular solution mg IM 12/16/23 [History Last Taken 12/06/23] melatonin 3 mg tablet 3 mg PO QHS 12/16/23 [History Last Taken Unknown] Allergy/AdvReac Type Severity Reaction Status Date / Time No Known Allergies Allergy Verified 12/16/23 18:15 Family History (Updated 12/16/23 @ 21:[address] Clarissa Garg MD) Mother Anxiety and depression Hypertension Father Esophageal dysfunction Grandfather Heart disease Paternal GF. Myocardial infarction Paternal GF. CAD (coronary artery disease) Paternal GF. Surgical History (Updated 12/16/23 @ 21:[address] Clarissa Garg MD) History of elbow surgery Social History (Updated 12/16/23 @ 21:[address] Clarissa Garg MD) household members: other details: Lives with his sister. Smoking Status: Never smoker alcohol intake: never substance use type: does not use ROS ROS Narrative Admission Review of Systems: CONSTITUTIONAL: No weight loss, fever, chills, + weakness or fatigue. HEENT: Eyes: No visual loss, blurred vision, double vision or yellow sclerae. Ears, Nose, Throat: No hearing loss, sneezing, congestion, runny nose or sore throat. SKIN: No rash or itching, lesions, wounds except staged abrasions from falls as well as bilateral lower extremity mild erythema, various abrasions and scabbed regions to extremities. CARDIOVASCULAR: + Mild edema. No chest pain, chest pressure or chest discomfort,palpitations, orthopnea, syncopal events. RESPIRATORY: No shortness of breath, cough or sputum, wheezing, hemoptysis. GASTROINTESTINAL: No anorexia, nausea, vomiting or diarrhea, abdominal pain, melena, BRBPR. GENITOURINARY: No dysuria, frequency, urgency or retention. NEUROLOGICAL: No headache, dizziness, syncope, paralysis, ataxia, numbness or tingling in the extremities, focal weakness, change in bowel or bladder control,seizure. MUSCULOSKELETAL: +muscle, back pain, joint pain or stiffness. HEMATOLOGIC: No anemia, bleeding or bruising. LYMPHATICS: No enlarged nodes. No history of splenectomy. PSYCHIATRIC: + history anxiety and depression/schizoaffective disorder. ENDOCRINOLOGIC: No reports of sweating, cold or heat intolerance. No polyuria orpolydipsia. ALLERGIES: No history of asthma, hives, eczema or rhinitis. Vital Signs Vital Signs Vital Signs: 12/16/23 18:15 12/16/23 19:33 12/16/23 19:33 Temperature 98.4 F Temperature Source Temporal Pulse Rate 100 95 Respiratory Rate 20 H 20 H Respiratory Effort Normal Respiratory Depth Normal Blood Pressure 107/73 118/79 Blood Pressure Mean 84 92 Pulse Ox 95 99 Oxygen Delivery Method Room Air Room Air Room Air 12/16/23 20:47 Temperature Temperature Source Pulse Rate 77 Respiratory Rate 22 H Respiratory Effort Respiratory Depth Blood Pressure 114/75 Blood Pressure Mean 88 Pulse Ox 98 Oxygen Delivery Method Room Air Weight Weight: 218 lb 4.122 oz Body Mass Index (BMI) 35.2 Physical Exam Narrative Physical Examination: General: Awake, alert, oriented x 3 but notably flat affect having often to get answers from his sister which is chronic, she does following commands and remains and cooperative, seated upright in the ED bed in no apparent distress. Skin: Normal color, normal turgor, no icterus, no cyanosis except for very staged abrasions and ecchymoses from falls, various staged abrasions, picks regions, bilateral lower extremity anterior erythema more consistent with venousstasis skin changes. HEENT: AT/NC, EOMI, PERRLA, dry MM, no carotid bruits or JVD noted; however, thickened neck evaluation difficult. Lungs: Diminished, appropriate effort, > decrease BL bases, no rales, ronchi or wheezing. Heart: Regular rate and rhythm; no gallop, rub audible. Abdomen: Soft, obese, NTTP, ND, hyperactive BS, no appreciated HSM. Extremities: No cyanosis, no clubbing, BL LE pedal to distal michelle 1+ edema, see skin. Neurological: Patient awake, alert, oriented as noted, cognitive function baseline intact; pupils equally reactive to light and accommodation, cranial nerves grossly normal, moving all 4 extremities, no focal deficits, strength mildly to moderately globally decreased. Psychiatric: Affect appears flat, no acute evidence of depressive or anxiety feelings but does have underlying history. Results Lab / Micro Data 12/16/23 19:35 12/16/23 19:35 Labs: Laboratory Results - last 24 hr 12/16/23 19:35: WBC 15.3 H, RBC 4.57 L, Hgb 13.2, Hct 40.7, MCV 89.1, MCH 28.9, MCHC 32.4, RDW Std Deviation 46.1 H, RDW Coeff of Antony 14.3, Plt Count 167, MPV 11.2, Immature Gran % (Auto) 0.600, Neut % (Auto) 85.7 H, Lymph % (Auto) 6.4 L, Nolan % (Auto) 6.8, Eos % (Auto) 0.4, Baso % (Auto) 0.1, Absolute Neuts (auto) 13.1 H, Absolute Lymphs (auto) 0.98, Nucleated RBC % 0, Sodium 141, Potassium 4.3, Chloride 110 H, Carbon Dioxide 26.0, Anion Gap 5, BUN 21 H, Creatinine 1.74H, Est GFR (MDRD) Af Amer 52 L, Est GFR (MDRD) Non-Af 43 L, BUN/Creatinine Ratio12.1, Glucose 103, Calcium 10.0, Total Bilirubin 0.50, AST 26, ALT 35, Alkaline Phosphatase 35 L, Troponin I High Sens 11, B-Natriuretic Peptide 16.5, Total Protein 7.5, Albumin 3.7, Globulin 3.8, Albumin/Globulin Ratio 1.0 12/16/23 21:10: Urine Color Yellow, Urine Clarity Sl. Cloudy, Urine pH 6.0, Ur Specific Paris 1.020, Urine Protein 15 H, Urine Glucose (UA) Normal, Urine Ketones Negative, Urine Occult Blood 10 H, Urine Nitrite Negative, Urine Bilirubin Negative, Urine Urobilinogen Normal, Ur Leukocyte Esterase Negative, Urine RBC 0-5 SEEN, Urine WBC 0 SEEN, Ur Squamous Epith Cells 0-5 SEEN, Amorphous Sediment 1+ URATE, Urine Bacteria 0 SEEN, Urine Mucus 0 SEEN Imaging Radiology Impression Brain CT 12/16/23 18:59 IMPRESSION: Negative head/brain CT without intravenous contrast. Electronically Signed: Jamil Heaton MD at 20:00 EST , Elbow X-Ray 12/16/23 19:12 IMPRESSION: Chronic abnormality of the radial head is disrupting the anterior humeral line and radiocapitellar line. Electronically Signed: Jamil Heaton MD at 20:37 EST , Chest X-Ray 12/16/23 19:55 IMPRESSION: No radiographic evidence of acute cardiopulmonary disease. Electronically Signed: Jamil Heaton MD at 20:35 EST , Assessment & Plan Assessment/Plan (1) Cellulitis: PLAN: Plan The patient is a 57 y/o M w/ PMHx: Obesity, Frequent falls, Chronic back pain using walker baseline per report living with his sister sleeping in chair baseline, Anxiety and Depression/Schizoaffective disorder, recent ED evaluation 12/13/23 secondary to mild lower extremity swelling reported in notes is 1+ distal with confluent erythema discharged from ED on Keflex and Bactrim for possible cellulitis who now represents to the [facility] ED on 12/16/23 with history of ongoing debility, frequent falls and not marked change to lower extremity swelling or redness per family report despite antibiotic therapy. #1. Leukocytosis possibly secondary to BL Lower Extremity Cellulitis, failed abx therapy; however, Suspect patient with BL LE venous stasis skin changes/edema related with chronically sleeping in chair with legs down: Given patient recently in the ED 12/13/23, to be cautious will admit to medical surgical floor, will place neck Donavan wraps with elevation, given lower blood pressure and renal insufficiency will defer any further diuretic therapy at thispoint, given frequent falls although patient does have a history to be cautious we will obtain urinalysis to assure no underlying UTI although no symptoms reported per patient or sister, will obtain procalcitonin, will de-escalate offantibiotic therapy if presentation more consistent with venous stasis and leukocytosis probably secondary to potentially recent dehydration, maintain on fall precautions, PT/OT/case management consulted for discharge planning. #2. Acute renal insufficiency: Possibly multifactorial, suspect poor intake baseline as well as recent Bactrim antibiotic therapy, admission BUN/pinna 21/1.74, GFR 43, baseline creatinine 1.2 noted 02/23/2023, will defer any diuretictherapy and actually at this point will administer IV fluids small bolus and continue maintenance IV fluids with repeat CMP in AM. #3. Adult failure to thrive, multifactorial, secondary to #1, #2 and underlying Hx frequent mechanical falls with underlying chronic lumbar back pain: Plain film lumbar spine pending given recent fall history to be cautious, maintain on fall precautions, continue treatments as noted, PT/OT/case management consulted for discharge planning. #4. Anxiety and depression/schizoaffective disorder: Will continue patient homeHaldol once regimen clarified in addition to benztropine, encourage continued outpatient follow-up with counseling/psychiatry/psychology as previously arranged. #5. Obesity: Weight loss and lifestyle changes encouraged. #6. DVT prophylaxis: Lovenox. Charges/Coding Visit Charges Inpatient E&M: 04163 Init Hosp L3 12/16/232144 <Electronically signed by Clarissa Garg MD> Cosigner Signature (if applicable): CC: Dr. Clarissa Garg MD; No Primary Care Physician~ Signed [facility] Work Phone: 1(491) 926-840901-25-2024 Discharge summary Author Dejon Dowling [facility] December 13, 2023 2:31pm Note Date/Time December 13, 2023 1 :43pm [facility] Medical Records Department [address] [place] [address] Emergency Department Summary 12/13/23 MR#: [id number] Acct: [id number] Name: MIAH ZAVALA Rep #:[id number] : 02/20/1966 57 From: Dejon Turk PCP: Care Physician,No Primary Status :REG ER Location: ED HPI History of Present Illness Chief Complaint: [facility] Extremity [facility] Medical History Schizophrenia Home Medications benztropine 0.5 mg tablet 0.5 mg PO BID 02/23/23 [History Last Taken Unknown] docusate sodium 100 mg capsule 100 mg PO DAILY 02/23/23 [History Last Taken Unknown] lorazepam 0.5 mg tablet 0.5 mg PO Q8 02/23/23 [History Last Taken Unknown] ziprasidone HCl 20 mg capsule 20 mg PO DAILY 02/23/23 [History Last Taken Unknown] cephalexin 500 mg capsule 500 mg PO TID 7 days #21 caps 12/13/23 [Rx Last Taken Unknown] sulfamethoxazole 800 mg-trimethoprim 160 mg tablet (Bactrim DS) 1 tab PO BID #14tabs 12/13/23 [Rx Last Taken Unknown] Allergy/AdvReac Type Severity Reaction Status Date / Time No Known Allergies Allergy Verified 12/13/23 13:18 Social History Smoking Status: Never smoker EXAM Physical Exam Const Vital Signs: 12/13/23 13:18 12/13/23 13:20 Temperature 98.4 F Temperature Source Temporal Pulse Rate 82 Respiratory Rate 18 Blood Pressure 128/78 H Blood Pressure Mean 94 Pulse Ox 100 Oxygen Delivery Method Room Air MDM MDM MDM Narrative Medical decision making narrative: HISTORY OF PRESENT ILLNESS: 58-year-old male presents with bilateral leg swelling. Notes 4 days of swellingand redness. Notes redness to bilateral lower extremities. Denies history of diabetes or fever. Denies any vomiting. Patient denies active cancer, being bedridden for greater than 3 days, denies unilateral leg swelling, denies any varicose veins, denies any calf tenderness, denies tenderness along deep venous system. Denies major surgery within 12 weeks, recent paralysis, previous DVT. REVIEW OF SYSTEMS: Pertinent positives: Leg swelling Pertinent negatives: Calf tenderness, shortness of breath, chest pain, vomiting,abdominal pain, jaundice PHYSICAL EXAM: Nursing triage notes reviewed, Vital signs reviewed Constitutional: please see mdm Lungs: Clear to auscultation, No wheezing or rales. No increased work of breathing, no conversational dyspnea, no accessory muscle use, no nasal flaring. No respiratory distress noted Heart: Regular rate and rhythm, No murmurs, No rubs and No gallops, 2+ distal pulses (radial, femoral, posterior tibial) in all extremities Abdomen: Soft, there is no tenderness, rigidity, rebound or guarding, no obviousperitoneal signs, no palpable pulsatile abdominal masses, no auscultated abdominal bruit : No CVAT Extremities: N 1+ pitting edema bilateral lower extremities Neuro: Intact sensation L1-S1 dermatomal distributions. Intact 5/5 strength in hip flexion (T12-L3). Knee extension (L2-L4). Ankle dorsiflexion (L4-L5). Ankle plantar flexion (S1). Great toe extension (L5). 2+ patellar and AchillesDTRs. Skin: N confluent erythema noted to bilateral lower extremities, MEDICAL DECISION MAKING: Chief Complaint: Bilateral leg swelling External records reviewed: Last ED visit in February 2023 for altered mental status Factors affecting care: Schizoaffective disorder Social determinants of health: Denies alcohol abuse History obtained from others: Family member [facility] Narrative: Patient was hemodynamically stable, afebrile, nontoxic-appearing. Exam consistent with likely cellulitis of confluent erythema noted to bilateral lowerextremities with 1+ edema. Patient denies chest pain or shortness of breath to suggest ACS or heart failure as potential causes lower extremity edema. Had a low risk DVT score which makes DVT less likely. Exam clinically consistent with cellulitis. No crepitus or bullae or pain on portion exam to suggest necrotizing fasciitis. There is no fluctuance or induration to suggest abscess. Patient was given Keflex and Bactrim for broad gram-positive coverage. He was given strict return precautions and follow-up instructions. The patient and/or family, caregivers express understanding. The patient and/orfamily, caregivers agrees with the plan. Shared decision making: I will have a discussion with the patient and or visitors regarding risk/benefits of further testing or admission. They will be made aware of of the risk/benefits inherent in this decision they will be given the opportunity to voice understanding. Total critical care time today provided was at least 0 [] minutes. This excludes separately billable procedures. Critical care time (if documented) is secondary to the patient having high probability of clinically significant/life threatening deterioration in the patient's condition which required my urgent intervention. Impression: 1. Bilateral lower extremity cellulitis Dispo: Discharge home Discharge Plan Triage Chief Complaint: Lower Extremity Injury ED Provider: Dejon Dowling Dx/Rx/DC Orders Clinical Impression: Cellulitis Instructions: Cellulitis Prescriptions: New sulfamethoxazole-trimethoprim [Bactrim DS] 800-160 mg tablet 1 tab PO BID Qty: 14 0RF cephalexin 500 mg capsule 500 mg PO TID 7 Days Qty: 21 0RF No Action benztropine 0.5 mg tablet 0.5 mg PO BID Patient Comments: TAKE 1 TABLET BY MOUTH TWICE DAILY ziprasidone HCl 20 mg capsule 20 mg PO DAILY Patient Comments: TAKE 1 CAPSULE BY MOUTH ONCE DAILY lorazepam 0.5 mg tablet 0.5 mg PO Q8 Patient Comments: TAKE 1 TABLET BY MOUTH EVERY 8 HOURS FOR ANXIETY docusate sodium 100 mg capsule 100 mg PO DAILY Patient Comments: TAKE 1 CAPSULE BY MOUTH TWICE DAILY Primary Care Provider: Care Physician,No Primary Referrals: Efraín Irving MD [Med Staff - Pacu Rn] - Activity Restrictions/Additional Instructions: Thank you for trusting us with your care today! Please take antibiotics as prescribed. Please finish entire course until antibiotics are complete. Please take Tylenol (2 pills, 650 mg), ibuprofen (2 pills, 400 mg) every 6 hoursas needed for pain and fever control. Please return to the emergency department if your symptoms change or worsen. Specifically develop worsening redness, he develop fever, vomiting, if you lose consciousness. If redness progresses toward your heart quickly over a matter ofhours. Please follow with your primary care physician for further outpatient evaluationand management. Disposition Disposition: Home, Self Care What to do if you have Problems For any increased pain, shortness of breath, bleeding, nausea or vomiting, chestpain, or any unexpected problems, contact your Primary Care Provider. Call [facility] [facility] ([phone]) or report to the closest Emergency Room. Call 911 if necessary. 12/13/23 1439 <Electronically signed by Dejon Dowling DO> Cosigner Signature (if applicable): CC: No Primary Care Physician ~ Signed [facility] Work Phone: 1(174) 102-102204-08-2023 Discharge summary Author Mikel Black [facility] February 24, 2023 3:45pm Note Date/Time February 23, 2023 1:45 pm [facility] Medical Records Department [address] [place] [address] Emergency Department Summary 02/23/23 MR#: [id number] Acct: [id number] Name: MIAH ZAVALA Rep #:[id number] : 1965 58 From: Salome Newell DO PCP: Care Physician,No Primary Status :DEP ER Location: ED ADDENDUM by Dr. Mikel Black DO on 02/24/23 at 1545 Patient was signed out to me, pending attempted placement at this time. Noted at times wandering in the hallways redirected by nursing back to the room. Noted he is on medications scheduled at home of Melissa Luther and Ativan scheduled. This was ordered to be continued in the ED. Patient be signed out to oncoming physician. 02/24/23 1545<Electronically signed by Mikel Casey> Cosigner Signature (if applicable): cc: No Primary Care Physician ~* Signed ADDENDUM by Dr. Benjamin Aguilera DO on 02/24/23 at 0702 Care of the patient was turned over to me pending psychiatric placement. Patient has been cooperative and calm here in the emergency department on my shift. Crisis is still attempting to get the patient placed in a psychiatric facility. Care of the patient will be turned over to the oncoming physician pending psychiatric placement. 02/24/23 0702<Electronically signed by Benjamin Aguilera DO> Cosigner Signature (if applicable): cc: No Primary Care Physician ~* Signed ADDENDUM by Dr. Emmett Mcneal MD on 02/24/23 at 0019 Patient checked out to me. He has refused to provide urine specimen for urine drug screen, which I personally do not require in order to declare him medicallyscreened and cleared. Crisis is aware. They have seen him, and [facility]to [facility] since he does not have insurance. I reviewed hisEKG, sinus rhythm at a rate of 101, and otherwise normal and unchanged compared with his prior. Will be checked out to the night physician, patient has largelybeen cooperative except for his unwillingness to provide a urine specimen or drink water. His renal function is normal. 02/24/23 0019<Electronically signed by Emmett Mcneal MD> Cosigner Signature (if applicable): cc: No Primary Care Physician ~* Signed HPI History of Present Illness Chief Complaint: Alt LOC Detail of Chief Complaint: Mental status change Informant: patient and EMS Narrative Narrative: Patient brought to the emergency department via EMS. Patient apparently was wandering the road and was not verbal. Patient has history of schizophrenia. Patient will not verbalize but will nod his head yes and no to questions. He denied injury. He denied chest pain or shortness of breath. He has been havingsome abdominal pain but it is unclear how long. He nods yes when asked if he had vomiting. He denies diarrhea. Prior similar symptoms: Yes PFSH PFS Medical History Schizophrenia Home Medications benztropine 0.5 mg tablet 0.5 mg PO BID 02/23/23 [History Last Taken Unknown] docusate sodium 100 mg capsule 100 mg PO DAILY 02/23/23 [History Last Taken Unknown] lorazepam 0.5 mg tablet 0.5 mg PO Q8 02/23/23 [History Last Taken Unknown] ziprasidone HCl 20 mg capsule 20 mg PO DAILY 02/23/23 [History Last Taken Unknown] Allergy/AdvReac Type Severity Reaction Status Date / Time No Known Allergies Allergy Verified 01/30/23 22:06 Social History Smoking Status: Never smoker ROS ROS ED Review of Systems ROS Unobtainable: other Constitutional Constitutional ED: Reports lethargy; Denies chills, fever(s), sweats or weight loss Eyes Eyes: Denies blurry vision, change in vision or diplopia ENT ENT ED: Denies rhinorrhea or sore throat Cardiovascular Cardiovascular: Denies chest pain, orthopnea or racing heartbeat Respiratory/Chest Respiratory/Chest: Denies cough, dyspnea, dyspnea on exertion, orthopnea or sputum Gastrointestinal Gastrointestinal: Reports abdominal pain, nausea and vomiting; Denies diarrhea Genitourinary Genitourinary ED: Denies dysuria, hematuria or urinary frequency Musculoskeletal Musculoskeletal: Denies arthralgias, back pain, myalgias or neck pain Integumentary Denies abscess, Abrasions or rash Neurologic Neurologic: Reports other Details: Mental status change ; Denies headache(s) or weakness Psychiatric Psychiatric: Denies anxiety, depression or suicidal thoughts Endocrine Endocrinology: Denies polydipsia, polyphagia or polyuria Hematologic/Lymphatic Hematologic/Lymphatic: Denies easy bleeding, easy bruising or lymphadenopathy Allergic/Immunologic Allergic/Immunologic ED: Denies mouth swelling, tongue swelling or urticaria EXAM Physical Exam Const Vital Signs: 02/23/23 13:10 02/23/23 13:20 02/23/23 14:54 Temperature 98.6 F Temperature Source Oral Pulse Rate 114 H 109 H Respiratory Rate 22 H 18 Respiratory Effort Normal Non-Labored Respiratory Pattern Normal Blood Pressure 116/74 138/79 H Blood Pressure Mean 88 98 Pulse Ox 97 98 Oxygen Delivery Method Room Air Room Air Positive well nourished and well developed General Appearance ED: well developed and NAD HEENT Reports TM's clear and moist mucous membranes normocephalic and atraumatic; Negative for trauma or tenderness Tympanic Membrane ED: Yes TM's clear Eyes PERRL and EOMs intact bilaterally General Eye ED: Negative for pale conjunctiva or scleral icterus Neck no lymphadenopathy, supple and no JVD General: Negative for tenderness Chest Wall inspection of chest normal and palpation of chest normal Chest: Negative for tenderness Resp normal respiratory effort and clear to auscultation bilaterally Effort and Inspection: Negative for respiratory distress or pain with movement Auscultation: Negative for rhonchi, wheezes or diminished lung sounds Cardio regular rate, regular rhythm, S1 normal heart sound, S2 normal heart sound and no murmurs Peripheral Pulses: pulses 2+ throughout GI normal to inspection, nondistended, normoactive bowel sounds, soft to palpation,non-tender, non-distended and no masses Back/Spine no CVA tenderness and no thoracic nor lumbar tenderness Extremity normal to inspection General Extremety ED: Negative for edema General Extremity: Negative for edema Neuro oriented x3, CN's II-XII intact bilaterally, no sensory deficits noted and gait normal Sensorium / Orientation: awake, alert, oriented to person, oriented to place andoriented to time Motor Exam: strength 5/5 throughout and strength abnormal Psych mental status grossly normal Skin no rashes or lesions noted and no wounds MDM MDM MDM Narrative Medical decision making narrative: IV established on arrival. CBC with differential obtained showed an elevated white count of 17,000. Chemistries unremarkable. Patient had a CT brain without contrast that was unremarkable. CT scan of the abdomen pelvis showed umbilical hernia containing fat also a 2.4 x 2.4 cm hypodense nodule along medial portion of the left kidney for which recommended ultrasound to evaluate further. Patient urinalysis and urine tox. Pending. Alcohol was negative. Patient sisters did arrive to the emergency department to give some history. Apparently he was just discharged from a psychiatric facility 2 days ago and he has not been himself. Patient was found wandering more than 5 miles away from the home while the sisters were at work. Care of patient will be turned over toevening physician awaiting evaluation by crisis and final disposition. Patient may require admission for possible placement to fdc or psychiatric facility as it is unclear if patient safe to go back home. Lab Data Labs: Laboratory Results - last 24 hr 02/23/23 02/23/23 02/23/23 13:17 13:17 13:17 WBC 17.0 H RBC 4.88 Hgb 13.8 Hct 43.1 MCV 88.3 MCH 28.3 MCHC 32.0 RDW Std Deviation 48.9 H RDW Coeff of Antony 15.2 H Plt Count 184 MPV 12.7 H Immature Gran % (Auto) 0.400 Neut % (Auto) 88.7 H Lymph % (Auto) 4.5 L Nolan % (Auto) 6.2 Eos % (Auto) 0.0 Baso % (Auto) 0.2 Absolute Neuts (auto) 15.1 H Absolute Lymphs (auto) 0.76 L Nucleated RBC % 0 Sodium 142 Potassium 3.9 Chloride 105 Carbon Dioxide 26.0 Anion Gap 11 BUN 12 Creatinine 1.20 Estim Creat Clear Calc 55.50 Est GFR (MDRD) Af Amer 80 Est GFR (MDRD) Non-Af 66 BUN/Creatinine Ratio 10.0 Glucose 93 Calcium 9.2 Total Bilirubin Direct Bilirubin AST ALT Alkaline Phosphatase Total Protein Albumin Globulin Ethyl Alcohol < 3.0 02/23/23 13:17 WBC RBC Hgb Hct MCV MCH MCHC RDW Std Deviation RDW Coeff of Antony Plt Count MPV Immature Gran % (Auto) Neut % (Auto) Lymph % (Auto) Nolan % (Auto) Eos % (Auto) Baso % (Auto) Absolute Neuts (auto) Absolute Lymphs (auto) Nucleated RBC % Sodium Potassium Chloride Carbon Dioxide Anion Gap BUN Creatinine Estim Creat Clear Calc Est GFR (MDRD) Af Amer Est GFR (MDRD) Non-Af BUN/Creatinine Ratio Glucose Calcium Total Bilirubin 0.60 Direct Bilirubin 0.20 AST 27 ALT 27 Alkaline Phosphatase 32 L Total Protein 7.1 Albumin 3.4 Globulin 3.7 Ethyl Alcohol Radiography Diagnostic Testing: Clinical Impression(s) from Imaging Studies Brain CT 02/23/23 13:43 IMPRESSION: Normal unenhanced CT scan of the brain. Electronically Signed: Augustus Rainey MD at 14:16 EDT , Abdomen/Pelvis CT 02/23/23 14:14 IMPRESSION: Umbilical hernia containing fat. The neck of the hernia measures 2.3 cm. 2.4 cm x 2.4 cm hypodense nodule along the medial midportion of the left kidney with calcific rim posteriorly. Correlation with ultrasound is recommended for further evaluation. Electronically Signed: Augustus Rainey MD at 15:19 EDT , Discharge Plan Triage Chief Complaint: Alt LOC ED Provider: Salome Newell Dx/Rx/DC Orders Clinical Impression: Altered mental status, Schizophrenia Prescriptions: No Action benztropine 0.5 mg tablet 0.5 mg PO BID Label Comments: TAKE 1 TABLET BY MOUTH TWICE DAILY ziprasidone HCl 20 mg capsule 20 mg PO DAILY Label Comments: TAKE 1 CAPSULE BY MOUTH ONCE DAILY lorazepam 0.5 mg tablet 0.5 mg PO Q8 Label Comments: TAKE 1 TABLET BY MOUTH EVERY 8 HOURS FOR ANXIETY docusate sodium 100 mg capsule 100 mg PO DAILY Label Comments: TAKE 1 CAPSULE BY MOUTH TWICE DAILY Primary Care Provider: Care Physician,No Primary Referrals: Care Physician,No Primary [Primary Care Provider] - What to do if you have Problems For any increased pain, shortness of breath, bleeding, nausea or vomiting, chestpain, or any unexpected problems, contact your Primary Care Provider. Call [facility] ([phone]) or report to the closest Emergency Room. Call 911 if necessary. 02/23/23 1550 <Electronically signed by Salome Newell DO> Cosigner Signature (if applicable): CC: No Primary Care Physician ~ Signed [facility] Work Phone: [phone]) 474-345204-07-[address] Newell [facility] February 23, 2023 3:50pm Note Date/Time February 23, 2023 1:45 pm [facility] Medical Records Department [address] [place] [address] Emergency Department Summary 02/23/23 MR#: [id number] Acct: [id number] Name: MIAH ZAVALA Rep #:[id number] : 1965 58 From: Salome Newell DO PCP: Care Physician,No Primary Status :REG ER Location: ED HPI History of Present Illness Chief Complaint: Alt LOC Detail of Chief Complaint: Mental status change Informant: patient and EMS Narrative Narrative: Patient brought to the emergency department via EMS. Patient apparently was wandering the road and was not verbal. Patient has history of schizophrenia. Patient will not verbalize but will nod his head yes and no to questions. He denied injury. He denied chest pain or shortness of breath. He has been havingsome abdominal pain but it is unclear how long. He nods yes when asked if he had vomiting. He denies diarrhea. Prior similar symptoms: Yes PFSH PFS Medical History Schizophrenia Home Medications benztropine 0.5 mg tablet 0.5 mg PO BID 02/23/23 [History Last Taken Unknown] docusate sodium 100 mg capsule 100 mg PO DAILY 02/23/23 [History Last Taken Unknown] lorazepam 0.5 mg tablet 0.5 mg PO Q8 02/23/23 [History Last Taken Unknown] ziprasidone HCl 20 mg capsule 20 mg PO DAILY 02/23/23 [History Last Taken Unknown] Allergy/AdvReac Type Severity Reaction Status Date / Time No Known Allergies Allergy Verified 01/30/23 22:06 Social History Smoking Status: Never smoker ROS ROS ED Review of Systems ROS Unobtainable: other Constitutional Constitutional ED: Reports lethargy; Denies chills, fever(s), sweats or weight loss Eyes Eyes: Denies blurry vision, change in vision or diplopia ENT ENT ED: Denies rhinorrhea or sore throat Cardiovascular Cardiovascular: Denies chest pain, orthopnea or racing heartbeat Respiratory/Chest Respiratory/Chest: Denies cough, dyspnea, dyspnea on exertion, orthopnea or sputum Gastrointestinal Gastrointestinal: Reports abdominal pain, nausea and vomiting; Denies diarrhea Genitourinary Genitourinary ED: Denies dysuria, hematuria or urinary frequency Musculoskeletal Musculoskeletal: Denies arthralgias, back pain, myalgias or neck pain Integumentary Denies abscess, Abrasions or rash Neurologic Neurologic: Reports other Details: Mental status change ; Denies headache(s) or weakness Psychiatric Psychiatric: Denies anxiety, depression or suicidal thoughts Endocrine Endocrinology: Denies polydipsia, polyphagia or polyuria Hematologic/Lymphatic Hematologic/Lymphatic: Denies easy bleeding, easy bruising or lymphadenopathy Allergic/Immunologic Allergic/Immunologic ED: Denies mouth swelling, tongue swelling or urticaria EXAM Physical Exam Const Vital Signs: 02/23/23 13:10 02/23/23 13:20 02/23/23 14:54 Temperature 98.6 F Temperature Source Oral Pulse Rate 114 H 109 H Respiratory Rate 22 H 18 Respiratory Effort Normal Non-Labored Respiratory Pattern Normal Blood Pressure 116/74 138/79 H Blood Pressure Mean 88 98 Pulse Ox 97 98 Oxygen Delivery Method Room Air Room Air Positive well nourished and well developed General Appearance ED: well developed and NAD HEENT Reports TM's clear and moist mucous membranes normocephalic and atraumatic; Negative for trauma or tenderness Tympanic Membrane ED: Yes TM's clear Eyes PERRL and EOMs intact bilaterally General Eye ED: Negative for pale conjunctiva or scleral icterus Neck no lymphadenopathy, supple and no JVD General: Negative for tenderness Chest Wall inspection of chest normal and palpation of chest normal Chest: Negative for tenderness Resp normal respiratory effort and clear to auscultation bilaterally Effort and Inspection: Negative for respiratory distress or pain with movement Auscultation: Negative for rhonchi, wheezes or diminished lung sounds Cardio regular rate, regular rhythm, S1 normal heart sound, S2 normal heart sound and no murmurs Peripheral Pulses: pulses 2+ throughout GI normal to inspection, nondistended, normoactive bowel sounds, soft to palpation,non-tender, non-distended and no masses Back/Spine no CVA tenderness and no thoracic nor lumbar tenderness Extremity normal to inspection General Extremety ED: Negative for edema General Extremity: Negative for edema Neuro oriented x3, CN's II-XII intact bilaterally, no sensory deficits noted and gait normal Sensorium / Orientation: awake, alert, oriented to person, oriented to place andoriented to time Motor Exam: strength 5/5 throughout and strength abnormal Psych mental status grossly normal Skin no rashes or lesions noted and no wounds MDM MDM MDM Narrative Medical decision making narrative: IV established on arrival. CBC with differential obtained showed an elevated white count of 17,000. Chemistries unremarkable. Patient had a CT brain without contrast that was unremarkable. CT scan of the abdomen pelvis showed umbilical hernia containing fat also a 2.4 x 2.4 cm hypodense nodule along medial portion of the left kidney for which recommended ultrasound to evaluate further. Patient urinalysis and urine tox. Pending. Alcohol was negative. Patient sisters did arrive to the emergency department to give some history. Apparently he was just discharged from a psychiatric facility 2 days ago and he has not been himself. Patient was found wandering more than 5 miles away from the home while the sisters were at work. Care of patient will be turned over toevening physician awaiting evaluation by crisis and final disposition. Patient may require admission for possible placement to fdc or psychiatric facility as it is unclear if patient safe to go back home. Lab Data Labs: Laboratory Results - last 24 hr 02/23/23 02/23/23 02/23/23 13:17 13:17 13:17 WBC 17.0 H RBC 4.88 Hgb 13.8 Hct 43.1 MCV 88.3 MCH 28.3 MCHC 32.0 RDW Std Deviation 48.9 H RDW Coeff of Antony 15.2 H Plt Count 184 MPV 12.7 H Immature Gran % (Auto) 0.400 Neut % (Auto) 88.7 H Lymph % (Auto) 4.5 L Nolan % (Auto) 6.2 Eos % (Auto) 0.0 Baso % (Auto) 0.2 Absolute Neuts (auto) 15.1 H Absolute Lymphs (auto) 0.76 L Nucleated RBC % 0 Sodium 142 Potassium 3.9 Chloride 105 Carbon Dioxide 26.0 Anion Gap 11 BUN 12 Creatinine 1.20 Estim Creat Clear Calc 55.50 Est GFR (MDRD) Af Amer 80 Est GFR (MDRD) Non-Af 66 BUN/Creatinine Ratio 10.0 Glucose 93 Calcium 9.2 Total Bilirubin Direct Bilirubin AST ALT Alkaline Phosphatase Total Protein Albumin Globulin Ethyl Alcohol < 3.0 02/23/23 13:17 WBC RBC Hgb Hct MCV MCH MCHC RDW Std Deviation RDW Coeff of Antony Plt Count MPV Immature Gran % (Auto) Neut % (Auto) Lymph % (Auto) Nolan % (Auto) Eos % (Auto) Baso % (Auto) Absolute Neuts (auto) Absolute Lymphs (auto) Nucleated RBC % Sodium Potassium Chloride Carbon Dioxide Anion Gap BUN Creatinine Estim Creat Clear Calc Est GFR (MDRD) Af Amer Est GFR (MDRD) Non-Af BUN/Creatinine Ratio Glucose Calcium Total Bilirubin 0.60 Direct Bilirubin 0.20 AST 27 ALT 27 Alkaline Phosphatase 32 L Total Protein 7.1 Albumin 3.4 Globulin 3.7 Ethyl Alcohol Radiography Diagnostic Testing: Clinical Impression(s) from Imaging Studies Brain CT 02/23/23 13:43 IMPRESSION: Normal unenhanced CT scan of the brain. Electronically Signed: Augustus Rainey MD at 14:16 EDT , Abdomen/Pelvis CT 02/23/23 14:14 IMPRESSION: Umbilical hernia containing fat. The neck of the hernia measures 2.3 cm. 2.4 cm x 2.4 cm hypodense nodule along the medial midportion of the left kidney with calcific rim posteriorly. Correlation with ultrasound is recommended for further evaluation. Electronically Signed: Augustus Rainey MD at 15:19 EDT , Discharge Plan Triage Chief Complaint: Alt LOC ED Provider: Salome Newell Dx/Rx/DC Orders Clinical Impression: Altered mental status, Schizophrenia Prescriptions: No Action benztropine 0.5 mg tablet 0.5 mg PO BID Label Comments: TAKE 1 TABLET BY MOUTH TWICE DAILY ziprasidone HCl 20 mg capsule 20 mg PO DAILY Label Comments: TAKE 1 CAPSULE BY MOUTH ONCE DAILY lorazepam 0.5 mg tablet 0.5 mg PO Q8 Label Comments: TAKE 1 TABLET BY MOUTH EVERY 8 HOURS FOR ANXIETY docusate sodium 100 mg capsule 100 mg PO DAILY Label Comments: TAKE 1 CAPSULE BY MOUTH TWICE DAILY Primary Care Provider: Care Physician,No Primary Referrals: Care Physician,No Primary [Primary Care Provider] - What to do if you have Problems For any increased pain, shortness of breath, bleeding, nausea or vomiting, chestpain, or any unexpected problems, contact your Primary Care Provider. Call [facility] ([phone]) or report to the closest Emergency Room. Call 911 if necessary. 02/23/23 1550 <Electronically signed by Salome Newell DO> Cosigner Signature (if applicable): CC: No Primary Care Physician ~ Signed [facility] Work Phone: 1(465) 694-164703-15-2023 Discharge summary Author Ibeth Garsia [facility] January 31, 2023 3:47pm Note Date/Time January 30, 2023 11: 18pm [facility] Medical Records Department [address] [place] [id number] Emergency Department Summary 01/30/23 MR#: [id number] Acct: [id number] Name: MIAH ZAVALA Rep #:[id number] : 1965 57 From: Zeferino Robbins DO PCP: Care Physician,No Primary Status :REG ER Location: ED ADDENDUM by Dr. Ibeth Garsia MD on 01/31/23 at 1547 Patient signed out to me pending psychiatric placement. Patient has been accepted at [facility] and we are awaiting transport at this time. Nursing staff does state the patient is starting to talk somewhat and answer questions appropriate. He was willing to eat lunch for us here. He has been cooperative and not required any medication while in the emergency room. 01/31/23 1547<Electronically signed by Ibeth Garsia MD> Cosigner Signature (if applicable): cc: No Primary Care Physician ~* Signed HPI History of Present Illness Chief Complaint: Unresponsive Narrative Narrative: Patient is a 57-year-old male with past medical history of schizoaffective disorder. He was diagnosed with this after spending 5 to 7 days in a psychiatric hospital in 2019. He was taken from the hospital by his sisters [employer] for him at home and he has not been on medication for the past 2 to 3 years. Family reports that he will have periods where he is mute. They statethey last saw him yesterday January 29 around 8 PM at his baseline. They state this evening they went to check on him and he was awake sitting in his chair but he was not speaking. They state that this is slightly more intense/severe than his previous episode. They also state they have noticed some blood on his close and they are unsure where it is coming from. They do have concern that this could be neurologic in nature as his weakness is more intense than in the past and therefore he was brought in for evaluation. The patient is not offering any history as he is mute at this time. [facility] Medical History Schizophrenia Home Medications NK 01/30/23 [History Last Taken Unknown] Allergy/AdvReac Type Severity Reaction Status Date / Time No Known Allergies Allergy Verified 01/30/23 22:06 Social History Smoking Status: Never smoker ROS ROS ED Review of Systems ROS Unobtainable: due to mental condition EXAM Physical Exam Const Vital Signs: 01/30/23 22:07 01/31/23 00:06 01/31/23 00:45 Temperature 97.8 F Temperature Source Temporal Pulse Rate 104 H 99 93 Respiratory Rate 24 H 18 20 H Blood Pressure 139/93 H 153/90 H 141/90 H Blood Pressure Mean 108 111 107 Pulse Ox 97 100 98 Oxygen Delivery Method Room Air Room Air Room Air 01/31/23 01:59 01/31/23 03:00 01/31/23 04:00 Temperature Temperature Source Pulse Rate 98 82 80 Respiratory Rate 17 17 16 Blood Pressure 136/85 H 121/79 H 123/73 H Blood Pressure Mean 102 93 89 Pulse Ox 97 97 98 Oxygen Delivery Method Room Air Room Air Room Air 01/31/23 05:00 Temperature Temperature Source Pulse Rate 74 Respiratory Rate 17 Blood Pressure 126/69 H Blood Pressure Mean 88 Pulse Ox 99 Oxygen Delivery Method Room Air Positive well nourished, well developed and unkempt General Appearance ED: unkempt and well developed HEENT Reports moist mucous membranes HEENT Narrative: No tongue or cheek biting no oral lesions no signs of infection in the posteriorpharynx Eyes PERRL and EOMs intact bilaterally General Eye ED: Negative for scleral icterus Neck supple Neck Narrative: No nuchal rigidity or meningeal signs noted Chest Wall palpation of chest normal Resp normal respiratory effort and clear to auscultation bilaterally Cardio regular rate and regular rhythm Rate: other Other Details: Radial pulses are plus 2 out of 4 bilaterally are equal and symmetric GI normal to inspection, nondistended, normoactive bowel sounds, non-tender, non-distended and no masses GI Narrative: No voluntary guarding or rigidity no pulsatile mass Auscultation: normoactive bowel sounds Palpation: soft Narrative: Rectal exam shows nonbleeding nonthrombosed external hemorrhoid. Rectal tone isnormal there is no internal masses palpated. Stool is mucousy brown in color and Hemoccult negative. Extremity normal to inspection Extremity Narrative: No bony deformity or joint effusion. No asymmetric edema no pitting edema negative Homans' sign bilaterally Neuro CN's II-XII intact bilaterally Neuro Narrative: Patient is awake and alert and will follow commands but he will not speak. Other than his weakness there is no focal neurologic deficit. No truncal ataxia. No unilateral extremity weakness. Sensorium / Orientation: alert Psych Psych Narrative: Patient has a flat affect Appearance: unkempt Skin no rashes or lesions noted MDM MDM MDM Narrative Medical decision making narrative: Patient presented to the ER with stable vitals. He was mute and refusing to speak but can move all extremities with track with his eyes and follow commands such as opening his mouth. Based on his past medical history of schizoaffectivedisorder not being on medications for multiple years I felt he was experiencing negative symptoms of his mental illness. Family had concern for possible strokehowever based on the report that he has never been this severe and secondary to this basic labs along with a CT and CTA were obtained. Labs revealed no clinically significant findings such as acute anemia electrolyte disturbance or alcohol intoxication. CT and CTA revealed no signs of bleed or acute stenosis. The patient was informed of his negative work-up but despite hearing this he still remained mainly catatonic. He is demonstrating that he is not capable of caring for himself and as he will not ambulate family cannot care for him either. Therefore it is felt he will need psychiatric treatment and crisis center was contacted. Crisis center evaluated the patient in the ER and they doagree that based on his severe negative symptoms that he will need placed for further care. At this time the patient's work-up is negative and he is medically cleared for transfer/placement in a psychiatric facility The patient is still pending acceptance at a psychiatric hospital and therefore he will be signed out to Dr. Mota/[facility] physician pending placement History & Record Review Discussion w/independent historian: Family Lab Data Attestation: I reviewed the patient's lab results. Labs: Laboratory Results - last 24 hr 01/30/23 01/30/23 01/31/23 21:55 21:55 03:25 WBC 11.5 H RBC 5.38 Hgb 15.2 Hct 47.5 MCV 88.3 MCH 28.3 MCHC 32.0 RDW Std Deviation 45.2 H RDW Coeff of Antony 14.1 Plt Count 210 MPV 11.5 Immature Gran % (Auto) 0.600 Neut % (Auto) 80.5 H Lymph % (Auto) 13.5 L Nolan % (Auto) 5.1 Eos % (Auto) 0.0 Baso % (Auto) 0.3 Absolute Neuts (auto) 9.3 H Absolute Lymphs (auto) 1.55 Nucleated RBC % 0 Sodium 145 Potassium 3.8 Chloride 110 H Carbon Dioxide 25.0 Anion Gap 10 BUN 16 Creatinine 1.02 Estim Creat Clear Calc 71.24 Est GFR (MDRD) Af Amer 96 Est GFR (MDRD) Non-Af 80 BUN/Creatinine Ratio 15.7 Glucose 117 H Calcium 9.7 Urine Opiates Screen Urine Methadone Screen Ur Barbiturates Screen Ur Phencyclidine Scrn Ur Amphetamines Screen MDMA (Ecstasy) Screen U Benzodiazepines Scrn Urine Cocaine Screen U Cannabinoids Screen Ur Drug Screen Comment Ethyl Alcohol < 3.0 01/31/23 04:10 WBC RBC Hgb Hct MCV MCH MCHC RDW Std Deviation RDW Coeff of Antony Plt Count MPV Immature Gran % (Auto) Neut % (Auto) Lymph % (Auto) Nolan % (Auto) Eos % (Auto) Baso % (Auto) Absolute Neuts (auto) Absolute Lymphs (auto) Nucleated RBC % Sodium Potassium Chloride Carbon Dioxide Anion Gap BUN Creatinine Estim Creat Clear Calc Est GFR (MDRD) Af Amer Est GFR (MDRD) Non-Af BUN/Creatinine Ratio Glucose Calcium Urine Opiates Screen NEGATIVE Urine Methadone Screen NEGATIVE Ur Barbiturates Screen NEGATIVE Ur Phencyclidine Scrn NEGATIVE Ur Amphetamines Screen NEGATIVE MDMA (Ecstasy) Screen NEGATIVE U Benzodiazepines Scrn NEGATIVE Urine Cocaine Screen NEGATIVE U Cannabinoids Screen NEGATIVE Ur Drug Screen Comment Ethyl Alcohol Radiography Diagnostic Testing: Clinical Impression(s) from Imaging Studies Head/Neck CTA 01/31/23 00:00 IMPRESSION: Negative CT Brain, CTA Carotid, and CTA Brain. Electronically Signed: Bethany Manzano MD at 0:28 EDT , Discharge Plan Triage Chief Complaint: Unresponsive ED Provider: Zeferino Robbins Dx/Rx/DC Orders Clinical Impression: Schizoaffective disorder, depressive type, with catatonia Prescriptions: No Action NK Primary Care Provider: Care Physician,No Primary Referrals: Care Physician,No Primary [Primary Care Provider] - Disposition Disposition: Psychiatric Hospital or Unit What to do if you have Problems For any increased pain, shortness of breath, bleeding, nausea or vomiting, chestpain, or any unexpected problems, contact your Primary Care Provider. Call [facility] ([phone]) or report to the closest Emergency Room. Call 911 if necessary. 01/31/23616 <Electronically signed by Zeferino Robbins DO> Cosigner Signature (if applicable): CC: No Primary Care Physician ~ Signed [facility] Work Phone: Evaluation noteNo assessment information available [facility] Work Phone: Evaluation note* Diagnosis Onset Date Resolution Status Abrasion of flank acute Falls frequently acute Lymphedema of both lower extremities acute Schizophrenia acute Chronic low back pain chroni c [facility] Work Phone: Evaluation note* Diagnosis Onset Date Resolution Status Abrasion of flank acute Cellulitis acute Falls frequently acute Lymphedema of both lower extremities acute Schizophrenia acute Chronic low back pain chroni c [facility] Work Phone: Hospital Discharge instructions Additional Instructions Thank you for trusting us with your care today! Please take antibiotics as prescribed. Please finish entire course until antibiotics are complete. Please take Tylenol (2 pills, 650 mg), ibuprofen (2 pills, 400 mg) every 6 hours as needed for pain and fever control. Please return to the emergency department if your symptoms change or worsen. Specifically develop worsening redness, he develop fever, vomiting, if you lose consciousness. If redness progresses toward your heart quickly over a matter of hours. Please follow with your primary care physician for further outpatient evaluation and management.[facility] Work Phone: Chief Complaint and Reason for Visit Chief Complaint unresponsive Chief Complaint unresponsive altloc Chief Complaint LEG SWELLING Chief Complaint LEG SWELLING CELLULITIS,FAILED OUTPATIENT ABX THERAPY, FALLS, Reason for Visit Abrasion of flank Falls frequently Lymphedema of both lower extremities Schizophrenia Chronic low back pain Chief Complaint LEG SWELLING CELLULITIS,FAILED OUTPATIENT ABX THERAPY, FALLS, CELLULITIS,FAILED OUTPATIENT ABX THERAPY, FALLS, CELLULITIS,FAILED OUTPATIENT ABX THERAPY, FALLS, CELLULITIS,FAILED OUTPATIENT ABX THERAPY, FALLS, Reason for Visit Abrasion of flank Cellulitis Falls frequently Lymphedema of both lower extremities Schizophrenia Chronic low back pain Advance Directives No Advanced Directives Records Found Advance Directive Response Recorded Date/ Time Living Will No January 30, 2023 10:12pm Power of Scow Hand No January 30 10:12pm Advance Directive Response Recorded Date/ Time Living Will No February 23, 2023 1:24pm Power of Scow Hand No February 23 1:24pm Advance Directive Response Recorded Date/ Time Living Will No December 13 1:40pm Power of Scow Hand No December 13, 2023 1:40pm Advance Directive Response Recorded Date/ Time Living Will No December 16 7:33pm Power of Scow Hand No December 16, 2023 7:33pm Advance Directive Response Recorded Date/ Time Living Will No December 16 9:47pm Power of Scow Hand No December 16, 2023 9:47pm Family History No Family History Records Found Relationship Condition Age at Onset Recorded Date/T bryan mother Anxiety and depression Unknown Hypertension Unknown father Esophageal dysmotility Unknown grandfather Cardiac disease Unknown Myocardial infarction Unknown Coronary artery disease Unknown Summary Purpose Additional Source Comments Care Teams (unrecognized sec tion and content) Team Status: Active Member Role Status Dates No Primary Care Physician Primary Care Provider Active Team Status: Active Member Role Status Dates No Primary Care Physician Primary Care Provider Active Dr. Everton Shin DO Emergency Provider Active Dr. Clarissa Garg MD Admit Provider, Other Provider Active Dr. Miah Underwood DO Attending Provider, Other Pro vider Active Team Status: Inactive Member Role Status Dates No Primary Care Physician Primary Care Provider Active Dr. Dejon Dowling DO Attending Provide r, Referring Provider, Emergency Provider Active Team Status: Inactive Member Role Status Dates No Primary Care Physician Primary Care Provider Active Dr. Everton Shin DO Emergency Provider Active Dr. Clarissa Garg MD Admit Provider, Other Provider Active Dr. Miah Underwood DO Attending Provider Active Team Status: Inactive Member Role Status Dates Dr. Zeferino Robbins DO Emergency Provider Active No Primary Care Physician Primary Care Provider Active Team Status: Inactive Member Role Status Dates Dr. Zeferino Robbins DO Attending Provider, Emergency Pr ovider Active No Primary Care Physician Primary Care Provider Active Team Status: Inactive Member Role Status Dates No Primary Care Physician Primary Care Provider Active Dr. Salome Newell DO Emergency Provider Active Team Status: Inactive Member Role Status Dates No Primary Care Physician Primary Care Provider Active Dr. Dejon Dowling DO Referring Provider, Emergency P rovider Active Team Status: Active Member Role Status Dates No Primary Care Physician Primary Care Provider Active Dr. Everton Shin DO Emergency Provider Active Dr. Clarissa Garg MD Admit Provider, Attending Prov ider Active Goals (unrecognized section and content) Goals may be documented in a n alternate sectionGoals may be documented in an alternate sectionGoals may be documented in an alternate sectionGoals may be documented in an alternate sectionGoals may be documented in an alternate section (unrecognized sect ion and content) No Status Records Found INFORMATION SOURCE (unrecogn ized section and content) DATE CREATED AUTHOR 01/24/2025 [facility] FOR RECORDS PERTAINING TO PATIENTS WHO ARE OR HAVE BEEN ENROLLED IN A CHEMICAL DEPENDENCY/SUBSTANCEABUSE PROGRAM, SOME INFORMATION MAY BE OMITTED. This clinical summary was aggregated from multiple sources. Caution should be exercised in using it in the provision of clinical care. This summary normalizes information from multiple sources, and as a consequence, information in this document may materially change the coding, format and clinical context of patient data. In addition, data may be omitted in some cases. CLINICAL DECISIONS SHOULD BE BASED ON THE PRIMARY CLINICAL RECORDS. [facility]. provides no warranty or guarantee of the accuracy or completeness of information in this document.
[2025-05-03 15:33] VITALS: BP 114/71; PULSE 64; RESP 13; O2SAT 98
--- NOTE | 2025-05-03 15:44 | EDS_ITS ---
HPI History of Present Illness Chief Complaint: Chest Pain Informant: patient Onset/Context/Timing Onset: Today Activity at onset: sudden Timing: Intermittent Location: Substernal and - (Right arm) Worsened By: Nothing Relieved By: Nothing Associated Symptoms: Positive for Cough, Lightheadedness, Acid Reflux and Palpitations; Negative for Nausea, Vomiting, Diaphoresis, Dyspnea or Fever Narrative Narrative: Patient presents with chest pain that began today. Patient states that has been intermittent. Patient states he is had 2 episodes of this today. Patient states it is mainly over the substernal area. Patient dates that radiated into his right arm. Patient describes the pain as dull. Patient states nothing makes it better and nothing makes it worse. Patient admits to some lightheadedness and palpitations with it. Patient also admits to some reflux symptoms. Patient also admits to a cough. Patient denies any shortness of breath. Patient denies any nausea or vomiting. CVD Risk Factors: Negative for Hypertension, Diabetes, Hypercholesterolemia, Family History 1' </=55 or Smoking PE Risk Factors: Negative for Recent Travel/Surgery, Recent Immobilization, Prior DVT or PE or Cancer [facility] Medical History Schizoaffective disorder Anxiety and depression Obesity Lymphedema of both lower extremities Chronic low back pain Abrasion of flank Home Medications ?Medication ?Instructions ?Recorded ?Last Taken ?Type benztropine 0.5 mg tablet 0.5 mg PO BID 02/23/2305/03 History haloperidol decanoate 100 mg/mL mg IM QMONTH 12/16/23 04/30/25 History intramuscular solution melatonin 3 mg tablet 3 mg PO QHS 12/16/23 5 History magnesium hydroxide 400 mg/5 mL 30 ml PO BID PRN const ipation 05/06/24 Unknown History oral suspension (Milk of Magnesia) acetaminophen 500 mg tablet 1,000 mg PO Q6H PRN fever or pain 05/03/25 04/30/25 History baclofen 10 mg tablet 10 mg PO TID PRN muscle spas m 05/03/25 Unknown History Allergy/AdvReac Type Severity Reaction Status Date / Time No Known Allergies Allergy Verified 05/03/25 14:45 Family History Mother Anxiety and depression Hypertension Father Esophageal dysfunction Grandfather Heart disease Paternal GF. Myocardial infarction Paternal GF. CAD (coronary artery disease) Paternal GF. Surgical History History of elbow surgery Social History household members: other details: Lives with his sister. Smoking Status: Never smoker alcohol intake: never substance use type: does not use ROS ROS ED Constitutional Constitutional ED: Denies chills or fever(s) Eyes Eyes: Denies blurry vision or change in vision ENT ENT ED: Denies rhinorrhea or sore throat Cardiovascular Cardiovascular: Reports chest pain and palpitations Respiratory/Chest Respiratory/Chest: Reports cough; Denies dyspnea Gastrointestinal Gastrointestinal: Denies nausea or vomiting Genitourinary Genitourinary ED: Denies dysuria or hematuria Musculoskeletal Musculoskeletal: Denies back pain or neck pain Integumentary Denies abscess or rash Neurologic Neurologic: Denies headache(s) or weakness Allergic/Immunologic Allergic/Immunologic ED: Denies mouth swelling or urticaria EXAM Physical Exam Const Vital Signs: 05/03/25 14:38 05/03/25 14:47 05/03/25 15:33 Temperature 98.2 F Temperature Source Oral Pulse Rate 62 64 Respiratory Rate 12 13 Respiratory Effort Normal Non-Labored Blood Pressure 116/64 114/71 Blood Pressure Mean 81 85 Pulse Ox 99 98 Oxygen Delivery Method Room Air Room Air 05/03/25 15:59 05/03/25 16:12 05/03/25 16:59 Temperature Temperature Source Pulse Rate 65 65 Respiratory Rate 16 15 Respiratory Effort Blood Pressure 112/71 110/67 Blood Pressure Mean 84 81 Pulse Ox 99 97 Oxygen Delivery Method Room Air Room Air Room Air 05/03/25 18:00 Temperature Temperature Source Pulse Rate 77 Respiratory Rate 19 H Respiratory Effort Blood Pressure 105/68 Blood Pressure Mean 80 Pulse Ox 95 Oxygen Delivery Method Room Air Positive well nourished and well developed General Appearance ED: well developed and NAD HEENT Reports moist mucous membranes Neck supple and no JVD Resp normal respiratory effort and clear to auscultation bilaterally Cardio regular rate and regular rhythm GI soft to palpation, non-tender and non-distended Extremity normal to inspection General Extremety ED: Negative for edema or tenderness General Extremity: Negative for edema Neuro oriented x3, CN's II-XII intact bilaterally and no sensory deficits noted Sensorium / Orientation: awake and alert Psych mental status grossly normal Heart Score History: Slightly/Non-Suspicious ECG: Normal Age: >45 - <65 years Risk Factors: No Risk Factors Troponin: </= Normal Limit Score: 1 MDM MDM MDM Narrative Medical decision making narrative: Differential diagnosis includes cardiac dysrhythmia, cardiac ischemia, pneumonia, bronchitis, electrolyte abnormality, gastroesophageal reflux disease, and anxiety. EKG will be obtained to assess for cardiac dysrhythmia or cardiac ischemia. Chest x-ray will be obtained to assess for pneumonia and bronchitis. CBC will be obtained to assess for leukocytosis and anemia. Basic metabolic profile will be obtained to assess for electrolyte abnormality and renal function. High-sensitivity troponin will be obtained to assess for cardiac ischemia. 2-hour repeat high-sensitivity troponin will be obtained to assess for ongoing cardiac ischemia. History & Record Review Additional record(s) reviewed:: Prior ED visit and Prior labs Lab Data Attestation: I reviewed the patient's lab results. Lab results narrative: CBC was reviewed and showed a mild anemia with a hemoglobin of 11.5 and hematocrit 35.6. Basic metabolic profile was reviewed and was within normal limits. Initial high-sensitivity troponin was reviewed and was normal at 8. 2- hour repeat high-sensitivity troponin was reviewed and was normal at 10. Labs: Laboratory Results - last 24 hr 05/03/25 05/03/25 16:12 18:05 WBC 7.5 RBC 4.04 L Hgb 11.5 L Hct 35.6 L MCV 88.1 MCH 28.5 MCHC 32.3 RDW Std Deviation 47.6 H RDW Coeff of Antony 14.6 Plt Count 128 L MPV 11.1 Immature Gran % (Auto) 0.400 Neut % (Auto) 73.9 H Lymph % (Auto) 18.0 L Stokes % (Auto) 6.4 Eos % (Auto) 1.2 Baso % (Auto) 0.1 Absolute Neuts (auto) 5.6 Absolute Lymphs (auto) 1.35 Nucleated RBC % 0 Sodium 141 Potassium 4.4 Chloride 110 H Carbon Dioxide 21.3 Anion Gap 10 BUN 13 Creatinine 0.94 Estim Creat Clear Calc 90.66 Est GFR (MDRD) Non-Af 93 BUN/Creatinine Ratio 13.8 Glucose 85 Calcium 7.9 Troponin T High Sens 8 Troponin T Hi Sens 2 Hr 10 Radiography Chest X-Ray - ED: 1 View, Read by ED Physician, Read by Radiologist and No Acute Disease Diagnostic Testing: Clinical Impression(s) from Imaging Studies Chest X-Ray 05/03/25 16:16 IMPRESSION: No focal consolidations. Mild pulmonary vascular congestion. Reading Location: [facility] Portable 1 view chest x-ray was obtained. On my independent interpretation, l ngozi powell are clear. There is normal cardiac silhouette. Bony thorax is normal. There is no acute process noted. Radiologist also interpreted the x- ray and agrees. EKG Initial EKG: Attestation: I personally reviewed and interpreted this EKG as follows: Interpretation: Sinus Rhythm (61) and No Acute Injury Pattern Comments: EKG was obtained. On my independent interpretation, it showed a normal sinus rhythm with a rate of 61. OH interval, QRS interval, and QTc intervals were all normal. [place] was normal. There are no acute ST or T wave changes. Prior EKG tracings: available for review Prior: Unchanged (06/27/2024) Treatment and Re-Evaluation :: Patient was given aspirin here. Patient was advised of his findings. Patient has a HEART score of 1. Patient was advised that this is low risk for acute cardiac event. Patient was instructed to follow-up with his primary care surjit haji in 5 to 7 days for further evaluation. Patient understood and was agreeable with the plan. All questions were answered. Discharge Plan Triage Chief Complaint: Chest Pain ED Provider: Benjamin Aguilera Dx/Rx/DC Orders Clinical Impression: Chest pain, Schizophrenia Instructions: ED Chest Pain, Uncertain Cause Prescriptions: No Action magnesium hydroxide [Milk of Magnesia] 400 mg/5 mL suspension 30 ml PO BID PRN (Reason: constipation) benztropine 0.5 mg tablet 0.5 mg PO BID Patient Comments: TAKE 1 TABLET BY MOUTH TWICE DAILY haloperidol decanoate 100 mg/mL solution IM QMONTH melatonin 3 mg tablet 3 mg PO QHS baclofen 10 mg tablet 10 mg PO TID PRN (Reason: muscle spasm) acetaminophen 500 mg tablet 1,000 mg PO Q6H PRN (Reason: fever or pain) Primary Care Provider: Orquidea,Chalon Referrals: Conner Heard MD [Primary Care Provider] - 3-5 Days Print Language: Slovak Disposition Disposition: Home, Self Care
[2025-05-03 15:59] VITALS: BP 112/71; PULSE 65; RESP 16; O2SAT 99
--- NOTE | 2025-05-03 16:01 | EKG12_ITS ---
Test Reason : CP Blood Pressure : */* mmHG Vent. Rate : 61 BPM Atrial Rate : 61 BPM P-R Int : 140 ms QRS Dur : 80 ms QT Int : 400 ms P-R-T Axes : 10 35 29 degrees QTcB Int : 402 ms Normal sinus rhythm Normal ECG Confirmed by KASSANDRA HANSEN, LUCÍA ([id number]), restaurant expeditor AZRA MOSER ([id number]) on 05/05/2025 6:43:12 AM Referred By: WESTON Confirmed By: LUCÍA CANNON MD
[2025-05-03] MEDS: Aspirin 81 MG TAB.CHEW 324 MG PO (16:10)
--- NOTE | 2025-05-03 16:16 | RAD_ITS ---
PROCEDURE: CHEST 1 VIEW (PORTABLE) 05/03/2025 REASON FOR EXAM: CHEST PAIN TECHNIQUE: Frontal view of the chest. COMPARISON: 01/08/2025 FINDINGS: No focal consolidations. Mild pulmonary vascular congestion. Cardiac silhouette is unchanged. No pleural effusion or pneumothorax. RAD/Chest 1 View (Portable) IMPRESSION: No focal consolidations. Mild pulmonary vascular congestion. Reading Location: [id number]
[2025-05-03 16:20] LABS: Absolute Lymphocyte Count 1.35 X10^3/uL (0.83-4.51); Absolute Neutrophil Count 5.6 X10^3/uL (2.0-7.7); Basophil# 0.01 X10^3/uL; Basophil% 0.1 % (0-1); Eosinophil# 0.09 X10^3/uL; Eosinophils% 1.2 % (0-5); Hematocrit 35.6 % (40-54); Hemoglobin 11.5 g/dL (13.0-16.5); Lymphocyte # 1.35 X10^3/ul (0.83-4.51); Mean Corp Hgb Conc 32.3 g/dL (32-36); Mean Corpuscular Hgb 28.5 pg (27.0-32.0); Mean Corpuscular Volume 88.1 fL (80-94); Mean Platelet Vol. 11.1 fl (6.2-12.0); Monocyte# 0.48 X10^3/uL; Monocyte% 6.4 % (0-10); NRBC Flagged by Analyzer 0 % (0-5); Neutrophil # 5.56 X10^3/uL (2.7-7.7); Neutrophil % 73.9 % (47-70); Platelet Count 128 K/mm3 (150-450); RBC Distribution Width CV 14.6 % (11.6-14.6); RBC Distribution Width SD 47.6 fl (35.1-43.9); Red Blood Count 4.04 M/mm3 (4.6-6.2); White Blood Count 7.5 K/mm3 (4.4-11.0)
[2025-05-03 16:46] LABS: Anion Gap 10 (5-15); BUN 13 mg/dL (4-19); BUN/Creat Ratio 13.8 RATIO (10-20); Calcium,Total 7.9 mg/dL (7.6-11.0); Carbon Dioxide 21.3 mmol/L (21.0-32.0); Chloride 110 mmol/L (98-108); Creatinine, Serum 0.94 mg/dL (0.70-1.20); EST Glomerular Filtration Rate 93 (>60); Estimated Creatinine Clearance 90.66 ml/min (50-250); Glucose 85 mg/dL (70-99); Potassium 4.4 mmol/L (3.3-5.1); Sodium Level 141 mmol/L (133-145); Troponin T High Sensitivity 8 ng/L (<=22)
[2025-05-03 16:59] VITALS: BP 110/67; PULSE 65; RESP 15; O2SAT 97
[2025-05-03 18:00] VITALS: BP 105/68; PULSE 77; RESP 19; O2SAT 95
[2025-05-03 18:26] LABS: Troponin T High Sens 2 HR 10 ng/L (<=22)
[2025-05-03 18:41] VITALS: BP 102/66; PULSE 71; RESP 19; TEMP 36.6; O2SAT 97
== END 2025-05-03 18:55 | disposition home or self-care (01) ==
PROVIDERS: Emergency Provider Emergency Medicine; PCP Family Medicine; Visit Provider Emergency Medicine
DX: R07.9 Chest pain, unspecified (principal); F25.1 Schizoaffective disorder, depressive type; Z79.899 Other long term (current) drug therapy
CPT/HCPCS: 71045; 80048; 84484; 85025; 93005; 99285; A4216

== ENCOUNTER → 2025-05-27 | Outpatient (CLI) | payer MEDICAID, SELFPAY ==
[2025-05-27 13:24] LABS: AST(SGOT) 19 U/L (<=37); Alanine Aminotransfer ALT/SGPT 14 U/L (<=46); Albumin, Serum 4.0 g/dL (3.4-4.8); Alkaline Phosphatase 37 U/L (40-129); Anion Gap 13 (5-15); BUN 19 mg/dL (4-19); BUN/Creat Ratio 16.6 RATIO (10-20); Bilirubin, Direct 0.15 mg/dL (0.00-0.30); Calcium,Total 9.3 mg/dL (7.6-11.0); Carbon Dioxide 21.6 mmol/L (21.0-32.0); Chloride 107 mmol/L (98-108); Cholesterol 167 mg/dL (<=200); Globulin 3.3 g/dL (2.2-4.2); Glucose 105 mg/dL (70-99); Low Density Lipoprotein Calc. 112 mg/dL; Potassium 4.0 mmol/L (3.3-5.1); Triglycerides 126 mg/dL; Very Low Density Lipoprotein 25 mg/dL (5-40); cholesterol:hdl ratio screen 5.51
[2025-05-27 15:16] LABS: Amylase 70 U/L (28-100); Lipase 20 U/L (13-75)
== END | disposition home or self-care (01) ==
LOC: BIMLAB 09:29
PROVIDERS: PCP Family Medicine
DX: K21.9 Gastro-esophageal reflux disease without esophagitis (principal)
CPT/HCPCS: 36415; 80048; 80061; 80076; 82150; 83036; 83690

== ENCOUNTER 2025-08-12 07:43 | Observation (INO) | payer MEDICAID, SELFPAY ==
[2025-08-12] VITALS (7 sets, daily range): BP systolic 117–150; BP diastolic 68–86; PULSE 64–120; RESP 14–18; TEMP 36.7–37.6; O2SAT 94–98; BMI 35.9; BMI 34.5
--- NOTE | 2025-08-12 08:35 | EDS_ITS ---
HPI History of Present Illness HPI Narrative: Patient presents with left knee pain that began after a fall. Patient states that his legs have been getting more swollen. Patient was recently started on a diuretic to help with the swelling. Patient states that his balance feels off which he believes is due to the leg swelling. Patient states that when he fell today, he landed on his left knee. Patient describes the pain as stabbing. Patient states nothing makes it worse and nothing makes it better. Patient admits to some tingling into his lower extremities bilaterally. Patient denies any weakness. Chief Complaint: Fall Informant: patient and family Occured/Mechanism Mechanism/Context: Yes fall Onset/Context/Timing Onset: Today Context: Sudden Onset Timing: Continuous Quality of Pain: Stabbing Location: Left knee Worsened by: Nothing Relieved by: Nothing Associated Symptoms Associated Symptoms: Positive for Parasthesia; Negative for Weakness or Loss of Funtion [facility] Medical History (Updated 08/12/25 @ 13:[address] Benjamin Aguilera DO) Patellar tendon rupture Schizoaffective disorder Anxiety and depression Obesity Lymphedema of both lower extremities Chronic low back pain Abrasion of flank Home Medications ?Medication ?Instructions ?Recorded ?Last Taken ?Type benztropine 0.5 mg tablet 0.5 mg PO BID 02/23/2305/03 History haloperidol decanoate 100 mg/mL mg IM QMONTH 12/16/23 04/30/25 History intramuscular solution melatonin 3 mg tablet 3 mg PO QHS 12/16/2305/02/ 5 History magnesium hydroxide 400 mg/5 mL 30 ml PO BID PRN const ipation 05/06/24 Unknown History oral suspension (Milk of Magnesia) acetaminophen 500 mg tablet 1,000 mg PO Q6H PRN fever or pain 05/03/25 04/30/25 History baclofen 10 mg tablet 10 mg PO TID PRN muscle spas m 05/03/25 Unknown History Allergy/AdvReac Type Severity Reaction Status Date / Time No Known Allergies Allergy Verified 08/12/25 07:45 Family History Mother Anxiety and depression Hypertension Father Esophageal dysfunction Grandfather Heart disease Paternal GF. Myocardial infarction Paternal GF. CAD (coronary artery disease) Paternal GF. Surgical History History of elbow surgery Social History household members: other details: Lives with his sister. Smoking Status: Never smoker alcohol intake: never substance use type: does not use ROS ROS ED Constitutional Constitutional ED: Reports fever(s) and subjective; Denies chills Eyes Eyes: Denies blurry vision or change in vision ENT ENT ED: Denies rhinorrhea or sore throat Cardiovascular Cardiovascular: Denies chest pain or palpitations Respiratory/Chest Respiratory/Chest: Denies cough or dyspnea Gastrointestinal Gastrointestinal: Reports nausea; Denies vomiting Genitourinary Genitourinary ED: Denies dysuria or hematuria Musculoskeletal Musculoskeletal: Denies back pain or neck pain Integumentary Denies abscess or rash Neurologic Neurologic: Denies headache(s) or weakness Allergic/Immunologic Allergic/Immunologic ED: Denies mouth swelling or urticaria EXAM Physical Exam Const Vital Signs: 08/12/25 07:44 08/12/25 07:45 08/12/25 09:44 Temperature 98.0 F Temperature Source Oral Pulse Rate 103 H 64 Respiratory Rate 18 18 Respiratory Effort Normal Respiratory Depth Normal Respiratory Pattern Normal Blood Pressure 150/80 H 134/78 H Blood Pressure Mean 103 96 Pulse Ox 97 98 Oxygen Delivery Method Room Air Room Air Room Air 08/12/25 11:00 08/12/25 13:06 Temperature 98.4 F 98.1 F Temperature Source Oral Oral Pulse Rate 78 100 Respiratory Rate 16 14 Respiratory Effort Respiratory Depth Respiratory Pattern Blood Pressure 148/79 H 117/68 Blood Pressure Mean 102 84 Pulse Ox 98 96 Oxygen Delivery Method Room Air Room Air Positive well nourished and well developed General Appearance ED: well developed and NAD HEENT Reports moist mucous membranes normocephalic and atraumatic Resp normal respiratory effort and clear to auscultation bilaterally Cardio regular rate and regular rhythm GI non-tender and non-distended Palpation: soft Extremity Extremity Narrative: There is diffuse tenderness of the left knee. There is no effusion noted. Range of motion was limited in all motions of the left knee secondary to pain. Patient was unable to extend his knee and keep his lower leg elevated off the bed. Strength is 5/5 bilaterally in the lower extremities except for extension of the left knee. There are no sensory deficits noted. There is 2+ edema of the lower extremities bilaterally. There is no ecchymosis noted. There is no deformity noted. General Extremety ED: Yes weight-bearing difficulty General Extremity: weight-bearing difficulty Neuro oriented x3, CN's II-XII intact bilaterally, moves all extremities and no sensory deficits noted Sensorium / Orientation: alert Motor Exam: strength 5/5 throughout Psych mental status grossly normal MDM MDM MDM Narrative Medical decision making narrative: Differential diagnosis includes electrolyte abnormality, knee fracture, contusion, sprain, peripheral edema, and electrolyte abnormality. CBC will be obtained to assess for leukocytosis and anemia. Basic metabolic profile will be obtained to assess for electrolyte abnormality and renal function. Urinalysis will be obtained to assess for urinary tract infection and hematuria. X-rays of the left knee will be obtained to assess for fracture and loose body. Lab Data Attestation: I reviewed the patient's lab results. Lab results narrative: CBC was reviewed. There is a slight leukocytosis of 11.4. There is a mild anemia with a hemoglobin of 12.1 and hematocrit 37.5. Platelets were normal. Comprehensive metabolic profile was reviewed and was essentially within normal limits. Urinalysis was reviewed. Leukocyte esterase was 100. There are 5-10 white blood cells. There is 1+ bacteria. Labs: Laboratory Results - last 24 hr 08/12/25 08/12/25 08:50 10:45 WBC 11.4 H RBC 4.34 L Hgb 12.1 L Hct 37.5 L MCV 86.4 MCH 27.9 MCHC 32.3 RDW Std Deviation 47.0 H RDW Coeff of Antony 14.8 H Plt Count 157 MPV 11.5 Immature Gran % (Auto) 0.400 Neut % (Auto) 88.1 H Lymph % (Auto) 5.8 L Harney % (Auto) 5.0 Eos % (Auto) 0.4 Baso % (Auto) 0.3 Absolute Neuts (auto) 10.0 H Absolute Lymphs (auto) 0.66 L Nucleated RBC % 0 Sodium 140 Potassium 3.7 Chloride 103 Carbon Dioxide 25.2 Anion Gap 12 BUN 16 Creatinine 1.13 Estim Creat Clear Calc 79.90 Est GFR (MDRD) Non-Af 74 BUN/Creatinine Ratio 14.3 Glucose 115 H Calcium 9.4 Total Bilirubin 0.57 AST 31 ALT 43 Alkaline Phosphatase 33 L Total Protein 7.1 Albumin 3.9 Globulin 3.2 Albumin/Globulin Ratio 1.2 Urine Color Yellow Urine Clarity Sl. Cloudy Urine pH 6.0 Ur Specific Telephone 1.020 Urine Protein 30 H Urine Glucose (UA) Normal Urine Ketones 5 H Urine Occult Blood 10 H Urine Nitrite Negative Urine Bilirubin Negative Urine Urobilinogen 4 H Ur Leukocyte Esterase 100 H Urine RBC 0-5 SEEN Urine WBC 5-10 SEEN Ur Squamous Epith Cells 0-5 SEEN Calcium Oxalate Crystal RARE Urine Bacteria 1+ Urine Mucus 1+ Radiography Diagnostic Testing: Clinical Impression(s) from Imaging Studies Knee X-Ray 08/12/25 09:08 IMPRESSION: Fracture subluxation of the patella as described. Small joint effusion and diffuse soft tissue swelling. Reading Location: [facility] X-rays of the left knee were obtained. There are 6 views. On my independent interpretation, there is a transverse fracture of the inferior pole of the patella. There is proximal migration of the superior patella. There are no other acute fractures noted. Radiologist also interpreted the x-rays and agrees. Treatment and Re-Evaluation Narrative: Patient took 2 Tylenol tablets that he brought from home. Patient states his pain started to come back. Patient was given a dose of morphine here. Case was discussed with Dr. Blankenship from orthopedics. He will see the patient in consultation. Case was discussed with the hospitalist for admission due to his inability to ambulate. She will admit the patient to her service. Patient and family understood and were agreeable with the plan. All questions were answered. Discharge Plan Dx/Rx/DC Orders Clinical Impression: Left patella fracture, Quadriceps tendon rupture, Inability to ambulate due to left knee Disposition Disposition: Acute Care Hospital [facility]
--- NOTE | 2025-08-12 09:08 | RAD_ITS ---
PROCEDURE: KNEE 3 VIEWS 08/12/2025 REASON FOR EXAM: INJURY/PAIN TECHNIQUE: Procedure Code: RADPAT Modality: DX Procedure: KNEE 3 VIEWS Laterality: Left knee COMPARISON: None FINDINGS: Bones: Avulsion fracture of the inferior portion of the patella. Joints: Joint space narrowing along the medial compartment of the knee joint. Superior dislocation of the patella. Possible injury to the quadriceps muscle. Effusion: Joint effusion. Soft tissues: Soft tissue swelling. Other: RAD/Knee 3 Views IMPRESSION: Fracture subluxation of the patella as described. Small joint effusion and diffuse soft tissue swelling. Reading Location: [place] [id number]
[2025-08-12 09:34] LABS: AST(SGOT) 31 U/L (<=37); Alanine Aminotransfer ALT/SGPT 43 U/L (<=46); Albumin, Serum 3.9 g/dL (3.4-4.8); Alkaline Phosphatase 33 U/L (40-129); Anion Gap 12 (5-15); BUN 16 mg/dL (4-19); BUN/Creat Ratio 14.3 RATIO (10-20); Calcium,Total 9.4 mg/dL (7.6-11.0); Carbon Dioxide 25.2 mmol/L (21.0-32.0); Chloride 103 mmol/L (98-108); Estimated Creatinine Clearance 79.90 ml/min (50-250); Globulin 3.2 g/dL (2.2-4.2); Glucose 115 mg/dL (70-99); Potassium 3.7 mmol/L (3.3-5.1)
[2025-08-12 09:54] LABS: Hematocrit 37.5 % (40-54); Hemoglobin 12.1 g/dL (13.0-16.5); Immature Granulocytes Count 0.040 X10^3/uL (0.0-0.0); Mean Corp Hgb Conc 32.3 g/dL (32-36); Mean Corpuscular Volume 86.4 fL (80-94); Mean Platelet Vol. 11.5 fl (6.2-12.0); NRBC Flagged by Analyzer 0 % (0-5); Platelet Count 157 K/mm3 (150-450); RBC Distribution Width CV 14.8 % (11.6-14.6); RBC Distribution Width SD 47.0 fl (35.1-43.9); Red Blood Count 4.34 M/mm3 (4.6-6.2); White Blood Count 11.4 K/mm3 (4.4-11.0)
[2025-08-12 11:07] LABS: Color, Urine Yellow (Yellow); Glucose, Dipstick Normal (Normal); Ketone-Dipstick 5 mg/dl (Negative); Leukocyte Esterase-Dipstick 100 /ul (Negative); Nitrite-Dipstick Negative (Negative); Occult Blood-Urine 10 /ul (Negative); Protein-Dipstick 30 mg/dl (Negative); Specific Gravity, Urine 1.020 (1.002-1.030); Urine Bilirubin Dipstick Negative (Negative)
[2025-08-12 11:17] LABS: Mucous, Urine 1+ /hpf (<or=2+)
[2025-08-12 11:18] LABS: Red Blood Cells-Urine 0-5 SEEN /hpf (0-5); Squamous Epithelial Cells - UA 0-5 SEEN /hpf (0-5)
[2025-08-12 11:19] LABS: Calcium Oxalate Crystals Ur RARE /hpf (<or=2+)
--- NOTE | 2025-08-12 13:29 | CONS.ORTHO ---
HPI Consult Data Date of Consult: 08/12/25 HPI Narrative HPI Narrative: MIAH ZAVALA, is a 59 M who presents with a patellar tendon tear. Fell. hx of schizophrenia. closed per ED doc. Can't ambulate, so getting admitted to hospitalist. [facility] Medical History (Updated 08/12/25 @ 13:31 by Emiliano Blankenship MD) Patellar tendon rupture Schizoaffective disorder Anxiety and depression Obesity Lymphedema of both lower extremities Chronic low back pain Abrasion of flank Home Medications ?Medication ?Instructions ?Recorded ?Last Taken ?Type benztropine 0.5 mg tablet 0.5 mg PO BID 02/23/23 05/03/25 History haloperidol decanoate 100 mg/mL mg IM QMONTH 12/16/23 04/30/25 History intramuscular solution melatonin 3 mg tablet 3 mg PO QHS 12/16/23 05/02/25 History magnesium hydroxide 400 mg/5 mL 30 ml PO BID PRN constipation 05/06/24 Unknown History oral suspension (Milk of Magnesia) acetaminophen 500 mg tablet 1,000 mg PO Q6H PRN fever or pain 05/03/25 04/30/25 History baclofen 10 mg tablet 10 mg PO TID PRN muscle spasm 05/03/25 Unknown History Allergy/AdvReac Type Severity Reaction Status Date / Time No Known Allergies Allergy Verified 08/12/25 07:45 Family History Mother Anxiety and depression Hypertension Father Esophageal dysfunction Grandfather Heart disease Paternal GF. Myocardial infarction Paternal GF. CAD (coronary artery disease) Paternal GF. Surgical History History of elbow surgery Social History household members: other details: Lives with his sister. Smoking Status: Never smoker alcohol intake: never substance use type: does not use Vital Signs Vital Signs Vital Signs: 08/12/25 07:44 08/12/25 07:45 08/12/25 09:44 Temperature 98.0 F Temperature Source Oral Pulse Rate 103 H 64 Respiratory Rate 18 18 Respiratory Effort Normal Respiratory Depth Normal Respiratory Pattern Normal Blood Pressure 150/80 H 134/78 H Blood Pressure Mean 103 96 Pulse Ox 97 98 Oxygen Delivery Method Room Air Room Air Room Air 08/12/25 11:00 08/12/25 13:06 Temperature 98.4 F 98.1 F Temperature Source Oral Oral Pulse Rate 78 100 Respiratory Rate 16 14 Respiratory Effort Respiratory Depth Respiratory Pattern Blood Pressure 148/79 H 117/68 Blood Pressure Mean 102 84 Pulse Ox 98 96 Oxygen Delivery Method Room Air Room Air Weight Weight: 229 lb 4.492 oz Body Mass Index (BMI) 35.9 Lab / Micro Data 08/12/25 08:50 08/12/25 08:50 Labs: Laboratory Results - last 24 hr 08/12/25 08:50: WBC 11.4 H, RBC 4.34 L, Hgb 12.1 L, Hct 37.5 L, MCV 86.4, MCH 27.9, MCHC 32.3, RDW Std Deviation 47.0 H, RDW Coeff of Antony 14.8 H, Plt Count 157, MPV 11.5, Immature Gran % (Auto) 0.400, Neut % (Auto) 88.1 H, Lymph % (Auto) 5.8 L, Levy % (Auto) 5.0, Eos % (Auto) 0.4, Baso % (Auto) 0.3, Absolute Neuts (auto) 10.0 H, Absolute Lymphs (auto) 0.66 L, Nucleated RBC % 0, Sodium 140, Potassium 3.7, Chloride 103, Carbon Dioxide 25.2, Anion Gap 12, BUN 16, Creatinine 1.13, Estim Creat Clear Calc 79.90, Est GFR (MDRD) Non-Af 74, BUN/Creatinine Ratio 14.3, Glucose 115 H, Calcium 9.4, Total Bilirubin 0.57, AST 31, ALT 43, Alkaline Phosphatase 33 L, Total Protein 7.1, Albumin 3.9, Globulin 3.2, Albumin/Globulin Ratio 1.2 08/12/25 10:45: Urine Color Yellow, Urine Clarity Sl. Cloudy, Urine pH 6.0, Ur Specific [place] 1.020, Urine Protein 30 H, Urine Glucose (UA) Normal, Urine Ketones 5 H, Urine Occult Blood 10 H, Urine Nitrite Negative, Urine Bilirubin Negative, Urine Urobilinogen 4 H, Ur Leukocyte Esterase 100 H, Urine RBC 0-5 SEEN, Urine WBC 5-10 SEEN, Ur Squamous Epith Cells 0-5 SEEN, Calcium Oxalate Crystal RARE, Urine Bacteria 1+, Urine Mucus 1+ Imaging Radiology Impression Knee X-Ray 08/12/25 09:08 IMPRESSION: Fracture subluxation of the patella as described. Small joint effusion and diffuse soft tissue swelling. Reading Location: [facility] Assessment & Plan Assessment/Plan (1) Patellar tendon rupture: PLAN: 59 yr M with patellar tendon tear. Recommend knee immobilized, WBAT. Will need to be fixed, but no urgency. Should learn how to ambulate with leg straight before surgery given some cognitive issues. ALONDRA for now.
--- NOTE | 2025-08-12 14:33 | PN.ORTHO_ITS ---
Subjective Subjective Fell. Minimally communicative. Follows directions. Here with his sisters x2. They take care of him, but expressing concerns over cannot accommodate him back home, and has been having more falls. Objective Data Objective Data Vital Signs: Vital Signs Temp Pulse Resp BP Pulse Ox O2 Del Method 98.1 F 100 14 117/68 96 Room Air 08/12/25 13:06 08/12/25 13:06 08/12/25 13:06 08/12/25 13:06 08/12/25 13:06 08/12/25 13:06 Oxygen Delivery Method Room Air Weight: 229 lb 4.492 oz Body Mass Index (BMI) 35.9 Lab / Micro Data 08/12/25 08:50 08/12/25 08:50 Labs: Laboratory Results - last 24 hr 08/12/25 08:50: WBC 11.4 H, RBC 4.34 L, Hgb 12.1 L, Hct 37.5 L, MCV 86.4, MCH 27.9, MCHC 32.3, RDW Std Deviation 47.0 H, RDW Coeff of Antony 14.8 H, Plt Count 157, MPV 11.5, Immature Gran % (Auto) 0.400, Neut % (Auto) 88.1 H, Lymph % (Auto) 5.8 L, [place] % (Auto) 5.0, Eos % (Auto) 0.4, Baso % (Auto) 0.3, Absolute Neuts (auto) 10.0 H, Absolute Lymphs (auto) 0.66 L, Nucleated RBC % 0, Sodium 140, Potassium 3.7, Chloride 103, Carbon Dioxide 25.2, Anion Gap 12, BUN 16, Creatinine 1.13, Estim Creat Clear Calc 79.90, Est GFR (MDRD) Non-Af 74, BUN/Creatinine Ratio 14.3, Glucose 115 H, Calcium 9.4, Total Bilirubin 0.57, AST 31, ALT 43, Alkaline Phosphatase 33 L, Total Protein 7.1, Albumin 3.9, Globulin 3.2, Albumin/Globulin Ratio 1.2 08/12/25 10:45: Urine Color Yellow, Urine Clarity Sl. Cloudy, Urine pH 6.0, Ur Specific Elmore 1.020, Urine Protein 30 H, Urine Glucose (UA) Normal, Urine Ketones 5 H, Urine Occult Blood 10 H, Urine Nitrite Negative, Urine Bilirubin Negative, Urine Urobilinogen 4 H, Ur Leukocyte Esterase 100 H, Urine RBC 0-5 SEEN, Urine WBC 5-10 SEEN, Ur Squamous Epith Cells 0-5 SEEN, Calcium Oxalate Crystal RARE, Urine Bacteria 1+, Urine Mucus 1+ Radiography Diagnostic Testing: Radiology Impression Knee X-Ray 08/12/25 09:08 IMPRESSION: Fracture subluxation of the patella as described. Small joint effusion and diffuse soft tissue swelling. Reading Location: [id number] avulsion inferior patella, with chronic calcification in that area and ++ patella luis fernando. Physical Exam Const alert and no apparent distress Extremity Extremity Narrative: L knee closed, swelling anterior, excoriations / rash lateral knee, chronic LE edema, unable to SLR, difficult to palpate a defect, NVI, wiggles toes, foot warm Assessment & Plan Assessment/Plan (1) Patellar tendon rupture: PLAN: 59 yr M with L patella tendon tear. Admit under hospitalist, for social management / difficulty ambulating. OK to remove brace at rest. Recommend knee immobilizer to ambulate with walker. PT/OT /SW to assess. Will look for OR time to fix the patellar tendon tear. ALONDRA for now.
--- NOTE | 2025-08-12 15:45 | RAD_ITS ---
PROCEDURE: CHEST 1 VIEW (PORTABLE) 08/12/2025 REASON FOR EXAM: SOB, LEG SWELLING TECHNIQUE: Frontal view of the chest. COMPARISON: 05/03/2025 FINDINGS: Mild pulmonary vascular congestion and interstitial edema. No focal consolidation. No pleural effusion or pneumothorax. Mild cardiomegaly, stable No acute fractures. RAD/Chest 1 View (Portable) IMPRESSION: Mild pulmonary vascular congestion and interstitial edema. Mild cardiomegaly, s table No focal consolidation. Reading Location: [id number]
--- NOTE | 2025-08-12 15:45 | ECHOCS_ITS ---
Reason For Study Reason For Study: SOB Procedure This was a 2D Doppler, Color Flow transthoracic echocardiogram. The study was technically difficult. Contrast injection was performed. Exam performed portable in patient room. Left Ventricle Normal size and thickness. The left ventricular ejection fraction is 65 %. No evidence for diastolic dysfunction. Right Ventricle Right ventricle appears mildly dilated. Moderate RV systolic dysfunction. Atria The left and right atria are normal. Mitral Valve The mitral valve is structurally normal. No prolapse or stenosis seen. Tricuspid Valve The tricuspid valve is not well visualized. Aortic Valve Trisinus/trileaflet aortic valve. Pulmonic Valve The pulmonic valve is not well visualized. Great Vessels The aortic root is not well visualized. Pericardium/Pleural Prominent epicardial fat pad. Medication Diluted definity 2ml given slow IV push to enhance endocardial definition. MMode/2D Measurements & Calculations LVIDd: 4.3 cm IVSd: 0.81 cm LVPWd: 0.93 cm LVAd ap4: 27.8 cm2 LVLd ap4: 7.0 cm EDV(MOD-sp4): 90.1 ml EDV(sp4-el): 93.4 ml LVAs ap4: 14.6 cm2 LVLs ap4: 6.4 cm ESV(MOD-sp4): 28.9 ml ESV(sp4-el): 28.4 ml EF(MOD-sp4): 68.0 % EF(sp4-el): 69.5 % SV(MOD-sp4): 61.2 ml SV(sp4-el): 64.9 ml LA dimension(2D): 3.7 cm SI(MOD-sp4): 28.6 ml/m2 Time Measurements MV dec time: 0.17 sec Doppler Measurements & Calculations MV E max jimmie: 69.7 cm/sec Lat Peak E' Jimmie: 12.6 cm/sec Med Peak E' Jimmie: 8.1 cm/sec MV A max jimmie: 56.5 cm/sec E/E' lat: 5.5 E/E' med: 8.6 MV E/A: 1.2 MV V2 max: 90.7 cm/sec MV dec slope: 411.1 cm/sec2 Ao V2 max: 91.7 cm/sec MV max P.3 mmHg Ao max P.4 mmHg MV V2 mean: 62.8 cm/sec Ao V2 mean: 53.4 cm/sec MV mean P.7 mmHg Ao mean P.3 mmHg MV V2 VTI: 21.7 cm Ao V2 VTI: 11.4 cm AV (velocity ratio): 1.1 LV V1 max: 82.3 cm/sec PA V2 max: 95.8 cm/sec LV V1 max P.8 mmHg PA V2 mean: 69.6 cm/sec LV V1 mean P.5 mmHg LV V1 mean: 56.3 cm/sec LV V1 VTI: 12.1 cm ECHO/Echo Complete W/ Contrast Interpretation Summary The study was technically difficult. The left ventricular ejection fraction is 65 %. Right ventricle appears mildly dilated. Moderate RV systolic dysfunction. Recommend cardiac MRI for further evaluation of the right ventricle if clinical ly indicated. Ordering Physician: Katia Vera Referring Physician: JACKIE HERNANDEZ Performed By: Jennifer Mejia RCS
--- NOTE | 2025-08-12 15:51 | HP.PCM.HOS_ITS ---
HPI - General General Date of Admission: 08/12/25 Date of Service: 08/12/25 Chief Complaint: Left knee pain HPI Narrative MIAH ZAVALA, is a 59-year-old male with a history of schizoaffective disorder, GERD presented to [facility] ED 08/12/2025 due to left knee pain that began after a fall. Legs have been getting more swollen and he was recently started on diuretic should have the swelling and is felt off balance due to the swelling. Today he fell and landed on his left knee and felt a stabbing pain with nothing making it better nothing making it worse. In the ED patient afebrile, heart rate 103, blood pressure 150/80, respiratory rate 18 pulse ox 97% on room air. CMP with a glucose of 115, CBC with a white count of 11.4 and hemoglobin 12.1 which appears to be baseline. UA with leuk esterase, 5-10 white blood cells and 1+ bacteria. Knee x-ray with fracture subluxation of the patella and small joint effusion with diffuse soft tissue swelling. Ortho contacted in the ED and evaluated, recommended knee immobilization weightbearing as tolerated and ultimately will need surgery but no urgency for this. Recommended hospitalist admission and patient evaluated by PT and needs to learn how to ambulate with a straight leg before surgery. Hospitalist contacted for admission. Patient evaluated bedside with sisters present, patient fairly poor historian so history mostly obtained from sisters. Reportedly he has had increased leg swelling over the past few weeks as well as some shortness of breath, he saw his primary care doc and was placed on water pills on but is still had swelling and has had a couple of falls associated with this. Had the fall today onto his left knee with the pain and presented for this, reporting a lot of pain currently, patient has difficulty giving any other ROS but did agree with sisters that he has had increased shortness of breath and lower extremity swelling, no bowel or bladder complaints were reported. Of note patient was recently started on Seroquel in addition to his monthly Haldol because he has been having visual hallucinations and they have not yet noticed any difference. They have not been able to go up on the Haldol because of Parkinson's-like symptoms. [facility] Medical History Abrasion of flank Anxiety and depression Chronic low back pain Lymphedema of both lower extremities Obesity Patellar tendon rupture Schizoaffective disorder Home Medications ?Medication ?Instructions ?Recorded ?Last Taken ?Type benztropine 0.5 mg tablet 0.5 mg PO BID muscle relaxer 02/23/23 08/11/25 History haloperidol decanoate 100 mg/mL mg IM QMONTH schizophr enia 12/16/23 04/30/25 History intramuscular solution magnesium hydroxide 400 mg/5 mL 30 ml PO BID PRN const ipation 05/06/24 Unknown History oral suspension (Milk of Magnesia) acetaminophen 500 mg tablet 1,000 mg PO Q6H PRN fever or pain 05/03/25 08/12/25 History baclofen 10 mg tablet 10 mg PO TID PRN muscle spas m 05/03/25 Unknown History furosemide 20 mg tablet 20 mg PO DAILY chf 08/12/25 08/11/25 History omeprazole 40 mg capsule,delayed 40 mg PO DAILY gerd 0 08/12/25 08/11/25 History release quetiapine 50 mg tablet 50 mg PO QHS sleep 08/12/25 08/11/25 History Allergy/AdvReac Type Severity Reaction Status Date / Time No Known Allergies Allergy Verified 08/12/25 07:45 Family History Mother Anxiety and depression Hypertension Myocardial infarction Father Esophageal dysfunction Grandfather CAD (coronary artery disease) Paternal GF. Heart disease Paternal GF. Myocardial infarction Paternal GF. Surgical History History of elbow surgery Social History household members: other details: Lives with his sister. Smoking Status: Never smoker alcohol intake: never substance use type: does not use ROS ROS Narrative Patient poor historian, did report the falls that started after lower extremity started having increased swelling past couple of weeks as well as shortness of breath especially on exertion, when asked other direct questions patient would answer unrelated, does report knee hurts but unable to obtain any other pertinent ROS Vital Signs Vital Signs Vital Signs: 08/12/25 07:44 08/12/25 07:45 08/12/25 09:44 Temperature 98.0 F Temperature Source Oral Pulse Rate 103 H 64 Respiratory Rate 18 18 Respiratory Effort Normal Respiratory Depth Normal Respiratory Pattern Normal Blood Pressure 150/80 H 134/78 H Blood Pressure Mean 103 96 Pulse Ox 97 98 Oxygen Delivery Method Room Air Room Air Room Air 08/12/25 11:00 08/12/25 13:06 08/12/25 14:45 Temperature 98.4 F 98.1 F 98.1 F Temperature Source Oral Oral Pulse Rate 78 100 114 H Respiratory Rate 16 14 16 Respiratory Effort Respiratory Depth Respiratory Pattern Blood Pressure 148/79 H 117/68 144/73 H Blood Pressure Mean 102 84 96 Pulse Ox 98 96 97 Oxygen Delivery Method Room Air Room Air Weight Weight: 100 kg Body Mass Index (BMI) 34.5 Physical Exam Narrative General: Alert, poor historian, appears uncomfortable HEENT: Atraumatic, normocephalic Eyes: Anicteric, normal conjunctiva, extraocular movements grossly intact Neck: Supple Respiratory: Somewhat diminished at the bases without overt wheezes or rhonchi, normal respiratory effort Cardiovascular: Regular rate and rhythm GI: Soft, nontender, nondistended Extremities: Some 1+ bilateral lower extremity pitting edema Musculoskeletal: Moving all extremities however keeps left knee mostly flexed Neuro: No overt focal neurological deficits Skin: Some erythematous areas over swollen areas also has superficial abrasions to left lateral knee Psych: Cooperative but poor historian Results Lab / Micro Data 08/12/25 08:50 08/12/25 08:50 Labs: Laboratory Results - last 24 hr 08/12/25 08:50: WBC 11.4 H, RBC 4.34 L, Hgb 12.1 L, Hct 37.5 L, MCV 86.4, MCH 27.9, MCHC 32.3, RDW Std Deviation 47.0 H, RDW Coeff of Antony 14.8 H, Plt Count 157, MPV 11.5, Immature Gran % (Auto) 0.400, Neut % (Auto) 88.1 H, Lymph % (Auto) 5.8 L, Carbon % (Auto) 5.0, Eos % (Auto) 0.4, Baso % (Auto) 0.3, Absolute Neuts (auto) 10.0 H, Absolute Lymphs (auto) 0.66 L, Nucleated RBC % 0, Sodium 140, Potassium 3.7, Chloride 103, Carbon Dioxide 25.2, Anion Gap 12, BUN 16, Creatinine 1.13, Estim Creat Clear Calc 79.90, Est GFR (MDRD) Non-Af 74, BUN/Creatinine Ratio 14.3, Glucose 115 H, Calcium 9.4, Total Bilirubin 0.57, AST 31, ALT 43, Alkaline Phosphatase 33 L, Total Protein 7.1, Albumin 3.9, Globulin 3.2, Albumin/Globulin Ratio 1.2 08/12/25 10:45: Urine Color Yellow, Urine Clarity Sl. Cloudy, Urine pH 6.0, Ur Specific Gray 1.020, Urine Protein 30 H, Urine Glucose (UA) Normal, Urine Ketones 5 H, Urine Occult Blood 10 H, Urine Nitrite Negative, Urine Bilirubin Negative, Urine Urobilinogen 4 H, Ur Leukocyte Esterase 100 H, Urine RBC 0-5 SEEN, Urine WBC 5-10 SEEN, Ur Squamous Epith Cells 0-5 SEEN, Calcium Oxalate Crystal RARE, Urine Bacteria 1+, Urine Mucus 1+ Imaging Radiology Impression Knee X-Ray 08/12/25 09:08 IMPRESSION: Fracture subluxation of the patella as described. Small joint effusion and diffuse soft tissue swelling. Reading Location: [facility] Assessment & Plan Assessment/Plan (1) Patellar tendon rupture: PLAN: Plan # Left knee fracture subluxation of patella -After a fall -Ortho evaluated, knee immobilization while ambulating and weightbearing as tolerated with walker -Ultimately will need surgery, unclear timing at this time - Supportive care -PT/OT -Case management consults # Increased lower extremity swelling -Recently started on Lasix, still having swelling in lower extremities but was placed on 20 p.o. -Will check proBNP -Chest x-ray ordered -Check echocardiogram -IV Lasix -Daily weights, I's and O's -Will check TSH # History of schizoaffective disorder -Has been having some visual hallucinations and was recently started on Seroquel -Continue Seroquel at this time, outpatient haloperidol injections #GERD -Continue PPI #DVT ppx: Right lower extremity SCD Katia Vera MD Charges/Coding Visit Charges Inpatient E&M: 57740 Init Hosp L2
[2025-08-12] MEDS: 0.9% Saline Lock 10 ML Syringe IV ×2 (16:40→20:49)
[2025-08-12 16:50] LABS: Pro- Brain NATRIURETIC PEPTIDE 57 pg/mL (<=900)
--- NOTE | 2025-08-12 18:56 | CT_ITS ---
PROCEDURE: BRAIN/HEAD WITHOUT CONTRAST 08/12/2025 REASON FOR EXAM: PT HIT HEAD WITH FALL EARLIER TODAY TECHNIQUE: Procedure Code: CTBR Modality: CT Procedure: BRAIN/HEAD WITHOUT CONTRAST Coronal and Sagittal reconstruction series were provided. One or more dose reduction techniques were used (e.g., Automated exposure control, adjustment of the mA and/or kV according to patient size, use of iterative reconstruction technique. RADIATION DOSE SUMMARY: CTDlvol: 45 mGy DLP: 847 mGycm COMPARISON: 12/16/2023 FINDINGS: No intracranial mass or hemorrhage. No edema or hydrocephalus. Preserved okeefe- white differentiation. Normal posterior fossa. Sinuses are clear. CT/Brain/Head without Contrast IMPRESSION: No acute abnormality [facility]
[2025-08-12] MEDS: Senna/Docusate Sodium 1 Tablet 2 TABLET PO (20:51)
[2025-08-13 00:10] VITALS: BP 112/73; PULSE 103; RESP 20; TEMP 36.4; O2SAT 93
[2025-08-13 05:50] VITALS: BP 112/74; PULSE 95; RESP 18; TEMP 36.9; O2SAT 95
[2025-08-13 05:55] VITALS: BMI 34.6
[2025-08-13 07:11] LABS: Hematocrit 35.6 % (40-54); Hemoglobin 11.5 g/dL (13.0-16.5); Immature Granulocytes Count 0.030 X10^3/uL (0.0-0.0); Mean Corp Hgb Conc 32.3 g/dL (32-36); Mean Corpuscular Volume 87.5 fL (80-94); Mean Platelet Vol. 11.0 fl (6.2-12.0); NRBC Flagged by Analyzer 0 % (0-5); Platelet Count 139 K/mm3 (150-450); RBC Distribution Width CV 15.2 % (11.6-14.6); RBC Distribution Width SD 48.9 fl (35.1-43.9); Red Blood Count 4.07 M/mm3 (4.6-6.2); White Blood Count 7.3 K/mm3 (4.4-11.0)
[2025-08-13 08:10] LABS: Anion Gap 12 (5-15); BUN 16 mg/dL (4-19); BUN/Creat Ratio 13.7 RATIO (10-20); Calcium,Total 8.5 mg/dL (7.6-11.0); Carbon Dioxide 24.7 mmol/L (21.0-32.0); Chloride 105 mmol/L (98-108); Estimated Creatinine Clearance 73.76 ml/min (50-250); Glucose 113 mg/dL (70-99); Magnesium 2.1 mg/dL (1.5-2.2); Potassium 3.4 mmol/L (3.3-5.1)
--- NOTE | 2025-08-13 08:35 | PCM.PN.HOSP ---
Reason for Visit Chief Complaint: Left knee pain Subjective Subjective Doing okay. Objective Data Objective Data Vital Signs: Vital Signs Temp Pulse Resp BP Pulse Ox O2 Del Method 36.9 C 95 18 112/74 95 Room Air 08/13/25 05:50 08/13/25 05:50 08/13/25 05:50 08/13/25 05:50 08/13/25 05:50 08/13/25 05:50 Oxygen Delivery Method Room Air Weight: 100 kg Body Mass Index (BMI) 34.6 Intake & Output: Intake and Output for Last 24 Hours 08/11/25 08/12/25 08/13/25 23:59 23:59 23:59 Intake Total 550 / 550 100 / 100 Output Total 300 / 300 250 / 250 Balance 250 / 250 -150 / -150 Lab / Micro Data 08/13/25 06:50 08/13/25 06:50 Labs: Laboratory Results - last 24 hr 08/12/25 08:50: WBC 11.4 H, RBC 4.34 L, Hgb 12.1 L, Hct 37.5 L, MCV 86.4, MCH 27.9, MCHC 32.3, RDW Std Deviation 47.0 H, RDW Coeff of Antony 14.8 H, Plt Count 157, MPV 11.5, Immature Gran % (Auto) 0.400, Neut % (Auto) 88.1 H, Lymph % (Auto) 5.8 L, [place]ick[place] % (Auto) 5.0, Eos % (Auto) 0.4, Baso % (Auto) 0.3, Absolute Neuts (auto) 10.0 H, Absolute Lymphs (auto) 0.66 L, Nucleated RBC % 0, Sodium 140, Potassium 3.7, Chloride 103, Carbon Dioxide 25.2, Anion Gap 12, BUN 16, Creatinine 1.13, Estim Creat Clear Calc 79.90, Est GFR (MDRD) Non-Af 74, BUN/Creatinine Ratio 14.3, Glucose 115 H, Calcium 9.4, Total Bilirubin 0.57, AST 31, ALT 43, Alkaline Phosphatase 33 L, NT pro BNP II 57, Total Protein 7.1, Albumin 3.9, Globulin 3.2, Albumin/Globulin Ratio 1.2 08/12/25 10:45: Urine Color Yellow, Urine Clarity Sl. Cloudy, Urine pH 6.0, Ur Specific Doddridge 1.020, Urine Protein 30 H, Urine Glucose (UA) Normal, Urine Ketones 5 H, Urine Occult Blood 10 H, Urine Nitrite Negative, Urine Bilirubin Negative, Urine Urobilinogen 4 H, Ur Leukocyte Esterase 100 H, Urine RBC 0-5 SEEN, Urine WBC 5-10 SEEN, Ur Squamous Epith Cells 0-5 SEEN, Calcium Oxalate Crystal RARE, Urine Bacteria 1+, Urine Mucus 1+ 08/13/25 06:50: WBC 7.3, RBC 4.07 L, Hgb 11.5 L, Hct 35.6 L, MCV 87.5, MCH 28.3, MCHC 32.3, RDW Std Deviation 48.9 H, RDW Coeff of Antony 15.2 H, Plt Count 139 L, MPV 11.0, Immature Gran % (Auto) 0.400, Neut % (Auto) 72.2 H, Lymph % (Auto) 16.6 L, Hickory % (Auto) 10.3 H, Eos % (Auto) 0.4, Baso % (Auto) 0.1, Absolute Neuts (auto) 5.3, Absolute Lymphs (auto) 1.21, Nucleated RBC % 0, Sodium 141, Potassium 3.4, Chloride 105, Carbon Dioxide 24.7, Anion Gap 12, BUN 16, Creatinine 1.20, Estim Creat Clear Calc 73.76, Est GFR (MDRD) Non-Af 69, BUN/Creatinine Ratio 13.7, Glucose 113 H, Calcium 8.5, Magnesium 2.1, TSH 4.060 Radiography Diagnostic Testing: Radiology Impression Knee X-Ray 08/12/25 09:08 IMPRESSION: Fracture subluxation of the patella as described. Small joint effusion and diffuse soft tissue swelling. Reading Location: [facility]1 Chest X-Ray 08/12/25 15:45 IMPRESSION: Mild pulmonary vascular congestion and interstitial edema. Mild cardiomegaly, stable No focal consolidation. Reading Location: [id number] Brain CT 08/12/25 18:56 IMPRESSION: No acute abnormality Reading Location: [facility] Physical Exam Const Constitutional Narrative: Lying in bed. Afebrile. Nontoxic. No respiratory distress. Resp normal respiratory effort, no retractions, no use of accessory muscles and clear to auscultation bilaterally Cardio regular rate, regular rhythm, S1 normal heart sound and S2 normal heart sound GI normal to inspection, nondistended, normoactive bowel sounds, soft to palpation, non-tender and non-distended Extremity normal to inspection and full ROM Neuro Sensorium / Orientation: awake and alert Assessment & Plan Assessment/Plan (1) Patellar tendon rupture: PLAN: left s/p fall onto knee ortho following. timing of surgery to be determined by orthopedics immobilizer when up. PT OT PLAN: Plan Edema EF 65%. Right particular mildly dilated. Moderate RV systolic dysfunction. History of schizoaffective disorder Has been having some visual hallucinations and was recently started on Seroquel Continue Seroquel at this time, outpatient haloperidol injections GERD Continue PPI DVT ppx: Right lower extremity SCD Charges/Coding Visit Charges Inpatient E&M: 09088 Subs Hosp L1
[2025-08-13 08:48] VITALS: BP 120/70; PULSE 85; RESP 18; TEMP 36.8; O2SAT 96
[2025-08-13] MEDS: Senna/Docusate Sodium 1 Tablet 2 TABLET PO ×2 (08:52→22:18)
[2025-08-13] MEDS: FLU VACCINE 2025-26(6MOS UP) 45 MCG/0.5 ML SYRINGE IM (08:57)
[2025-08-13] MEDS: 0.9% Saline Lock 10 ML Syringe IV (08:58)
--- NOTE | 2025-08-13 13:35 | CASEMGMT ---
Addendum entered by Nannette Medina 08/13/25 14:48: SUKHWINDER MAGALLON Assessment: Pt sister Sara called back. Received information via tc for initial transition planning/care coordination assessment. SUKHWINDER MAGALLON introduced self and role at [facility], pt sister voices understanding and consents to assessment. Care providers, pharmacy, and demographics verified/updated. Admitting Dx: L knee pain after fall Strata Score: 2 PCP:[facility] Specialists:Aiden, psych; teresita Santiago [facility]erred [facility]acy: [facility] Insurance: [facility] Prescription Benefit: yes LNOK: Arletet Love, sister; Sara Rogers, sister Living Arrangements: Pt lives with sister in a two story home with the back entrance being a walk in. Pt sister states they are remodeling currently so pt has FFSU. She states pt does not have a bed, he sleeps in a lift chair. Pt is able to shower self, sister helps with dressing. Pt sister cooks but makes sure there is easy foods to microwave or able to make a sandwich with so pt can do on own. Pt and sister share the laundry, sister gets groceries and administers pt meds. Transportation: Pt sister transports pt to medical appts. DME:cane, 2 walkers, lift chair, walk in shower. Pt does not use AD to ambulate. HHC/SNF: Denies hx of [facility]. [facility]. Pt sister states she told pt when he moved in that as long as he can walk on his own he can stay there. She states if pt cannot walk on own, he will need further therapy in a SNF. Therapy to [facility]. Pt sister states pt has fallen twice in the last week. Pt sister states no further concerns/needs. CM to follow. Advised pt sister to ask CM if any further questions/concerns/needs arise, voices understanding. Pt Sister Goal: Home if pt can ambulate self Plan: TBD pending therapy ramon Jacques RN, CM Original Note: SUKHWINDER MAGALLON into pt room to complete assessment. Pt sitting up in bed in no distress. Introduced self, pt states agreeable to assessment. Pt closed eyes and did not answer questions. Asked if pt wanted SUKHWINDER MAGALLON to call his sister for assessment questions, pt then answered his address but would not answer any further. He stated he was tired and to call his sister. [id number] to Sara Rogers, left vm to return call.
--- NOTE | 2025-08-13 13:37 | NURSING ---
got a return call from Dr. Blankenship's office. requested clarification regarding plan on surgery time frame. aware they will return call with an answer after reaching out to Dr. Blankenship.
--- NOTE | 2025-08-13 13:38 | CASEMGMT ---
Discharge Planning A list of?SNF providers including quality and resource use data and consistent with the patient's preferred geographic region, medical needs, and insurance network was created in [employer] Guide.? This list was provided to the RN NAUN. Megan Martinez, Discharge Planning Asst.
[2025-08-13 15:00] VITALS: BP 114/75; PULSE 94; RESP 16; TEMP 37.1; O2SAT 96
--- NOTE | 2025-08-13 17:01 | CASEMGMT ---
Addendum entered and electronically signed by Mary Ann Edwards 08/13/25 17:15: Time of encounter: [id number] Original Note: Social Work To patient's room for Advance Directive Follow up. Patient opened eyes and acknowledged this ad copy writer with a hello, but promptly closed eyes when this ad copy writer attempted to speak with patient about reason for visit. Patient opened eyes with prompting and stared with a blank but intent stare, affect appearing blunted. Patient stated no did not remember saying wanting information about advance directives, but this ad copy writer uncertain whether patient was grasping what SW was attempting to talk about. This ad copy writer let patient know SW could come back another time, and patient reported yes. Asked patient if he was okay, or if needed anything. Patient stared at this ad copy writer. Asked patient if feeling any better and patient reported no as well as yes to having pain though did not expand about level or source of pain. This ad copy writer spoke with patient's RN Sandra to update to SW observations and patient's reports of pain - RN monitoring. RN reports family has been at hospital today, but had to leave for appointments this afternoon. Chart reviewed and noted patient has history of schizophrenia with paranoia - so affect may congruent to this diagnosis, often associated with a blunted affect. Per chart review, included crisis assessment from 2022 patient has history of court ordered medication administration by injectables while living in [place] - discontinue when patient moved to [place]. Hospitalized in 2022 for exacerbation of schizophrenia and associated paranoia. Spoke with SUKHWINDER MAGALLON who is reaching out to patient's sister for admission assessment information. RN will inquire if patient is active with community mental health provider and whether there may be any concerns about current medication compliance. Plan: SW to follow up again at later time, as able, to explore interest in AD discussion- as well a be available for support as indicated. -LINDA Huber
[2025-08-13 22:28] VITALS: BP 110/66; PULSE 86; RESP 18; TEMP 36.9; O2SAT 96
[2025-08-13 22:41] VITALS: BP 110/66; PULSE 86; RESP 18; TEMP 36.9; O2SAT 96
[2025-08-14 05:26] VITALS: BMI 34.7
[2025-08-14 05:28] VITALS: BP 106/69; PULSE 81; RESP 17; TEMP 37; O2SAT 94
--- NOTE | 2025-08-14 08:46 | PCM.PN.ORT ---
Subjective Subjective no changes, up to a chair Objective Data Objective Data Vital Signs: Vital Signs Temp Pulse Resp BP Pulse Ox O2 Del Method 98.6 F 81 17 106/69 94 Room Air 08/14/25 05:28 08/14/25 05:28 08/14/25 05:28 08/14/25 05:28 08/14/25 05:28 08/14/25 05:28 Oxygen Delivery Method Room Air Weight: 221 lb 5.506 oz Body Mass Index (BMI) 34.7 Intake & Output: Intake and Output for Last 24 Hours 08/12/25 08/13/25 08/14/25 23:59 23:59 23:59 Intake Total 550 / 550 100 / 200 250 / 250 Output Total 300 / 300 1650 / 2000 350 / 350 Balance 250 / 250 -1550 / -1800 -100 / -100 Lab / Micro Data 08/13/25 06:50 08/13/25 06:50 Radiography Diagnostic Testing: Radiology Impression Echocardiogram 08/12/25 15:45 Interpretation Summary The study was technically difficult. The left ventricular ejection fraction is 65 %. Right ventricle appears mildly dilated. Moderate RV systolic dysfunction. Recommend cardiac MRI for further evaluation of the right ventricle if clinically indicated. Ordering Physician: Katia Vera Referring Physician: JACKIE HERNANDEZ Performed By: Jennifer Mejia RCS Physical Exam Narrative no voiced concerns. Const alert Assessment & Plan Assessment/Plan (1) Patellar tendon rupture: PLAN: 59 yr M with patellar tendon rupture. Secured time in OR afternoon of August 20, next . Needs to be NPO wednedsay night at midnight. for now WBAT with leg in full extension, will need to be leg straight for 2-3 weeks post op. Patient and nursing/SW aware.
--- NOTE | 2025-08-14 09:01 | PN.HOSP_ITS ---
Reason for Visit Chief Complaint: Left knee pain Subjective Subjective Feels weak. Objective Data Objective Data Vital Signs: Vital Signs Temp Pulse Resp BP Pulse Ox O2 Del Method 37.0 C 81 17 106/69 94 Room Air 08/14/25 05:28 08/14/25 05:28 08/14/25 05:28 08/14/25 05:28 08/14/25 05:28 08/14/25 05:28 Oxygen Delivery Method Room Air Weight: 100.4 kg Body Mass Index (BMI) 34.7 Intake & Output: Intake and Output for Last 24 Hours 08/12/25 08/13/25 08/14/25 23:59 23:59 23:59 Intake Total 550 / 550 100 / 200 250 / 250 Output Total 300 / 300 1650 / 2000 350 / 350 Balance 250 / 250 -1550 / -1800 -100 / -100 Lab / Micro Data 08/13/25 06:50 08/13/25 06:50 Radiography Diagnostic Testing: Radiology Impression Echocardiogram 08/12/25 15:45 Interpretation Summary The study was technically difficult. The left ventricular ejection fraction is 65 %. Right ventricle appears mildly dilated. Moderate RV systolic dysfunction. Recommend cardiac MRI for further evaluation of the right ventricle if clinically indicated. Ordering Physician: Katai Vera Referring Physician: JACKIE HERNANDEZ Performed By: Jennifer Mejia RCS Physical Exam Const alert and no apparent distress HEENT head/scalp atraumatic and moist oral mucous membranes Resp normal respiratory effort, no retractions, no use of accessory muscles and clear to auscultation bilaterally Cardio regular rate, regular rhythm, S1 normal heart sound and S2 normal heart sound GI normal to inspection, nondistended, normoactive bowel sounds, soft to palpation, non-tender and non-distended Neuro Sensorium / Orientation: awake and alert Assessment & Plan Assessment/Plan (1) Patellar tendon rupture: PLAN: left s/p fall onto knee ortho following. Plan for surgery on 08/20/2025, patient to be NPO at midnight that day. WBAT with leg in full extension, will need to be leg straight for 2-3 weeks post op. immobilizer when up. PT OT PLAN: Plan Edema * EF 65%. Right particular mildly dilated. Moderate RV systolic dysfunction. History of schizoaffective disorder * Has been having some visual hallucinations and was recently started on Seroquel * Continue Seroquel at this time, outpatient haloperidol injections GERD * Continue PPI DVT ppx: Right lower extremity SCD Disposition: to SNF pending authorization. Charges/Coding Visit Charges Inpatient E&M: 32297 Subs Hosp L1 Date medically ready for discharge: 08/14/25 Reason for DC delay: Precert pending from insurance
[2025-08-14 09:14] VITALS: BP 108/68; PULSE 82; RESP 18; TEMP 37.1; O2SAT 95
[2025-08-14] MEDS: 0.9% Saline Lock 10 ML Syringe IV (09:22)
[2025-08-14] MEDS: Senna/Docusate Sodium 1 Tablet 2 TABLET PO ×2 (09:23→21:03)
--- NOTE | 2025-08-14 10:54 | CASEMGMT ---
Addendum entered by Bhakti Gray 08/14/25 14:45: Pt sister Sara called SW and updated that she would be in later today to look at SNF list provided. Pt sister requests HCPOA be completed so that she can get paid time off for pt care. SW reported that pt declined to complete this morning,but SW can continue to work with pt on completion if he desires. BOOGIE educated pt sister that pt will need to be oriented to complete. Pt sister reports that some days his schizophrenia symptoms are bad and he may not be oriented. SW remains available to follow. MAHAD Montano Original Note: Social Work- SW met with pt to discuss discharge planning and advanced directives. Pt does not wish to complete directives at this time. A list of SNF providers including quality and resource use data and consistent with the patient?s preferred geographic region, medical needs, and insurance network were provided from the [employer]Port Guide. Pt would like to review with sisters when they come in this evening. Pt agreeable to BOOGIE speaking with sisters. BOOGIE called sister Sara and left a voicemail. BOOGIE remains available to follow. MAHAD Montano
--- NOTE | 2025-08-14 12:38 | CHAPLAIN ---
Type of Pastoral Visit _x__ Initial Visit ___ Follow-up Visit ___ On-call Visit ___ General Patient Visit ___ Spiritual Assessment ___ Family Conference ___ Bereavement ___ Rapid Response ___ Code Blue ___ Other (describe below) Pastoral Care Referral From _x__ Patient ___ Family ___ Nurse ___ Physician ___ Pulp Piler ___ Mail Superintendent ___ Other (describe below) Sacrament/Intervention _x__ Active listening ___ Anointing ___ Yarsanism ___ Bereavement ___ Communion ___ Stephanie exploration ___ ___ Life review _x__ Prayer ___ Reconciliation ___ Sacrament of Sick _x__ Supportive presence ___ Wedding ___ Other (describe below) Pastoral Comments patient awakens to his name today; pt is able to answer questions but is slow and sluggish in doing so; pt ponders answers for a time before speaking; pt admits to having pain and is discouraged about his situation; pt says that his sister is using crutches and is not able to help as much now which brings him to caregiver needs; pt is expecting to go to a SNF; pt does welcome prayer; pt denies anything further that can be done for him at this time
[2025-08-14 14:28] VITALS: BP 104/69; PULSE 77; RESP 16; TEMP 36.6; O2SAT 95
--- NOTE | 2025-08-14 14:50 | NURSING ---
Phone call placed to sister, Arlette, regarding last administration of IM haldol. She will get into contact with other sister and call with info.
--- NOTE | 2025-08-14 14:51 | TREXTCAR_ITS ---
Diet Diet Order/Speech Therapy: INPATIENT Hospital Diet / Speech Therapy Order(s) 08/12/25 15:43 Diet: Cardiac - Heart Healthy Food consistency:: Regular Liquid Consistency:: Regular/Thin NPO starting at 0001 on 08/20/2025 Routine Orders/Code Status Code Status: DNRCC-A (no intubation) DC O2, CPAP, BIPAP needs Home O2 Discharge instructions: No Wound(s) left ear: Wound Type: Abrasion Left Side of scalp: Wound Type: Abrasion LLE: Wound Type: Abrasion Therapies Weight Bearing: Weight bearing as tolerated (with immobilizer to LLE. ) Physical Therapy: Eval and Treat Occupational Therapy: Eval and Treat Problem/Diagnosis (1) Patellar tendon rupture: Status: Acute Code(s): S86.819A - Strain of other muscle(s) and tendon(s) at lower leg level, unspecified leg, initial encounter Plan: left s/p fall onto knee ortho following. Plan for surgery on 08/20/2025, patient to be NPO at midnight that day. WBAT with leg in full extension, will need to be leg straight for 2-3 weeks post op. immobilizer when up. PT OT Plan Edema * EF 65%. Right particular mildly dilated. Moderate RV systolic dysfunction. History of schizoaffective disorder * Has been having some visual hallucinations and was recently started on Seroquel * Continue Seroquel at this time, outpatient haloperidol injections GERD * Continue PPI DVT ppx: Right lower extremity SCD Disposition: to SNF pending authorization. Allergies/Procedures Done in Hospital Allergies No Known Allergies Allergy (Verified 08/12/25 07:45) Type of Care/Length of Stay Estimated LOS: Convalescent Care Less Than 30 days Type of Care Needed: Skilled Rehab Potential: Fair Prognosis: Good Additional Orders/Day of Discharge Day of Discharge: 08/14/25 Discharge Plan Admission Admit Date/Time: 08/12/25 14:49 Primary Reason for Your Visit: left patella rupture. Attending Provider: Benjamin Ramirez Primary Care Provider: Conner Heard Consulting Providers: Emiliano Blankenship; Katia Vera Discharge Orders/Prescriptions Prescriptions: New acetaminophen 500 mg Tablet 1,000 mg PO Q8 Qty: 0 0RF oxycodone 5 mg Tablet 5 mg PO Q4H PRN PRN (Reason: Pain Score 4-10) 3 Days Qty: 12 0RF Continued magnesium hydroxide [Milk of Magnesia] 400 mg/5 mL suspension 30 ml PO BID PRN (Reason: constipation) Patient Comments: pt family states he takes it PRN last dose roughly 3 weeks ago benztropine 0.5 mg tablet 0.5 mg PO BID Patient Comments: TAKE 1 TABLET BY MOUTH TWICE DAILY haloperidol decanoate 100 mg/mL solution IM QMONTH Patient Comments: unsure of dose baclofen 10 mg tablet 10 mg PO TID PRN (Reason: muscle spasm) Patient Comments: sister states he is taking PRN has not had for a couple months omeprazole 40 mg capsule,delayed release(DR/EC) 40 mg PO DAILY furosemide 20 mg tablet 20 mg PO DAILY quetiapine 50 mg tablet 50 mg PO QHS Patient Comments: just increased 2 weeks ago Discontinued acetaminophen 500 mg tablet 1,000 mg PO Q6H PRN (Reason: fever or pain) Referrals / Follow Up: Conner Heard MD [Primary Care Provider, Family Practice]
[2025-08-14 20:58] VITALS: BP 147/85; PULSE 97; RESP 18; TEMP 36.8; O2SAT 97
[2025-08-15 02:42] VITALS: BP 112/75; PULSE 87; RESP 16; TEMP 36.6; O2SAT 100
[2025-08-15 06:00] VITALS: BMI 34.6
[2025-08-15 08:22] VITALS: BP 107/78; PULSE 73; RESP 18; TEMP 36.3; O2SAT 97
--- NOTE | 2025-08-15 08:24 | PN.HOSP_ITS ---
Reason for Visit Chief Complaint: Left knee pain Subjective Subjective Had intense pain in left knee last night and said nursing did not provide medication for the pain. Today, his pain is tolerable. Objective Data Objective Data Vital Signs: Vital Signs Temp Pulse Resp BP Pulse Ox O2 Del Method 36.3 C L 73 18 107/78 97 Room Air 08/15/25 08:22 08/15/25 08:22 08/15/25 08:22 08/15/25 08:22 08/15/25 08:22 08/15/25 08:22 Oxygen Delivery Method Room Air Weight: 100 kg Body Mass Index (BMI) 34.6 Intake & Output: Intake and Output for Last 24 Hours 08/13/25 08/14/25 08/15/25 23:59 23:59 23:59 Intake Total 100 / 200 1500 / 1500 Output Total 1650 / 2000 1850 / 2100 450 / 450 Balance -1550 / -1800 -350 / -600 -450 / -450 Lab / Micro Data 08/13/25 06:50 08/13/25 06:50 Micro: Microbiology 08/12/25 10:45 Urine, Clean Catch Urine Culture - Final Mixed Gram Positive Organisms Physical Exam Const alert and no apparent distress Resp normal respiratory effort, no retractions and clear to auscultation bilaterally Neuro Neuro Narrative: Abrasions on left lateral leg with some ecchymosis laterally. Sensorium / Orientation: awake and alert Speech: speech normal Assessment & Plan Assessment/Plan (1) Patellar tendon rupture: PLAN: left s/p fall onto knee ortho following. Plan for surgery on 08/20/2025, patient to be NPO at midnight that day. WBAT with leg in full extension, will need to be leg straight for 2-3 weeks post op. immobilizer when up. PT OT PLAN: Plan Edema * EF 65%. Right particular mildly dilated. Moderate RV systolic dysfunction. History of schizoaffective disorder * Has been having some visual hallucinations and was recently started on Seroquel * Continue Seroquel at this time, outpatient haloperidol injections GERD * Continue PPI DVT ppx: Right lower extremity SCD Disposition: to SNF pending authorization which will not be until 08/17 at the earliest. Charges/Coding Visit Charges Inpatient E&M: 41058 Subs Hosp L1 Date medically ready for discharge: 08/14/25 Reason for DC delay: Precert pending from insurance
[2025-08-15] MEDS: Senna/Docusate Sodium 1 Tablet 2 TABLET PO ×2 (08:25→21:54)
[2025-08-15] MEDS: 0.9% Saline Lock 10 ML Syringe IV (11:25)
[2025-08-15 11:29] VITALS: BP 115/73; PULSE 76; RESP 16; O2SAT 95
[2025-08-15 12:49] VITALS: BP 137/86; PULSE 90
--- NOTE | 2025-08-15 13:51 | CASEMGMT ---
Addendum entered by Bhakti Gray 08/15/25 15:33: Social Work- [facility] does not accept care source; referral not appropriate. MAHAD Montano Original Note: Social Work- SW met with pt to discuss selections for SNF. Pt selected [facility] as FOC, [facility] as second choice, and [facility] as third choice. SW completed referrals to all facilities. SW remains available to follow. MAHAD Montano
[2025-08-15 14:54] VITALS: BP 121/75; PULSE 90; RESP 17; TEMP 36.6; O2SAT 98
[2025-08-15 21:44] VITALS: BP 134/82; PULSE 84; RESP 16; TEMP 36.6; O2SAT 96
[2025-08-16 03:38] VITALS: BP 111/73; PULSE 73; RESP 16; TEMP 37.1; O2SAT 97
[2025-08-16 06:00] VITALS: BMI 33.3
--- NOTE | 2025-08-16 08:54 | PN.HOSP_ITS ---
Reason for Visit Chief Complaint: Left knee pain Subjective Subjective Night was ok. Still with pain in leg. Objective Data Objective Data Vital Signs: Vital Signs Temp Pulse Resp BP Pulse Ox O2 Del Method 37.1 C 73 16 111/73 97 Room Air 08/16/25 03:38 08/16/25 03:38 08/16/25 03:38 08/16/25 03:38 08/16/25 03:38 08/16/25 03:38 Oxygen Delivery Method Room Air Weight: 96.4 kg Body Mass Index (BMI) 33.3 Intake & Output: Intake and Output for Last 24 Hours 08/14/25 08/15/25 08/16/25 23:59 23:59 23:59 Intake Total 1500 / 1500 480 / 480 Output Total 1850 / 2100 1800 / 2000 650 / 650 Balance -350 / -600 -1320 / -1520 -650 / -650 Lab / Micro Data 08/13/25 06:50 08/13/25 06:50 Micro: Microbiology 08/12/25 10:45 Urine, Clean Catch Urine Culture - Final Mixed Gram Positive Organisms Physical Exam Const alert and no apparent distress HEENT head/scalp atraumatic and moist oral mucous membranes Resp normal respiratory effort and no retractions Extremity Extremity Narrative: left leg in immobilizer. Assessment & Plan Assessment/Plan (1) Patellar tendon rupture: PLAN: left s/p fall onto knee ortho following. Plan for surgery on 08/20/2025, patient to be NPO at midnight that day. WBAT with leg in full extension, will need to be leg straight for 2-3 weeks post op. immobilizer when up. PT OT pain control PLAN: Plan Edema * EF 65%. Right particular mildly dilated. Moderate RV systolic dysfunction. History of schizoaffective disorder * Has been having some visual hallucinations and was recently started on Seroquel * Continue Seroquel at this time, outpatient haloperidol injections GERD * Continue PPI DVT ppx: enoxaparin Disposition: to SNF pending authorization which will not be until 08/17 at the earliest. Charges/Coding Visit Charges Inpatient E&M: 48571 Subs Hosp L1 Date medically ready for discharge: 08/14/25 Reason for DC delay: Precert pending from insurance
[2025-08-16 09:07] VITALS: BP 115/69; PULSE 79; RESP 18; TEMP 36.5; O2SAT 95
[2025-08-16] MEDS: 0.9% Saline Lock 10 ML Syringe IV ×2 (09:18→21:04)
[2025-08-16] MEDS: Senna/Docusate Sodium 1 Tablet 2 TABLET PO ×2 (09:18→21:04)
[2025-08-16 14:47] VITALS: BP 134/86; PULSE 97; RESP 18; TEMP 36.6; O2SAT 95
[2025-08-16 20:35] VITALS: BP 125/78; PULSE 88; RESP 18; TEMP 36.9; O2SAT 96
[2025-08-16 20:38] VITALS: RESP 18
[2025-08-17 02:31] VITALS: BP 112/78; PULSE 68; RESP 16; TEMP 36.8; O2SAT 98
[2025-08-17 06:00] VITALS: BMI 34.7
--- NOTE | 2025-08-17 08:22 | CASEMGMT ---
Addendum entered by Megan Martinez 08/17/25 11:18: [facility] declined. updated. Megan Martinez DC Planning Asst. Addendum entered by Megan Martinez 08/17/25 10:44: [facility] declined d/t no male bed availability. Original Note: Discharge Planning Updates sent to [facility] and [facility]. Acceptance pending. Megan Martinez DC Planning Asst.
[2025-08-17 08:56] VITALS: RESP 18
[2025-08-17 08:59] VITALS: BP 112/79; PULSE 75; RESP 18; TEMP 36.6; O2SAT 96
[2025-08-17] MEDS: Senna/Docusate Sodium 1 Tablet 2 TABLET PO ×2 (09:03→22:45)
[2025-08-17] MEDS: 0.9% Saline Lock 10 ML Syringe IV (09:04)
--- NOTE | 2025-08-17 10:19 | CASEMGMT ---
Social Work [facility] inquiring about pt's ,monthly injection. SW met w/pt in room, woke pt as he was sleeping. SW inquired about the once monthly injection. Pt initially told SW he gets his medications at [facility]. SW asked again specifically about the shots, pt confirms he gets them at [facility], once per month, he thinks he is due for a shot in a couple weeks. He does think his sister would know when the shots are, he is okay w/SW calling his sister Sara. SW also inquired about pt completing POA for healthcare. Pt agreeable, but then was not sure who he wanted to put down. SW encouraged him to think about it, and SW will check back w/him. SW called pt's sister Sara. She confirms pt has a shot coming up at [facility], and thinks it is on the same day as his appt w/the psychiatrist. She has the information written down but not on her. SW explained will call [facility], and will also keep her updated on the referrals. SW called [facility], pt's appts are: 08/24/25 at 11am for the shot, and 09/02/[address] Wolfe. SW passed this information on to the d/c director of planning, so she can let the facilities know. CASSIE Aldrich
--- NOTE | 2025-08-17 11:27 | PN_ITS ---
Subjective Subjective Patient seen and examined. He had no complaints. He was sitting comfortably in his chair. Review of systems otherwise negative. He is scheduled for surgery on his fractured patella on . He Objective Data Objective Data Vital Signs: Vital Signs Temp Pulse Resp BP Pulse Ox O2 Del Method 97.9 F 75 18 112/79 96 Room Air 08/17/25 08:59 08/17/25 08:59 08/17/25 08:59 08/17/25 08:59 08/17/25 08:59 08/17/25 08:59 Oxygen Delivery Method Room Air Weight: 221 lb 9.033 oz Body Mass Index (BMI) 34.7 Intake & Output: Intake and Output for Last 24 Hours 08/15/25 08/16/25 08/17/25 23:59 23:59 23:59 Intake Total 480 / 480 240 / 240 Output Total 1800 / 2000 1350 / 1650 650 / 650 Balance -1320 / -1520 -1110 / -1410 -650 / -650 Lab / Micro Data 08/13/25 06:50 08/13/25 06:50 Micro: Microbiology 08/12/25 10:45 Urine, Clean Catch Urine Culture - Final Mixed Gram Positive Organisms Physical Exam Const alert and no apparent distress Constitutional Narrative: class I obesity HEENT normocephalic, head/scalp atraumatic, moist oral mucous membranes and oropharynx normal Eyes EOMs intact bilaterally Neck supple and no JVD Lymph Lymphatic: no lymphedema noted Resp normal respiratory effort, normal air movement and clear to auscultation bilaterally Cardio regular rate, regular rhythm, S1 normal heart sound, S2 normal heart sound and no murmurs GI normal to inspection, nondistended, normoactive bowel sounds, soft to palpation and non-tender Extremity Extremity Narrative: left knee wrapped in knee brace Skin General Skin Exam: no breakdown Neuro CN's II-XII intact bilaterally, no focal motor deficits and no sensory deficits noted Motor Exam: general weakness Psych cooperative Mood & Affect: flat affect Assessment & Plan Assessment/Plan (1) Inability to ambulate due to left knee: (2) Quadriceps tendon rupture: (3) Left patella fracture: PLAN: Plan #Left patella tendon rupture * Due to mechanical fall. N.p.o. Tylenol, p.o. oxycodone and IV morphine as needed for pain * For surgery on 08/20/2025 per orthopedic surgery. Left knee in knee brace. Leg to be in full extension. * PT/OT On board. * fall precautions * #History of schizoaffective disorder: On Seroquel. Was having some visual hallucinations initially but this has improved. On benztropine. #GERD:on PPI #DVT prophylaxis: on lovenox Disposition: for likely DC to SNF after surgery. Charges/Coding Visit Charges Inpatient E&M: 44661 Subs Hosp L2 Date medically ready for discharge: 08/14/25 Reason for DC delay: Precert pending from insurance
--- NOTE | 2025-08-17 11:34 | CASEMGMT ---
Social Work [facility] not accepted in [facility](insurance), [facility] or [facility]. SW spoke w/pt again, reviewed list of [facility] facilities from [facility]. SW also explained to pt the plan would be to send him to SNF and then come back for surgery. Pt agreeable to referrals to [facility] and [facility], did want SW to call his sister to speak w/her about it as well. SW called pt's sister Sara, explained that none of pt's first choices are able to take him. SW explained pt is agreeable to [facility] or [facility]. SW also let her know the plan is for pt to go to SNF and then come back for surgery. Pt's sister would prefer [facility] first before [facility]. SW explained the referrals will be made today. SW will continue to follow. CASSIE Aldrich
[2025-08-17 14:50] VITALS: BP 100/63; PULSE 90; RESP 18; TEMP 36.1; O2SAT 97
--- NOTE | 2025-08-17 15:52 | CASEMGMT ---
Addendum entered by Megan Martinez 08/17/25 16:23: [facility] has declined. Megan Martinez DC Planning Asst. Addendum entered by Megan Martinez 08/17/25 16:18: [facility] has accepted. Megan Martinez DC Planning Asst. Original Note: Discharge Planning Referral sent to [facility] and [facility]. Megan Martinez DC Planning Asst.
[2025-08-17 20:33] VITALS: BP 124/85; PULSE 94; RESP 18; TEMP 36.8; O2SAT 97
[2025-08-18 04:17] VITALS: BP 116/78; PULSE 75; RESP 18; TEMP 36.6; O2SAT 97
[2025-08-18 06:00] VITALS: BMI 34.7
[2025-08-18 06:48] LABS: Hematocrit 39.0 % (40-54); Hemoglobin 12.2 g/dL (13.0-16.5); Immature Granulocytes Count 0.030 X10^3/uL (0.0-0.0); Mean Corp Hgb Conc 31.3 g/dL (32-36); Mean Corpuscular Volume 87.6 fL (80-94); Mean Platelet Vol. 11.3 fl (6.2-12.0); NRBC Flagged by Analyzer 0 % (0-5); Platelet Count 182 K/mm3 (150-450); RBC Distribution Width CV 14.6 % (11.6-14.6); RBC Distribution Width SD 47.0 fl (35.1-43.9); Red Blood Count 4.45 M/mm3 (4.6-6.2); White Blood Count 6.8 K/mm3 (4.4-11.0)
[2025-08-18 07:03] LABS: Anion Gap 13 (5-15); BUN 21 mg/dL (4-19); BUN/Creat Ratio 19.6 RATIO (10-20); Calcium,Total 9.4 mg/dL (7.6-11.0); Carbon Dioxide 25.4 mmol/L (21.0-32.0); Chloride 103 mmol/L (98-108); Estimated Creatinine Clearance 82.04 ml/min (50-250); Glucose 104 mg/dL (70-99); Potassium 3.5 mmol/L (3.3-5.1)
[2025-08-18] MEDS: 0.9% Saline Lock 10 ML Syringe IV (09:45)
[2025-08-18] MEDS: Senna/Docusate Sodium 1 Tablet 2 TABLET PO ×2 (09:45→23:32)
[2025-08-18 09:50] VITALS: BP 122/80; PULSE 82; RESP 18; TEMP 36.3; O2SAT 98
--- NOTE | 2025-08-18 11:15 | PN_ITS ---
Subjective Subjective Patient seen and examined. He had no complaints today and had an uneventful night. Review of systems is otherwise negative. He is for surgery on . Objective Data Objective Data Vital Signs: Vital Signs Temp Pulse Resp BP Pulse Ox O2 Del Method 97.4 F L 82 18 122/80 H 98 Room Air 08/18/25 09:50 08/18/25 09:50 08/18/25 09:50 08/18/25 09:50 08/18/25 09:50 08/18/25 09:50 Oxygen Delivery Method Room Air Weight: 220 lb 14.451 oz Body Mass Index (BMI) 34.7 Intake & Output: Intake and Output for Last 24 Hours 08/16/25 08/17/25 08/18/25 23:59 23:59 23:59 Intake Total 240 / 240 240 / 240 600 / 600 Output Total 1350 / 1650 1950 / 1950 700 / 700 Balance -1110 / -1410 -1710 / -1710 -100 / -100 Lab / Micro Data 08/18/25 05:31 08/18/25 05:31 Labs: Laboratory Results - last 24 hr 08/18/25 05:31: WBC 6.8, RBC 4.45 L, Hgb 12.2 L, Hct 39.0 L, MCV 87.6, MCH 27.4, MCHC 31.3 L, RDW Std Deviation 47.0 H, RDW Coeff of Antony 14.6, Plt Count 182, MPV 11.3, Immature Gran % (Auto) 0.400, Neut % (Auto) 69.0, Lymph % (Auto) 19.9, [place] % (Auto) 7.9, Eos % (Auto) 2.5, Baso % (Auto) 0.3, Absolute Neuts (auto) 4.7, Absolute Lymphs (auto) 1.36, Nucleated RBC % 0, Sodium 141, Potassium 3.5, Chloride 103, Carbon Dioxide 25.4, Anion Gap 13, BUN 21 H, Creatinine 1.08, Estim Creat Clear Calc 82.04, Est GFR (MDRD) Non-Af 79, BUN/Creatinine Ratio 19.6, Glucose 104 H, Calcium 9.4 Micro: Microbiology 08/12/25 10:45 Urine, Clean Catch Urine Culture - Final Mixed Gram Positive Organisms Physical Exam Const alert and no apparent distress Constitutional Narrative: class I obesity HEENT normocephalic, head/scalp atraumatic, moist oral mucous membranes and oropharynx normal Eyes EOMs intact bilaterally Neck supple and no JVD Lymph Lymphatic: no lymphedema noted Resp normal respiratory effort, normal air movement, no retractions, no use of accessory muscles and clear to auscultation bilaterally Cardio regular rate, regular rhythm, S1 normal heart sound, S2 normal heart sound and no murmurs GI normal to inspection, nondistended, normoactive bowel sounds, soft to palpation, non-tender and non-distended Extremity normal to inspection and full ROM Extremity Narrative: left knee wrapped in knee brace Skin General Skin Exam: no breakdown Neuro CN's II-XII intact bilaterally, no focal motor deficits and no sensory deficits noted Sensorium / Orientation: awake and alert Speech: speech normal Motor Exam: general weakness Psych cooperative Appearance: appropriate Mood & Affect: flat affect Assessment & Plan Assessment/Plan (1) Inability to ambulate due to left knee: (2) Quadriceps tendon rupture: (3) Left patella fracture: PLAN: Plan #Left patella tendon rupture * Due to mechanical fall. N.p.o. Tylenol, p.o. oxycodone and IV morphine as needed for pain * For surgery on 08/20/2025 per orthopedic surgery. Left knee in knee brace. Leg to be in full extension. * PT/OT On board. * fall precautions * #History of schizoaffective disorder: On Seroquel. Was having some visual hallucinations initially but this has improved. On benztropine. #GERD:on PPI #DVT prophylaxis: on lovenox Disposition: for likely DC to SNF after surgery. Charges/Coding Visit Charges Inpatient E&M: 42293 Subs Hosp L2 Date medically ready for discharge: 08/14/25 Reason for DC delay: Precert pending from insurance
[2025-08-18 14:20] VITALS: BP 101/73; PULSE 89; RESP 18; TEMP 36.3; O2SAT 96
[2025-08-18 19:24] VITALS: BP 119/75; PULSE 87; RESP 18; TEMP 36.7; O2SAT 97
[2025-08-19 03:07] VITALS: BP 154/87; PULSE 94; RESP 18; TEMP 36.5; O2SAT 94
[2025-08-19 03:33] VITALS: BMI 34.7
[2025-08-19 06:32] LABS: Hematocrit 37.5 % (40-54); Hemoglobin 12.1 g/dL (13.0-16.5); Immature Granulocytes Count 0.020 X10^3/uL (0.0-0.0); Mean Corp Hgb Conc 32.3 g/dL (32-36); Mean Corpuscular Volume 86.8 fL (80-94); Mean Platelet Vol. 10.7 fl (6.2-12.0); NRBC Flagged by Analyzer 0 % (0-5); Platelet Count 193 K/mm3 (150-450); RBC Distribution Width CV 14.7 % (11.6-14.6); RBC Distribution Width SD 47.2 fl (35.1-43.9); Red Blood Count 4.32 M/mm3 (4.6-6.2); White Blood Count 7.7 K/mm3 (4.4-11.0)
[2025-08-19 07:08] LABS: Anion Gap 14 (5-15); BUN 25 mg/dL (4-19); BUN/Creat Ratio 24.4 RATIO (10-20); Calcium,Total 9.4 mg/dL (7.6-11.0); Carbon Dioxide 24.8 mmol/L (21.0-32.0); Chloride 102 mmol/L (98-108); Estimated Creatinine Clearance 86.02 ml/min (50-250); Glucose 129 mg/dL (70-99); Potassium 3.6 mmol/L (3.3-5.1)
[2025-08-19 07:59] VITALS: BP 129/81; PULSE 77; RESP 16; TEMP 36.7; O2SAT 96
[2025-08-19] MEDS: Senna/Docusate Sodium 1 Tablet 2 TABLET PO ×2 (10:23→21:58)
--- NOTE | 2025-08-19 14:02 | PN_ITS ---
Subjective Subjective Patient seen and examined with his nurse by his bedside. He had no active complaints. Patient was quite lethargic and his nurse said he had just gotten his pain medications. Unable to do comprehensive review of systems due to his lethargy. Objective Data Objective Data Vital Signs: Vital Signs Temp Pulse Resp BP Pulse Ox O2 Del Method 98.0 F 77 16 129/81 H 96 Room Air 08/19/25 07:59 08/19/25 07:59 08/19/25 07:59 08/19/25 07:59 08/19/25 07:59 08/19/25 07:59 Oxygen Delivery Method Room Air Weight: 220 lb 14.451 oz Body Mass Index (BMI) 34.7 Intake & Output: Intake and Output for Last 24 Hours 08/17/25 08/18/25 08/19/25 23:59 23:59 23:59 Intake Total 240 / 240 840 / 840 200 / 200 Output Total 1950 / 1950 1800 / 1800 300 / 300 Balance -1710 / -1710 -960 / -960 -100 / -100 Lab / Micro Data 08/19/25 06:07 08/19/25 06:07 Labs: Laboratory Results - last 24 hr 08/19/25 06:07: WBC 7.7, RBC 4.32 L, Hgb 12.1 L, Hct 37.5 L, MCV 86.8, MCH 28.0, MCHC 32.3, RDW Std Deviation 47.2 H, RDW Coeff of Antony 14.7 H, Plt Count 193, MPV 10.7, Immature Gran % (Auto) 0.300, Neut % (Auto) 70.1 H, Lymph % (Auto) 20.1, [place] % (Auto) 7.8, Eos % (Auto) 1.4, Baso % (Auto) 0.3, Absolute Neuts (auto) 5.4, Absolute Lymphs (auto) 1.55, Nucleated RBC % 0, Sodium 140, Potassium 3.6, Chloride 102, Carbon Dioxide 24.8, Anion Gap 14, BUN 25 H, Creatinine 1.03, Estim Creat Clear Calc 86.02, Est GFR (MDRD) Non-Af 83, BUN/Creatinine Ratio 24.4 H, Glucose 129 H, Calcium 9.4 Micro: Microbiology 08/12/25 10:45 Urine, Clean Catch Urine Culture - Final Mixed Gram Positive Organisms Physical Exam Const alert and no apparent distress Constitutional Narrative: class I obesity HEENT normocephalic, head/scalp atraumatic, moist oral mucous membranes and oropharynx normal Eyes EOMs intact bilaterally Neck supple and no JVD Lymph Lymphatic: no lymphedema noted Resp normal respiratory effort, normal air movement, no retractions, no use of accessory muscles and clear to auscultation bilaterally Cardio regular rate, regular rhythm, S1 normal heart sound, S2 normal heart sound and no murmurs GI normal to inspection, nondistended, normoactive bowel sounds, soft to palpation, non-tender and non-distended Extremity normal to inspection and full ROM Extremity Narrative: left knee wrapped in knee brace Skin General Skin Exam: no breakdown Neuro no focal motor deficits and no sensory deficits noted Neuro Narrative: Abrasions on left lateral leg with some ecchymosis laterally. lethargic Motor Exam: general weakness Psych Psych Narrative: lethargic Mood & Affect: flat affect Assessment & Plan Assessment/Plan (1) Inability to ambulate due to left knee: (2) Quadriceps tendon rupture: (3) Left patella fracture: PLAN: Plan #Left patella tendon rupture * Due to mechanical fall. On Tylenol, p.o. oxycodone and IV morphine as needed for pain * For surgery on 08/20/2025 per orthopedic surgery. Left knee in knee brace. Leg to be in full extension. * PT/OT On board. * fall precautions * #History of schizoaffective disorder: On Seroquel. Was having some visual hallucinations initially but this has improved. On benztropine. #GERD:on PPI #DVT prophylaxis: on lovenox Disposition: for likely DC to SNF after surgery. Charges/Coding Visit Charges Inpatient E&M: 28549 Subs Hosp L2 Date medically ready for discharge: 08/14/25 Reason for DC delay: Precert pending from insurance
[2025-08-19 14:54] VITALS: BP 132/84; PULSE 87; RESP 16; TEMP 36.7; O2SAT 96
--- NOTE | 2025-08-19 15:41 | CASEMGMT ---
Social Work- SW met with pt and pt son
--- NOTE | 2025-08-19 15:45 | CASEMGMT ---
Social Work- SW met with pt and pt sister to discuss timeline for surgery and discharge planning. Pt and sister agreeable to d/c plans. Pt surgery scheduled for 13:30 08/20/2025. Plan: [facility]; precert to be started following therapy MAHAD Montano
[2025-08-19 21:50] VITALS: BP 112/84; PULSE 81; RESP 18; TEMP 36.8; O2SAT 96
[2025-08-20] VITALS (13 sets, daily range): BP systolic 103–147; BP diastolic 62–89; PULSE 76–96; RESP 15–18; TEMP 36.4–36.9; O2SAT 94–99; BMI 34.7; BMI 33.9
[2025-08-20 05:12] LABS: Hematocrit 37.5 % (40-54); Hemoglobin 12.1 g/dL (13.0-16.5); Immature Granulocytes Count 0.030 X10^3/uL (0.0-0.0); Mean Corp Hgb Conc 32.3 g/dL (32-36); Mean Corpuscular Volume 86.8 fL (80-94); Mean Platelet Vol. 10.7 fl (6.2-12.0); NRBC Flagged by Analyzer 0 % (0-5); Platelet Count 189 K/mm3 (150-450); RBC Distribution Width CV 15.0 % (11.6-14.6); RBC Distribution Width SD 47.8 fl (35.1-43.9); Red Blood Count 4.32 M/mm3 (4.6-6.2); White Blood Count 8.3 K/mm3 (4.4-11.0)
[2025-08-20 05:37] LABS: Anion Gap 13 (5-15); BUN 25 mg/dL (4-19); BUN/Creat Ratio 24.0 RATIO (10-20); Calcium,Total 9.2 mg/dL (7.6-11.0); Carbon Dioxide 23.7 mmol/L (21.0-32.0); Chloride 101 mmol/L (98-108); Estimated Creatinine Clearance 86.02 ml/min (50-250); Glucose 111 mg/dL (70-99); Potassium 3.6 mmol/L (3.3-5.1)
--- NOTE | 2025-08-20 09:28 | NURSING ---
CALLED ANGELINA LARA'S SISTER THERE IS NO CONSENT ORDERED YET BUT WANTED TO MAKE SURE THAT FAMILY WOULD BE HERE FOR HIM TO SIGN- SHE WILL BE HER AROUND 11
[2025-08-20] MEDS: 0.9% Saline Lock 10 ML Syringe IV ×2 (10:16→11:21)
[2025-08-20] MEDS: Lactated Ringers 1,000 ML 100 ML IV (11:21)
--- NOTE | 2025-08-20 11:44 | PCM.PROGNOTE ---
Subjective Subjective Patient seen and examined with his nurse by his bedside. He had no active complaints. He is due for surgery today. Review of systems otherwise negative. He has remained hemodynamically stable. Objective Data Objective Data Vital Signs: Vital Signs Temp Pulse Resp BP Pulse Ox O2 Del Method 98.5 F 76 16 103/62 95 Room Air 08/20/25 11:27 08/20/25 11:27 08/20/25 11:27 08/20/25 11:27 08/20/25 11:27 08/20/25 11:27 Oxygen Delivery Method Room Air Weight: 216 lb 7.903 oz Body Mass Index (BMI) 33.9 Intake & Output: Intake and Output for Last 24 Hours 08/18/25 08/19/25 08/20/25 23:59 23:59 23:59 Intake Total 840 / 840 200 / 200 0 / 0 Output Total 1800 / 1800 1400 / 1400 250 / 250 Balance -960 / -960 -1200 / -1200 -250 / -250 Lab / Micro Data 08/20/25 05:02 08/20/25 05:02 Labs: Laboratory Results - last 24 hr 08/20/25 05:02: WBC 8.3, RBC 4.32 L, Hgb 12.1 L, Hct 37.5 L, MCV 86.8, MCH 28.0, MCHC 32.3, RDW Std Deviation 47.8 H, RDW Coeff of Antony 15.0 H, Plt Count 189, MPV 10.7, Immature Gran % (Auto) 0.400, Neut % (Auto) 69.5, Lymph % (Auto) 20.2, [place] % (Auto) 7.3, Eos % (Auto) 2.2, Baso % (Auto) 0.4, Absolute Neuts (auto) 5.8, Absolute Lymphs (auto) 1.68, Nucleated RBC % 0, Sodium 138, Potassium 3.6, Chloride 101, Carbon Dioxide 23.7, Anion Gap 13, BUN 25 H, Creatinine 1.03, Estim Creat Clear Calc 86.02, Est GFR (MDRD) Non-Af 83, BUN/Creatinine Ratio 24.0 H, Glucose 111 H, Calcium 9.2 Micro: Microbiology 08/12/25 10:45 Urine, Clean Catch Urine Culture - Final Mixed Gram Positive Organisms Physical Exam Const alert and no apparent distress Constitutional Narrative: class I obesity General Appearance: cooperative HEENT normocephalic, head/scalp atraumatic, moist oral mucous membranes and oropharynx normal Eyes EOMs intact bilaterally Neck supple and no JVD Lymph Lymphatic: no lymphedema noted Resp normal respiratory effort, normal air movement, no retractions, no use of accessory muscles and clear to auscultation bilaterally Cardio regular rate, regular rhythm, S1 normal heart sound, S2 normal heart sound and no murmurs GI normal to inspection, nondistended, normoactive bowel sounds, soft to palpation, non-tender and non-distended Extremity normal to inspection Extremity Narrative: left knee wrapped in knee brace Skin General Skin Exam: no breakdown Neuro Sensorium / Orientation: awake and alert Speech: speech normal Motor Exam: general weakness Psych cooperative Psych Narrative: lethargic Mood & Affect: flat affect Assessment & Plan Assessment/Plan (1) Inability to ambulate due to left knee: (2) Quadriceps tendon rupture: (3) Left patella fracture: PLAN: Plan #Left patella tendon rupture Due to mechanical fall. On Tylenol, p.o. oxycodone and IV morphine as needed for pain For surgery on 08/20/2025 per orthopedic surgery. Left knee in knee brace. Leg to be in full extension. PT/OT On board. fall precautions started on gentle hydration with IVF NS @ 125cc/hr today in preparation for surgery #History of schizoaffective disorder: On Seroquel. Was having some visual hallucinations initially but this has improved. On benztropine. #GERD:on PPI #DVT prophylaxis: on lovenox Disposition: for likely DC to SNF after surgery. Charges/Coding Visit Charges Inpatient E&M: 63271 Subs Hosp L2 Date medically ready for discharge: 08/14/25 Reason for DC delay: Precert pending from insurance
[2025-08-20] MEDS: Lactated Ringers 1,000 ML 15 ML IV (12:56)
--- NOTE | 2025-08-20 13:02 | PRE.ANES_ITS ---
ASA Classification* ASA Classification ASA Classification: 3 Assessment & Plan Anesthesia* Anesthesia Assessment Anesthesia Assessment: Discussed sedation and/or anesthesia options, risks, benefits, and alternatives with patient/parents/legal guardian/POA. Questions invited. The patient/parents/legal guardian/POA seems to understand and agrees to proceed with anesthesia plan. Reviewed the physical assessment, medical history, allergy history and patient home medications list prior to surgery/procedure/anesthetic and documented any changes. Performed airway and anesthesia risk assessments. Anesthesia Type Anesthesia Type: General and Block (Patient is consented for pain block.) History Source History Obtained from:: Patient and Chart Anesthesia Focused Assessment* Temperature: 98.5 F Pulse Rate: 76 Blood Pressure: 103/62 Respiratory Rate: 16 Pulse Ox: 95 Oxygen Delivery Method: Room Air Airway Assessment Mouth opens: >3 cm Mallampati Score: IV Teeth Condition: Chipped/Broken (Patient has a broken lower tooth.) Neck Range of motion (ROM): Limited ROM (Severe Restriction) Labs Anesthesia Preop lab: CBC WBC, (4.4-11.0) 8.3 K/mm3 Today, 05:02 RBC, (4.6-6.2) 4.32 M/mm3 L Today, 05:02 Hgb, (13.0-16.5) 12.1 g/dL L Today, 05:02 Hct, (40-54) 37.5 % L Today, 05:02 Plt Count, (150-450) 189 K/mm3 Today, 05:02 CHEMISTRY Potassium, (3.3-5.1) 3.6 mmol/L Today, 05:02 Sodium, (133-145) 138 mmol/L Today, 05:02 Magnesium, (1.5-2.2) 2.1 mg/dL 08/13/25, 06:50 BUN, (4-19) 25 mg/dL H Today, 05:02 Creatinine, (0.70-1.20) 1.03 mg/dL Today, 05:02 Glucose, (70-99) 111 mg/dL H Today, 05:02 TSH, (0.300-4.200) 4.060 uIU/mL 08/13/25, 06:50 COAG Pre-Assessment Diagnosis/Proposed Procedure Planned Operative Procedure(s): Left patellar tendon repair. 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 When Was Last Pacemaker Check QUESTION #4 FULL TEXT: You/Your Family Experience fever (hyperthermia) with Anesthesia Last Oral Intake Last Oral intake: Last Oral Intake NPO since 00:00 08/20/25 11:27 Meds taken in AM with sips of water? Meds patient instructed to take am of surgery PONV PONV - general distillery worker: PONV - general distillery worker Female HX of Motion Sickness HX of N/V After Surgery Non-Smoker Duration of Surgery greater than 60 minutes Number of Risk Factors PONV Score Height & Weight Height & Weight: Anesthesia: Height & Weight Height 5 ft 7 in 08/20/25 11:27 Weight: 98.2 kg 08/20/25 11:27 Body Mass Index (BMI) 33.9 08/20/25 11:27 Respiratory Assessment Respiratory Assessment - general distillery worker: Respiratory Tract Infection Hx - general distillery worker Hx Respiratory Tract Infection N Any additional information?: Yes Hx Respiratory Tract Infection: No STOP Sleep Apnea STOP Sleep Apnea - general distillery worker: STOP Sleep Apnea - general distillery worker Hx Hypertension No 08/13/25 16:41 Hx Sleep Apnea No 08/12/25 15:18 CPAP BIPAP Do you snore loudly (louder Yes 08/12/25 15:18 than talking or can be heard Do you often feel tired/ Yes 08/12/25 15:18 fatigued/ sleepy during daytime? Has anyone observed you stop No 08/12/25 15:18 breathing during sleep? STOP Results Positive 08/12/25 15:18 QUESTION #5 FULL TEXT : Do you snore loudly (louder than talking or can be heard through closed doors)? 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 Specify any problems Hx of Preganancy in last 3 N/A 08/12/25 15:18 Months Nurse Filling Out Transfusion [email or web address] 08/12/25 15:18 & Questions: Date: 08/12/25 08/12/25 15:18 Time: 15:08/12/25 15:18 Patient unable to answer at this time (ie. confused, unrespo /Reproduction History /Reproductive History - general distillery worker: /Reproductive Hx- general distillery worker Hx Now Gestational Age (in weeks): EDC: Hx Hx Para Hx Section SAB Active Medications Active Medications: Current Medications Generic Name Dose Route Start Last Admin Trade Name Freq PRN Reason Stop Dose Admin Acetaminophen 1,000 mg 08/12/25 22:00 08/20/25 06:08 Acetaminophen 500 Mg Tablet PO 1,000 mg Q8 GEOFFREY Administration Albuterol Sulfate 2.5 mg 08/12/25 15:45 Albuterol 2.5 Mg/3 Ml Vial.Neb. INHALATION Q2H PRN PRN SOB &/OR WHEEZING Benztropine Mesylate 0.5 mg 08/12/25 22:00 08/19/25 21:58 Benztropine Mesylate 0.5 Mg Tablet PO 0.5 mg BID GEOFFREY Administration Calamine/Phenol 1 applic 08/14/25 22:00 08/20/25 10:16 Menthol/Lanolin/Calamine/Znox 113 Gm Tube TOPICAL 1 applic BID GEOFFREY Administration Protocol Enoxaparin Sodium 40 mg 08/17/25 06:00 08/20/25 04:16 Enoxaparin 40 Mg/0.4 Ml Syringe SC Not Given DAILY@0600 GEOFFREY Furosemide 40 mg 08/12/25 15:50 08/19/25 10:23 Furosemide 40 Mg/4 Ml Vial IV 40 mg DAILY GEOFFREY Administration Sodium Chloride 250 mls @ 15 mls/hr 08/12/25 15:19 IV .[id number] PRN Saline Flush Sodium Chloride 250 mls @ 15 mls/hr 08/12/25 15:19 IV .[id number] PRN Additional IVPB Infusion Lactated Ringer's 1,000 mls @ 100 mls/hr 08/20/25 11:00 08/20/25 12:20 IV 0 mls/hr .Q10H GEOFFREY Infusion Cefazolin Sodium 2 gm/ Sodium 110 mls @ 200 mls/hr 08/20/25 12:44 Chloride IV 08/20/25 13:16 INTRAOP ONE Lactated Ringer's 1,000 mls @ 15 mls/hr 08/20/25 12:45 08/20/25 12:56 IV 15 mls/hr .Q48H GEOFFREY Administration Melatonin 10 mg 08/12/25 15:45 Melatonin 10 Mg Tablet PO QHS PRN PRN INSOMNIA Morphine Sulfate 2 - 4 mg 08/12/25 15:45 Morphine 2 Mg/Ml Syringe IV Q3H PRN PRN Pain Score 6-10 Morphine Sulfate 2 - 4 mg 08/12/25 16:00 08/12/25 18:20 Morphine 4 Mg/Ml Syringe IV 4 mg Q3H PRN PRN Administration Pain Score 6-10 Ondansetron HCl 4 mg 08/12/25 15:45 Ondansetron 4 Mg/2 Ml Vial IV Q8H PRN PRN NAUSEA/VOMITING Oxycodone HCl 5 mg 08/12/25 15:45 08/19/25 16:23 Oxycodone 5 Mg Tablet PO 5 mg Q4H PRN PRN Administration Pain Score 4-10 Pantoprazole Sodium 40 mg 08/13/25 10:00 08/19/25 10:23 Pantoprazole Sodium 40 Mg Tablet PO 40 mg DAILY GEOFFREY Administration Quetiapine Fumarate 50 mg 08/12/25 22:00 08/19/25 21:58 Quetiapine 25 Mg Tablet PO 50 mg QHS GEOFFREY Administration Senna/Docusate Sodium 2 tablet 08/12/25 22:00 08/19/25 21:58 Senna/Docusate Sodium 1 Tablet PO 2 tablet BID GEOFFREY Administration Sodium Chloride 10 - 40 ml 08/12/25 15:19 08/20/25 11:21 0.9% Saline Lock 10 Ml Syringe IV 20 ml UD PRN Administration SALINE FLUSH PFSH Medical History Patellar tendon rupture Schizoaffective disorder Anxiety and depression Obesity Lymphedema of both lower extremities Chronic low back pain Abrasion of flank Home Medications ?Medication ?Instructions ?Recorded ?Last Taken ?Type benztropine 0.5 mg tablet 0.5 mg PO BID muscle relaxer 02/23/23 08/11/25 History haloperidol decanoate 100 mg/mL mg IM QMONTH schizophr enia 12/16/23 07/29/25 History intramuscular solution magnesium hydroxide 400 mg/5 mL 30 ml PO BID PRN const ipation 05/06/24 Unknown History oral suspension (Milk of Magnesia) baclofen 10 mg tablet 10 mg PO TID PRN muscle spas m 05/03/25 Unknown History furosemide 20 mg tablet 20 mg PO DAILY chf 08/12/25 08/11/25 History omeprazole 40 mg capsule,delayed 40 mg PO DAILY gerd 0 08/12/25 08/11/25 History release quetiapine 50 mg tablet 50 mg PO QHS sleep 08/12/25 08/11/25 History acetaminophen 500 mg tablet 1,000 mg (2 x 500 mg) PO Q 8 #0 tabs 08/14/25 Unknown Rx oxycodone 5 mg tablet 5 mg PO Q4H PRN PRN Pain Sco re 08/14/25 Unknown Rx 4-10 3 days #12 tabs Allergy/AdvReac Type Severity Reaction Status Date / Time No Known Allergies Allergy Verified 08/12/25 07:45 Family History Mother Anxiety and depression Hypertension Myocardial infarction Father Esophageal dysfunction Grandfather CAD (coronary artery disease) Paternal GF. Heart disease Paternal GF. Myocardial infarction Paternal GF. Surgical History History of elbow surgery Social History household members: other details: Lives with his sister. Smoking Status: Never smoker alcohol intake: never substance use type: does not use Review of Systems (Anesthesia) ROS Narrative System reviewed and no additional complaints, except as documented.
--- NOTE | 2025-08-20 13:18 | PCM.PN.ORT ---
Subjective Subjective OK to proceed, left patella tendon repair. spoke with both sisters on phone and in person today at the bedside. Objective Data Objective Data Vital Signs: Vital Signs Temp Pulse Resp BP Pulse Ox O2 Del Method 98.5 F 76 16 103/62 95 Room Air 08/20/25 13:12 08/20/25 13:12 08/20/25 13:12 08/20/25 13:12 08/20/25 13:12 08/20/25 11:27 Oxygen Delivery Method Room Air Weight: 216 lb 7.903 oz Body Mass Index (BMI) 33.9 Intake & Output: Intake and Output for Last 24 Hours 08/18/25 08/19/25 08/20/25 23:59 23:59 23:59 Intake Total 840 / 840 200 / 200 98.33 / 98.33 Output Total 1800 / 1800 1400 / 1400 250 / 250 Balance -960 / -960 -1200 / -1200 -151.67 / -151.67 Lab / Micro Data 08/20/25 05:02 08/20/25 05:02 Labs: Laboratory Results - last 24 hr 08/20/25 05:02: WBC 8.3, RBC 4.32 L, Hgb 12.1 L, Hct 37.5 L, MCV 86.8, MCH 28.0, MCHC 32.3, RDW Std Deviation 47.8 H, RDW Coeff of Antony 15.0 H, Plt Count 189, MPV 10.7, Immature Gran % (Auto) 0.400, Neut % (Auto) 69.5, Lymph % (Auto) 20.2, [place] % (Auto) 7.3, Eos % (Auto) 2.2, Baso % (Auto) 0.4, Absolute Neuts (auto) 5.8, Absolute Lymphs (auto) 1.68, Nucleated RBC % 0, Sodium 138, Potassium 3.6, Chloride 101, Carbon Dioxide 23.7, Anion Gap 13, BUN 25 H, Creatinine 1.03, Estim Creat Clear Calc 86.02, Est GFR (MDRD) Non-Af 83, BUN/Creatinine Ratio 24.0 H, Glucose 111 H, Calcium 9.2 Micro: Microbiology 08/12/25 10:45 Urine, Clean Catch Urine Culture - Final Mixed Gram Positive Organisms Physical Exam Const alert and oriented x3 Constitutional Narrative: L knee less swollen, closed, wearing brace. Assessment & Plan Assessment/Plan (1) Patellar tendon rupture: PLAN: 59-year-old man with a left patellar tendon tear. Plan for repair today. No changes to history and physical exam. His sisters understood and signed the consent form for surgery. 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 Pros and cons risks and benefits were discussed with the patient including but not limited to infection, pain, stiffness, bleeding, damage to surrounding structures, neurovascular injury, recurrence or retear, failure or wear of hardware or fixation, instability, fracture, deep vein thrombosis and pulmonary embolism, anesthetic risks, , patient dissatisfaction, need for further surgery and other risks. Patient understood and wished to proceed with surgery, and signed the informed consent documentation.
--- NOTE | 2025-08-20 15:18 | PCM.OPRPT ---
Procedures Musculoskeletal [id number]: Other Procedure See Report Operative Report (Standard) Operative Information Date of Procedure: 08/20/25 Pre-Operative Diagnosis: Left patellar tendon rupture Post-Operative Diagnosis: Same Surgery/Procedure Performed: Left patellar tendon repair head of ethics and compliance: Yes Arnp: fara Tasks completed by day care assistant: Retracting Additional assistant infant toddler teacher?: No Type of Anesthesia: Block,Regional and General RN Documented Start/Stop Times: Operation Date: 08/20/25 13:30 Case Time Into Pre-Op 08/20/25 12:35 Anesthesia Start 08/20/25 13:44 Into Room 08/20/25 13:44 Procedure Start 08/20/25 14:09 Procedure End 08/20/25 15:13 Anesthesia End 08/20/25 15:17 Out of Room 08/20/25 15:17 Procedure Start Time: 14:09 Procedure Stop Time: 15:13 Select all DRAINS/GRAFTS/IMPLANTS that apply: Implanted device Implanted device details: see below Estimated Blood Loss: 25 Specimen collected: No Description of surgery: Patient brought to the operating room theater. Placed supine on the table. General anesthesia induced. Preoperative block given. Preoperative antibiotics Ancef given weight appropriate dose. Bump on the left hip. Tourniquet applied to left thigh appropriately padded. All bony prominences padded. SCD on the nonoperative leg. Lower extremity prepped and draped in the usual sterile fashion with chlorhexidine-based prep solution allowing over 3 minutes drying time prior to draping. Preoperative timeout performed to confirm the site patient and the surgery. Began by elevating the limb inflating the tourniquet to 250 mmHg. Made a standard anterior midline incision to the knee. Carried the dissection down through skin and subcutaneous tissue achieved meticulous hemostasis. Identified the rupture at the proximal end of the patellar tendon. Debrided any soft tissue from the bony surface achieved bleeding bone at the inferior aspect of the patella for healing. There is also a tear in the medial and lateral retinaculums. Cleaned up the edges of this. I then used a 2.0 mm drill bit from the Arthrex set from distal to proximal to drill a hole across the patella from inferior to superior. The patella was somewhat small from medial to lateral therefore elected to only place 2 anchors. I used passing sutures. I used knee fiber tack anchors. I lengthen these and then I passed the loops and the passing sutures from superior to inferior through the drill tunnels 1 knee fiber tack for each tunnel. I then set the anchor by pulling on the loop on both sides. The anchors sat down nicely through a longitudinal split in the quads tendon, to the superior pole of the patella. I then used fiber tape sutures running Krak?w locking suture from distal to proximal through the patellar tendon, and passed the suture tail through the loops of the knee fiber tack anchor and then back down distally again running locking suture and then tied this distally to create a loop of suture through the knee fiber tack loops itself. I then in full extension pulled on the free ends of the knee fiber tack sutures to then secure the loops fully to create the repair construct. I then cycled the knee 15 times and then retensioned on both sides progressively going back and forth with knee flexion extension and then back to tightening until all slack was taken out of the system. There was a small bony fragment that was also incorporated into the repair at the inferior pole of patella. I then used crisscrossing technique 1 free end from each knee fiber tack across the patellar tendon repair site down distally to the proximal tibia and inserted each of these into a 4.75 mm arthrex swivel lock anchor to create a crisscrossing configuration with 2 total swivel lock anchors, for an internal brace, and I fixed this under minimal tension at 30 degrees of flexion so that as the knee came into over 75 degrees of flexion these sutures were more and more tensioned across the construct without capturing the knee. I then closed the retinaculum with FiberWire suture on both sides knee, and the joint and soft tissue were thoroughly irrigated with normal saline. Tourniquet let down meticulous hemostasis achieved. Subcutaneous tissue closed with 2-0 Vicryl suture and skin with 3-0 Monocryl. Skin cleaned with wet dry dressing followed application of Steri-Strips Adaptic 4 x 4 gauze ABD and loosely wrapped [place] bandage with a hinged knee brace locked in full extension. The patient was woken up transferred off the operating table taken to postanesthetic care unit in stable condition. All sponge needle and instrument counts were correct plan for the patient weight-bear protected in full extension with the brace locked in straight for the first 3 weeks and may be discharged home when they are safe or to a long term facility per social work and follow-up in the office within 2 weeks time okay to change a dressing but leave the Steri-Strips on postoperative day 3. Keep this clean and dry for the first [address]pt 38411 Surgical Findings: As above Complications Complications: No Admit VTE Documentation VTE Present on Admission: No VTE Mechan Device Prophylaxis: SCD's VTE Pharm Prophylaxis ordered?: No Reason prophylaxis not ordered: Treatment Not Indicated
--- NOTE | 2025-08-20 16:06 | PCM.POST.ANE ---
Anesthesia: Postop Eval I Current Vital Signs Temperature: 97.5 F Pulse Rate: 89 Blood Pressure: 139/89 Respiratory Rate: 16 Pulse Ox: 99 Assessment Airway patent: Yes Spontaneous unlabored respirations: Yes nausea: No Vomiting: No Anesthesia Complication: No Fluid Hydration Crystalloid volume administer (ml): 1,100 Total IV fluid infused: 1,100 Progress Note Anesthesia document: Postop Eval 1 completed: Yes
--- NOTE | 2025-08-20 16:15 | POSTOPAN2_ITS ---
Anesthesia Postop Eval I Sum Postop Eval Completion status Anesthesia document: Postop Eval 1 completed: Yes Anesthesia Postop Eval I Summary Anesthesia Postop Eval I Summary: Anesthesia Postop Eval I: Assessment Summary Airway patent Yes 08/20/25 16:06 [email or web address] Spontaneous unlabored Yes 08/20/25 16:06 [email or web address] respirations Mental status nausea No 08/20/25 16:06 [email or web address] Vomiting No 08/20/25 16:06 [email or web address] Anesthesia Postop Eval I: Fluid Summary Crystalloid volume administer 1,100 08/20/25 16:06 [email or web address] (ml) Colloids volume administered ( ml) Blood Product volume administered (ml) Total IV fluid infused 1,100 08/20/25 16:06 [email or web address] Anesthesia Postop Eval I: Summary Notes Anesthesia Complication No 08/20/25 16:06 [email or web address] Anesthesia Complication Comment: Post-operative progress note Anesthesia: Postop Eval II Evaluation Mental status: Awake Pain Level: 0 nausea: No Vomiting: No
--- NOTE | 2025-08-20 16:15 | PCM.POSTANE2 ---
Anesthesia Postop Eval I Sum Postop Eval Completion status Anesthesia document: Postop Eval 1 completed: Yes Anesthesia Postop Eval I Summary Anesthesia Postop Eval I Summary: Anesthesia Postop Eval I: Assessment Summary Airway patent Yes 08/20/25 16:06 COIN MACHINE [email or web address] Spontaneous unlabored Yes 08/20/25 16:06 COIN MACHINE [email or web address] respirations Mental status nausea No 08/20/25 16:06 COIN MACHINE [email or web address] Vomiting No 08/20/25 16:06 COIN MACHINE [email or web address] Anesthesia Postop Eval I: Fluid Summary Crystalloid volume administer 1,100 08/20/25 16:06 COIN MACHINE [email or web address] (ml) Colloids volume administered ( ml) Blood Product volume administered (ml) Total IV fluid infused 1,100 08/20/25 16:06 COIN MACHINE [email or web address] Anesthesia Postop Eval I: Summary Notes Anesthesia Complication No 08/20/25 16:06 COIN MACHINE [email or web address] Anesthesia Complication Comment: Post-operative progress note Anesthesia: Postop Eval II Evaluation Mental status: Awake Pain Level: 0 nausea: No Vomiting: No
--- NOTE | 2025-08-20 16:22 | CASEMGMT ---
Discharge Planning Updates sent to [facility] with request to submit for precert. Megan Martinez DC Planning Asst.
[2025-08-20] MEDS: Senna/Docusate Sodium 1 Tablet 2 TABLET PO (22:07)
[2025-08-21] VITALS (10 sets, daily range): BP systolic 99–153; BP diastolic 53–82; PULSE 75–102; RESP 15–18; TEMP 36.2–37.2; O2SAT 92–98; BMI 34.6
[2025-08-21] MEDS: Lactated Ringers 1,000 ML 100 ML IV ×3 (02:07→22:13)
[2025-08-21 07:14] LABS: Hematocrit 33.3 % (40-54); Hemoglobin 10.9 g/dL (13.0-16.5); Immature Granulocytes Count 0.100 X10^3/uL (0.0-0.0); Mean Corp Hgb Conc 32.7 g/dL (32-36); Mean Corpuscular Volume 86.5 fL (80-94); Mean Platelet Vol. 11.5 fl (6.2-12.0); NRBC Flagged by Analyzer 0 % (0-5); Platelet Count 221 K/mm3 (150-450); RBC Distribution Width CV 14.6 % (11.6-14.6); RBC Distribution Width SD 45.3 fl (35.1-43.9); Red Blood Count 3.85 M/mm3 (4.6-6.2); White Blood Count 14.6 K/mm3 (4.4-11.0)
[2025-08-21 07:32] LABS: Anion Gap 12 (5-15); BUN 21 mg/dL (4-19); BUN/Creat Ratio 21.1 RATIO (10-20); Calcium,Total 8.9 mg/dL (7.6-11.0); Carbon Dioxide 23.5 mmol/L (21.0-32.0); Chloride 104 mmol/L (98-108); Estimated Creatinine Clearance 90.36 ml/min (50-250); Glucose 131 mg/dL (70-99); Potassium 3.8 mmol/L (3.3-5.1)
[2025-08-21] MEDS: Senna/Docusate Sodium 1 Tablet 2 TABLET PO ×2 (10:53→20:57)
--- NOTE | 2025-08-21 13:27 | PN_ITS ---
Subjective Subjective Patient seen and examined with his nurse by his bedside. He is postop day 1 for left patella tendon repair. He had no complaints. Pain was well-controlled. Review of systems otherwise negative. Objective Data Objective Data Vital Signs: Vital Signs Temp Pulse Resp BP Pulse Ox O2 Del Method 97.9 F 76 16 101/56 L 97 Room Air 08/21/25 10:30 08/21/25 10:30 08/21/25 10:30 08/21/25 10:30 08/21/25 10:30 08/21/25 10:31 Oxygen Delivery Method Room Air Weight: 220 lb 10.923 oz Body Mass Index (BMI) 34.6 Intake & Output: Intake and Output for Last 24 Hours 08/19/25 08/20/25 08/21/25 23:59 23:59 23:59 Intake Total 200 / 200 298.33 / 398.33 1990.67 / 1990.67 Output Total 1400 / 1400 650 / 900 450 / 450 Balance -1200 / -1200 -351.67 / -501.67 1541.67 / 1541.67 Lab / Micro Data 08/21/25 06:06 08/21/25 06:06 Labs: Laboratory Results - last 24 hr 08/21/25 06:06: WBC 14.6 H, RBC 3.85 L, Hgb 10.9 L, Hct 33.3 L, MCV 86.5, MCH 28.3, MCHC 32.7, RDW Std Deviation 45.3 H, RDW Coeff of Antony 14.6, Plt Count 221, MPV 11.5, Immature Gran % (Auto) 0.700, Neut % (Auto) 82.5 H, Lymph % (Auto) 10.1 L, [place] % (Auto) 6.6, Eos % (Auto) 0.0, Baso % (Auto) 0.1, Absolute Neuts (auto) 12.1 H, Absolute Lymphs (auto) 1.48, Nucleated RBC % 0, Sodium 139, Potassium 3.8, Chloride 104, Carbon Dioxide 23.5, Anion Gap 12, BUN 21 H, Creatinine 0.98, Estim Creat Clear Calc 90.36, Est GFR (MDRD) Non-Af 88, B UN/Creatinine Ratio 21.1 H, Glucose 131 H, Calcium 8.9 Micro: Microbiology 08/12/25 10:45 Urine, Clean Catch Urine Culture - Final Mixed Gram Positive Organisms Physical Exam Const alert, oriented x3 and no apparent distress Constitutional Narrative: class I obesity General Appearance: cooperative HEENT normocephalic, head/scalp atraumatic, moist oral mucous membranes and oropharynx normal Eyes EOMs intact bilaterally Neck supple and no JVD Lymph Lymphatic: no lymphedema noted Resp normal respiratory effort, normal air movement, no retractions, no use of accessory muscles and clear to auscultation bilaterally Cardio regular rate, regular rhythm, S1 normal heart sound, S2 normal heart sound and no murmurs GI normal to inspection, nondistended, normoactive bowel sounds, soft to palpation, non-tender and non-distended Extremity Extremity Narrative: intact dressing over left knee at site of surgery General Extremity: no tenderness to palpation of joints or extremities Skin General Skin Exam: no breakdown Neuro Neuro Narrative: flat affect Sensorium / Orientation: awake and alert Motor Exam: general weakness Psych Mood & Affect: flat affect Assessment & Plan Assessment/Plan (1) Inability to ambulate due to left knee: (2) Quadriceps tendon rupture: (3) Left patella fracture: PLAN: Plan #Left patella tendon rupture * Due to mechanical fall. On Tylenol, p.o. oxycodone and IV morphine as needed for pain * had left patellar repair on 08/20/2025. Intact dressing over knee * PT/OT On board. * fall precautions * #History of schizoaffective disorder: On Seroquel. Was having some visual hallucinations initially but this has improved. On benztropine. #GERD:on PPI #DVT prophylaxis: on lovenox Disposition:awaiting placement Charges/Coding Visit Charges Inpatient E&M: 42630 Subs Hosp L2 Date medically ready for discharge: 08/14/25 Reason for DC delay: Precert pending from insurance
--- NOTE | 2025-08-21 15:27 | CHAPLAIN ---
Type of Pastoral Visit ___ Initial Visit _x__ Follow-up Visit ___ On-call Visit ___ General Patient Visit ___ Spiritual Assessment ___ Family Conference ___ Bereavement ___ Rapid Response ___ Code Blue ___ Other (describe below) Pastoral Care Referral From _x__ Patient ___ Family ___ Nurse ___ Physician ___ Associate Director Of Nursing ___ Driller'S Assistant ___ Other (describe below) Sacrament/Intervention _x__ Active listening ___ Anointing ___ Hoahaoism ___ Bereavement ___ Communion ___ Stephanie exploration ___ ___ Life review _x__ Prayer ___ Reconciliation ___ Sacrament of Sick _x__ Supportive presence ___ Wedding ___ Other (describe below) Pastoral Comments
--- NOTE | 2025-08-21 16:39 | CASEMGMT ---
Social Work- Pt has been accepted at [facility]; precert pending. HENS has been started. In case of possible weekend discharge, green sheet on chart for nursing to follow for final discharge arrangements/notifications to SNF, patient/family.? Plan: [facility]; precert pending MAHAD Montano?
[2025-08-22 02:50] VITALS: BP 139/80; PULSE 101; RESP 18; TEMP 36.6; O2SAT 97
[2025-08-22 05:33] VITALS: BMI 34.6
[2025-08-22 07:56] VITALS: BP 116/88; PULSE 101; RESP 16; TEMP 36.9; O2SAT 96
[2025-08-22 08:08] LABS: Hematocrit 32.8 % (40-54); Hemoglobin 10.2 g/dL (13.0-16.5); Immature Granulocytes Count 0.040 X10^3/uL (0.0-0.0); Mean Corp Hgb Conc 31.1 g/dL (32-36); Mean Corpuscular Volume 88.4 fL (80-94); Mean Platelet Vol. 11.0 fl (6.2-12.0); NRBC Flagged by Analyzer 0 % (0-5); Platelet Count 160 K/mm3 (150-450); RBC Distribution Width CV 15.0 % (11.6-14.6); RBC Distribution Width SD 48.0 fl (35.1-43.9); Red Blood Count 3.71 M/mm3 (4.6-6.2); White Blood Count 8.8 K/mm3 (4.4-11.0)
[2025-08-22] MEDS: Senna/Docusate Sodium 1 Tablet 2 TABLET PO ×2 (09:17→21:20)
[2025-08-22] MEDS: 0.9% Saline Lock 10 ML Syringe IV (09:20)
[2025-08-22 09:36] LABS: Anion Gap 12 (5-15); BUN 16 mg/dL (4-19); BUN/Creat Ratio 16.2 RATIO (10-20); Calcium,Total 8.7 mg/dL (7.6-11.0); Carbon Dioxide 22.3 mmol/L (21.0-32.0); Chloride 107 mmol/L (98-108); Estimated Creatinine Clearance 89.45 ml/min (50-250); Glucose 112 mg/dL (70-99); Potassium 4.0 mmol/L (3.3-5.1)
--- NOTE | 2025-08-22 10:32 | PN_ITS ---
Subjective Subjective Patient seen and examined. He was seen with his nurse by his bedside. According to the nurse patient appeared to have some. Dreams overnight he was a bit agitated. Patient was apologetic for his behavior last night this morning. Review of systems otherwise negative. Objective Data Objective Data Vital Signs: Vital Signs Temp Pulse Resp BP Pulse Ox O2 Del Method 98.4 F 101 H 16 116/88 H 96 Room Air 08/22/25 07:56 08/22/25 07:56 08/22/25 07:56 08/22/25 07:56 08/22/25 07:56 08/22/25 07:56 Oxygen Delivery Method Room Air Weight: 220 lb 10.923 oz Body Mass Index (BMI) 34.6 Intake & Output: Intake and Output for Last 24 Hours 08/20/25 08/21/25 08/22/25 23:59 23:59 23:59 Intake Total 298.33 / 398.33 4159.67 / 4159.67 465 / 465 Output Total 650 / 900 1250 / 1525 675 / 675 Balance -351.67 / -501.67 2909.67 / 2634.67 -210 / -210 Lab / Micro Data 08/22/25 07:42 08/22/25 07:42 Labs: Laboratory Results - last 24 hr 08/22/25 07:42: WBC 8.8, RBC 3.71 L, Hgb 10.2 L, Hct 32.8 L, MCV 88.4, MCH 27.5, MCHC 31.1 L, RDW Std Deviation 48.0 H, RDW Coeff of Antony 15.0 H, Plt Count 160, MPV 11.0, Immature Gran % (Auto) 0.500, Neut % (Auto) 75.5 H, Lymph % (Auto) 15.1 L, [place] % (Auto) 8.4, Eos % (Auto) 0.3, Baso % (Auto) 0.2, Absolute Neuts (auto) 6.7, Absolute Lymphs (auto) 1.33, Nucleated RBC % 0, Sodium 141, Potassium 4.0, Chloride 107, Carbon Dioxide 22.3, Anion Gap 12, BUN 16, Creatinine 0.99, Estim Creat Clear Calc 89.45, Est GFR (MDRD) Non-Af 88, BUN/Creatinine Ratio 16.2, Glucose 112 H, Calcium 8.7 Micro: Microbiology 08/12/25 10:45 Urine, Clean Catch Urine Culture - Final Mixed Gram Positive Organisms Physical Exam Const alert, oriented x3 and no apparent distress Constitutional Narrative: class I obesity General Appearance: cooperative HEENT normocephalic, head/scalp atraumatic, moist oral mucous membranes and oropharynx normal Eyes EOMs intact bilaterally Neck supple and no JVD Lymph Lymphatic: no lymphedema noted Resp normal respiratory effort, normal air movement, no retractions, no use of accessory muscles and clear to auscultation bilaterally Cardio regular rate, regular rhythm, S1 normal heart sound, S2 normal heart sound and no murmurs GI normal to inspection, nondistended, normoactive bowel sounds, soft to palpation, non-tender and non-distended Extremity normal to inspection Extremity Narrative: intact dressing over left knee at site of surgery General Extremity: no tenderness to palpation of joints or extremities Skin General Skin Exam: no breakdown Neuro no focal motor deficits and no sensory deficits noted Neuro Narrative: flat affect Sensorium / Orientation: awake and alert Motor Exam: general weakness Psych Mood & Affect: flat affect Assessment & Plan Assessment/Plan (1) Inability to ambulate due to left knee: (2) Quadriceps tendon rupture: (3) Left patella fracture: PLAN: Plan #Left patella tendon rupture * Due to mechanical fall. On Tylenol, p.o. oxycodone and IV morphine as needed for pain * had left patellar repair on 08/20/2025. Intact dressing over knee. Today is POD 2. * PT/OT On board. * fall precautions * #History of schizoaffective disorder: On Seroquel. Was having some visual hallucinations initially but this has improved. On benztropine. #GERD:on PPI #DVT prophylaxis: on lovenox Disposition:awaiting placement Charges/Coding Visit Charges Inpatient E&M: 41529 Subs Hosp L2 Date medically ready for discharge: 08/14/25 Reason for DC delay: Precert pending from insurance
[2025-08-22 11:40] VITALS: BP 117/79; PULSE 89; RESP 16; TEMP 36.8; O2SAT 98
[2025-08-22 15:40] VITALS: BP 123/66; PULSE 89; RESP 16; TEMP 37.2; O2SAT 99
[2025-08-22 20:55] VITALS: BP 129/83; PULSE 100; RESP 16; TEMP 36.6; O2SAT 100
[2025-08-23] VITALS (7 sets, daily range): BP systolic 121–160; BP diastolic 72–97; PULSE 87–144; RESP 16–28; TEMP 36.3–36.6; O2SAT 97–100; BMI 34.0
[2025-08-23 07:15] LABS: Hematocrit 32.6 % (40-54); Hemoglobin 10.2 g/dL (13.0-16.5); Immature Granulocytes Count 0.040 X10^3/uL (0.0-0.0); Mean Corp Hgb Conc 31.3 g/dL (32-36); Mean Corpuscular Volume 88.1 fL (80-94); Mean Platelet Vol. 11.3 fl (6.2-12.0); NRBC Flagged by Analyzer 0 % (0-5); Platelet Count 170 K/mm3 (150-450); RBC Distribution Width CV 15.0 % (11.6-14.6); RBC Distribution Width SD 48.2 fl (35.1-43.9); Red Blood Count 3.70 M/mm3 (4.6-6.2); White Blood Count 8.6 K/mm3 (4.4-11.0)
[2025-08-23 08:05] LABS: Anion Gap 13 (5-15); BUN 18 mg/dL (4-19); BUN/Creat Ratio 18.4 RATIO (10-20); Calcium,Total 8.8 mg/dL (7.6-11.0); Carbon Dioxide 22.2 mmol/L (21.0-32.0); Chloride 105 mmol/L (98-108); Estimated Creatinine Clearance 91.46 ml/min (50-250); Glucose 111 mg/dL (70-99); Potassium 3.6 mmol/L (3.3-5.1)
[2025-08-23] MEDS: 0.9% Saline Lock 10 ML Syringe IV ×3 (08:35→18:18)
[2025-08-23] MEDS: Senna/Docusate Sodium 1 Tablet 2 TABLET PO ×2 (08:36→21:08)
--- NOTE | 2025-08-23 10:50 | PN_ITS ---
Subjective Subjective Patient seen and examined with his nurse by his bedside.. He was lying in bed. He had no active complaints. Review of systems otherwise negative. He is awaiting placement. Objective Data Objective Data Vital Signs: Vital Signs Temp Pulse Resp BP Pulse Ox O2 Del Method 97.9 F 87 16 121/75 H 99 Room Air 08/23/25 08:29 08/23/25 08:29 08/23/25 08:29 08/23/25 08:29 08/23/25 08:29 08/23/25 08:29 Oxygen Delivery Method Room Air Weight: 216 lb 14.958 oz Body Mass Index (BMI) 34.0 Intake & Output: Intake and Output for Last 24 Hours 08/21/25 08/22/25 08/23/25 23:59 23:59 23:59 Intake Total 4159.67 / 4159.67 1115 / 1115 0 / 0 Output Total 1250 / 1525 2375 / 2575 600 / 600 Balance 2909.67 / 2634.67 -1260 / -1460 -600 / -600 Lab / Micro Data 08/23/25 06:42 08/23/25 06:42 Labs: Laboratory Results - last 24 hr 08/23/25 06:42: WBC 8.6, RBC 3.70 L, Hgb 10.2 L, Hct 32.6 L, MCV 88.1, MCH 27.6, MCHC 31.3 L, RDW Std Deviation 48.2 H, RDW Coeff of Antony 15.0 H, Plt Count 170, MPV 11.3, Immature Gran % (Auto) 0.500, Neut % (Auto) 75.2 H, Lymph % (Auto) 14.9 L, [place] % (Auto) 8.6, Eos % (Auto) 0.7, Baso % (Auto) 0.1, Absolute Neuts (auto) 6.5, Absolute Lymphs (auto) 1.28, Nucleated RBC % 0, Sodium 140, Potassium 3.6, Chloride 105, Carbon Dioxide 22.2, Anion Gap 13, BUN 18, Creatinine 0.96, Estim Creat Clear Calc 91.46, Est GFR (MDRD) Non-Af 91, BUN/Creatinine Ratio 18.4, Glucose 111 H, Calcium 8.8 Micro: Microbiology 08/12/25 10:45 Urine, Clean Catch Urine Culture - Final Mixed Gram Positive Organisms Physical Exam Const alert, oriented x3 and no apparent distress Constitutional Narrative: class I obesity General Appearance: cooperative HEENT normocephalic, head/scalp atraumatic, moist oral mucous membranes and oropharynx normal Eyes EOMs intact bilaterally Neck supple and no JVD Lymph Lymphatic: no lymphedema noted Resp normal respiratory effort, normal air movement, no retractions, no use of accessory muscles and clear to auscultation bilaterally Cardio regular rate, regular rhythm, S1 normal heart sound, S2 normal heart sound and no murmurs GI normal to inspection, nondistended, normoactive bowel sounds, soft to palpation, non-tender and non-distended Extremity Extremity Narrative: intact dressing over left knee at site of surgery. LLE in knee brace General Extremity: no tenderness to palpation of joints or extremities Neuro CN's II-XII intact bilaterally, no focal motor deficits and no sensory deficits noted Neuro Narrative: flat affect Sensorium / Orientation: awake and alert Speech: speech normal Motor Exam: general weakness Psych cooperative Psych Narrative: lethargic Mood & Affect: flat affect Assessment & Plan Assessment/Plan (1) Inability to ambulate due to left knee: (2) Quadriceps tendon rupture: (3) Left patella fracture: PLAN: Plan #Left patella tendon rupture * Due to mechanical fall. On Tylenol, p.o. oxycodone and IV morphine as needed for pain * had left patellar repair on 08/20/2025. Intact dressing over knee. Today is POD 3. * PT/OT On board. * fall precautions * #History of schizoaffective disorder: * On Seroquel. * Was having some visual hallucinations initially but this has improved. * On benztropine. #GERD:on PPI #DVT prophylaxis: on lovenox Disposition:awaiting placement Charges/Coding Visit Charges Inpatient E&M: 04172 Subs Hosp L2 Date medically ready for discharge: 08/14/25 Reason for DC delay: Precert pending from insurance
--- NOTE | 2025-08-23 14:35 | CT_ITS ---
PROCEDURE: BRAIN/HEAD WITHOUT CONTRAST 08/23/2025 REASON FOR EXAM: MECHANICAL FALL TECHNIQUE: Procedure Code: CTBR Modality: CT Procedure: BRAIN/HEAD WITHOUT CONTRAST Coronal and Sagittal reconstruction series were provided. One or more dose reduction techniques were used (e.g., Automated exposure control, adjustment of the mA and/or kV according to patient size, use of iterative reconstruction technique. COMPARISON: 08/12/2025 FINDINGS: Normal brainstem. Normal cerebellum. No hydrocephalus. No intracranial mass. No intracranial hemorrhage. Small fluid level left sphenoid sinus CT/Brain/Head without Contrast IMPRESSION: Sphenoid sinus. No acute abnormality intracranially Reading [facility]
--- NOTE | 2025-08-23 14:35 | EKG12_ITS ---
Test Reason : tachycardia Blood Pressure : */* mmHG Vent. Rate : 120 BPM Atrial Rate : 120 BPM P-R Int : 150 ms QRS Dur : 72 ms QT Int : 312 ms P-R-T Axes : 45 59 21 degrees QTcB Int : 440 ms Sinus tachycardia Low voltage QRS Junctional ST depression, probably normal Borderline ECG When compared with ECG of 03-May-2025 14:47, Vent. rate has increased by 59 bpm Confirmed by KASSANDRA HANSEN, LUCÍA ([id number]), mapping editor URSZULA ALICEA ([id number]) on 08/24/2025 8:45:05 AM Referred By: Kelsey Confirmed By: LUCÍA CANNON MD
--- NOTE | 2025-08-23 14:46 | NURSING ---
Pt observed on floor. VS, assessment, fall worksheet completed. MD notified, new orders received.
[2025-08-23] MEDS: 0.9% Normal Saline (1000mL) 1,000 ML 100 ML IV (18:11)
[2025-08-24 02:00] VITALS: BP 121/63; PULSE 94; RESP 18; TEMP 36.8; O2SAT 96
[2025-08-24] MEDS: 0.9% Normal Saline (1000mL) 1,000 ML 100 ML IV (04:18)
[2025-08-24 06:00] VITALS: BMI 34.0
[2025-08-24 06:08] LABS: Hematocrit 33.8 % (40-54); Hemoglobin 10.4 g/dL (13.0-16.5); Immature Granulocytes Count 0.050 X10^3/uL (0.0-0.0); Mean Corp Hgb Conc 30.8 g/dL (32-36); Mean Corpuscular Volume 89.7 fL (80-94); Mean Platelet Vol. 11.2 fl (6.2-12.0); NRBC Flagged by Analyzer 0 % (0-5); Platelet Count 167 K/mm3 (150-450); RBC Distribution Width CV 14.9 % (11.6-14.6); RBC Distribution Width SD 49.6 fl (35.1-43.9); Red Blood Count 3.77 M/mm3 (4.6-6.2); White Blood Count 9.9 K/mm3 (4.4-11.0)
[2025-08-24 06:55] LABS: Anion Gap 12 (5-15); BUN 18 mg/dL (4-19); BUN/Creat Ratio 19.5 RATIO (10-20); Calcium,Total 8.8 mg/dL (7.6-11.0); Carbon Dioxide 20.9 mmol/L (21.0-32.0); Chloride 107 mmol/L (98-108); Estimated Creatinine Clearance 94.36 ml/min (50-250); Glucose 113 mg/dL (70-99); Potassium 4.0 mmol/L (3.3-5.1)
[2025-08-24 08:00] VITALS: BP 115/67; PULSE 90; RESP 16; TEMP 36.8; O2SAT 98
--- NOTE | 2025-08-24 10:06 | PCM.TXEXTCAR ---
Diet Diet Order/Speech Therapy: INPATIENT Hospital Diet / Speech Therapy Order(s) 08/20/25 16:54 Diet: Cardiac - Heart Healthy Routine Orders/Code Status Enema Type: Fleetz Enema Frequency: Daily PRN Suppository Type: Dulcolax 10mg Suppository Frequency: Daily PRN Code Status: DNRCC-A (no intubation) DC O2, CPAP, BIPAP needs Home O2 Discharge instructions: No Wound(s) left ear: Wound Type: Abrasion Left Side of scalp: Wound Type: Abrasion LLE: Wound Type: Abrasion LEFT KNEE: Wound Type: Surgical Incision Therapies Physical Therapy: Eval and Treat Occupational Therapy: Eval and Treat Problem/Diagnosis (1) Inability to ambulate due to left knee: Status: Acute Code(s): R26.2 - Difficulty in walking, not elsewhere classified (2) Quadriceps tendon rupture: Status: Acute Code(s): S76.119A - Strain of unspecified quadriceps muscle, fascia and tendon, initial encounter (3) Left patella fracture: Status: Acute Code(s): S82.002A - Unspecified fracture of left patella, initial encounter for closed fracture Plan #Left patella tendon rupture Due to mechanical fall. On Tylenol, p.o. oxycodone and IV morphine as needed for pain had left patellar repair on 08/20/2025. Intact dressing over knee. Today is POD 3. PT/OT On board. fall precautions #History of schizoaffective disorder: On Seroquel. Was having some visual hallucinations initially but this has improved. On benztropine. #GERD:on PPI #DVT prophylaxis: on lovenox Disposition:awaiting placement Allergies/Procedures Done in Hospital Allergies No Known Allergies Allergy (Verified 08/12/25 07:45) Procedures: None Type of Care/Length of Stay Estimated LOS: Convalescent Care Less Than 30 days Type of Care Needed: Skilled Rehab Potential: Fair Prognosis: Good Additional Orders/Day of Discharge Day of Discharge: 08/14/25 Dietary and Speech Recommendations Dietitian Recommendations/Changes: Continue Cardiac diet as ordered Discharge Plan Admission Admit Date/Time: 08/12/25 14:49 Primary Reason for Your Visit: left patella rupture. Attending Provider: Leia Cole Primary Care Provider: Conner Heard Consulting Providers: Emiliano Blankenship; Katia Vera; Benjamin Ramirez Instructions Patient Instructions: ED Patella Fracture Discharge Orders/Prescriptions Prescriptions: New acetaminophen 500 mg Tablet 1,000 mg PO Q8 Qty: 0 0RF oxycodone 5 mg Tablet 5 mg PO Q4H PRN PRN (Reason: Pain Score 4-10) 3 Days Qty: 12 0RF Continued magnesium hydroxide [Milk of Magnesia] 400 mg/5 mL suspension 30 ml PO BID PRN (Reason: constipation) Patient Comments: pt family states he takes it PRN last dose roughly 3 weeks ago benztropine 0.5 mg tablet 0.5 mg PO BID Patient Comments: TAKE 1 TABLET BY MOUTH TWICE DAILY haloperidol decanoate 100 mg/mL solution IM QMONTH Patient Comments: NEXT DOSE DUE August PER FAMILY baclofen 10 mg tablet 10 mg PO TID PRN (Reason: muscle spasm) Patient Comments: sister states he is taking PRN has not had for a couple months omeprazole 40 mg capsule,delayed release(DR/EC) 40 mg PO DAILY furosemide 20 mg tablet 20 mg PO DAILY quetiapine 50 mg tablet 50 mg PO QHS Patient Comments: just increased 2 weeks ago Discontinued acetaminophen 500 mg tablet 1,000 mg PO Q6H PRN (Reason: fever or pain) Referrals / Follow Up: Conner Heard MD [Primary Care Provider, Family Practice] - Within 2 Weeks Emiliano Blankenship MD [Med Staff - Active Staff, Orthopedics] - Within 1 Week Disposition Disposition (needs filled in before D/C Order can be placed): [facility]
--- NOTE | 2025-08-24 10:14 | PHA.DC.MR.R ---
Pharmacy MA Med Reconciliation Pharmacy Service has performed discharge medication reconciliation for this patient. The patient's discharge medication list was reviewed for discrepancies and discrepancies were resolved. Medications at Discharge Home Medications benztropine 0.5 mg tablet 0.5 mg PO BID muscle relaxer 02/23/23 haloperidol decanoate 100 mg/mL intramuscular solution mg IM QMONTH schizophrenia 12/16/23 magnesium hydroxide 400 mg/5 mL oral suspension (Milk of Magnesia) 30 ml PO BID PRN constipation 05/06/24 baclofen 10 mg tablet 10 mg PO TID PRN muscle spasm 05/03/25 furosemide 20 mg tablet 20 mg PO DAILY chf 08/12/25 omeprazole 40 mg capsule,delayed release 40 mg PO DAILY gerd 08/12/25 quetiapine 50 mg tablet 50 mg PO QHS sleep 08/12/25 acetaminophen 500 mg tablet 1,000 mg (2 x 500 mg) PO Q8 #0 tabs 08/14/25 oxycodone 5 mg tablet 5 mg PO Q4H PRN PRN Pain Score 4-10 3 days #12 tabs 08/14/25
[2025-08-24] MEDS: Senna/Docusate Sodium 1 Tablet 2 TABLET PO ×2 (10:15→22:55)
--- NOTE | 2025-08-24 10:34 | CASEMGMT ---
Discharge Planning completed 7000 per insurance co request. Clinical updates sent to [facility]. Megan Martinez DC Planning Asst.
--- NOTE | 2025-08-24 13:11 | PCM.PROGNOTE ---
Subjective Subjective Patient seen and examined with his nurse by his bedside. He was lying calmly in bed. He had no complaints. He has remained hemodynamically stable. He is placement. Yesterday he fell off the commode and hit his head. CT of the brain showed no acute intracranial pathology. He also became tachypneic and tachycardic likely due to the pain and anxiety but that all has subsequently resolved. Objective Data Objective Data Vital Signs: Vital Signs Temp Pulse Resp BP Pulse Ox O2 Del Method 98.2 F 90 16 115/67 98 Room Air 08/24/25 08:00 08/24/25 08:00 08/24/25 08:00 08/24/25 08:00 08/24/25 08:00 08/24/25 08:00 Oxygen Delivery Method Room Air Weight: 216 lb 11.43 oz Body Mass Index (BMI) 34.0 Intake & Output: Intake and Output for Last 24 Hours 08/22/25 08/23/25 08/24/25 23:59 23:59 23:59 Intake Total 1115 / 1115 680 / 680 1000 / 1000 Output Total 2375 / 2575 600 / 600 1000 / 1000 Balance -1260 / -1460 80 / 80 0 / 0 Lab / Micro Data 08/24/25 05:48 08/24/25 05:48 Labs: Laboratory Results - last 24 hr 08/24/25 05:48: WBC 9.9, RBC 3.77 L, Hgb 10.4 L, Hct 33.8 L, MCV 89.7, MCH 27.6, MCHC 30.8 L, RDW Std Deviation 49.6 H, RDW Coeff of Antony 14.9 H, Plt Count 167, MPV 11.2, Immature Gran % (Auto) 0.500, Neut % (Auto) 79.4 H, Lymph % (Auto) 11.3 L, [place] % (Auto) 8.3, Eos % (Auto) 0.3, Baso % (Auto) 0.2, Absolute Neuts (auto) 7.8 H, Absolute Lymphs (auto) 1.11, Nucleated RBC % 0, Sodium 140, Potassium 4.0, Chloride 107, Carbon Dioxide 20.9 L, Anion Gap 12, BUN 18, Creatinine 0.93, Estim Creat Clear Calc 94.36, Est GFR (MDRD) Non-Af 95, BUN/Creatinine Ratio 19.5, Glucose 113 H, Calcium 8.8 Micro: Microbiology 08/12/25 10:45 Urine, Clean Catch Urine Culture - Final Mixed Gram Positive Organisms Radiography Diagnostic Testing: Radiology Impression Brain CT 08/23/25 14:35 IMPRESSION: Sphenoid sinus. No acute abnormality intracranially Reading Location: [facility] Physical Exam Const alert, oriented x3 and no apparent distress Constitutional Narrative: class I obesity General Appearance: cooperative HEENT normocephalic, head/scalp atraumatic, moist oral mucous membranes and oropharynx normal Eyes EOMs intact bilaterally Neck supple and no JVD Lymph Lymphatic: no lymphedema noted Resp normal respiratory effort, normal air movement, no retractions, no use of accessory muscles and clear to auscultation bilaterally Cardio regular rate, regular rhythm, S1 normal heart sound, S2 normal heart sound and no murmurs GI normal to inspection, nondistended, normoactive bowel sounds, soft to palpation, non-tender and non-distended Extremity normal to inspection and full ROM Extremity Narrative: LLE in knee brace General Extremity: no tenderness to palpation of joints or extremities Skin General Skin Exam: no breakdown Neuro no focal motor deficits and no sensory deficits noted Neuro Narrative: flat affect Motor Exam: general weakness Psych cooperative Psych Narrative: lethargic Mood & Affect: flat affect Assessment & Plan Assessment/Plan (1) Inability to ambulate due to left knee: (2) Quadriceps tendon rupture: (3) Left patella fracture: PLAN: Plan #Left patella tendon rupture Due to mechanical fall. On Tylenol, p.o. oxycodone and IV morphine as needed for pain had left patellar repair on 08/20/2025. Intact dressing over knee. Today is POD 4. PT/OT On board. fall precautions #History of schizoaffective disorder: On Seroquel. Was having some visual hallucinations initially but this has improved. On benztropine. #Mechanical fall Patient fell whilst on the commode yesterday. He hit his head and subsequently became tachypneic and tachycardic likely due to pain and anxiety. Stat CT of the brain done did not show any acute intracranial pathology and did not show any evidence of bleed. Tachypnea and tachycardia also subsequently resolved but not normalized. #GERD:on PPI #DVT prophylaxis: on lovenox Disposition:awaiting placement Charges/Coding Visit Charges Inpatient E&M: 13840 Subs Hosp L2 Date medically ready for discharge: 08/14/25 Reason for DC delay: Precert pending from insurance
--- NOTE | 2025-08-24 13:20 | CASEMGMT ---
Social Work- SW completed HENS for precert per [facility] request. [facility] notified of completion. SW remains available to follow. Plan: [facility]; pend precert MAHAD Montano
[2025-08-24 14:00] VITALS: BP 113/66; PULSE 86; RESP 16; TEMP 36.3; O2SAT 99
[2025-08-24 22:46] VITALS: BP 122/78; PULSE 80; RESP 18; TEMP 36.7; O2SAT 97
[2025-08-25 05:22] VITALS: BP 110/62; PULSE 88; RESP 16; TEMP 36.7; O2SAT 97
[2025-08-25 05:42] VITALS: BMI 34.0
[2025-08-25 05:56] LABS: Hematocrit 31.3 % (40-54); Hemoglobin 9.9 g/dL (13.0-16.5); Immature Granulocytes Count 0.030 X10^3/uL (0.0-0.0); Mean Corp Hgb Conc 31.6 g/dL (32-36); Mean Corpuscular Volume 87.4 fL (80-94); Mean Platelet Vol. 11.1 fl (6.2-12.0); NRBC Flagged by Analyzer 0 % (0-5); Platelet Count 177 K/mm3 (150-450); RBC Distribution Width CV 14.7 % (11.6-14.6); RBC Distribution Width SD 47.7 fl (35.1-43.9); Red Blood Count 3.58 M/mm3 (4.6-6.2); White Blood Count 8.1 K/mm3 (4.4-11.0)
[2025-08-25 06:12] LABS: Anion Gap 11 (5-15); BUN 18 mg/dL (4-19); BUN/Creat Ratio 18.6 RATIO (10-20); Calcium,Total 8.7 mg/dL (7.6-11.0); Carbon Dioxide 22.5 mmol/L (21.0-32.0); Chloride 107 mmol/L (98-108); Estimated Creatinine Clearance 93.36 ml/min (50-250); Glucose 109 mg/dL (70-99); Potassium 3.7 mmol/L (3.3-5.1)
--- NOTE | 2025-08-25 07:31 | PCM.PN.HOSP ---
Reason for Visit Chief Complaint: Left knee pain Objective Data Objective Data Vital Signs: Vital Signs Temp Pulse Resp BP Pulse Ox O2 Del Method 98.1 F 88 16 110/62 97 Room Air 08/25/25 05:22 08/25/25 05:22 08/25/25 05:22 08/25/25 05:22 08/25/25 05:22 08/25/25 05:22 Oxygen Delivery Method Room Air Weight: 216 lb 11.43 oz Body Mass Index (BMI) 34.0 Intake & Output: Intake and Output for Last 24 Hours 08/23/25 08/24/25 08/25/25 23:59 23:59 23:59 Intake Total 680 / 680 2000 / 2000 400 / 400 Output Total 600 / 600 2000 / 2250 700 / 700 Balance 80 / 80 0 / -250 -300 / -300 Lab / Micro Data 08/25/25 05:39 08/25/25 05:39 Labs: Laboratory Results - last 24 hr 08/25/25 05:39: WBC 8.1, RBC 3.58 L, Hgb 9.9 L, Hct 31.3 L, MCV 87.4, MCH 27.7, MCHC 31.6 L, RDW Std Deviation 47.7 H, RDW Coeff of Antony 14.7 H, Plt Count 177, MPV 11.1, Immature Gran % (Auto) 0.400, Neut % (Auto) 75.6 H, Lymph % (Auto) 15.0 L, [place] % (Auto) 7.6, Eos % (Auto) 1.2, Baso % (Auto) 0.2, Absolute Neuts (auto) 6.1, Absolute Lymphs (auto) 1.21, Nucleated RBC % 0, Sodium 141, Potassium 3.7, Chloride 107, Carbon Dioxide 22.5, Anion Gap 11, BUN 18, Creatinine 0.94, Estim Creat Clear Calc 93.36, Est GFR (MDRD) Non-Af 92, BUN/Creatinine Ratio 18.6, Glucose 109 H, Calcium 8.7 Micro: Microbiology 08/12/25 10:45 Urine, Clean Catch Urine Culture - Final Mixed Gram Positive Organisms Physical Exam Narrative General: Alert, poor historian, appears uncomfortable HEENT: Atraumatic, normocephalic Eyes: Anicteric, normal conjunctiva, extraocular movements grossly intact Neck: Supple Respiratory: Somewhat diminished at the bases without overt wheezes or rhonchi, normal respiratory effort Cardiovascular: Regular rate and rhythm GI: Soft, nontender, nondistended Extremities: Some 1+ bilateral lower extremity pitting edema Musculoskeletal: Moving all extremities however keeps left knee mostly flexed Neuro: No overt focal neurological deficits Skin: Some erythematous areas over swollen areas also has superficial abrasions to left lateral knee Psych: Cooperative but poor historian Assessment & Plan Assessment/Plan (1) Inability to ambulate due to left knee: (2) Quadriceps tendon rupture: (3) Left patella fracture: PLAN: Plan #Left patella tendon rupture Due to mechanical fall. On Tylenol, p.o. oxycodone and IV morphine as needed for pain had left patellar repair on 08/20/2025. Intact dressing over knee. Today is POD 4. PT/OT On board. fall precautions #History of schizoaffective disorder: On Seroquel. Was having some visual hallucinations initially but this has improved. On benztropine. #Mechanical fall Patient fell whilst on the commode yesterday. He hit his head and subsequently became tachypneic and tachycardic likely due to pain and anxiety. Stat CT of the brain done did not show any acute intracranial pathology and did not show any evidence of bleed. Tachypnea and tachycardia also subsequently resolved but not normalized. #GERD:on PPI #DVT prophylaxis: on lovenox Disposition:awaiting placement Date medically ready for discharge: 08/14/25 Reason for DC delay: Precert pending from insurance
[2025-08-25] MEDS: Senna/Docusate Sodium 1 Tablet 2 TABLET PO (08:06)
[2025-08-25] MEDS: 0.9% Saline Lock 10 ML Syringe IV (08:08)
[2025-08-25 09:28] VITALS: BP 113/68; PULSE 90; RESP 18; TEMP 37.2; O2SAT 97
--- NOTE | 2025-08-25 09:53 | CASEMGMT ---
[facility] has obtained auth to admit. Auth is valid through 09/03/25. SW updated. Megan Martinez DC Planning Asst.
--- NOTE | 2025-08-25 10:04 | TREXTCAR_ITS ---
Diet Diet Order/Speech Therapy: INPATIENT Hospital Diet / Speech Therapy Order(s) 08/20/25 16:54 Diet: Cardiac - Heart Healthy Routine Orders/Code Status Enema Type: Fleetz Enema Frequency: Daily PRN Suppository Type: Dulcolax 10mg Suppository Frequency: Daily PRN Code Status: DNRCC-A (no intubation) DC O2, CPAP, BIPAP needs Home O2 Discharge instructions: No Wound(s) left ear: Wound Type: Abrasion Left Side of scalp: Wound Type: Abrasion LLE: Wound Type: Abrasion LEFT KNEE: Wound Type: Surgical Incision Therapies Physical Therapy: Eval and Treat Occupational Therapy: Eval and Treat Problem/Diagnosis (1) Inability to ambulate due to left knee: Status: Acute Code(s): R26.2 - Difficulty in walking, not elsewhere classified (2) Quadriceps tendon rupture: Status: Acute Code(s): S76.119A - Strain of unspecified quadriceps muscle, fascia and tendon, initial encounter (3) Left patella fracture: Status: Acute Code(s): S82.002A - Unspecified fracture of left patella, initial encounter for closed fracture Plan #Left patella tendon rupture * Due to mechanical fall. On Tylenol, p.o. oxycodone and IV morphine as needed f or pain * had left patellar repair on 08/20/2025. Intact dressing over knee. Today is POD 4. * PT/OT On board. * fall precautions * #History of schizoaffective disorder: * On Seroquel. * Was having some visual hallucinations initially but this has improved. * On benztropine. #Mechanical fall * Patient fell whilst on the commode yesterday. He hit his head and subsequently became tachypneic and tachycardic likely due to pain and anxiety. Stat CT of the brain done did not show any acute intracranial pathology and did not show any evidence of bleed. * Tachypnea and tachycardia also subsequently resolved but not normalized. #GERD:on PPI #DVT prophylaxis: on lovenox Disposition:awaiting placement Allergies/Procedures Done in Hospital Allergies No Known Allergies Allergy (Verified 08/12/25 07:45) Procedures: None Type of Care/Length of Stay Estimated LOS: Convalescent Care Less Than 30 days Type of Care Needed: Skilled Rehab Potential: Fair Prognosis: Good Additional Orders/Day of Discharge Day of Discharge: 08/14/25 Dietary and Speech Recommendations Dietitian Recommendations/Changes: Continue Cardiac diet as ordered Discharge Plan Admission Admit Date/Time: 08/12/25 14:49 Primary Reason for Your Visit: left patella rupture. Attending Provider: Aníbal Melissa Primary Care Provider: Conner Heard Consulting Providers: Emiliano Blankenship; Katia Vera; Benjamin Ramirez; Leia Cole Instructions Patient Instructions: ED Patella Fracture Discharge Orders/Prescriptions Prescriptions: New acetaminophen 500 mg Tablet 1,000 mg PO Q8 Qty: 0 0RF oxycodone 5 mg Tablet 5 mg PO Q4H PRN PRN (Reason: Pain Score 4-10) 3 Days Qty: 12 0RF Continued magnesium hydroxide [Milk of Magnesia] 400 mg/5 mL suspension 30 ml PO BID PRN (Reason: constipation) Patient Comments: pt family states he takes it PRN last dose roughly 3 weeks ago benztropine 0.5 mg tablet 0.5 mg PO BID Patient Comments: TAKE 1 TABLET BY MOUTH TWICE DAILY haloperidol decanoate 100 mg/mL solution IM QMONTH Patient Comments: NEXT DOSE DUE August PER FAMILY baclofen 10 mg tablet 10 mg PO TID PRN (Reason: muscle spasm) Patient Comments: sister states he is taking PRN has not had for a couple months omeprazole 40 mg capsule,delayed release(DR/EC) 40 mg PO DAILY furosemide 20 mg tablet 20 mg PO DAILY quetiapine 50 mg tablet 50 mg PO QHS Patient Comments: just increased 2 weeks ago Discontinued acetaminophen 500 mg tablet 1,000 mg PO Q6H PRN (Reason: fever or pain) Referrals / Follow Up: Conner Heard MD [Primary Care Provider, Family Practice] - Within 2 Weeks Emiliano Blankenship MD [Med Staff - Active Staff, Orthopedics] - Within 1 Week Disposition Disposition (needs filled in before D/C Order can be placed): Assisted Facility
--- NOTE | 2025-08-25 12:05 | DS.PCM_ITS ---
Providers Date of Admission: 08/12/25 Primary Care Physician: Conner Heard MD Consultations 08/12/25 15:45 Consult: Orthopedics Routine Consulting Provider: Emiliano Blankenship Reason for Consult: Patellar tendon rupture EMERGENT Consult: No MD Notified: Yes Date Notified: 08/12/25 Time Notified: 15:48 Method of Notification: ED Physician Initiated Reason For Visit: LEFT KNEE PAIN AFTER FALL Diagnosis Discharge Diagnosis (1) Inability to ambulate due to left knee: Status: Acute Code(s): R26.2 - Difficulty in walking, not elsewhere classified (2) Quadriceps tendon rupture: Status: Acute Code(s): S76.119A - Strain of unspecified quadriceps muscle, fascia and tendon, initial encounter (3) Left patella fracture: Status: Acute Code(s): S82.002A - Unspecified fracture of left patella, initial encounter for closed fracture Plan 59-year-old gentleman was admitted after he tripped and fell and complained of left knee pain. Patient was brought to ED by EMS. Patient is oriented to self as per the which is his baseline. 1. #Left patella tendon rupture: X-ray reviewed which shows Fracture of the Inferior Portion of the Patella. Joint Space Narrowing along the Medial Compartment of the Knee Joint with Superior Dislocation of the Patella retained Yueh of the quadriceps tendon. * Due to mechanical fall. On Tylenol, p.o. oxycodone and IV morphine as needed for pain * had left patellar repair on 08/20/2025. Intact dressing over knee. * PT/OT On board. * fall precautions 08/25: Patient is being discharged to [facility]. 2#History of schizoaffective disorder: * On Seroquel. * Was having some visual hallucinations initially but this has improved. * On benztropine. On baseline #Mechanical fall * Patient fell whilst on the commode yesterday. He hit his head and subsequently became tachypneic and tachycardic likely due to pain and anxiety. Stat CT of the brain did not show any acute intracranial pathology and did not show any evidence of bleed. * Tachypnea and tachycardia also subsequently resolved but not normalized. 08/25: Vitals normal range #GERD:on PPI #DVT prophylaxis: on lovenox 08/25: Prescription for Eliquis 2.5 mg twice daily for DVT prophylaxis given for 2 weeks Discharge medication reconciliation done. Discharge follow-up instructions completed. Discharge process discussed with the patient and all questions were answered to patient's satisfaction. Follow with PCP in 1 to 2 weeks Total time spent, exact 35 minutes on discharge meds reconciliation, examination, coordination of care with nurses and ancillary staff, review of imaging and blood test and discussion with the patient on follow-up instructions. Medications at Discharge Home Medications benztropine 0.5 mg tablet 0.5 mg PO BID muscle relaxer 02/23/23 haloperidol decanoate 100 mg/mL intramuscular solution mg IM QMONTH schizophrenia 12/16/23 magnesium hydroxide 400 mg/5 mL oral suspension (Milk of Magnesia) 30 ml PO BID PRN constipation 05/06/24 baclofen 10 mg tablet 10 mg PO TID PRN muscle spasm 05/03/25 furosemide 20 mg tablet 20 mg PO DAILY chf 08/12/25 omeprazole 40 mg capsule,delayed release 40 mg PO DAILY gerd 08/12/25 quetiapine 50 mg tablet 50 mg PO QHS sleep 08/12/25 acetaminophen 500 mg tablet 1,000 mg (2 x 500 mg) PO Q8 #0 tabs 08/14/25 oxycodone 5 mg tablet 5 mg PO Q4H PRN PRN Pain Score 4-10 3 days #12 tabs 08/14/25 apixaban 2.5 mg tablet (Eliquis) 2.5 mg PO BID 2 weeks #28 tabs 08/25/25 Physical Exam Narrative Seen and examined Patient had left knee patellar fracture repaired. Left lower extremity in a brace. Patient moved his bowels today. Vitals in normal limit. Physical exam General: Alert, Oriented x3, Cooperative. BMI 33.9 kg/m?, obesity grade 1. HEENT: Atraumatic, PERRLA, EOMI, Normocephalic. Oral: No Gingival or Mucosal Lesions/ Ulcerations Neck: Supple, No JVD, Negative Carotid Bruits Chest wall/Lungs: Air entry diminished in bilateral lung bases. No crepitation/rhonchi Cardiovascular: Regular rate and rhythm, Normal S1,S2, No M/G/R Abdomen: Bowel Sounds Present, Soft, Non Tender, Non-Distended : No dysuria. No renal angle tenderness. No suprapubic tenderness. Extremities: No edema, Capillary Refill Less than 3 Seconds Skin: No rashes, No breakdown Musculoskeletal: Right leg in a brace with [place] wrap bandage on. Right knee in a flexed position. ROM restricted Neurological: Cranial nerves II-XII grossly intact, DTR 2+/4. No acute focal neurological deficit. Psych/Mental Status: Normal Affect, Appropriate. Weight / BMI Weight Weight: 216 lb 11.43 oz Body Mass Index (BMI) 34.0 ABG / Lab / Microbiology Data 08/25/25 05:39 08/25/25 05:39 Laboratory: Laboratory Results - last 24 hr 08/25/25 05:39: WBC 8.1, RBC 3.58 L, Hgb 9.9 L, Hct 31.3 L, MCV 87.4, MCH 27.7, MCHC 31.6 L, RDW Std Deviation 47.7 H, RDW Coeff of Antony 14.7 H, Plt Count 177, MPV 11.1, Immature Gran % (Auto) 0.400, Neut % (Auto) 75.6 H, Lymph % (Auto) 15.0 L, [place] % (Auto) 7.6, Eos % (Auto) 1.2, Baso % (Auto) 0.2, Absolute Neuts (auto) 6.1, Absolute Lymphs (auto) 1.21, Nucleated RBC % 0, Sodium 141, Potassium 3.7, Chloride 107, Carbon Dioxide 22.5, Anion Gap 11, BUN 18, Creatinine 0.94, Estim Creat Clear Calc 93.36, Est GFR (MDRD) Non-Af 92, BUN/Creatinine Ratio 18.6, Glucose 109 H, Calcium 8.7 Microbiology: Microbiology 08/12/25 10:45 Urine, Clean Catch Urine Culture - Final Mixed Gram Positive Organisms D/C Instructions DC O2, CPAP, BIPAP Needs Home O2 Discharge instructions: No Meaningful Use Info Meaningful Use Meaningful Use Diagnoses (Choose all that apply): None applicable Discharge Plan Admission Admit Date/Time: 08/12/25 14:49 Primary Reason for Your Visit: left patella rupture. Attending Provider: Aníbal Melissa Primary Care Provider: Conner Heard Consulting Providers: Emiliano Blankenship; Katia Vera; Benjamin Ramirez; Leia Cole Instructions Patient Instructions: ED Patella Fracture Discharge Orders/Prescriptions Prescriptions: New acetaminophen 500 mg Tablet 1,000 mg PO Q8 Qty: 0 0RF oxycodone 5 mg Tablet 5 mg PO Q4H PRN PRN (Reason: Pain Score 4-10) 3 Days Qty: 12 0RF Eliquis 2.5 mg tablet 2.5 mg PO BID 14 Days Qty: 28 0RF Continued magnesium hydroxide [Milk of Magnesia] 400 mg/5 mL suspension 30 ml PO BID PRN (Reason: constipation) Patient Comments: pt family states he takes it PRN last dose roughly 3 weeks ago benztropine 0.5 mg tablet 0.5 mg PO BID Patient Comments: TAKE 1 TABLET BY MOUTH TWICE DAILY haloperidol decanoate 100 mg/mL solution IM QMONTH Patient Comments: NEXT DOSE DUE August PER FAMILY baclofen 10 mg tablet 10 mg PO TID PRN (Reason: muscle spasm) Patient Comments: sister states he is taking PRN has not had for a couple months omeprazole 40 mg capsule,delayed release(DR/EC) 40 mg PO DAILY furosemide 20 mg tablet 20 mg PO DAILY quetiapine 50 mg tablet 50 mg PO QHS Patient Comments: just increased 2 weeks ago Discontinued acetaminophen 500 mg tablet 1,000 mg PO Q6H PRN (Reason: fever or pain) Referrals / Follow Up: Conner Heard MD [Primary Care Provider, Family Practice] - Within 2 Weeks Emiliano Blankenship MD [Med Staff - Active Staff, Orthopedics] - Within 1 Week Disposition Disposition (needs filled in before D/C Order can be placed): Custodial Facility Charges/Coding Visit Charges Inpatient E&M: 28579 Disch Hosp >30min
--- NOTE | 2025-08-25 12:13 | CASEMGMT ---
Social Work Precert has been obtained.? Physician updated and pt is ready for discharge today.? PASRR form completed in [facility]. SW met with pt and they are agreeable to discharge plan as stated above.? DCA and bedside nurse notified of discharge. DCA to complete all final arrangements and notifications. Disposition: [facility], skilled level of care MAHAD Montano
--- NOTE | 2025-08-25 12:55 | CASEMGMT ---
Discharge Planning Discharge orders, signed med list, and transport time sent to [facility]. Physicians will transport pt by cot at 2:30p. Nursing, SW, and pt updated. left for pts sister (Arlette). Megan Martinez DC Planning Asst.
--- NOTE | 2025-08-25 13:49 | NURSING ---
report called and given to Kaylin at [facility]
[2025-08-25 14:00] VITALS: BP 122/68; PULSE 88; RESP 18; TEMP 36.8; O2SAT 96
== END 2025-08-25 14:51 | disposition skilled nursing facility (03) ==
LOC: ED 13:51 → MS3 08-13 07:02
PROVIDERS: Orthopaedic Surgery Sports Medicine; Student in an Organized Health Care Education/Training Program; Admitting Provider Internal Medicine; Emergency Provider Emergency Medicine; PCP Family Medicine; Visit Provider Internal Medicine
PROC: (CPT 27524; principal; 2025-08-20 13:15)
DX: S82.002A Unspecified fracture of left patella, initial encounter for closed fracture (principal); F25.9 Schizoaffective disorder, unspecified; S76.112A Strain of left quadriceps muscle, fascia and tendon, initial encounter; D64.9 Anemia, unspecified; E66.811 Obesity, class 1; F41.9 Anxiety disorder, unspecified; Z66 Do not resuscitate; I89.0 Lymphedema, not elsewhere classified; S80.212A Abrasion, left knee, initial encounter; W18.12XA Fall from or off toilet with subsequent striking against object, initial encounter; S00.01XA Abrasion of scalp, initial encounter; S00.412A Abrasion of left ear, initial encounter; Y92.230 Patient room in hospital as the place of occurrence of the external cause; K21.9 Gastro-esophageal reflux disease without esophagitis; R26.2 Difficulty in walking, not elsewhere classified; M54.50 Low back pain, unspecified; R00.0 Tachycardia, unspecified; R06.82 Tachypnea, not elsewhere classified; G89.29 Other chronic pain; Z68.33 Body mass index [BMI] 33.0-33.9, adult; Z79.899 Other long term (current) drug therapy
CPT/HCPCS: 27380; 01320; 64445; 64447; 36415; 70450; 71045; 73562; 80048; 80053; 81001; 83735; 83880; 84443; 85025; 87086; 87088; 93005; 93306; 96361; 96372; 96374; 96375; 96376; 97110; 97116; 97162; 97166; 97530; 97535; 99221; 99285; C1713; Q9957; A4216; C8929; G0378; J1938; J2405

== ENCOUNTER → 2025-09-01 05:00 | Outpatient (REF) | payer MEDICAID, SELFPAY ==
[2025-09-01 09:29] LABS: Hematocrit 35.3 % (40-54); Hemoglobin 10.8 g/dL (13.0-16.5); Mean Corp Hgb Conc 30.6 g/dL (32-36); Mean Corpuscular Volume 89.6 fL (80-94); Mean Platelet Vol. 11.0 fl (6.2-12.0); Platelet Count 258 K/mm3 (150-450); RBC Distribution Width CV 15.0 % (11.6-14.6); RBC Distribution Width SD 49.4 fl (35.1-43.9); Red Blood Count 3.94 M/mm3 (4.6-6.2); White Blood Count 7.7 K/mm3 (4.4-11.0)
[2025-09-01 09:48] LABS: Cholesterol 143 mg/dL (<=200); Low Density Lipoprotein Calc. 82 mg/dL; T4 Total, Thyroxin 7.5 ug/dL (4.5-12.1); Triglycerides 169 mg/dL; Very Low Density Lipoprotein 34 mg/dL (5-40); cholesterol:hdl ratio screen 5.20
[2025-09-01 09:49] LABS: AST(SGOT) 35 U/L (<=37); Alanine Aminotransfer ALT/SGPT 34 U/L (<=46); Albumin, Serum 3.5 g/dL (3.4-4.8); Alkaline Phosphatase 35 U/L (40-129); Anion Gap 12 (5-15); BUN 21 mg/dL (4-19); BUN/Creat Ratio 19.5 RATIO (10-20); Calcium,Total 9.3 mg/dL (7.6-11.0); Carbon Dioxide 25.4 mmol/L (21.0-32.0); Chloride 103 mmol/L (98-108); Globulin 3.5 g/dL (2.2-4.2); Glucose 92 mg/dL (70-99); Potassium 4.2 mmol/L (3.3-5.1)
== END ==
LOC: OLS.SW 05:00
PROVIDERS: PCP Family Medicine; Visit Provider Family Medicine
DX: F25.9 Schizoaffective disorder, unspecified (principal); S76.119D Strain of unspecified quadriceps muscle, fascia and tendon, subsequent encounter; K21.9 Gastro-esophageal reflux disease without esophagitis; F33.9 Major depressive disorder, recurrent, unspecified; Z91.81 History of falling; S82.002D Unspecified fracture of left patella, subsequent encounter for closed fracture with routine healing
CPT/HCPCS: 36415; 80053; 80061; 83036; 84436; 84443; 85027

== ENCOUNTER 2025-10-12 10:41 | Emergency (ER) | payer MEDICAID, SELFPAY ==
[2025-10-12 10:43] VITALS: BP 116/74; PULSE 68; RESP 16; TEMP 36.6; O2SAT 98; BMI 35.5
--- NOTE | 2025-10-12 11:21 | EX.ED.DYSGE1 ---
HPI History of Present Illness Chief Complaint: Abscess Informant: patient, EMS and SNF Narrative Narrative: Patient is a 59-year-old male presenting with a sore area on his buttocks. - Reports soreness on his buttocks for 3-4 weeks. - Denies abdominal pain. - Unsure how long the area has been draining. - Spends most of his time lying in bed due to a left knee issue - had fracture after trip and fall, and surgery. - Currently in a [facility] for rehabilitation. - Reports increased knee pain recently. - Denies history of DM. No fevers/chills. PFSH [facility] Medical History Patellar tendon rupture Schizoaffective disorder Anxiety and depression Obesity Lymphedema of both lower extremities Chronic low back pain Abrasion of flank Home Medications ?Medication ?Instructions ?Recorded ?Last Taken ?Type benztropine 0.5 mg tablet 0.5 mg PO BID muscle relaxer 02/23/23 08/11/25 History haloperidol decanoate 100 mg/mL mg IM QMONTH schizophrenia 12/16/23 07/29/25 History intramuscular solution magnesium hydroxide 400 mg/5 mL 30 ml PO BID PRN constipation 05/06/24 Unknown History oral suspension (Milk of Magnesia) baclofen 10 mg tablet 10 mg PO TID PRN muscle spasm 05/03/25 Unknown History furosemide 20 mg tablet 20 mg PO DAILY chf 08/12/25 08/11/25 History omeprazole 40 mg capsule,delayed 40 mg PO DAILY gerd 08/12/25 08/11/25 History release quetiapine 50 mg tablet 50 mg PO QHS sleep 08/12/25 08/11/25 History acetaminophen 500 mg tablet 1,000 mg (2 x 500 mg) PO Q8 #0 tabs 08/14/25 Unknown Rx apixaban 2.5 mg tablet (Eliquis) 2.5 mg PO BID 2 weeks #28 tabs 08/25/25 Unknown Rx sulfamethoxazole 800 1 tab PO BID #14 TABLETS 10/12/25 Unknown Rx mg-trimethoprim 160 mg tablet Allergy/AdvReac Type Severity Reaction Status Date / Time No Known Allergies Allergy Verified 10/12/25 10:49 Family History Mother Anxiety and depression Hypertension Myocardial infarction Father Esophageal dysfunction Grandfather CAD (coronary artery disease) Paternal GF. Heart disease Paternal GF. Myocardial infarction Paternal GF. Surgical History History of elbow surgery Social History household members: other details: Lives with his sister. Smoking Status: Never smoker alcohol intake: never substance use type: does not use ROS ROS ED Constitutional Constitutional ED: Denies chills or fever(s) Eyes Eyes: Denies change in vision or diplopia ENT ENT ED: Denies rhinorrhea or sore throat Cardiovascular Cardiovascular: Denies chest pain or palpitations Respiratory/Chest Respiratory/Chest: Denies cough or dyspnea Gastrointestinal Gastrointestinal: Denies abdominal pain, diarrhea, nausea or vomiting Genitourinary Genitourinary ED: Denies dysuria or hematuria Musculoskeletal Musculoskeletal: Reports other Details: left knee pain since surgery ; Denies back pain or neck pain Integumentary Reports abscess; Denies rash Neurologic Neurologic: Denies headache(s), paresthesias or weakness EXAM Physical Exam Const Vital Signs: 10/12/25 10:43 Temperature 98 F Temperature Source Temporal Pulse Rate 68 Respiratory Rate 16 Blood Pressure 116/74 Blood Pressure Mean 88 Pulse Ox 98 Oxygen Delivery Method Room Air Positive well nourished, well developed and obese General Appearance ED: well developed and NAD Nutritional Appearance: obese HEENT Reports moist mucous membranes normocephalic and atraumatic Eyes PERRL and EOMs intact bilaterally Neck full ROM and supple Resp normal respiratory effort and clear to auscultation bilaterally Cardio regular rate, regular rhythm and no murmurs Rate: Negative for tachycardic GI non-tender and non-distended Auscultation: normoactive bowel sounds Palpation: soft Narrative: Light brown nonbloody stool in rectal vault, perianal area is nontender. In the perineum, not involving the scrotum, there is an open wound draining small amount of blood and pus. There is no surrounding erythema there is no necrotic tissue and there is no palpable subcutaneous emphysema anywhere. Scrotum is benign and not infected. Back/Spine no CVA tenderness Extremity Extremity Narrative: Left knee anterior surgical incision is well-healed and without signs of dehiscence or infection. Knee brace intact, limited range of motion of the left knee no effusion. General Extremety ED: Negative for edema or pulses abnormal General Extremity: Negative for edema or pulses abnormal Neuro oriented x3, CN's II-XII intact bilaterally and no sensory deficits noted Neuro Narrative: No focal motor deficits Sensorium / Orientation: awake and alert Psych Psych Narrative: Flat affect Skin no rashes or lesions noted and no wounds MDM MDM MDM Narrative Medical decision making narrative: Assessment: The patient is a 59-year-old male with history of recent knee fracture status-post surgery who presents from a nursing facility with a 3- to 4-week history of a draining perineal lesion. Bedside exam reveals an open abscess approximately 2 cm deep, actively draining blood-tinged purulent material; scrotum and rectum are uninvolved. Probing showed no loculated pockets beyond the primary cavity. Surrounding tissue is viable with no crepitus, necrosis, or concern for Mehdi gangrene. Vitals are normal and he is nontoxic without abdominal pain, making systemic infection unlikely. Given these findings, a simple perineal abscess is the most likely diagnosis; advanced imaging is unnecessary at this time. Plan: - Abscess drained, see proc note - Prescribed Bactrim for MRSA coverage. - Provided nursing facility instructions for daily dressing changes and signs of worsening infection; advised surgical follow-up PRN. - Discharged back to [facility]; outpatient management appropriate given stable vitals and localized infection. Diagnostics: - Wound culture of perineal abscess contents obtained for aerobic/anaerobic bacteria. Reevaluations: - After debridement: cavity appears fully explored, drainage diminished; no further pockets palpated; decision made to forgo CT imaging. Procedures Other Procedures Procedure(s): Complex abscess drainage perineum: Cavity already opened no incision needed. Verbal informed consent from the patient obtained. Irrigated cavity with 80 cc sterile saline after chlorhexidine prep. Deloculated with sterile hemostats; packed with 1-inch sterile gauze. Wound culture obtained for aerobic/anaerobic analysis. Dressing placed by nursing, tolerated well no complications. Discharge Plan Triage Chief Complaint: Abscess ED Provider: Emmett Mcneal Dx/Rx/DC Orders Clinical Impression: Abscess of superficial perineal space Instructions: ED Abscess Incision And Drainage Prescriptions: New sulfamethoxazole-trimethoprim 800-160 mg tablet 1 tab PO BID Qty: 14 0RF No Action magnesium hydroxide [Milk of Magnesia] 400 mg/5 mL suspension 30 ml PO BID PRN (Reason: constipation) Patient Comments: pt family states he takes it PRN last dose roughly 3 weeks ago benztropine 0.5 mg tablet 0.5 mg PO BID Patient Comments: TAKE 1 TABLET BY MOUTH TWICE DAILY haloperidol decanoate 100 mg/mL solution IM QMONTH Patient Comments: NEXT DOSE DUE August PER FAMILY baclofen 10 mg tablet 10 mg PO TID PRN (Reason: muscle spasm) Patient Comments: sister states he is taking PRN has not had for a couple months omeprazole 40 mg capsule,delayed release(DR/EC) 40 mg PO DAILY furosemide 20 mg tablet 20 mg PO DAILY quetiapine 50 mg tablet 50 mg PO QHS Patient Comments: just increased 2 weeks ago acetaminophen 500 mg Tablet 1,000 mg PO Q8 Qty: 0 0RF Eliquis 2.5 mg tablet 2.5 mg PO BID 14 Days Qty: 28 0RF Primary Care Provider: Conner Heard Referrals: Saumya Livingston MD [Med Staff - Active Staff, General Surgery] - 3-5 Days if not improving Activity Restrictions/Additional Instructions: - Your perineal abscess was drained swabbed for culture, irrigated with sterile saline, and packed with sterile gauze. - Start the prescribed Bactrim to cover MRSA; have your [facility] team fill the prescription and give it to you exactly as directed. Next dose ideally to be given tonight 10/12. - Follow the wound care instructions provided: have nursing change the packing and outer dressing daily, keep the area clean and dry, and use fresh sterile gauze each time. - If there is no one available to repack the wound with strip gauze, then wait for 48 hrs before removing the gauze packing that is present right now (morning of 10/14), and then simply cover with gauze dressing and change 2x daily until no more drainage. - Follow up with surgery as an outpatient as needed to monitor healing or address any concerns. Print Language: Macedonian Disposition Disposition: Home, Self Care
[2025-10-12] MEDS: Smz/Tmp Ds Tablet 1 TABLET PO (11:34)
[2025-10-12 12:00] VITALS: BP 141/78; PULSE 64; RESP 18; TEMP 36.6; O2SAT 99
== END 2025-10-12 12:01 | disposition home or self-care (01) ==
PROVIDERS: Emergency Provider Emergency Medicine; PCP Family Medicine; Visit Provider Emergency Medicine
DX: L02.215 Cutaneous abscess of perineum (principal); E66.9 Obesity, unspecified
CPT/HCPCS: 10060; 99284